=== PATIENT | female | born 1945 | race Caucasian/White ===

== ENCOUNTER 2019-05-22 11:00 | Outpatient (CLI) | payer MEDICARE, MEDICAID, SELFPAY | END 2019-05-22 11:01 | disposition home or self-care (01) | LOC: ONCMED 13:56 | PROVIDERS: Family Provider Nurse Practitioner Family; PCP Nurse Practitioner Family; Visit Provider Internal Medicine Medical Oncology | DX: Z76.89 Persons encountering health services in other specified circumstances (principal) ==

== ENCOUNTER 2019-06-12 12:05 | Outpatient (CLI) | payer MEDICARE, MEDICAID, SELFPAY ==
[2019-06-12 15:19] LABS: Basophils # 0.1 10^3/uL (0.0-0.1); Basophils % 0.5 %; Eosinophils # 0.1 10^3/uL (0.0-0.8); Eosinophils % 0.9 %; Hematocrit 40.3 % (37.0-47.0); Hemoglobin 12.8 g/dL (11.5-15.3); Mean Corpuscular HGB Conc 31.8 g/dL (30.0-36.0); Mean Corpuscular Hemoglobin 28.5 pg (28.0-34.0); Mean Corpuscular Volume 89.8 fL (81-99); Monocytes # 0.6 10^3/uL (0.2-0.9); Monocytes % 5.4 %; Neutrophils # 7.4 10^3/uL (1.8-7.7); Neutrophils % 72.9 %; Nucleated Red Blood Cells % 0 %; Platelet Count 374 10^3/cmm (130-400); Red Blood Count 4.49 10^6/uL (4.1-5.3); Red Cell Distribution Width 15.7 % (12.1-15.1); White Blood Count 10.2 10^3/uL (4.0-10.0)
[2019-06-12 17:06] LABS: Erythrocyte Sedimentation Rate 20 mm/hr (0-15)
[2019-06-12 19:53] LABS: Alanine Aminotransferase 16 U/L (0-33); Alkaline Phosphatase 90 IU/L (35-105); Anion Gap 18.3 (5-19); Aspartate Amino Transferase 16 U/L (0-32); Blood Urea Nitrogen 10 mg/dL (8-23); Calcium 10.1 mg/dL (8.5-10.5); Carbon Dioxide 24 mmol/L (22-29); Chloride 107 mmol/L (98-107); Ferritin 25 ng/mL (15-150); Globulin 3.4 g/dL (1.3-4.6); Glucose 116 mg/dL (65-115); Iron 59 ug/dL (37-145); Potassium 4.3 mmol/L (3.5-5.1); Sodium 145 mmol/L (136-145); Total Bilirubin 0.2 mg/dL (0.15-1.2); Total Iron Binding Capacity 295 mcg/dl; Total Protein 7.4 g/dL (6.6-8.7); Unsaturated Iron Binding 236 ug/dL (112-347)
== END 2019-06-12 12:06 | disposition home or self-care (01) ==
LOC: ONCMED 16:30
PROVIDERS: Visit Provider Internal Medicine Medical Oncology
DX: D64.9 Anemia, unspecified (principal)
CPT/HCPCS: 80053; 82728; 83540; 83550; 85025; 85651

== ENCOUNTER 2019-06-13 09:56 | Outpatient (CLI) | payer MEDICARE, MEDICAID, SELFPAY ==
--- NOTE | 2019-06-13 19:01 | ONC FU_ITS ---
Dr. Rubio Patient Follow-Up Note Patient: Kathrin Elliott Unit #: [id number]: 1945 Dicatated By: Avtar Rubio M.D.Date of Visit:Jun 13, 2019 Onc Med Follow-up/Prog Note Chief Complaint: Leukocytosis. History of Present Illness: This is a 73-year-old woman with a mild but persistent leukocytosis. She also had mild thrombocytosis and mild anemia. 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 At that time she underwent right frontal craniotomy with placement of an intraventricular shunt. Her postoperative course was complicated by lower extremity deep vein thrombosis, requiring placement of inferior vena cava filter. Her other medical illnesses include hypertension, hyperlipidemia, and hypothyroidism. She previously had borderline diabetes. She had been seeing Mary Moncada for primary care. I was asked to see her because of a mildly elevated white blood cell count, which had been persistent dating back to December 2014. She had also developed mild thrombocytosis and mild anemia. In addition, she had been undergoing evaluation for an elevated alkaline phosphatase level. Her CBC from 04/03/2019 showed mildly decreased hemoglobin at 11.7 g with hematocrit 36%. The red cell indices were normal. The white blood cell count was 16,200 with differential showing 62% neutrophils, 32% lymphocytes, and 3% monocytes. The platelet count also was mildly elevated at 456,000. Her comprehensive metabolic profile showed borderline renal function with BUN 11 and creatinine 1.0 mg/dL. The alkaline phosphatase was elevated at 232/105 U/L with SGPT mildly elevated at 67/33 U/L and normal SGOT and bilirubin levels. I had seen her initially on 04/16/2019. She complained that she felt very tired. She reported having episodes of getting hot and sweaty. She had been having pain in her right lower back area at least once or twice a week. She had no other joint or bone pain. Her CBC at that time showed slightly elevated white blood cell count of 12,400 with the differential showing 76% neutrophils, 25% lymphocytes, and 4% monocytes. She was mildly anemic with hemoglobin 11.7 g. The red cell indices were normal. The platelet count was mildly elevated at 538,000. Sed rate was moderately elevated at 49 mm/hour. Alkaline phosphatase was mildly elevated 130/105 IU/L. The serum iron studies showed low transferrin saturation at 11.7% with ferritin 37.0 ng/mL, consistent with iron deficiency. B12 and folate levels were normal. Her clonal studies were negative including the JAK2 [id number] mutation, the JAK2 exon 12 mutation, the CALR exon 9 mutation, the MPL exon 10 mutation, and a FISH study for BCR/abl. Her stool FIT was found to be negative. CT scans of the chest, abdomen, and pelvis on 04/23/2019 showed normal-appearing liver and spleen. There were moderate chronic emphysematous changes. There was no evidence of malignancy. She is seen for a follow-up visit. She continues to complain that she has no energy. She gets exhausted just trying to make her bed. Her ECOG score is 2. She says her appetite has improved. Her weight is stable. She has not had fever. She still has some sweating, both during the daytime and at night, but it is not as bad as it had been. She continues to have pain in the right lower back/right flank area. It tends to radiate around to the front. She has no other GI complaints. She is unable to control her bladder, but that is chronic. She recently has developed persistent headache. It tends to start in the right side of her neck and also involve the right presybeterian area. She complains that her balance is horrible. She also complains that her hands tend to go numb when she is using them, the right moreso than the left. It does not last long, though. She has no other focal neurologic symptoms. Medications: Atorvastatin Calcium 1 Tablet (of 40 mg) Oral at bedtime, buPROPion HCl 1 Tablet (of 25 mg) Oral daily, busPIRone HCl 1 Tablet (of 15 mg) Oral t.i.d. PRN, Cozaar 1 Tablet (of 100 mg) Oral daily, Ferrous Sulfate 3 Tablet (of 27 mg) Oral daily, Fish Oil 1 Capsule (of 300 mg) Oral daily, Gabapentin 1 Capsule (of 100 mg) Oral b.i.d., Levothyroxine Sodium 1 Tablet (of 25 mcg) Oral daily, Methenamine Hippurate 1 Tablet (of 1 g) Oral daily, Multivitamin Adult 1 Tablet Oral daily, Venlafaxine HCl ER 1 Tablet (of 150 mg) Tablet SR 24 HR Oral daily, Vitamin B12 1 Tablet (of 2500 mcg) Oral daily, Vitamin C 1 Capsule (of 1000 mg) Oral daily, Vitamin D3 1 Tablet Oral daily Allergies: No Known Allergies. Review of Systems: Constitutional - She does not have energy. She gets exhausted just making her bed. Her appetite has improved. Her weight is stable. She has not had fever. She has had some sweating, both during the daytime and at night, but not as much as she was having. ECOG score is 2, ENMT - No sinus congestion/drainage. No mouth sores. No sore throat or difficulty swallowing, Hematologic/Lymphatic - She bruises easily, Respiratory - No shortness of breath. She has some cough associated with phlegm in her throat. No pleuritic pain or hemoptysis, Cardiovascular - No angina pain. No palpitations, Gastrointestinal - No nausea or vomiting. No heartburn or acid reflux. No diarrhea or constipation. No blood in the stool or black stools, Genitourinary (F) - No dysuria or hematuria. No urinary frequency. She complains that she has no bladder control, Musculoskeletal - She still has pain in her lower back on the right side. It radiates around to the front, Integumentary - No skin complications, Neurologic - She recently has had persistent headache which starts on the right side of her neck and also involves the right presybeterian area. She complains that her balance is horrible. She has had vertigo. She complains that her hands go numb when she is using them, the right worse than the left. She says it does not last long, Psychiatric - No anxiety. She has depression. No insomnia. Vital Signs: Performed on Jun 13, 2019 10:07 Height - 62.00 in Weight - 164.6 lbs (HIGH) BSA - 1.76 sq.m BMI - 30.11 (HIGH) Temperature - 98.6 F Pulse - 71 /min Respiration - 24 /min BP - 151/83 mm(hg) (HIGH) O2 Sat - 97 % Pain - 5 Physical Examination: Constitutional - She appears somewhat weak generally, but not acutely ill, Eyes - Sclerae nonicteric. Conjunctivae clear, ENMT - No lesions noted in the oral cavity, Hematologic/Lymphatic - No cervical, clavicular, or axillary adenopathy, Respiratory - Lungs sound clear with dimished air movement bilaterally, Cardiovascular - Heart rhythm is regular. There is a II/ systolic murmur at the base. There is no gallop or rub noted, Abdomen - Soft. There is some tenderness in the right flank area and to a lesser extent in the right upper quadrant. Liver and spleen are not enlarged. There is no abdominal mass or ascites noted and there is no inguinal adenopathy, Extremities - No edema, Neurologic - She has severe postural instability. She appears to have some mild weakness in the left leg and to a lesser extent in the left arm. Lab/Imaging: Test performed on Jun 12, 2019 12:05 Ferritin 25 ng/mL Iron 59 ug/dL Sodium 145 mmol/L Potassium 4.3 mmol/L Chloride 107 mmol/L CO2 24 mmol/L UIBC 236 ug/dL Anion Gap 18.3 BUN 10 mg/dL Creatinine 0.9 mg/dL Cr Clearance (Est) 65.3800 mL/min Glucose 116 mg/dL Calcium 10.1 mg/dL Protein, Total 7.4 g/dL Albumin 4.0 g/dL Globulin 3.4 g/dL Bilirubin, Total 0.2 mg/dL ALT (SGPT) 16 U/L AST (SGOT) 16 U/L Alkaline Phosphatase 90 IU/L ESR (Sed Rate) 20 mm/hr WBC 10.2 10 3/uL RBC 4.49 10 6/uL HGB 12.8 g/dL HCT 40.3 % MCV 89.8 fL MCH 28.5 pg MCHC 31.8 g/dL RDW 15.7 % Platelet Count 374 10 3/cmm MPV 10.0 fL Neutrophils 7.4 10 3/uL Lymphocytes 2.0 10 3/uL Monocytes 0.6 10 3/uL Eosinophils 0.1 10 3/uL Basophils 0.1 10 3/uL Neutrophil % 72.9 % Lymphocyte % 20.0 % Monocyte % 5.4 % Eosinophil % 0.9 % Basophils % 0.5 % Test performed on Apr 23, 2019 07:00 Occult Blood -Fecal, IA IFOB RESULTS: Negative for Occult Blood Impression: 1. Patient with persistent mild leukocytosis. This appears to be most likely reactive, though with no obvious underlying cause for it. Her clonal studies were negative. 2. She had mild anemia and mild thrombocytosis. This appears to have been due to iron deficiency. Her stool FIT was negative. 3. She had a significantly elevated alkaline phosphatase level. A specific cause for that was not determined. Her other medical illnesses include: 4. Hypertension. 5. Hyperlipidemia. 6. Hypothyroidism. 7. She has a history of ruptured cerebral aneurysm requiring craniotomy and placement of intraventricular shunt. 8. She developed postoperative lower extremity deep vein thrombosis requiring placement of inferior vena cava filter. 9. She has a recent history of melanoma excision from her chin. 10. She also had treatment for a basal cell skin cancer. 11. She has a history of depression. She continues to have significant fatigue, and she also continues to have pain in the right lower back/right flank area. No specific cause has not been determined. Her alkaline phosphatase level, though, has come back down to normal and there were no abnormal findings on her CT scans which would account for it. Her white blood cell count now is just slightly elevated, and her anemia does appear to be responding to oral iron supplementation. Plan: In the absence of any evidence of underlying malignancy and with her stool FIT negative, she will continue oral iron supplementation, and she will continue her regular follow-up now with Dr. Burgess. I will see her again only as needed. Signed By: Avtar Rubio M.D. <<Signature on File>>
== END 2019-06-13 09:57 | disposition home or self-care (01) ==
LOC: ONCMED 09:56
PROVIDERS: PCP Family Medicine; Visit Provider Internal Medicine Medical Oncology
DX: D50.9 Iron deficiency anemia, unspecified (principal); I10 Essential (primary) hypertension; E78.5 Hyperlipidemia, unspecified; E03.9 Hypothyroidism, unspecified; F32.9 Major depressive disorder, single episode, unspecified; M54.5 Low back pain; Z79.899 Other long term (current) drug therapy; Z86.718 Personal history of other venous thrombosis and embolism; Z98.2 Presence of cerebrospinal fluid drainage device; Z95.828 Presence of other vascular implants and grafts; Z85.820 Personal history of malignant melanoma of skin
CPT/HCPCS: 99214

== ENCOUNTER 2019-06-21 13:28 | Outpatient (CLI) | payer MEDICARE, MEDICAID, SELFPAY ==
--- NOTE | 2019-06-21 13:37 | CT_ITS ---
WS: [id number] CT HEAD TECHNIQUE: Noncontrast and contrast-enhanced CT of the head. CLINICAL INFORMATION: HEADACHE/HX OF CEREBRAL HEMORRHAGE COMPARISON: CTA head 12 DLP: 1057.[address] scans at [facility] use at least one of these dose optimization techniques: automat ed exposure control; mA and/or kV adjustment per patient size (includes targeted exams where dose is matched to clinical indication); or iterative reconstruction. FINDINGS: Prior postoperative changes right frontal and temporal craniotomy. Right parietal shunt catheter with tip directed towards the midline. Shunt catheter with tip in the left frontal horn. Dolichoectatic b asilar artery. Intracranial vascular calcification.Stable ectasia of the left cavernous carotid arter y and left greater than right M1 segments unchanged. This extends into the bilateral MCA territories unchanged. Encephalomalacia right anterior temporal lobe. Intracranial vascular calcification. Ventricular size is unchanged from previous. No evidence of progressive hydrocephalus. Chronic lacunar infarcts in th e right greater than left thalamus. Chronic encephalomalacia in the right frontal lobe along the righ t parietal shunt tract. No abnormal intracranial enhancement. Mastoid air cells and paranasal sinuses are well aerated. CT/CT head wo/w con [id number] IMPRESSION: 1. Stable right parietal shunt catheter tip in the left frontal horn. No progr essive hydrocephalus. 2. Prior postoperative changes right frontotemporal craniotomy with encephalom alacia right anterior temporal lobe. 3. Chronic lacunar infarcts right greater than left thalamus. 4. 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 This extends into the bilateral MCA territories unc hanged. 5. Dolichoectatic basilar artery with calcification. 6. No significant interval changes.
[2019-06-21] MEDS: iohexol 300 mg/mL 100 mL Btl IV (14:04)
== END 2019-06-21 13:29 | disposition home or self-care (01) ==
LOC: CT 13:32
PROVIDERS: Family Provider Family Medicine; PCP Family Medicine; Visit Provider Internal Medicine Medical Oncology
DX: I63.9 Cerebral infarction, unspecified (principal); I67.2 Cerebral atherosclerosis; I65.23 Occlusion and stenosis of bilateral carotid arteries; G93.89 Other specified disorders of brain; R51 Headache
CPT/HCPCS: 70470

== ENCOUNTER → 2019-08-20 14:00 | Outpatient (BNVA) | payer MEDICARE, MEDICAID, SELFPAY | PROVIDERS: Family Provider Family Medicine; PCP Family Medicine; Visit Provider Family Medicine | DX: N39.0 Urinary tract infection, site not specified (principal) | CPT/HCPCS: 81000 ==

== ENCOUNTER 2019-08-26 00:22 | Observation (INO) | payer MEDICARE, MEDICAID, SELFPAY ==
[2019-08-26] VITALS (15 sets, daily range): BP systolic 125–176; BP diastolic 42–87; PULSE 66–83; RESP 14–20; TEMP 36–36.9; O2SAT 93–99; BMI 30.9
--- NOTE | 2019-08-26 00:33 | PC.NURSE ---
Patient states she fell at home 2300 and has an injury to the right wrist/forearm. Patient states that she has a history of falling down because she does not have good balance. Patient states her pain is a 5/10.
--- NOTE | 2019-08-26 00:45 | XRR_ITS ---
PROCEDURE INFORMATION: Exam: XR Right Forearm Exam date and time: 08/26/2019 12:57 AM Age: 74 years old Clinical indication: Injury or trauma; Fall; Initial encounter; Fracture, traumatic injury; Displaced; Radius; Right; Distal end TECHNIQUE: Imaging protocol: XR Right forearm. Views: 2 views. COMPARISON: No relevant prior studies available. FINDINGS: Bones/joints: Comminuted intra-articular fracture of the distal right radius. Dorsal displacement of 1 shaft with an approximately 1 cm of override of the distal fracture fragment. There is also dorsal angulation of the distal fracture fragment. Comminuted and displaced fracture of the distal metaphysis of the ulna with dorsal angulation of the distal fracture fragment. Minimally displaced fracture of the ulnar styloid. A small bone fragment is seen ventral to the distal right radius and ulna. No dislocation. Bones are mildly osteopenic. Soft tissues: There is a deformity of the distal right forearm. Moderate soft tissue swelling at the distal right forearm and wrist. No radiopaque foreign body. XR/XR forearm RT 2V [id number] IMPRESSION: 1. Comminuted and displaced intra-articular fracture of the distal right radius. 2. Comminuted and displaced fracture of the distal metaphysis of the ulna with dorsal angulation of the distal fracture fragment. 3. Minimally displaced fracture of the ulnar styloid. 4. There is a deformity of the distal right forearm. 5. A small bone fragment is seen ventral to the distal right radius and ulna. 6. Moderate soft tissue swelling at the distal right forearm and wrist. 7. Incidental/nonacute findings are listed in the report.
[2019-08-26] MEDS: HYDROmorphone 1 mg/mL INJ 1 mL IVP (00:58)
[2019-08-26] MEDS: ondansetron 2 mg/ML SDV 2 mL 4 MG IVP (02:19)
[2019-08-26] MEDS: midazolam 1 mg/mL INJ 2 mL IVP (02:20)
--- NOTE | 2019-08-26 02:33 | XRR_ITS ---
PROCEDURE INFORMATION: Exam: XR Right Wrist Exam date and time: 08/26/2019 2:41 AM Age: 74 years old Clinical indication: Pain; Wrist; Right; Additional info: Reduction TECHNIQUE: Imaging protocol: XR Right wrist. Views: 1 or 2 views. COMPARISON: No relevant prior studies available. FINDINGS: Bones/joints: There are mildly comminuted transverse fractures of the distal radial and ulnar metaphyses with slight (3 mm) persistent posterior displacement of the distal radial fracture fragment relative to the proximal fracture fragment. Alignment is improved significantly compared to the pre reduction radiograph. There is subtle lucency through the radial articular surface visible on the frontal view suggesting intra-articular extension of the fracture. There is a nondisplaced ulnar styloid process fracture. The carpus is intact. Radiocarpal alignment is satisfactory. The visible portion of the hand is intact. Soft tissues: There is marked soft tissue swelling at the dorsal aspect of the wrist. XR/XR wrist RT 2V [id number] IMPRESSION: Significantly improved alignment of distal radial and ulnar fractures post reduction.
--- NOTE | 2019-08-26 03:10 | XRR_ITS ---
PROCEDURE INFORMATION: Exam: XR Chest, 1 View Exam date and time: 08/26/2019 3:33 AM Age: 74 years old Clinical indication: Shortness of breath; Additional info: Med clearance TECHNIQUE: Imaging protocol: XR of the chest Views: 1 view. COMPARISON: CR Chest 2 views* [id number] 04/06/2015 2:38 PM FINDINGS: Craniocaudally oriented tube overlying the right hemithorax, consistent with a ventriculoperitoneal shunt. Cardiomediastinal silhouette contour is within normal limits. The right lung is clear. Minimal left basilar atelectasis. Pulmonary vasculature within normal limits. No visible pneumothorax. No definite pleural effusion. XR/XR chest 1V portable [id number] IMPRESSION: 1. No radiographic findings of acute cardiopulmonary disease.
--- NOTE | 2019-08-26 03:11 | ECG_ITS ---
Measurements Intervals Burna Rate: 71 P: 52 AL: 191 QRS: 62 QRSD: 98 T: 65 QT: 396 QTc: 433 SINUS RHYTHM POSSIBLE INFERIOR MYOCARDIAL INFARCTION , OF INDETERMINATE AGE [30 ms Q WAVE IN II II/aVF] Compared to ECG 01/12/2015 09:42:49 No significant changes Electronically Signed On 08-26-2019 20:23:04 CDT by Glendy Gallego M.D. [email or web address]
--- NOTE | 2019-08-26 03:28 | CTR_ITS ---
PROCEDURE INFORMATION: Exam: CT Right Upper Extremity Without Contrast, Wrist Exam date and time: 08/26/2019 3:37 AM Age: 74 years old Clinical indication: Injury or trauma; Fall; Initial encounter; Fracture, traumatic injury; Closed fracture; Radius and ulna; Right; Distal end; Additional info: Aleida TECHNIQUE: Imaging protocol: CT of the Right upper extremity without contrast was performed. Exam focused on the wrist. Total DLP: 188.86 mGy-cm Radiation optimization: All CT scans at this facility use at least one of these dose optimization techniques: automated exposure control; mA and/or kV adjustment per patient size (includes targeted exams where dose is matched to clinical indication); or iterative reconstruction. COMPARISON: CR XR wrist RT 2V [id number] 08/26/2019 2:16 AM FINDINGS: Bones/joints: There is a comminuted fracture of the distal radius with extension to the articular surface. The articular surface is moderately comminuted and there is up to 4 mm displacement of the articular surface centrally. There is mild impaction at the metaphyseal fracture site. There is a fragment of cortical bone displaced into the fracture site. There is minimal posterior displacement of the distal fracture fragments relative to the proximal fracture fragment (alignment is markedly improved since the pre reduction radiograph). There is a nondisplaced distal ulnar metaphyseal and styloid fracture. The visible portion of the hand is intact. Possible nondisplaced right triquetral fracture versus prominent osteophytes. Limited spatial resolution prevents definitive evaluation. Soft tissues: There is diffuse soft tissue swelling at the wrist. CT/CT wrist RT wo con* [id number] IMPRESSION: 1. Comminuted, impacted and mildly displaced intra-articular fracture of the distal radius. 2. Nondisplaced ulnar metaphyseal and styloid fractures. 3. Possible triquetrum fracture. Radiation Dose CTDIVOL = (mGy): DLP = 188.86 (mGy-cm)
--- NOTE | 2019-08-26 03:29 | PC.NURSE ---
xray in room
--- NOTE | 2019-08-26 03:41 | PC.NURSE ---
patient to CT
--- NOTE | 2019-08-26 03:55 | ED_ITS ---
HPI - Fall General: Chief Complaint: Fall Stated Complaint: FALL/ WRIST DEFORMITY Time Seen by Provider: 08/26/19 00:28 History of Present Illness: MD complaint: fall Onset (ago): minute(s) Fall from: standing Place fall occurred: home Loss of consciousness: None Prolonged down time: no Context: tripped/slipped Location of injury - extremities: Right: forearm Severity: severe Severity scale (1-10): 9 Quality: sharp Associated symptoms-after fall: Denies abdominal pain, chest pain, confusion, headache(s), hematuria, neck pain or short of breath Review of Systems Const: Denies: fever or chills Eyes: Denies: change in vision or blurry vision ENMT: Denies: painful swallowing, Change in hearing or facial/sinus pain Card: Denies: chest pain Resp: Denies: shortness of breath, productive cough, non-productive cough or wheezing GI: Denies: abdominal pain, nausea or vomiting : Denies: painful urination, urinary frequency or blood in urine Musc: Denies: neck pain, back pain, redness or joint warmth Skin/Breast: Denies: rash, itching or redness Neuro: Denies: headache or confusion Psych: Denies: anxiety PFSH ED PFSH: Social History Smoking and tobacco status: current every day smoker cigarettes Packs smoked per day: 0.5 Alcohol intake: unknown Lives independently: No (relatives) Marital status: Number of children: 1 Current occupational status: retired Current gender identity: Female Physical Exam Const: GENERAL APPEARANCE: well developed ORIENTATION/CONSCIOUSNESS: Yes o riented to person, Yes oriented to place and Yes oriented to time HENMT: COMMON NORMALS: normocephalic and external nose normal HEAD & SCALP: normocephalic; no scalp tenderness FACE & SINUS: normal facial exam NOSE: external nose normal and no nasal discharge THROAT: posterior oropharynx normal; no peritonsillar mass Eye: COMMON NORMALS: PERRL, EOMs intact bilaterally and conjunctivae normal EYELID: eyelids normal CONJUNCTIVA: Yes conjunctivae normal PUPIL: Yes PERRL Neck/C-Spine: COMMON NORMALS: full ROM GENERAL: No tracheal deviation CERVICAL SPINE: No cervical spine tenderness Chest: COMMONS NORMALS: inspection of chest normal CHEST: No tenderness Resp: COMMON NORMALS: clear to auscultation bilaterally EFFORT & INSPECTION: No tachypneic, No respiratory distress, No retractions, No uses accessory muscles and No tracheal deviation AUSCULTATION: clear to a uscultation bilaterally, no rhonchi, no wheezes and lung sounds not diminished Cardio: COMMON NORMALS: regular rate and regular rhythm RATE: regular rate RHYTHM: regular rhythm HEART SOUNDS: no murmurs PERIPHERAL PULSES: radial pulses present GI: INSPECTION: No abdominal distension AUSCULTATION: No hyperactive bowel sounds and No hypoactive bowel sounds PALPATION: No guarding and No rigid PERCUSSION: no dullness to percussion and no tympanic to percussion Extremity: RIGHT UPPER EXTREMITY: Yes wrist (Tenderness with swelling and deformity to the right wrist. Capillary refill is normal. Sensation is normal.) Neuro: SENSORIUM/ORIENTATION: Yes oriented to person, Yes oriented to place and Yes oriented to time Psych: COMMON NORMALS: mental status grossly normal Skin: COMMON NORMALS: no rashes or lesions noted GENERAL SKIN EXAM: no rash es or lesions noted Procedures Orthopedic Fracture Reduction Fracture #1: Time Out Performed: Yes Side: right Fracture Reduction Location: radius Analgesia: procedural sedation Technique: direct manipulation and traction/counter-traction Post Reduction X-rays Demonstrate: acceptable reduction Post-reduction neuro exam: intact Post-reduction vascular exam: intact Splint Applied: Yes Patient Tolerated Procedure: well and no complications Procedural Sedation Indication: fracture/dislocation reduction ASA Class: II Preparation: night monitor applied, pulse oximeter, supplemental O2 applied, suction/airway equipment at bedside and IV secured Midazolam dose (mg): 1 IV Etomidate dose (mg): 15 Patient Tolerated Procedure: well and no complications Complications: none Course Vital Signs: Vital signs: Vital Signs Temperature 97.5 F L 08/26/19 00:27 Pulse Rate 76 08/26/19 03:17 Respiratory Rate 16 08/26/19 03:17 Blood Pressure 125/79 08/26/19 03:17 Pulse Oximetry 99 08/26/19 03:17 MDM - Fall MDM Narrative: Medical decision making narrative: 74-year-old lady who fell at home injuring her right wrist. She has a deformity. She also has some bleeding to the volar wrist. X-ray reveals a comminuted likely intra-articular distal radius fracture that is displaced posteriorly at the distal segment. There is a bone fragment underneath the skin of the volar wrist in the same area as a small puncture type wound to the volar wrist. The wrist was reduced with conscious sedation and closed reduction to fairly good alignment. Spoke with orthopedics about the concern for the fragment with possible opening. Request CT to be done this morning. She will be observed, with orthopedic consultation. Hospitalist agrees to observe. She has received 2 g of Ancef here. Discharge Plan Discharge Patient Disposition: Placed in Observation Clinical Impression: Fracture of wrist Qualifiers: Encounter type: initial encounter Fracture type: open Laterality: right Qualified Code(s): S62.101B - Fracture of unspecified carpal bone, right wrist, initial encounter for open fracture Condition: Stable Referrals: Tiara Burgess MD [Primary Care Provider] - Coding Level of Care Code ED [facility] for g Fwd Exam Comprehensive
[2019-08-26 04:31] LABS: Basophils % 0.3 %; Eosinophils # 0.1 10^3/uL (0.0-0.8); Eosinophils % 0.6 %; Hematocrit 38.7 % (37.0-47.0); Hemoglobin 12.3 g/dL (11.5-15.3); Lymphocytes # 1.4 10^3/uL (0.8-4.8); Lymphocytes % 11.5 %; Mean Corpuscular HGB Conc 31.8 g/dL (30.0-36.0); Mean Corpuscular Hemoglobin 29.2 pg (28.0-34.0); Mean Corpuscular Volume 91.9 fL (81-99); Mean Platelet Volume 9.3 fL (7.4-10.4); Monocytes # 0.7 10^3/uL (0.2-0.9); Monocytes % 5.8 %; Neutrophils % 81.3 %; Nucleated Red Blood Cells % 0 %; Platelet Count 301 10^3/cmm (130-400); Red Blood Count 4.21 10^6/uL (4.1-5.3); Red Cell Distribution Width 14.6 % (12.1-15.1); White Blood Count 12.2 10^3/uL (4.0-10.0)
[2019-08-26 04:47] LABS: Alanine Aminotransferase 23 U/L (0-33); Albumin Level 4.1 g/dL (3.5-5.2); Alkaline Phosphatase 112 IU/L (35-105); Anion Gap 16.3 (5-19); Aspartate Amino Transferase 19 U/L (0-32); Blood Urea Nitrogen 14 mg/dL (8-23); Carbon Dioxide 22 mmol/L (22-29); Chloride 104 mmol/L (98-107); Globulin 2.8 g/dL (1.3-4.6); Glucose 147 mg/dL (65-115); Osmolality Calculated 285 mOsm/kg (285-295); Potassium 4.3 mmol/L (3.5-5.1); Sodium 138 mmol/L (136-145); Total Bilirubin 0.2 mg/dL (0.15-1.2); Total Protein 6.9 g/dL (6.6-8.7)
[2019-08-26 04:53] LABS: Add Urine Microscopic? NO
[2019-08-26 05:07] LABS: Bilirubin Urine Neg (NEGATIVE); Blood Urine Neg (Negative); Glucose Urine UA Norm (Normal); Ketones Urine Negative (Negative); Leukocyte Esterase Urine Negative (Negative); Nitrate Urine Negative (Negative); Protein Urine Neg (Negative); Specific Gravity, Urine 1.015 (1.005-1.030); Urine Appearance Clear (CLEAR); Urine Color Yellow (Yellow); Urobilinogen Urine Norm (Negative); pH Urine 5 (5-7)
[2019-08-26 05:08] LABS: INR 0.98 (0.8-1.2); Partial Thromboplastin Time 26.6 SECONDS (23.9-36.7)
--- NOTE | 2019-08-26 05:47 | P.HP_ITS ---
Providers/Chief Complaint Admitting Physician: Mary Lawton MD Primary Care Provider: Tiara Burgess MD Chief Complaint: FALL/ WRIST DEFORMITY History of Present Illness Kathrin Elliott is a 74 year old female who presented to the emergency room with complaint of right arm pain status post a fall. Patient has chronic gait instability and frequent falls. Today nothing was different than her intermittent falls. She did fall on her right wrist. She had a notable deformi ty. X-ray showed a comminuted distal radial fracture with displacement posteriorly. She underwent reduction in the emergency room. She had wound to the volar surface of the wrist with some active bleeding although it was small. Below this on imaging studies was a small bone fragment however, suggesting the possibility of an open fracture. Case was discussed with Dr. Hernandez who recommended admission to hospitalist service, CT of the right forearm. She will see the patient in consultation. 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) Psych: Reports: anxiety and depression Audi/Lymph: Reports: easy bruising; Denies: easy bleeding Medications/Allergies Home Medications Medication Instructions Recorded Confirmed Last Taken Type ascorbic acid (vitamin C) 1,000 mg 1 gm PO DAILY tab 04/30/19 08/26/19 08/26/19 History tablet ferrous gluconate 240 mg (27 mg 240 mg PO TID 04/30/19 08/26/19 08/26/19 History iron) tablet multivitamin 1 tab PO QAM 04/30/19 08/26/19 08/26/19 History atorvastatin 40 mg tablet 40 mg PO DAILY #90 tab 06/25/19 08/26/19 08/26/19 Rx cholecalciferol (vitamin D3) 125 5,000 unit PO DAILY cap 06/25/19 08/26/19 08/26/19 History mcg (5,000 unit) capsule cyanocobalamin (vitamin B-12) 2,500 mcg PO DAILY tab 06/25/19 08/26/19 08/26/19 History 2,500 mcg tablet gabapentin 100 mg capsule 100 mg PO BID #180 cap 06/25/19 08/26/19 08/26/19 Rx levothyroxine 25 mcg tablet 25 mcg PO DAILY #90 tab 06/25/19 08/26/19 08/26/19 Rx losartan 100 mg tablet 100 mg PO DAILY #90 tab 06/25/19 08/26/19 08/26/19 Rx methenamine hippurate 1 gram tablet 1 gm PO DAILY #90 tab 06/25/19 08/26/19 08/26/19 Rx montelukast 10 mg tablet 10 mg PO DAILY tab 06/25/19 08/26/19 08/26/19 History omega 0-qso-gky-fish oil 300 1 cap PO DAILY cap 06/25/19 08/26/19 08/26/19 History mg-1,000 mg capsule venlafaxine 150 mg 150 mg PO DAILY #90 cap 06/25/19 08/26/19 08/26/19 Rx capsule,extended release 24 hr bupropion HCl 25 mg PO DAILY 08/26/19 08/26/19 08/26/19 History buspirone 15 mg PO TID PRN 08/26/19 08/26/19 08/26/19 History fluorouracil 1 applic TOPICAL BID 08/26/19 08/26/19 08/26/19 History Allergies Allergy/AdvReac Type Severity Reaction Status Date / Time No Known Allergies Allergy Verified 06/25/19 13:07 PFSH Acute PFSH: Medical History (Updated 08/26/19 @ 06:36 by Mary Lawton MD) Acquired bilateral hammer toes Adult onset hypothyroidism Anemia, iron deficiency Anxiety with depression Basal cell carcinoma of skin of nose (~07/2017) Brain aneurysm (~1995) CVA (cerebrovascular accident due to intracerebral hemorrhage) Essential (primary) hypertension Gait instability With frequent falls at baseline Hyperlipidemia, unspecified Leukocytosis follows with Dr Rubio Lung nodule right Malignant melanoma of chin (~07/2017) Paresthesia of skin Skin cancer of nose On 5-FU cream Squamous cell carcinoma of left lower leg Urinary incontinence, urge Surgical History History of appendectomy History of brain shunt History of brain surgery (~1995) ruptured aneurysm repair with shunt implanted History of section History of hysterectomy Family History Family/Other Stroke CAD (coronary artery disease) Cancer skin Social History Smoking and tobacco status: current every day smoker cigarettes Packs smoked per day: 0.5 Alcohol intake: unknown Lives independently: No (relatives) Marital status: Number of children: 1 Current occupational status: retired Current gender identity: Female Vitals/I&O/Wt Last Vital Signs Temp 96.8 F L 08/26/19 05:39 Pulse 69 08/26/19 05:39 Resp 18 08/26/19 05:39 BP 140/76 08/26/19 05:39 Pulse Ox 97 08/26/19 05:39 08/25/19 08/25/19 08/26/19 14:59 22:59 06:59 Intake Total 50 / 50 Balance 50 / 50 Weight last 48 hrs Weight 74.389 kg Physical Exam Const: COMMON NORMALS: oriented x3 and alert HENMT: COMMON NORMALS: normocephalic and head/scalp atraumatic Eye: COMMON NORMALS: PERRL Neck/C-Spine: COMMON NORMALS: supple Resp: COMMON NORMALS: normal respiratory effort, no use of accessory muscles and clear to auscultation bilaterally Cardio: COMMON NORMALS: regular rate, regular rhythm and no murmurs GI: COMMON NORMALS: normal to inspection, nondistended, normoactive bowel sounds, soft to palpation and non-tender Extremity: COMMON NORMALS: normal capillary refill, no clubbing, cyanosis or edema and no calf tenderness NARRATIVE EXTREMITY EXAM: During my examination, patient's right upper extremity is noted to be in a sugar tong splint with Earl wrapping. Her fingers were swollen and dusky. They were cool to touch at the time of my evaluation. She had capillary refill around 3 seconds. She reported some numbness. I conferred with staff in the ED about the appearance of her fingers earlier. Upon learning that this was a change, remove the Earl wrapping and loosen the sugar tong. Patient immediately had improvement in color and warmth of her fingertips. Her numbness has now resolved. I rewrapped the Earl around the sugar tong splint making sure to keep it not as tight. Requested that arm be elevated. Neuro: COMMON NORMALS: moves all extremities (Including able to move all fingers on right hand) SPEECH: speech normal Psych: COMMON NORMALS: thought process normal and cooperative Skin: COMMON NORMALS: no rashes or lesions noted Data : 08/26/19 04:23 08/26/19 04:23 A&P Assessment and plan (1) Fall at home: Status: Acute Qualifiers: Encounter type: initial encounter Qualified Code(s): W19.XXXA - Unspec ified fall, initial encounter; Y92.009 - Unspecified place in unspecified non- institutional (private) residence as the place of occurrence of the external cause (2) Fracture of wrist: Status: Acute Qualifiers: Encounter type: initial encounter Fracture type: open Laterality: right Qualified Code(s): S62.101B - Fracture of unspecified carpal bone, right wrist, initial encounter for open fracture (3) Gait instability: Status: Chronic (4) Essential (primary) hypertension: Status: Chronic (5) Anxiety with depression: Status: Chronic (6) Nicotine dependence, cigarettes, uncomplicated: Status: Chronic Additional A&P Information Observation admission Orthopedic consultation Continue Ancef for now Pain control as needed Home medications as ordered On vitamin D, will add calcium EKG is still pending but otherwise do not anticipate any need for further preoperative evaluation or optimization at this time should she require surgical intervention Supportive care otherwise Full code I did discuss briefly with patient's daughter on the phone Anticipate discharge back home Patient was given an opportunity to ask questions which were answered Attestations Medical Necessity Statement*: Currently anticipated stay less than 2 midnights in this patient had a fall at home and has wrist fracture which may require surgical intervention Coding Level of Care Code Acute Application Internship for [facility] Fwd Diagnoses Fall at home W19.XXXA; Y92.009 Encounter type: initial encounter Fracture of wrist S62.101B Encounter type: initial encounter Fracture type: open Laterality: right Gait instability R26.81 Essential (primary) hypertension I10 Anxiety with depression F41.8 Nicotine dependence, cigarettes, uncomplicated F17.210
[2019-08-26] MEDS: acetaminophen 325 mg Tablet 650 MG PO (06:39)
[2019-08-26] MEDS: sodium chloride 0.9% 1,000 ML 100 ML IV (06:39)
[2019-08-26] MEDS: lanolin oint 7 gm 1 APPLIC TOPICAL (06:59)
[2019-08-26] MEDS: gabapentin 100 mg Capsule PO (08:15)
[2019-08-26] MEDS: levothyroxine 25 mcg Tablet PO (08:15)
[2019-08-26] MEDS: HYDROcodone-acetaminophen 5-325 mg Tablet 1 TAB PO (08:15)
[2019-08-26] MEDS: venlafaxine ER (24HR) 150 mg Capsule PO (08:15)
[2019-08-26] MEDS: cholecalciferol (vitamin D3) 1,000 unit Tablet 1000 UNIT PO (08:16)
[2019-08-26] MEDS: atorvastatin 40 mg Tablet PO (08:16)
[2019-08-26] MEDS: docusate sodium 100 mg Capsule PO (08:16)
[2019-08-26] MEDS: losartan 50 mg Tablet 100 MG PO (08:17)
[2019-08-26] MEDS: FLUOROURACIL 1 EACH TOPICAL (08:30)
--- NOTE | 2019-08-26 10:35 | P.PN_ITS ---
Subjective Subjective: Interval history: Chart reviewed including labs and imaging. R distal radius fx reduced in ED and remains splinted. VSS. Case discussed with Dr. Hernandez, will plan on outpatient surgery this week, ok for d/c home. Medications: Reviewed: Yes Medication Review Details: Active Medications Generic Name Dose Route Start Last Admin Trade Name Freq PRN Reason Stop Dose Admin Acetaminophen 650 mg 08/26/19 06:07 08/26/19 06:39 Tylenol PO 650 mg Q6H PRN Administration Mild/Mod Pain Or Temp >/= 101 Hydrocodone Bitart /Acetaminophen 1 tab 08/26/19 06:07 08/26/19 08:15 Minturn 5-325 Mg PO 1 tab Q4H PRN Administration MODERATE TO SEVER E PAIN Atorvastatin Calci um 40 mg 08/26/19 09:00 08/26/19 08:16 Lipitor PO 40 mg DAILY JAMEE Administration Bisacodyl 10 mg 08/26/19 06:07 Dulcolax PO DAILY PRN CONSTIPATION Buspirone HCl 15 mg 08/26/19 06:03 Buspar PO TID PRN anxiety Calcium Carbonate 1,000 mg 08/26/19 09:00 08/26/19 08:22 Tums PO Not Given DAILY JAMEE Docusate Sodium 100 mg 08/26/19 09:00 08/26/19 08:16 Colace PO 100 mg BID JAMEE Administration Gabapentin 100 mg 08/26/19 09:00 08/26/19 08:15 Neurontin PO 100 mg BID JAMEE Administration Sodium Chloride 1,000 mls @ 100 m ls/hr 08/26/19 05:39 08/26/19 06:39 Sodium Chloride 0.9% IV 100 mls/hr .Q10H JAMEE Administration Cefazolin Sodium 1 ,000 mg/ 50 mls @ 100 mls/ hr 08/26/19 11:00 Sodium Chloride IV Q8H JAMEE Protocol Lanolin 1 applic 08/26/19 05:59 08/26/19 06:59 Lanolin Oint TOPICAL 1 tube PRN PRN Administration DRYNESS Levothyroxine Sodi um 25 mcg 08/26/19 09:00 08/26/19 08:15 Synthroid PO 25 mcg DAILY JAMEE Administration Losartan Potassium 100 mg 08/26/19 09:00 08/26/19 08:17 Cozaar PO 100 mg DAILY JAMEE Administration Montelukast Sodium 10 mg 08/26/19 09:00 08/26/19 08:18 Singulair PO Not Given DAILY JAMEE Morphine Sulfate 4 mg 08/26/19 05:39 Morphine IVP Q4H PRN SEVERE PAIN Multivitamins Ther apeutic 1 tab 08/27/19 06:00 Multivitamin Tab PO QAM JAMEE Non-Formulary Medi cation 25 mg 08/26/19 09:00 Bupropion Hcl PO DAILY JAMEE Non-Formulary Medi cation 1 applic 08/26/19 09:00 08/26/19 08:30 Fluorouracil TOPICAL 1 applic BID JAMEE Administration Non-Formulary Medi cation 1 gm 08/26/19 09:00 Methenamine Caryl urate PO DAILY JAMEE Ondansetron HCl 4 mg 08/26/19 05:39 Zofran IVP Q6H PRN NAUSEA AND VOMITI NG Venlafaxine HCl 150 mg 08/26/19 09:00 08/26/19 08:15 Effexor Xr PO 150 mg DAILY JAMEE Administration Vitamin D 1,000 unit 08/26/19 09:00 08/26/19 08:16 Vitamin D3 PO 1,000 unit DAILY JAMEE Administration No Known Allergies Allergy (Verified 06/25/19 13:07) Vitals/I&O/Wt Last Vital Signs Temp 98.5 F 08/26/19 08:00 Pulse 69 08/26/19 08:00 Resp 16 08/26/19 08:00 BP 130/72 08/26/19 08:17 Pulse Ox 93 08/26/19 08:00 08/25/19 08/26/19 08/26/19 22:59 06:59 14:59 Intake Total 50 / 50 Balance 50 / 50 Weight last 48 hrs Weight 74.389 kg Physical Exam Const: COMMON NORMALS: no apparent distress and oriented x3 GENERAL APPEARANCE: cooperative and comfortable ORIENTATION/CONSCIOUSNESS: Yes awake HENMT: COMMON NORMALS: normocephalic, head/scalp atraumatic, hearing grossly normal bilaterally and moist oral mucous membranes HEAD & SCALP: normocephalic and atraumatic Eye: COMMON NORMALS: PERRL, EOMs intact bilaterally and conjunctivae normal CONJUNCTIVA: Yes conjunctivae normal PUPIL: Yes PERRL Neck/C-Spine: COMMON NORMALS: full ROM GENERAL: Yes normal visual inspection and Yes trachea midline Resp: COMMON NORMALS: normal respiratory effort, no retractions, no use of accessory muscles and clear to auscultation bilaterally EFFORT & INSPECTION: Yes able to speak in complete sentences, Yes symmetric chest movement and No tachypneic AUSCULTATION: clear to auscultation bilaterally Cardio: COMMON NORMALS: regular rate, regular rhythm, S1 normal heart sound, S2 normal heart sound and no murmurs RATE: regular rate RHYTHM: regular rhythm HEART SOUNDS: S1 normal and S2 normal GI: COMMON NORMALS: normal to inspection, nondistended, normoactive bowel sounds, soft to palpation and non-tender PALPATION: Yes soft Extremity: COMMON NORMALS: normal to inspection, full ROM and no clubbing, cyanosis or edema; negative for no pedal edema NARRATIVE EXTREMITY EXAM: -RUE splinted Neuro: COMMON NORMALS: oriented x3, moves all extremities, no focal motor deficits, no sensory deficits noted and gait normal Psych: COMMON NORMALS: mental status grossly normal, thought process normal, cooperative, affect normal and speech normal SPEECH: Yes normal speech THOUGHT PROCESS: normal thought process Skin: COMMON NORMALS: no rashes or lesions noted, no jaundice, no petechiae and no mottling GENERAL SKIN EXAM: no rashes or lesions noted Data : 08/26/19 04:23 08/26/19 04:23 A&P Assessment and plan (1) Fracture of wrist: -noted comminuted and displaced distal radial fracture in ED and remains splinted; per CT also has nondisplaced styloid and ulnar fracture and possible triquetrum fracture -Ortho consult by Dr. aMry jiménez; outpatient surgery -Pain control as needed, bowel regimen -Neurovascular checks -on cefazolin Status: Acute Qualifiers: Encounter type: initial encounter Fracture type: open Laterality: right Qualified Code(s): S62.101B - Fracture of unspecified carpal bone, right wrist, initial encounter for open fracture (2) Fall at home: -fall precautions Status: Acute Qualifiers: Encounter type: initial encounter Qualified Code(s): W19.XXXA - Unspecified fall, initial encounter; Y92.009 - Unspecified place in unspecified non-institutional (private) residence as the place of occurrence of the external cause (3) Gait instability: -fall precautions -PT evaluation Status: Chronic (4) Skin cancer of nose: -hx of melanoma excision from chin, treatment for basal cell carcinoma Status: Acute (5) Nicotine dependence, cigarettes, uncomplicated: -1/2 PPD Status: Chronic (6) Essential (primary) hypertension: -VSS; continue to monitor -continue oral antihypertensives Status: Chronic (7) Anemia, iron deficiency: -chronically on iron supplementation -H/H stable Status: Chronic Qualifiers: Iron deficiency anemia type: unspecified iron deficiency Qualified Code(s): D50.9 - Iron deficiency anemia, unspecified (8) Anxiety with depression: -continue buspirone, venlafaxine Status: Chronic (9) Adult onset hypothyroidism: -on levothyroxine Status: Chronic (10) Hyperlipidemia, unspecified: -on statin Status: Chronic Qualifiers: Hyperlipidemia type: unspecified Qualified Code(s): E78.5 - Hype rlipidemia, unspecified (11) Urinary incontinence, urge: -chronically wears adult diapers -on methenamine Status: Chronic Additional A&P Information -hx of cerebral hemorrhage due to ruptured aneurysm (1995) s/p R frontal craniotomy with placement of intraventricular shunt -hx of DVT s/p IVC filter; post-op complication -currently NPO -DVT ppx with SCDs for now pending decision on possible sx -Dispo: home -Code status: FULL code Attestations Medical Necessity Statement*: Discharge home today. Time Spent in Patient Care: Greater than 35 minutes (>than 50% of time spent in counselling and/or direct pt care on unit) . Coding Level of Care Code Acute Plant Maintenance Supervisor for [facility] Fwd Exam Comprehensive Diagnoses Fracture of wrist S62.101B Encounter type: initial encounter Fracture type: open Laterality: right Fall at home W19.XXXA; Y92.009 Encounter type: initial encounter Gait instability R26.81 Skin cancer of nose C44.301 Nicotine dependence, cigarettes, uncomplicated F17.210 Essential (primary) hypertension I10 Anemia, iron deficiency D50.9 Iron deficiency anemia type: unspecified iron deficiency Anxiety with depression F41.8 Adult onset hypothyroidism E03.8 Hyperlipidemia, unspecified E78.5 Hyperlipidemia type: unspecified Urinary incontinence, urge N39.41
[2019-08-26] MEDS: morphine 4 mg/mL SDV 1 mL IVP (11:04)
[2019-08-26] MEDS: ceFAZolin 1,000 MG in sodium chloride 0.9% (plus) 50 ML 100 MG IV (11:06)
--- NOTE | 2019-08-26 12:02 | PM.CONSULT ---
Providers/Reason For Consult Consulting Physican/Specialty*: Judy Hernandez/Orthopedics Reason for Consult*: Right comminuted significantly displaced distal radius fracture Requesting Physcian: Dr. Maikel Rice Attending Physician: Marely Cagle MD Primary Care Provider: Tiara Burgess MD History of Present Illness History of Present Illness Kathrin Elliott is a 74 year old female who presented to the emergency room last evening with complaints of right wrist pain. The patient notes that she has had chronic frequent falls following a aneurysm in approximately 1975 . She fell onto her right wrist while in the bathroom. She had a comminuted distal radius fracture with displacement of the distal fragment dorsally. Underwent reduction in the emergency room, and on the volar surface of her wrist, she had some bleeding and there was concern that this was an open fracture. The patient was admitted for IV antibiotics and a CT to see if there was air around the fracture site. She was admitted to the medical service as an outpatient in a bed Review of Systems Const: Denies: fever or chills Eyes: Denies: change in vision or blurry vision ENMT: Denies: throat pain, painful swallowing, change in hearing or facial/sinus pain Card: Denies: chest pain, palpitations or shortness of breath on exertion Resp: Denies: shortness of breath, productive cough, non-productive cough or wheezing GI: Denies: abdominal pain, nausea or vomiting : Denies: painful urination, urinary frequency or blood in urine Musc: Reports: extremity pain (Right arm); Denies: neck pain, back pain, redness or joint warmth Skin/Breast: Reports: other (Reports gets cellulitis easily); Denies: rash, itching or redness Neuro: Reports: 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); Denies: headache or confusion Psych: Reports: anxiety and depression Audi/Lymph: Reports: easy bruising; Denies: easy bleeding Meds/Allergies Home Medications and Allergies Home Medications Medication Instructions Recorded Confirmed Last Taken Type ascorbic acid (vitamin C) 1,000 mg 1 gm PO DAILY tab 04/30/19 08/26/19 08/26/19 History tablet ferrous gluconate 240 mg (27 mg 240 mg PO TID 04/30/19 08/26/19 08/26/19 History iron) tablet multivitamin 1 tab PO QAM 04/30/19 08/26/19 08/26/19 History atorvastatin 40 mg tablet 40 mg PO DAILY #90 tab 06/25/19 08/26/19 08/26/19 Rx cholecalciferol (vitamin D3) 125 5,000 unit PO DAILY cap 06/25/19 08/26/19 08/26/19 History mcg (5,000 unit) capsule cyanocobalamin (vitamin B-12) 2,500 mcg PO DAILY tab 06/25/19 08/26/19 08/26/19 History 2,500 mcg tablet gabapentin 100 mg capsule 100 mg PO BID #180 cap 06/25/19 08/26/19 08/26/19 Rx levothyroxine 25 mcg tablet 25 mcg PO DAILY #90 tab 06/25/19 08/26/19 08/26/19 Rx losartan 100 mg tablet 100 mg PO DAILY #90 tab 06/25/19 08/26/19 08/26/19 Rx methenamine hippurate 1 gram tablet 1 gm PO DAILY #90 tab 06/25/19 08/26/19 08/26/19 Rx montelukast 10 mg tablet 10 mg PO DAILY tab 06/25/19 08/26/19 08/26/19 History omega 1-ick-yvg-fish oil 300 1 cap PO DAILY cap 06/25/19 08/26/19 08/26/19 History mg-1,000 mg capsule venlafaxine 150 mg 150 mg PO DAILY #90 cap 06/25/19 08/26/19 08/26/19 Rx capsule,extended release 24 hr bupropion HCl 25 mg PO DAILY 08/26/19 08/26/19 08/26/19 History buspirone 15 mg PO TID PRN 08/26/19 08/26/19 08/26/19 History fluorouracil 1 applic TOPICAL BID 08/26/19 08/26/19 08/26/19 History Allergies Allergy/AdvReac Type Severity Reaction Status Date / Time No Known Allergies Allergy Verified 06/25/19 13:07 Current Medications Current Medications Generic Name Dose Route Start Last Admin Trade Name Freq PRN Reason Stop Dose Admin Acetaminophen 650 mg 08/26/19 06:07 08/26/19 06:39 Tylenol PO 650 mg Q6H PRN Administration Mild/Mod Pain Or Temp >/= 101 Hydrocodone Bitart/Acetaminophen 1 tab 08/26/19 06:07 08/26/19 08:15 [place] 5-325 Mg PO 1 tab Q4H PRN Administration MODERATE TO SEVERE PAIN Atorvastatin Calcium 40 mg 08/26/19 09:00 08/26/19 08:16 Lipitor PO 40 mg DAILY JAMEE Administration Calcium Carbonate 1,000 mg 08/26/19 09:00 08/26/19 08:22 Tums PO Not Given DAILY [facility] Docusate Sodium 100 mg 08/26/19 09:00 08/26/19 08:16 Colace PO 100 mg BID JAMEE Administration Gabapentin 100 mg 08/26/19 09:00 08/26/19 08:15 Neurontin PO 100 mg BID JAMEE Administration Sodium Chloride 1,000 mls @ 100 mls/hr 08/26/19 05:39 08/26/19 06:39 Sodium Chloride 0.9% IV 100 mls/hr .Q10H JAMEE Administration Cefazolin Sodium 1,000 mg/ 50 mls @ 100 mls/hr 08/26/19 11:00 08/26/19 11:06 Sodium Chloride IV 100 mls/hr Q8H JAMEE Administration Protocol Lanolin 1 applic 08/26/19 05:59 08/26/19 06:59 Lanolin Oint TOPICAL 1 tube PRN PRN Administration DRYNESS Levothyroxine Sodium 25 mcg 08/26/19 09:00 08/26/19 08:15 Synthroid PO 25 mcg DAILY JAMEE Administration Losartan Potassium 100 mg 08/26/19 09:00 08/26/19 08:17 Cozaar PO 100 mg DAILY JAMEE Administration Montelukast Sodium 10 mg 08/26/19 09:00 08/26/19 08:18 Singulair PO Not Given DAILY [facility] Morphine Sulfate 4 mg 08/26/19 05:39 08/26/19 11:04 Morphine IVP 4 mg Q4H PRN Administration SEVERE PAIN Non-Formulary Medication 1 applic 08/26/19 09:00 08/26/19 08:30 Fluorouracil TOPICAL 1 applic BID [facility] Administration Venlafaxine HCl 150 mg 08/26/19 09:00 08/26/19 08:15 Effexor Xr PO 150 mg DAILY JAMEE Administration Vitamin D 1,000 unit 08/26/19 09:00 08/26/19 08:16 Vitamin D3 PO 1,000 unit DAILY JAMEE Administration Additional Medication Information Active Medications Generic Name Dose Route Start Last Admin Trade Name Freq PRN Reason Stop Dose Admin Acetaminophen 650 mg 08/26/19 06:07 08/26/19 06:39 Tylenol PO 650 mg Q6H PRN Administration Mild/Mod Pain Or Temp >/= 101 Hydrocodone Bitart/Acetaminophen 1 tab 08/26/19 06:07 08/26/19 08:15 [place] 5-325 Mg PO 1 tab Q4H PRN Administration MODERATE TO SEVERE PAIN Atorvastatin Calcium 40 mg 08/26/19 09:00 08/26/19 08:16 Lipitor PO 40 mg DAILY JAMEE Administration Bisacodyl 10 mg 08/26/19 06:07 Dulcolax PO DAILY PRN CONSTIPATION Buspirone HCl 15 mg 08/26/19 06:03 Buspar PO TID PRN anxiety Calcium Carbonate 1,000 mg 08/26/19 09:00 08/26/19 08:22 Tums PO Not Given DAILY [facility] Docusate Sodium 100 mg 08/26/19 09:00 08/26/19 08:16 Colace PO 100 mg BID JAMEE Administration Gabapentin 100 mg 08/26/19 09:00 08/26/19 08:15 Neurontin PO 100 mg BID JAMEE Administration Sodium Chloride 1,000 mls @ 100 mls/hr 08/26/19 05:39 08/26/19 06:39 Sodium Chloride 0.9% IV 100 mls/hr .Q10H JAMEE Administration Cefazolin Sodium 1,000 mg/ 50 mls @ 100 mls/hr 08/26/19 11:00 Sodium Chloride IV Q8H [facility] Protocol Lanolin 1 applic 08/26/19 05:59 08/26/19 06:59 Lanolin Oint TOPICAL 1 tube PRN PRN Administration DRYNESS Levothyroxine Sodium 25 mcg 08/26/19 09:00 08/26/19 08:15 Synthroid PO 25 mcg DAILY JAMEE Administration Losartan Potassium 100 mg 08/26/19 09:00 08/26/19 08:17 Cozaar PO 100 mg DAILY JAMEE Administration Montelukast Sodium 10 mg 08/26/19 09:00 08/26/19 08:18 Singulair PO Not Given DAILY [facility] Morphine Sulfate 4 mg 08/26/19 05:39 Morphine IVP Q4H PRN SEVERE PAIN Multivitamins Therapeutic 1 tab 08/27/19 06:00 Multivitamin Tab PO QAM JAMEE Non-Formulary Medication 25 mg 08/26/19 09:00 Bupropion Hcl PO DAILY JAMEE Non-Formulary Medication 1 applic 08/26/19 09:00 08/26/19 08:30 Fluorouracil TOPICAL 1 applic BID JAMEE Administration Non-Formulary Medication 1 gm 08/26/19 09:00 Methenamine Hippurate PO DAILY JAMEE Ondansetron HCl 4 mg 08/26/19 05:39 Zofran IVP Q6H PRN NAUSEA AND VOMITING Venlafaxine HCl 150 mg 08/26/19 09:00 08/26/19 08:15 Effexor Xr PO 150 mg DAILY JAMEE Administration Vitamin D 1,000 unit 08/26/19 09:00 08/26/19 08:16 Vitamin D3 PO 1,000 unit DAILY JAMEE Administration No Known Allergies Allergy (Verified 06/25/19 13:07) PFSH Acute PFSH: Medical History Acquired bilateral hammer toes Adult onset hypothyroidism Anemia, iron deficiency Anxiety with depression Basal cell carcinoma of skin of nose (~07/2017) Brain aneurysm (~1995) CVA (cerebrovascular accident due to intracerebral hemorrhage) Essential (primary) hypertension Gait instability With frequent falls at baseline Hyperlipidemia, unspecified Leukocytosis follows with Dr Rubio Lung nodule right Malignant melanoma of chin (~07/2017) Paresthesia of skin Skin cancer of nose On 5-FU cream Squamous cell carcinoma of left lower leg Urinary incontinence, urge Surgical History History of appendectomy History of brain shunt History of brain surgery (~1995) ruptured aneurysm repair with shunt implanted History of section History of hysterectomy Family History Family/Other Stroke CAD (coronary artery disease) Cancer skin Social History Smoking and tobacco status: current every day smoker cigarettes Packs smoked per day: 0.5 Alcohol intake: unknown Lives independently: No (relatives) Marital status: Number of children: 1 Current occupational status: retired Current gender identity: Female Dietary Habits: Current diet type/program: regular Caffeine: Yes Vitals/I&O/Wt Last Vital Signs Temp 97.7 F 08/26/19 11:51 Pulse 66 08/26/19 11:51 Resp 18 08/26/19 11:51 BP 127/74 08/26/19 11:51 Pulse Ox 97 08/26/19 11:51 08/25/19 08/26/19 08/26/19 22:59 06:59 14:59 Intake Total 50 / 50 Balance 50 / 50 Weight last 48 hrs Weight 164 lb Physical Exam Const: COMMON NORMALS: no apparent distress, average body habitus, oriented x3 and alert GENERAL APPEARANCE: cooperative and comfortable ORIENTATION/CONSCIOUSNESS: Yes awake HENMT: COMMON NORMALS: normocephalic and head/scalp atraumatic HEAD & SCALP: normocephalic and atraumatic Eye: GENERAL EYE: normal appearance of both eyes Chest: COMMONS NORMALS: inspection of chest normal Resp: COMMON NORMALS: normal respiratory effort EFFORT & INSPECTION: Yes able to speak in complete sentences and Yes symmetric chest movement Extremity: RIGHT UPPER EXTREMITY: Yes wrist Right wrist: Yes inspection (The patient is currently in her post reduction splint and this is not removed.), Yes ROM (Not evaluated.) and Yes neurovascular exam (Intact to capillary refill and motor function of the fingers.) Neuro: COMMON NORMALS: oriented x3 SENSORIUM/ORIENTATION: Yes alert Psych: COMMON NORMALS: mental status grossly normal APPEARANCE: Yes grossly normal ATTITUDE: Yes calm and Yes engaged ATTENTION/CONCENTRATION: Yes attention grossly intact Skin: COMMON NORMALS: no rashes or lesions noted GENERAL SKIN EXAM: no rashes or lesions noted Data Imaging^: Xray Ortho: I personally reviewed and interpreted this imaging study as follows: My impression: Patient had a comminuted displaced intra-articular fracture of the distal radius. Prior to closed reduction in the emergency department, the patient had significant dorsal displacement of the distal fragment. There was an associated ulnar metaphyseal and styloid fracture. The fracture was reduced and splinted. A&P Assessment and plan (1) Closed fracture of distal ends of right radius and ulna: The patient was seen in the emergency department and admitted following a closed reduction. There was concern for open fracture, and the patient was admitted for IV antibiotics. There was a small wound on the volar surface of the wrist which bled after the fracture was reduced. This is concerning for an inside out type of open fracture. The patient did receive appropriate IV antibiotics. Discussion was undertaken with the patient today that I would like to see her in the office tomorrow and we will reevaluate her at that time. Plans would be for definitive treatment on Tuesday, August 27, but if necessary, we will take her to the operating room tomorrow. The injury occurred inside the patient's home as an inside-out injury. It was in the bathroom. It is not felt that we need to openly irrigate her and then follow with a second procedure for definitive treatment. Status: Acute Qualifiers: Encounter type: initial encounter Qualified Code(s): S52.501A - Unspecified fracture of the lower end of right radius, initial encounter for closed fracture; S52.601A - Unspecified fracture of lower end of right ulna, initial encounter for closed fracture Consult Attestations Medical Necessity Statement: Per medical service, the patient is admitted for IV antibiotics. Coding Level of Care Code Acute [employer] for Janell Mathew Diagnoses Closed fracture of distal ends of right radius and ulna S52.501A; S52.601A Encounter type: initial encounter
--- NOTE | 2019-08-26 18:20 | P.DS_ITS ---
Discharge Providers Date of Admission: 08/26/19 04:03 Date of Discharge: August 26, 2019 Attending Provider at Admission: Mary Lawton MD Attending Provider at Discharge: Marely Cagle MD Primary Care Provider: Tiara Burgess MD Diagnoses at Discharge Discharge Diagnosis (1) Fracture of wrist: Status: Acute Qualifiers: Encounter type: initial encounter Fracture type: open Laterality: right Qualified Code(s): S62.101B - Fracture of unspecified carpal bone, right wrist, initial encounter for open fracture (2) Fall at home: Status: Acute Qualifiers: Encounter type: initial encounter Qualified Code(s): W19.XXXA - Unspecified fall, initial encounter; Y92.009 - Unspecified place in unspecified non-institutional (private) residence as the place of occurrence of the external cause (3) Gait instability: Status: Chronic Problem details: With frequent falls at baseline (4) Skin cancer of nose: Status: Acute Problem details: On 5-FU cream (5) Nicotine dependence, cigarettes, uncomplicated: Status: Chronic (6) Essential (primary) hypertension: Status: Chronic (7) Anemia, iron deficiency: Status: Chronic Qualifiers: Iron deficiency anemia type: unspecified iron deficiency Qualified Code(s): D50.9 - Iron deficiency anemia, unspecified (8) Anxiety with depression: Status: Chronic (9) Adult onset hypothyroidism: Status: Chronic (10) Hyperlipidemia, unspecified: Status: Chronic Qualifiers: Hyperlipidemia type: unspecified Qualified Code(s): E78.5 - Hyperlipidemia, unspecified (11) Urinary incontinence, urge: Status: Chronic Reason for Visit Reason for Visit: Reason For Visit: FALL/ WRIST DEFORMITY Hospital Course Hospital Course: Patient was admitted to the medical surgical floor and continued on IV antibiotic therapy in anticipation of possible surgical intervention secondary to noted right wrist fracture. She was evaluated by Dr. Hernandez and deemed appropriate for outpatient surgery and cleared for discharge home today. She has been discharged with continued antibiotic therapy and analgesics. Discharge Summary: -Patient to follow-up with Dr. Hernandez as scheduled -Patient to follow up with primary care provider within 1 week Physical Exam Const: COMMON NORMALS: no apparent distress and oriented x3 GENERAL APPEARANCE: cooperative and comfortable ORIENTATION/CONSCIOUSNESS: Yes awake HENMT: COMMON NORMALS: normocephalic, head/scalp atraumatic, hearing grossly normal bilaterally and moist oral mucous membranes HEAD & SCALP: normocephalic and atraumatic Eye: COMMON NORMALS: PERRL, EOMs intact bilaterally and conjunctivae normal CONJUNCTIVA: Yes conjunctivae normal PUPIL: Yes PERRL Neck/C-Spine: COMMON NORMALS: full ROM GENERAL: Yes normal visual inspection and Yes trachea midline Resp: COMMON NORMALS: normal respiratory effort, no retractions, no use of accessory muscles and clear to auscultation bilaterally EFFORT & INSPECTION: Yes able to speak in complete sentences, Yes symmetric chest movement and No tachypneic AUSCULTATION: clear to auscultation bilaterally Cardio: COMMON NORMALS: regular rate, regular rhythm, S1 normal heart sound, S2 normal heart sound and no murmurs RATE: regular rate RHYTHM: regular rhythm HEART SOUNDS: S1 normal and S2 normal GI: COMMON NORMALS: normal to inspection, nondistended, normoactive bowel sounds, soft to palpation and non-tender PALPATION: Yes soft Extremity: COMMON NORMALS: normal to inspection, full ROM and no clubbing, cyanosis or edema; negative for no pedal edema NARRATIVE EXTREMITY EXAM: -RUE splinted Neuro: COMMON NORMALS: oriented x3, moves all extremities, no focal motor deficits, no sensory deficits noted and gait normal Psych: COMMON NORMALS: mental status grossly normal, thought process normal, cooperative, affect normal and speech normal SPEECH: Yes normal speech THOUGHT PROCESS: normal thought process Skin: COMMON NORMALS: no rashes or lesions noted, no jaundice, no petechiae and no mottling GENERAL SKIN EXAM: no rashes or lesions noted Discharge Data Data Completed and Pending: Completed Studies During Hospitalization Category Date Time Status CT wrist RT wo co n* [id number] Urgent Cat Scan 08/26/19 03:28 Completed XR chest 1V wagner ble [id number] Urgent Exams 08/26/19 03:10 Completed XR forearm RT 2V [id number] Stat Exams 08/26/19 00:45 Completed XR wrist RT 2V 73 100 Stat Exams 08/26/19 02:33 Completed Labs from last 24 hours 08/26/19 08/26/19 08/26/19 04:32 04:23 04:23 WBC RBC Hgb Hct MCV MCH MCHC RDW Plt Count MPV Neut % (Auto) Lymph % (Auto) [place] % (Auto) Eos % (Auto) Baso % (Auto) Neut # (Auto) Lymph # (Auto) [place] # (Auto) Eos # (Auto) Baso # (Auto) Nucleated RBC % (a uto) Nucleated RBCs # PT 13.00 INR 0.98 APTT 26.6 Sodium 138 Potassium 4.3 Chloride 104 Carbon Dioxide 22 Anion Gap 16.3 BUN 14 Creatinine 1.0 H Glucose 147 H Calculated Osmolal ity 285 Calcium 9.0 Total Bilirubin 0.2 AST 19 ALT 23 Alkaline Phosphata se 112 H Total Protein 6.9 Albumin 4.1 Globulin 2.8 Urine Color Yellow Urine Appearance Clear Urine pH 5 Ur Specific Gravit y 1.015 Urine Protein Neg Urine Glucose (UA) Norm Urine Ketones Negative Urine Blood Neg Urine Nitrate Negative Urine Bilirubin Neg Urine Urobilinogen Norm Ur Leukocyte Candice ase Negative 08/26/19 04:23 WBC 12.2 H RBC 4.21 Hgb 12.3 Hct 38.7 MCV 91.9 MCH 29.2 MCHC 31.8 RDW 14.6 Plt Count 301 MPV 9.3 Neut % (Auto) 81.3 Lymph % (Auto) 11.5 [place] % (Auto) 5.8 Eos % (Auto) 0.6 Baso % (Auto) 0.3 Neut # (Auto) 10.0 H Lymph # (Auto) 1.4 [place] # (Auto) 0.7 Eos # (Auto) 0.1 Baso # (Auto) 0.0 Nucleated RBC % (a uto) 0 Nucleated RBCs # 0.0 PT INR APTT Sodium Potassium Chloride Carbon Dioxide Anion Gap BUN Creatinine Glucose Calculated Osmolal ity Calcium Total Bilirubin AST ALT Alkaline Phosphata se Total Protein Albumin Globulin Urine Color Urine Appearance Urine pH Ur Specific Gravit y Urine Protein Urine Glucose (UA) Urine Ketones Urine Blood Urine Nitrate Urine Bilirubin Urine Urobilinogen Ur Leukocyte Candice ase Vitals: Last Vital Signs Temp 97.7 F 08/26/19 12:54 Pulse 66 08/26/19 12:54 Resp 18 08/26/19 12:54 BP 127/74 08/26/19 12:54 Pulse Ox 97 08/26/19 12:54 Discharge Plan Discharge Patient Disposition: Home, Self-Care Condition: Stable Prescriptions: New hydrocodone-acetaminophen 5-325 mg Tablet 1 tab PO Q4H PRN (Reason: Moderate To Severe Pain) 7 Days Qty: 30 RF: 0 clindamycin HCl 300 mg capsule 300 mg PO TID 7 Days Qty: 21 RF: 0 Continued ferrous gluconate [Ferate] 240 mg (27 mg iron) tablet 240 mg PO TID RF: 0 ascorbic acid (vitamin C) 1,000 mg tablet 1 gm PO DAILY RF: 0 multivitamin Tablet 1 tab PO QAM RF: 0 cholecalciferol (vitamin D3) 125 mcg (5,000 unit) capsule 5,000 unit PO DAILY RF: 0 cyanocobalamin (vitamin B-12) 2,500 mcg tablet 2,500 mcg PO DAILY RF: 0 montelukast [Singulair] 10 mg tablet 10 mg PO DAILY RF: 0 omega 6-ahs-wid-fish oil [Fish Oil] 300-1,000 mg capsule 1 cap PO DAILY RF: 0 atorvastatin [Lipitor] 40 mg tablet 40 mg PO DAILY Qty: 90 RF: 1 gabapentin 100 mg capsule 100 mg PO BID Qty: 180 RF: 1 levothyroxine 25 mcg tablet 25 mcg PO DAILY Qty: 90 RF: 1 losartan [Cozaar] 100 mg tablet 100 mg PO DAILY Qty: 90 RF: 1 venlafaxine 150 mg capsule,extended release 24hr 150 mg PO DAILY Qty: 90 RF: 1 methenamine hippurate 1 gram tablet 1 gm PO DAILY Qty: 90 RF: 1 bupropion HCl 75 mg tablet 25 mg PO DAILY RF: 0 buspirone 15 mg tablet 15 mg PO TID PRN (Reason: anxiety) RF: 0 fluorouracil 5 % Cream 1 applic TOPICAL BID RF: 0 Discharge Orders: Discharge Order (Routine); Ordered 08/26/19 Ordered By: Judy Hernandez Referrals: [facility] ([facility]) [Outside] - 1-3 days ([facility] will either see you on or . They will call ahead of time. ) Judy Hernandez MD [Physician] - 08/27/19 (Please call the office first thing Tuesday morning., N.p.o. for possible afternoon surgery. [phone]) Tiara Burgess MD [Primary Care Provider] - 4-7 days Discharge Diet: As Directed Discharge Activity: Limit activity as instructed Patient Instructions: Clindamycin (By mouth), Hydrocodone/Acetaminophen (By mouth), Wrist Fracture in Adults (GEN) Activity Restrictions/Additional Instructions: Please come to my office tomorrow with nothing to eat or drink after midnight for possible surgery that afternoon. Elevate right upper extremity. Wiggle fingers. Ice to right upper extremity as needed. Discharge Date/Time: 08/26/19 13:44 Discharge Attestations Time Spent in Discharge Care*: less than 30 min Specific Discharge Activities: Specific discharge activities: educating patient, discussing with pcp/other providers, documenting/other paperwork and evaluating patient/reviewing data Status at Discharge: Cognitive status at discharge: cognitively intact , Behavioral status at discharge: cooperative , Functional status at discharge: independent ambulation Overall status at discharge: patient is back to baseline Quality Metrics Clinical Quality Measures During this hospital stay, did patient experience: None Coding Level of Care Code Acute Abalone Sheller for Janell Mathew Diagnoses Fracture of wrist S62.101B Encounter type: initial encounter Fracture type: open Laterality: right Fall at home W19.XXXA; Y92.009 Encounter type: initial encounter Gait instability R26.81 Skin cancer of nose C44.301 Nicotine dependence, cigarettes, uncomplicated F17.210 Essential (primary) hypertension I10 Anemia, iron deficiency D50.9 Iron deficiency anemia type: unspecified iron deficiency Anxiety with depression F41.8 Adult onset hypothyroidism E03.8 Hyperlipidemia, unspecified E78.5 Hyperlipidemia type: unspecified Urinary incontinence, urge N39.41
== END 2019-08-26 13:44 | disposition home or self-care (01) ==
LOC: ER 04:03 → MEDSURG 04:30
PROVIDERS: Admitting Provider Hospitalist; Emergency Provider Emergency Medicine; Family Provider Family Medicine; PCP Family Medicine; Visit Provider Family Medicine
DX: S62.101B Fracture of unspecified carpal bone, right wrist, initial encounter for open fracture (principal); W19.XXXA Unspecified fall, initial encounter; Y92.009 Unspecified place in unspecified non-institutional (private) residence as the place of occurrence of the external cause; R26.81 Unsteadiness on feet; I10 Essential (primary) hypertension; F41.8 Other specified anxiety disorders; F17.210 Nicotine dependence, cigarettes, uncomplicated; Z86.73 Personal history of transient ischemic attack (TIA), and cerebral infarction without residual deficits; Z82.49 Family history of ischemic heart disease and other diseases of the circulatory system; C44.301 Unspecified malignant neoplasm of skin of nose; D50.9 Iron deficiency anemia, unspecified; E03.8 Other specified hypothyroidism; N39.41 Urge incontinence; E78.5 Hyperlipidemia, unspecified
CPT/HCPCS: 12345; 25605; 71045; 73090; 73100; 73200; 80053; 81003; 85025; 85610; 85730; 93005; 96365; 96375; 99283; 99285; G0378; J0690; J1170; J2250; J2270; J2405; J3490; J7030

== ENCOUNTER 2019-08-27 10:54 | Day surgery (SDC) | payer MEDICARE, MEDICAID, SELFPAY ==
[2019-08-27] VITALS (8 sets, daily range): BP systolic 116–170; BP diastolic 63–78; PULSE 73–84; RESP 13–28; TEMP 36.3–37.3; O2SAT 90–96; BMI 30.4
--- NOTE | 2019-08-27 | SCC_ITS ---
Procedure Done: Open reduction internal fixation right distal radius fracture 74.3 seconds of fluoroscopic guidance, for a cumulative dose of 1.36 mGy, was provided to Dr. Hernandez by the radiology department. C-arm images of the RIGHT wrist were saved for the patient's permanent record. [facility]
[2019-08-27] MEDS: sodium chloride 0.9% 1,000 ML 30 ML IV (12:30)
[2019-08-27] MEDS: CELEcoxib 200 mg Capsule 400 MG PO (12:35)
--- NOTE | 2019-08-27 12:50 | ANES.PREANE2 ---
Pre-Anesthetic Assessment Pre-Anesthetic Assessment: Height/Weight: Height 1.55 m Weight 73.028 kg Temp Pulse Resp BP Pulse Ox 99.2 F 75 18 137/75 94 08/27/19 11:49 08/27/19 11:49 08/27/19 11:49 08/27/19 11:49 08/27/19 11:49 Preop Diagnosis: Right open distal radius fracture Proposed Procedure: Operation Date: 08/27/19 14:20 Proposed Procedures p ORIF right distal radius and ulna with volar plate, irrigation, and debridement 34291 S52.501A S52.601A(Right) - Judy Hernandez MD Familial anesthetic complications: none Was Beta Geoffrey taken within 24 hours: N/A Last intake: Intake Last Liquid Date 08/27/19 Last Liquid Time 07:45 Last Solid Date 08/26/19 Last Solid Time 15:30 Social: Social History: Tobacco and No alcohol Packs per day: 1 ppd Exam: Pre-Anes Outpt Exam: alert, oriented x 3, clear to auscultation bilaterally and regular rate & rhythm Airway: Cervical ROM: WNL MP: 2 Dentition: Chipped Pulmonary: Pulmonary: COPD (mild emphyeema) and None reported CV/HEM: CV/HEM: DVT and HTN Comments: 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, has IVC filter Hepatic: Hepatic: None reported GI: GI: None reported Metabolic: Metabolic: Morbid obesity Musc/skel: Musc/skel: None reported Neuropsych: Comments: CVA due ruptured anuerysm in 1995still has ventricular peritoneal shunt, but its not doing anything anymore Anesthetic Plan: ASA status: 3 Anesthesia: General and Regional (specify below) Risk of > 500 ml blood loss (7ml/kg in children): No Meds/Allergies Current Medications: Current Medications Generic Name Dose Route Start Last Admin Trade Name Freq PRN Reason Stop Dose Admin Sodium Chloride 1,000 mls @ 30 ml s/hr 08/27/19 12:30 08/27/19 12:30 Sodium Chloride 0.9% IV 08/28/19 12:29 30 mls/hr .Q24H JAMEE Administration PFSH Anesthesia PFSH: Social History Smoking and tobacco status: current every day smoker cigarettes Packs smoked per day: 0.5 Alcohol intake: unknown Lives independently: No (relatives) Marital status: Number of children: 1 Current occupational status: retired Current gender identity: Female Data Anesthesia Cardiac Studies: No Data to Display
--- NOTE | 2019-08-27 13:17 | W.PM.OPSUD ---
Surgery/Procedure H&P Update DATE OF PROCEDURE: August 27, 2019 DATE H&P PERFORMED: 08/26/19 H&P UPDATE INFORMATION: I have reviewed H&P completed within last 30 days and I have examined patient prior to procedure PREOP DIAGNOSIS: Right open distal radius fracture PLANNED PROCEDURE: Operation Date: 08/27/19 14:20 Proposed Procedures p ORIF right distal radius and ulna with volar plate, irrigation, and debridement 59548 S52.501A S52.601A(Right) - Judy Hernandez MD
[2019-08-27] MEDS: vancomycin 1,000 MG in sodium chloride 0.9% 250 ML 250 MG IV (15:00)
[2019-08-27] MEDS: ceFAZolin 1,000 mg SDV 1000 MG IRRIGATION (16:14)
--- NOTE | 2019-08-27 16:57 | XR_ITS ---
WS: [id number] C-ARM RADIOGRAPHS RIGHT WRIST; 3 IMAGES HISTORY: OR PICS COMPARISON: 08/26/2019 Intraoperative imaging during plate and screw fixation distal radial fracture. Fracture in satisfacto ry position alignment. Nonfixated distal ulnar fracture. XR/XR wrist RT 2V [id number] IMPRESSION: Intraoperative plate and screw fixation distal radial fracture in good alignmen t.
--- NOTE | 2019-08-27 17:05 | SUR.PHASEI ---
1704 PATIENT TO PACU AT THIS TIME FROM OR. RR EVEN AND UNLABORED. PLACED ON SPO2 96% ON SIMPLE MASK AT 8L. DRESSING TO RIGHT WRIST, CDI WITH SLING IN PLACE. CAP REFILL INTACT. PATIENT RESPONDING TO VERBAL STIMULI.
--- NOTE | 2019-08-27 17:21 | SUR.PHASEI ---
1721 ICE PACK APPLIED TO RIGHT WRIST.
--- NOTE | 2019-08-27 17:26 | P.OP_ITS ---
Operative Report Date of procedure: August 27, 2019 Pre-op Diagnosis: Right open distal radius and ulna fractures Post-op diagnosis: same Post-op Diagnosis: Right distal radius and ulna fractures with open ulna fracture volar surface Procedure Done: Open reduction internal fixation right distal radius fracture utilizing the Justen extra short narrow volar wrist plate with cancellus void treated with Vitoss 2.5 mL. Irrigation and debridement of open fracture with revision of ulnar punctate wound. Repair large skin tear dorsal surface of wrist. Pathology: none sent Surgeon: Judy Hernandez Assembler Type Bar And Segment: [facility] OR technicians Anesthesia: General (Intubated) Estimated blood loss (mL): 5 Tourniquet time (min): 67 IV fluids (mL): 600 Urine output (mL): 0 Complications: None Findings: Comminuted intra-articular distal right radius fracture with significant cancellus compression and large void Condition: stable Disposition: PACU (Then discharged to home) Brief History: This 74-year-old woman presented with an open fracture to the emergency department. The fracture was reduced in the emergency department. There was a small abrasion through the skin over the ulnar aspect of the wrist. This was bleeding. There was no air visualized on CT scan and there was question as to whether or not this was truly an open fracture. Therefore, the patient was brought in under observation and given IV antibiotics. She was scheduled within 48 hours for open reduction internal fixation with irrigation and debridement. Risks and complications were discussed with her. Procedure: Patient was brought to the operating theater, and adequate general anesthesia per endotracheal tube was administered. The patient's right upper extremity was prepped and draped in usual fashion utilizing DuraPrep. The patient had a tourniquet placed high on the arm prior to prepping and draping. Following prepping and draping, the arm was exsanguinated and the tourniquet was elevated. Total tourniquet time was 67 minutes at 250 mmHg. Prior to commencement of the surgical procedure, a surgical pause was performed. At the time of the surgical pause, we confirmed the site and side of surgery as well as the patient's identity and preoperative surgical markings. We also confirmed availability of equipment and appropriate preoperative IV antibiotics which was vancomycin 1 g. Fluoroscopy was also brought into position so that we could visualize the fracture and hardware throughout the surgical procedure. The fracture was evaluated prior to tourniquet placement. Following elevation of the tourniquet as well as the surgical pause, an incision was made along the palmaris longus and continued down onto the volar surface of the radius. There was noted to be the ulnar punctate wound. From this, we were able to remove a small bone fragment indicating that indeed this was open. It likely was open to the ulnar area. Dorsally, there was also a large skin tear. Following prepping and draping and prior to beginning the volar surgical procedure, the skin tear was addressed by slight debridement placing it back into position Steri-Strips and Tegaderm. We then began the volar aspect by making the incision along the palmaris longus as described above. Care was taken to avoid injury throughout the surgical procedure to the median nerve as well as to the radial artery. The flexor carpi radialis was retracted medially. We were able to essentially elevate the sheath of the flexor carpi radialis and then I was able to place my finger directly onto the distal radius. For the most part, the patient did her own dissection at the time of his injury. Finger traps were utilized. The fracture was reduced. We visualized the fracture in AP and lateral planes. With reduction of the fracture, there was noted to be a very large void which was visible on x-ray. Soft tissues were elevated off the distal radius to allow access to the fracture and also to the volar aspect of the distal radial shaft. Fluoroscopy was used to determine whether or not the reduction was appropriate. We were able to reduce the fracture with some difficulty due to the significant comminution and osteopenia. We had evaluated the plate size prior to the surgical procedure and incision. The plate chosen was a extra short narrow. This gave us excellent distal fit and 3 screws proximal to the fracture. Once the fracture was reduced anatomically, we did use 2.5 cc of Vitoss as there was quite a large void. The plate was then placed in appropriate position and was attached proximally and distally utilizing a combination of locking and one nonlocking screw. We had excellent fixation and reduction of the fracture due to the distal locking screws. The patient was noted to be very osteopenic. Fluoroscopy was utilized during the procedure. Once the plate was fully attached, we had a near anatomic position to the distal radius and the distal radius was out to length. Being satisfied with position, the area was copiously irrigated. There were no fascial tissues to close, and therefore we closed the subcutaneous tissues with 2-0 interrupted Monocryl. We then placed skin derick. Prior to closure, and prior to grafting, the wound had been copiously irrigated with a liter of fluid. The ulnar punctate wound was debrided and closed with 2-0 Monocryl interrupted after irrigation as well. Skin derick was placed in this for definitive closure of the skin. Xeroform gauze was utilized followed by a Telfa, 4 x 4's, and sterile soft roll. A volar splint was wrapped into position over the soft roll, and this was wrapped in place with an Earl wrap. The tourniquet was released after 67 minutes. There were no complicati ons. There were no specimens. Patient was returned to recovery room in a satisfactory condition. He was subsequently discharged home with family. She will follow-up with me as scheduled in her discharge instructions.
--- NOTE | 2019-08-27 17:33 | SUR.PHASEI ---
6465 PATIENT TO OPS AT THIS TIME. NO DISTRESS. RR EVEN AND UNLABORED. PATIENT DENIES PAIN. DRESSING INTACT TO RIGHT WRIST. PATIENT ASSISTED UP TO BSC IN OPS.
--- NOTE | 2019-08-28 05:52 | ANES.PROC ---
Anesthesia Procedures Procedure/Date: 08/27/19 Nerve Block ^: Nerve Block 1: Main Anesthesia: general anesthesia Time Out Performed: Yes Consent: requested by attending/covering physician, from patient and patient agrees to proceed Nerve block location: axillary (R) Anesthesia monitors applied: pulse oximetry, BP cuff and oxygen Nerve block position: supine Anesthetic Used: ropivicaine 0.5% (30 ml) and with decadron (4 mg) Amount of anesthesia used (mL): 30 Ultrasound used to: recognize landmarks Nerve Stimulator Used?: No Interscalene/Femoral BLK: 2 stimuplex 22 g needle used for position and inplane approach Injection: neg aspiration of heme and paresthesia +/- Patient Tolerated Procedure: well and no complications Complications: none
== END 2019-08-27 18:35 | disposition home or self-care (01) ==
PROVIDERS: Family Provider Family Medicine; PCP Family Medicine; Visit Provider Specialist
PROC: (CPT 11010; principal; 2019-08-27 14:00)
DX: S52.501A Unspecified fracture of the lower end of right radius, initial encounter for closed fracture (principal); S52.601A Unspecified fracture of lower end of right ulna, initial encounter for closed fracture; W19.XXXA Unspecified fall, initial encounter; I10 Essential (primary) hypertension; Z86.718 Personal history of other venous thrombosis and embolism; J43.9 Emphysema, unspecified; Z86.73 Personal history of transient ischemic attack (TIA), and cerebral infarction without residual deficits; F17.210 Nicotine dependence, cigarettes, uncomplicated
CPT/HCPCS: 11010; 12001; 25609; 12345; 73100; 76000; 96365; C1713; J0131; J0330; J0690; J1100; J2001; J2405; J2704; J2795; J3010; J3370; J3490; J7030; J7050

== ENCOUNTER → 2019-09-03 10:38 | Outpatient (BNVA) | payer MEDICARE, MEDICAID, SELFPAY | PROVIDERS: Family Provider Family Medicine; PCP Family Medicine; Visit Provider Specialist | DX: S52.501B Unspecified fracture of the lower end of right radius, initial encounter for open fracture type I or II (principal); S52.601B Unspecified fracture of lower end of right ulna, initial encounter for open fracture type I or II; X58.XXXA Exposure to other specified factors, initial encounter | CPT/HCPCS: 73110 ==

== ENCOUNTER 2019-09-03 15:29 | Outpatient (CLI) | payer MEDICARE, MEDICAID, SELFPAY | END 2019-09-03 15:30 | disposition home or self-care (01) | LOC: SPT 15:30 | PROVIDERS: Family Provider Family Medicine; PCP Family Medicine; Visit Provider Specialist | DX: Z46.89 Encounter for fitting and adjustment of other specified devices (principal); Z98.890 Other specified postprocedural states; S52.501B Unspecified fracture of the lower end of right radius, initial encounter for open fracture type I or II; S52.601B Unspecified fracture of lower end of right ulna, initial encounter for open fracture type I or II; X58.XXXA Exposure to other specified factors, initial encounter | CPT/HCPCS: 73110; L3908 ==

== ENCOUNTER → 2019-09-19 11:22 | Outpatient (BNVA) | payer MEDICARE, MEDICAID, SELFPAY | PROVIDERS: Family Provider Family Medicine; PCP Family Medicine; Visit Provider Specialist | DX: S52.501B Unspecified fracture of the lower end of right radius, initial encounter for open fracture type I or II (principal); S52.601B Unspecified fracture of lower end of right ulna, initial encounter for open fracture type I or II; X58.XXXA Exposure to other specified factors, initial encounter | CPT/HCPCS: 73110 ==

== ENCOUNTER → 2019-10-17 09:04 | Outpatient (BNVA) | payer MEDICARE, MEDICAID, SELFPAY | PROVIDERS: Family Provider Family Medicine; PCP Family Medicine; Visit Provider Specialist | DX: S52.501D Unspecified fracture of the lower end of right radius, subsequent encounter for closed fracture with routine healing (principal); S52.601D Unspecified fracture of lower end of right ulna, subsequent encounter for closed fracture with routine healing; Z98.890 Other specified postprocedural states; W19.XXXD Unspecified fall, subsequent encounter | CPT/HCPCS: 73110 ==

== ENCOUNTER → 2019-11-28 16:47 | Outpatient (BNVA) | payer MEDICARE, MEDICAID, SELFPAY | PROVIDERS: Family Provider Family Medicine; PCP Family Medicine; Visit Provider Family Medicine | DX: R30.0 Dysuria (principal) | CPT/HCPCS: 80053; 81000; 81003; 87086 ==

== ENCOUNTER 2020-01-17 09:43 | Emergency (ER) | payer MEDICARE, MEDICAID, SELFPAY ==
[2020-01-17 09:49] VITALS: BP 148/81; PULSE 74; RESP 18; TEMP 37.1; O2SAT 98; BMI 29.8
--- NOTE | 2020-01-17 09:59 | XR_ITS ---
WS: [id number] LEFT RIBS, MULTIPLE VIEWS WITH PA CHEST HISTORY: rib pain/injury COMPARISON: 08/26/2019 Lungs and mediastinum: No pneumothorax. Subsegmental atelectasis at the LEFT lung base and a small am ount of fluid. Ribs: Acute nondisplaced rib fractures are noted anteriorly involving the seventh and eighth ribs. Po ssibly the sixth rib is also fractured. 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 IVC filter. XR/XR ribs LT mn 3V w CXR1V [id number] IMPRESSION: 1. Nondisplaced seventh and eighth LEFT anterior rib fractures. Possibly the s ixth rib is also fractured. 2. No pneumothorax. 3. Very small amount of LEFT pleural fluid and LEFT basilar atelectasis.
--- NOTE | 2020-01-17 10:00 | ED_ITS ---
HPI - Chest Pain General: Chief Complaint: Back Pain/Injury Stated Complaint: LEFT RIB PAIN Time Seen by Provider: 01/17/20 09:46 Source: patient Mode of arrival: ambulatory Limitations: no limitations History of Present Illness: HPI narrative: Patient is a very nice 74-year-old female who presents to ED today with a complaint of left rib pain. Patient tells me approximately 3 days ago she was bent over a washing tub with pressure on her left ribs and immediately felt something pop or move . She states she immediately began experiencing discomfort to her left anterior ribs. She states over the past 3 days pain has failed to improve. She states pain is worse with deep inhalation, coughing, and movement. She denies pain in her chest. She does not feel short of breath. She has not been running fevers. Denies lightheadedness/dizziness. She has no other complaints at this time. MD complaint: chest pain (L rib pain) Onset (ago): day(s) Timing of current episode: constant Prior episodes: No Pain location: left chest Pain radiation: none Relieving factors: nothing Exacerbating factors: other (cough, movement, deep inhalation) Associated symptoms: Reports no associated symptoms; Deny abdominal pain, dyspnea, fever(s), nausea, palpitations, syncope or vomiti ng Review of Systems Const: Denies: fever(s), chills, body aches, fatigue or malaise Eyes: Denies: change in vision or blurry vision ENMT: Denies: odynophagia Card: Reports: chest pain (L anterior chest wall pain); Denies: palpitations, irregular heart rhythm, edema, swelling of feet/ankles, lightheadedness, syncope, pre-syncope, dyspnea on exertion, orthopnea or leg pain with exertion Resp: Reports: pain on inspiration; Denies: dyspnea, productive cough, non-productive cough, wheezing, stridor, change in phlegm color, hemoptysis or chest congestion GI: Denies: abdominal pain, nausea, vomiting or change in bowel habits : Denies: flank pain, difficulty voiding, dysuria, urinary frequency, urinary urgency or urinary hesitancy Musc: Denies: neck pain, back pain, extremity pain, extremity swelling, joint pain or joint swelling Neuro: Denies: headache(s), numbness in extremities, weakness in extremities or sensory changes PFSH ED PFSH: Medical History (Updated 01/17/20 @ 10:46 by SHAN High) Acquired bilateral hammer toes Adult onset hypothyroidism Anemia, iron deficiency Anxiety with depression Basal cell carcinoma of skin of nose (~07/2017) Brain aneurysm (~1995) CVA (cerebrovascular accident due to intracerebral hemorrhage) Essential (primary) hypertension Gait instability With frequent falls at baseline Hyperlipidemia, unspecified Leukocytosis follows with Dr Rubio Lung nodule right Malignant melanoma of chin (~07/2017) Paresthesia of skin Skin cancer of nose On 5-FU cream Squamous cell carcinoma of left lower leg Urinary incontinence, urge Surgical History History of appendectomy History of brain shunt History of brain surgery (~1995) ruptured aneurysm repair with shunt implanted History of section History of hysterectomy Family History Family/Other Stroke CAD (coronary artery disease) Cancer skin Social History Smoking and tobacco status: current every day smoker cigarettes Packs smoked p er day: 0.5 Alcohol intake: unknown Lives independently: No (relatives) Marital status: Number of children: 1 Current occupational status: retired Current gender identity: Female Physical Exam Const: COMMON NORMALS: no acute distress, patient oriented x3, no limitations and alert GENERAL APPEARANCE: cooperative ORIENTATION/CONSCIOUSNESS: Yes oriented to person, Yes oriented to place and Yes oriented to time HENMT: COMMON NORMALS: normocephalic and atraumatic HEAD & SCALP: normocephalic and atraumatic Chest: COMMONS NORMALS: normal inspection of the chest OTHER: TTP L anterior ribs-just under L breast; palpation directly reproduces pts pain; no crepitus noted Chest images (female): 1. TTP Resp: COMMON NORMALS: normal respiratory effort and clear to auscultation bilaterally AUSCULTATION: clear to auscultation bilaterally Cardio: COMMON NORMALS: regular rate and regular rhythm RATE: regular rate RHYTHM: regular rhythm GI: COMMON NORMALS: Normal to inspection, nondistended, normoactive bowel sounds present, Soft to palpation, non-tender, No hepatosplenomegaly present and no masses PALPATION: Yes Soft to palpation and Yes No hepatosplenomegaly present Extremity: GENERAL: Yes normal exam except as noted Neuro: COMMON NORMALS: patient oriented x3 SENSORIUM/ORIENTATION: Yes alert, Yes oriented to person, Yes oriented to place and Yes oriented to time Skin: COMMON NORMALS: no rashes or lesions noted GENERAL SKIN EXAM: no rashes or lesions noted Course Vital Signs: Vital signs: Vital Signs Temperature 98.7 F 01/17/20 09:49 Pulse Rate 74 01/17/20 09:49 Respiratory Rate 18 01/17/20 09:49 Blood Pressure 148/81 01/17/20 09:49 Pulse Oximetry 98 01/17/20 09:49 MDM - Chest Pain MDM Narrative: Medical decision making narrative: Patient here with 2 left (possibly 3) rib fractures. She clinically is in no acute distress. Vital signs are stable. Patient will be given an incentive spirometer to use. She tells me she uses medical marijuana for pain and thus does not want to/need any oral pain medications. Imaging Data^: CXR: Radiologist's impression: [place] [address] XRay Report Signed Patient: Kathrin Elliott Unit #: [id number] : 1945 Age/Sex: 74 / F ADM Date: 01/17/20 Loc: ER Room/Bed: Attending Dr: Ordering Provider/Ordering MD: Mei Martinez Date of Service: 01/17/20 Procedure(s): XR ribs LT mn 3V w CXR1V 08106 Accession Number(s): [id number] Report Number: [id number] WS: [id number] LEFT RIBS, MULTIPLE VIEWS WITH PA CHEST HISTORY: rib pain/injury COMPARISON: 08/26/2019 Lungs and mediastinum: No pneumothorax. Subsegmental atelectasis at the LEFT lung base and a small amount of fluid. Ribs: Acute nondisplaced rib fractures are noted anteriorly involving the seventh and eighth ribs. Possibly the sixth rib is also fractured. 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 IVC filter. XR/XR ribs LT mn 3V w CXR1V [id number] IMPRESSION: 1. Nondisplaced seventh and eighth LEFT anterior rib fractures. Possibly the sixth rib is also fractured. 2. No pneumothorax. 3. Very small amount of LEFT pleural fluid and LEFT basilar atelectasis. Dictated By: Ruth Aiken DO Signed By: Ruth Aiken DO Signed Date/Time: 01/17/20 1026 DD/ 1023 Discharge Plan Discharge Patient Disposition: Home Clinical Impression: Left rib fracture Qualifiers: Encounter type: initial encounter Rib fracture type: multiple ribs Fracture type: closed Qualified Code(s): S22.42XA - Multiple fractures of ribs, left side, initial encounter for closed fracture Condition: Stable Prescriptions: No Action tramadol 50 mg tablet 50 mg PO Q6H PRN (Reason: pain) Qty: 30 RF: 0 (DME) COCK UP SPLINT Qty: 1 RF: 0 (DME) lift chair See Rx Instructions .Route .MEDSUPPLY Qty: 1 RF: 0 atorvastatin [Lipitor] 40 mg tablet 40 mg PO DAILY Qty: 90 RF: 1 bupropion HCl 75 mg tablet 75 mg PO DAILY Qty: 90 RF: 1 buspirone 15 mg tablet 15 mg PO TID PRN (Reason: anxiety) Qty: 90 RF: 2 cholecalciferol (vitamin D3) 125 mcg (5,000 unit) capsule 5,000 unit PO DAILY Qty: 90 RF: 1 gabapentin 100 mg capsule 100 mg PO BID Qty: 180 RF: 1 levothyroxine 25 mcg tablet 25 mcg PO DAILY Qty: 90 RF: 1 losartan [Cozaar] 100 mg tablet 100 mg PO DAILY Qty: 90 RF: 1 venlafaxine 150 mg capsule,extended release 24hr 150 mg PO DAILY Qty: 90 RF: 1 ferrous gluconate [Ferate] 240 mg (27 mg iron) tablet 240 mg PO TID RF: 0 ascorbic acid (vitamin C) 1,000 mg tablet 1 gm PO DAILY RF: 0 multivitamin Tablet 1 tab PO QAM RF: 0 cyanocobalamin (vitamin B-12) 2,500 mcg tablet 2,500 mcg PO DAILY RF: 0 omega 5-dtg-ktj-fish oil [Fish Oil] 300-1,000 mg capsule 1 cap PO DAILY RF: 0 (DME) Rollater walker See Rx Instructions .Route .MEDSUPPLY Qty: 1 RF: 0 methenamine hippurate 1 gram tablet 1 gm PO DAILY Qty: 90 RF: 1 fluorouracil 5 % Cream 1 applic TOPICAL BID RF: 0 Discharge Orders: Discharge Order (Routine); Ordered 01/17/20 Ordered By: Mei Martinez Referrals: Tiara Burgess MD [Primary Care Provider] - Patient Instructions: How to Use an Incentive Spirometer (ED), Rib Fracture (ED), Fractures - Rib Activity Restrictions/Additional Instructions: As discussed you need to be doing the incentive spirometer at least 10 times daily. Return to the emergency department for worsening pain, shortness of breath, cough, difficulty breathing, or fevers. Hope you begin to feel better soon. Coding Level of Care Code ED Promotions Executive Producer for [employer] Fwd Exam Comprehensive
[2020-01-17 11:33] VITALS: PULSE 72; RESP 18; O2SAT 92
[2020-01-17 11:34] VITALS: PULSE 74
== END 2020-01-17 12:03 | disposition home or self-care (01) ==
PROVIDERS: Emergency Provider Physician Assistant; PCP Family Medicine
DX: S22.42XA Multiple fractures of ribs, left side, initial encounter for closed fracture (principal); F17.210 Nicotine dependence, cigarettes, uncomplicated; Z86.73 Personal history of transient ischemic attack (TIA), and cerebral infarction without residual deficits; I10 Essential (primary) hypertension; E78.5 Hyperlipidemia, unspecified; X50.9XXA Other and unspecified overexertion or strenuous movements or postures, initial encounter
CPT/HCPCS: 12345; 71101; 99281; 99283

== ENCOUNTER 2020-01-24 14:22 | Outpatient (CLI) | payer MEDICARE, MEDICAID, SELFPAY ==
--- NOTE | 2020-01-24 15:45 | XR_ITS ---
WS: [id number] DEXA (DUAL ENERGY X-RAY ABSORPTIOMETRY) Bone mineral density was performed using a Doutíssima machine. HISTORY: bone pain COMPARISON: None available. Lumbar spine BMD (L1-L4): 1.038 g/cm2 T score: -1.2 Z score: 0.4 Total hip BMD: Left: 0.764 g/cm2. T score: -1.9 Z score: -0.4 Right: 0.761 g/cm2. T score: -2.0 Z score: -0.4 10 year probability of a major osteoporotic fracture is 26%. XR/XR DEXA axial skeleton* 45767 IMPRESSION: OSTEOPENIA based upon the WHO classification for females.
== END 2020-01-24 14:23 | disposition home or self-care (01) ==
LOC: RADWPI 14:27
PROVIDERS: PCP Family Medicine; Visit Provider Family Medicine
DX: M89.8X9 Other specified disorders of bone, unspecified site (principal); E03.9 Hypothyroidism, unspecified; E78.5 Hyperlipidemia, unspecified; I10 Essential (primary) hypertension
CPT/HCPCS: 77080; 80053; 80061; 84443

== ENCOUNTER → 2020-04-09 15:43 | Outpatient (BNVA) | payer MEDICARE, MEDICAID, SELFPAY | PROVIDERS: PCP Family Medicine; Visit Provider Family Medicine | DX: N30.01 Acute cystitis with hematuria (principal) | CPT/HCPCS: 81003; 87086 ==

== ENCOUNTER 2020-04-11 09:11 | Outpatient (CLI) | payer MEDICARE, MEDICAID, SELFPAY ==
--- NOTE | 2020-04-11 09:00 | MM_ITS ---
WS: [id number] BILATERAL DIGITAL SCREENING MAMMOGRAPHY WITH CAD CLINICAL INFORMATION: Z12.31 - Encounter for screening mammogram for malignant neoplasm of breast HISTORY: Screening mammogram. No current complaints. COMPARISON: TECHNIQUE: Bilateral CC and MLO views. FINDINGS: Scattered fibroglandular densities bilaterally. No suspicious focal mass, asymmetry, calcifications, or architectural distortion. No evidence of malignancy. Stable nodular breast tissue both subareolar regions left greater than right. MM/[place] [id number] IMPRESSION: BI-RADS: 2-Benign FOLLOW UP: 1 Year Follow-up Recommend return to annual screening mammography.
== END 2020-04-11 09:12 | disposition home or self-care (01) ==
LOC: RADSHAW 09:14
PROVIDERS: PCP Family Medicine; Visit Provider Family Medicine
DX: Z12.31 Encounter for screening mammogram for malignant neoplasm of breast (principal)
CPT/HCPCS: 77067

== ENCOUNTER 2020-09-18 19:21 | Emergency (ER) | payer MEDICARE, MEDICAID, SELFPAY ==
[2020-09-18 19:31] VITALS: BP 153/79; PULSE 76; RESP 18; TEMP 37.2; O2SAT 96; BMI 30.9
[2020-09-18 19:42] VITALS: BP 147/75; PULSE 72; RESP 18; TEMP 37.2; O2SAT 96
[2020-09-18 20:25] VITALS: PULSE 75
--- NOTE | 2020-09-18 20:30 | ED_ITS ---
HPI - Extremity Problem General: Chief complaint: Extremity Problem,Nontraumatic Stated complaint: LEFT LEG SWELLING Time Seen by Provider: 09/18/20 20:18 History of Present Illness: HPI Narrative: Patient is a 75-year-old female who comes to the ED with left leg swelling and redness. Patient says symptoms started on Tuesday. She states that couple days ago she noticed she had a sore on the back of her left thigh and she is unsure how she got it. Today she has a red rash on her thighs that is warm to the touch. She states that when she has had this kind of rash before she had cellulitis. Denies any chest pain, shortness of breath or hemoptysis. Patient says she has some swelling on left ankle but denies any injury or trauma to cause swelling. Denies left ankle pain. Associated symptoms: Deny chest pain, fever(s) or rash Review of Systems Const: Denies: fever(s), chills or fatigue Eyes: Denies: change in vision or eye discomfort ENMT: Denies: throat pain, odynophagia, nasal discharge or nasal congestion Card: Denies: chest pain, palpitations, edema, swelling of feet/ankles, dyspnea on exertion or orthopnea Resp: Denies: dyspnea, productive cough or non-productive cough GI: Denies: abdominal pain, nausea, vomiting, diarrhea, constipation or hematochezia : Denies: flank pain, dysuria or hematuria Musc: Reports: extremity swelling (left leg); Denies: neck pain or back pain Skin/Breast: Reports: new lesions (Warm erythemic rash on left thigh and open sore on back of left thigh); Denies: rash Neuro: Denies: headache(s), numbness in extremities or weakness in extremities [facility] ED PFSH: Medical History Acquired bilateral hammer toes Adult onset hypothyroidism Anemia, iron deficiency Anxiety with depression Basal cell carcinoma of skin of nose (~07/2017) Brain aneurysm (~1995) CVA (cerebrovascular accident due to intracerebral hemorrhage) Essential (primary) hypertension Gait instability With frequent falls at baseline History of malignant melanoma History of nonmelanoma skin cancer Hyperlipidemia, unspecified Leukocytosis follows with Dr Rubio Lung nodule right Malignant melanoma of chin (~07/2017) Paresthesia of skin Skin cancer of nose On 5-FU cream Squamous cell carcinoma of left lower leg Urinary incontinence, urge Surgical History History of appendectomy History of brain shunt History of brain surgery (~1995) ruptured aneurysm repair with shunt implanted History of section History of hysterectomy Family History Family/Other Stroke CAD (coronary artery disease) Cancer skin Social History Smoking and tobacco status: current every day smoker cigarettes Packs smoked per day: 0.5 Alcohol intake: unknown Lives independently: No (relatives) Marital status: Number of children: 1 Current occupational status: retired Current gender identity: Female Physical Exam Const: COMMON NORMALS: no acute distress, patient oriented x3 and alert GENERAL APPEARANCE: cooperative and comfortable HENMT: COMMON NORMALS: normocephalic HEAD & SCALP: normocephalic MOUTH: Normal oral and palatal mucosa present THROAT: posterior oropharynx normal and uvula midline Neck/C-Spine: COMMON NORMALS: supple GENERAL: Yes normal visual inspection Resp: COMMON NORMALS: normal respiratory effort, No retractions, No use of accessory muscles and clear to auscultation bilaterally AUSCULTATION: clear to auscultation bilaterally Cardio: COMMON NORMALS: regular rate, regular rhythm, S1 normal heart sound present, S2 normal heart sound present, No gallops present (Cardio), No clicks present (Cardio), No murmurs present (Cardio) and Peripheral pulses 2+ throughout RATE: regular rate RHYTHM: regular rhythm HEART SOUNDS: S1 normal heart sound present and S2 normal heart sound present PERIPHERAL PULSES: Peripheral pulses 2+ throughout GI: COMMON NORMALS: Normal to inspection, nondistended, normoactive bowel sounds present, Soft to palpation, non-tender and no masses PALPATION: Yes Soft to palpation : COMMON NORMALS: Yes no CVA tenderness BLADDER/KIDNEY EXAM: Yes no CVA tenderness Back/Pelvis: COMMON NORMALS: no CVA tenderness Extremity: NARRATIVE EXTREMITY EXAM: Patient has a open sore on posterior aspect of left thigh with some surrounding erythema and warmth. She also has an erythemic rash on both posterior and anterior aspect of left thigh as well. Visible swelling and edema and left ankle region. GENERAL: Yes edema (Trace pitting edema around left ankle.) Neuro: COMMON NORMALS: patient oriented x3 and moves all extremities SENSORIUM/ORIENTATION: Yes alert Skin: NARRATIVE SKIN EXAM: Patient has a open sore on posterior aspect of left thigh with some surrounding erythema and warmth. She also has an erythemic rash on both posterior and anterior aspect of left thigh as well. Findings suggestive of cellulitis. GENERAL SKIN EXAM: dry skin Course Vital Signs: Vital signs: Vital Signs Temperature 98.9 F 09/18/20 22:59 Pulse Rate 72 09/18/20 22:59 Respiratory Rate 18 09/18/20 22:59 Blood Pressure 147/75 09/18/20 22:59 Pulse Oximetry 96 09/18/20 22:59 MDM - Extremity (Nontraumatic) MDM Narrative: Medical decision making narrative: Patient is a 75-year-old female comes to the ED with left leg swelling and rash on left leg. Denies any fever, chills, shortness of breath, chest pain or hemoptysis. Patient appears nontoxic and is in no acute distress or pain. Upon exam patient had some edema around her ankle. She also had a small sore on the posterior aspect of her left thigh with some surrounding erythema and warmth. There is also an erythemic rash on patient's left thigh. Skin findings were suggestive of some developing cellulitis. Ultrasound venous duplex of left lower extremity showed nonocclusive DVT in the popliteal vein. Patient was diagnosed with DVT and cellulitis. Patient was given a dose of apixaban and cephalexin while here in the ED and discharged home with a prescription for apixaban and cephalexin. Patient was told to follow-up with her PCP in 7 to 10 days for reevaluation and for further blood thinner medication management. Return to ED precautions given. Patient understood and agree with plan. Imaging Data^: US Vascular: Attestation: I personally reviewed and interpreted this imaging study as follows: Radiologist's impression: Ultrasound venous duplex of left lower extremity?prelim report-nonocclusive DVT seen on popliteal vein. Discharge Plan Discharge Patient Disposition: Home Clinical Impression: DVT (deep venous thrombosis) Qualifiers: DVT location: lower extremity Affected thrombotic vein of extremity: popliteal Chronicity: acute Laterality: left Qualified Code(s): I82.432 - Acute embolism and thrombosis of left popliteal vein Cellulitis Qualifiers: Site of cellulitis: extremity Site of cellulitis of extremity: lower extremity Laterality: left Qualified Code(s): L03.116 - Cellulitis of left lower limb Condition: Stable Prescriptions: New cephalexin 500 mg capsule 500 mg PO Q6H 7 Days Qty: 28 RF: 0 apixaban 5 mg tablet 5 mg PO BID Qty: 60 RF: 0 No Action (DME) lift chair See Rx Instructions .Route .MEDSUPPLY Qty: 1 RF: 0 atorvastatin [Lipitor] 40 mg tablet 40 mg PO DAILY Qty: 90 RF: 1 bupropion HCl 75 mg tablet 75 mg PO DAILY Qty: 90 RF: 1 buspirone 15 mg tablet 15 mg PO TID PRN (Reason: anxiety) Qty: 90 RF: 2 cholecalciferol (vitamin D3) 125 mcg (5,000 unit) capsule 5,000 unit PO DAILY Qty: 90 RF: 1 gabapentin 100 mg capsule 100 mg PO BID Qty: 180 RF: 1 levothyroxine 25 mcg tablet 25 mcg PO DAILY Qty: 90 RF: 1 losartan [Cozaar] 100 mg tablet 100 mg PO DAILY Qty: 90 RF: 1 venlafaxine 150 mg capsule,extended release 24hr 150 mg PO DAILY Qty: 90 RF: 1 ferrous gluconate [Ferate] 240 mg (27 mg iron) tablet 240 mg PO TID RF: 0 ascorbic acid (vitamin C) 1,000 mg tablet 1 gm PO DAILY RF: 0 multivitamin Tablet 1 tab PO QAM RF: 0 cyanocobalamin (vitamin B-12) 2,500 mcg tablet 2,500 mcg PO DAILY RF: 0 omega 0-nto-gvc-fish oil [Fish Oil] 300-1,000 mg capsule 1 cap PO DAILY RF: 0 (DME) Rolljennifer walker See Rx Instructions .Route .MEDSUPPLY Qty: 1 RF: 0 fluorouracil 5 % cream 1 applic topical BID RF: 0 medical marijuana inhalation RF: 0 methenamine hippurate 1 gram tablet 1 g PO ONCE 90 Days Qty: 90 RF: 1 fluorouracil 5 % Cream 1 applic TOPICAL BID RF: 0 Discharge Orders: Discharge ED (Routine); Ordered 09/18/20 Ordered By: Robbie Mcgrath Referrals: Tiara Burgess MD [Primary Care Provider] - Discharge Diet: Regular Discharge Activity: Increase activity as tolerated Patient Instructions: Cellulitis (ED) Activity Restrictions/Additional Instructions: Follow-up with medical provider as directed in 7 to 10 days for reevaluation. Take medications as prescribed. For the Jm you will take 2 tablets twice a day for the first 7 days. After 7 days he will take 1 tablet twice a day. You can elevate your left foot, ice and wear compression stockings to help with swelling. Return to the ER or your medical provider if condition worsens. Please read and understand discharge instructions. Thank you for choosing [facility] [place] for your healthcare needs today. Ghassan caballero realize this is an emergency room and that we are providing you with a medical screening exam and this may not be complete and all inclusive of all the testing and or work up that you may need to determine your ailment or severity of your illness. It is very important that you follow up as instructed or that you return to the Emergency Department should you have concerns or if your condition changes or worsens in any way. Coding Level of Care Code ED Literacy Tutor for Janell Mathew Exam Comprehensive
--- NOTE | 2020-09-18 20:30 | USR_ITS ---
PROCEDURE INFORMATION: Exam: US Duplex Left Lower Extremity Veins, Limited Exam date and time: 09/18/2020 8:31 PM Age: 75 years old Clinical indication: Pain; Leg, lower; Left; Additional info: Left leg swelling and redness TECHNIQUE: Imaging protocol: Real-time Duplex ultrasound of the Left Lower Extremity with 2-D godinez scale, color Doppler flow and spectral waveform analysis with image documentation. Limited exam focused on the left lower extremity veins. COMPARISON: No relevant prior studies available. FINDINGS: Left deep veins: Nonocclusive common noncompressible thrombus present in the left popliteal vein and proximal tibial veins. Left superficial veins: Unremarkable. Saphenofemoral junction is patent without thrombus. Soft tissues: Unremarkable. US/[id number] IMPRESSION: Acute nonocclusive DVT in the left popliteal and proximal tibial veins.
[2020-09-18 21:42] VITALS: BP 147/75; PULSE 72; RESP 18; TEMP 37.2; O2SAT 96
[2020-09-18] MEDS: apixaban 5 mg Tablet 10 MG PO (22:08)
[2020-09-18] MEDS: cephALEXin 500 mg Capsule PO (22:09)
[2020-09-18 22:59] VITALS: BP 147/75; PULSE 72; RESP 18; TEMP 37.2; O2SAT 96
== END 2020-09-18 23:00 | disposition home or self-care (01) ==
PROVIDERS: Emergency Provider Physician Assistant; PCP Family Medicine
DX: I82.432 Acute embolism and thrombosis of left popliteal vein (principal); L03.116 Cellulitis of left lower limb; Z86.73 Personal history of transient ischemic attack (TIA), and cerebral infarction without residual deficits; I10 Essential (primary) hypertension; E78.5 Hyperlipidemia, unspecified; F17.210 Nicotine dependence, cigarettes, uncomplicated
CPT/HCPCS: 93971; 99283

== ENCOUNTER 2020-09-21 12:19 | Emergency (ER) | payer MEDICARE, MEDICAID, SELFPAY ==
[2020-09-21 12:23] VITALS: BP 130/81; PULSE 84; RESP 18; TEMP 36.7; O2SAT 96; BMI 31.1
[2020-09-21 12:35] VITALS: BP 130/80; PULSE 81; RESP 16; O2SAT 96
--- NOTE | 2020-09-21 13:47 | ED_ITS ---
HPI - Skin/Abscess/Foreign Bdy General: Chief complaint: Skin/Abscess/Foreign Body Stated complaint: open wound left leg/seen Time Seen by Provider: 09/21/20 12:31 History of Present Illness: HPI narrative: The patient is a 75-year-old female recently diagnosed with left lower extremity DVT and cellulitis near the same area. She was started on Keflex and Eliquis 2 days ago. Seen by her primary care physician yesterday who made no changes. She comes today complaining of a rash on her body. Likely from the Keflex. I discussed with her there is a small chance but real possibility it could also be from the Eliquis but at this point we will change her antibiotic and continue her on the Eliquis. She also notes that she has a lesion on her scalp that is 1 inch in diameter and irregular. She has a appointment with dermatology in October but I told her that is not soon enough and she needs to be seen and have that biopsied. She also has an appointment with her primary care doctor again tomorrow which is an appropriate follow-up for her. complaint: rash Location: generalized Severity: mild Quality: pruritic Relieving factors: none Context: new medication Associated symptoms: Reports no associated symptoms; Deny short of breath Review of Systems General: Reports: 10 or more systems reviewed and unremarkable except in HPI and below Const: Denies: fatigue Eyes: Denies: change in vision, blurry vision or eye redness ENMT: Denies: throat pain, swelling of lips/tongue, ear or mastoid pain or nasal congestion Card: Denies: chest pain, palpitations, irregular heart rhythm, edema, dyspnea on exertion or orthopnea Resp: Denies: dyspnea, productive cough or non-productive cough GI: Denies: abdominal pain, diarrhea or GI cramping : Denies: flank pain, difficulty voiding, urinary frequency or urinary urgency Musc: Denies: neck pain, back pain, extremity pain, joint pain, joint redness, limited range of motion or muscle weakness Skin/Breast: Reports: rash; Denies: pruritus, erythema, skin pain or skin tenderness Neuro: Denies: headache(s), numbness in extremities, weakness in extremities, sensory changes, difficulty walking, dizziness, confusion or Slurred speech present Psych: Denies: anxiety or depression Endo: Denies: polyuria All/Imm: Denies: urticaria, throat swelling or tongue swelling PFSH ED PFSH: Medical History Acquired bilateral hammer toes Adult onset hypothyroidism Anemia, iron deficiency Anxiety with depression Basal cell carcinoma of skin of nose (~07/2017) Brain aneurysm (~1995) CVA (cerebrovascular accident due to intracerebral hemorrhage) Essential (primary) hypertension Gait instability With frequent falls at baseline History of malignant melanoma History of nonmelanoma skin cancer Hyperlipidemia, unspecified Leukocytosis follows with Dr Rubio Lung nodule right Malignant melanoma of chin (~07/2017) Paresthesia of skin Skin cancer of nose On 5-FU cream Squamous cell carcinoma of left lower leg Urinary incontinence, urge Surgical History History of appendectomy History of brain shunt History of brain surgery (~1995) ruptured aneurysm repair with shunt implanted History of section History of hysterectomy Family History Family/Other Stroke CAD (coronary artery disease) Cancer skin Social History Smoking and tobacco status: current every day smoker cigarettes Packs smoked per day: 0.5 Alcohol intake: unknown Lives independently: No (relatives) Marital status: Number of children: 1 Current occupational status: retired Current gender identity: Female Physical Exam Const: COMMON NORMALS: no acute distress, average body habitus, patient oriented x3, no limitations, healthy appearing, alert and well nourished GENERAL APPEARANCE: cooperative, comfortable, well kempt and well developed ORIENTATION/CONSCIOUSNESS: Yes awake, Yes oriented to person, Yes oriented to place and Yes oriented to time HENMT: COMMON NORMALS: normocephalic, external ears normal and Normal external nose present HEAD & SCALP: normal to inspection and normocephalic NOSE: Normal external nose present EXTERNAL EAR: Yes external ears normal MOUTH: Normal oral and palatal mucosa present THROAT: posterior oropharynx normal Eye: COMMON NORMALS: Equal, round and reactive pupils present and EOMs intact bilaterally GENERAL EYE: appearance normal, both eyes and all related structures PUPIL: Yes Equal, round and reactive pupils present Neck/C-Spine: COMMON NORMALS: full ROM, no lymphadenopathy, no meningeal signs and no JVD GENERAL: Yes normal visual inspection Lymph: LYMPHATIC: no lymphadenopathy noted Chest: COMMONS NORMALS: normal inspection of the chest and normal palpation of entire chest wall Resp: COMMON NORMALS: normal respiratory effort, No retractions, No use of accessory muscles, clear to auscultation bilaterally and percussion normal EFFORT & INSPECTION: Yes able to speak in complete sentences AUSCULTATION: clear to auscultation bilaterally PERCUSSION: percussion normal Cardio: COMMON NORMALS: no JVD, regular rate, regular rhythm, S1 normal heart sound present, S2 normal heart sound present and Peripheral pulses 2+ throughout RATE: regular rate RHYTHM: regular rhythm HEART SOUNDS: S1 normal heart sound present and S2 normal heart sound present PERIPHERAL PULSES: Peripheral pulses 2+ throughout GI: COMMON NORMALS: Normal to inspection, nondistended, normoactive bowel sounds present, Soft to palpation, non-tender and no masses INSPECTION: Yes normal to inspection PALPATION: Yes Soft to palpation : COMMON NORMALS: Yes no CVA tenderness BLADDER/KIDNEY EXAM: Yes no CVA tenderness Back/Pelvis: COMMON NORMALS: no CVA tenderness, thoracic and lumbar spine normal to inspection, no thoracic nor lumbar tenderness and thoraco-lumbar ROM normal Extremity: COMMON NORMALS: normal to inspection, full ROM, capillary refill normal, no joint enlargement and no pedal edema GENERAL: Yes normal exam except as noted Neuro: COMMON NORMALS: patient oriented x3, CN's II-XII intact bilaterally, moves all extremities, no focal motor deficits, no sensory deficits noted and gait normal SENSORIUM/ORIENTATION: Yes alert, Yes oriented to person, Yes oriented to place and Yes oriented to time MENINGEAL SIGNS: Yes no meningeal signs Psych: COMMON NORMALS: mental status grossly normal, Normal thought process present, cooperative, normal affect and speech normal APPEARANCE: Yes well kempt ATTITUDE: Yes calm SPEECH: Yes normal speech THOUGHT PROCESS: Normal thought process present Skin: COMMON NORMALS: no rashes or lesions noted NARRATIVE SKIN EXAM: The patient has a mild rash on her extremities and scattered other places. It appears to be a drug rash likely from her Keflex that she recently started. She will discontinue this medication and start doxycycline. On her scalp there is a 2.5 cm diameter lesion which she has known for some time and says it is getting larger. It is irregular and possibly a skin cancer. I notified her of this. She has a dermatology appointment in October which I asked her to move up. GENERAL SKIN EXAM: no rashes or lesions noted Course Vital Signs: Vital signs: Vital Signs Temperature 98.0 F 09/21/20 12:23 Pulse Rate 81 09/21/20 12:35 Respiratory Rate 16 09/21/20 12:35 Blood Pressure 130/80 09/21/20 12:35 Pulse Oximetry 96 09/21/20 12:35 MDM - Skin/Abscess/Foreign Bdy MDM Narrative: Medical decision making narrative: The patient complains of a rash 2 days after starting Keflex for cellulitis and Eliquis for DVT. It is likely the Keflex and we will stop that and start doxycycline and a prescription. I also notified her there is a small chance it could be the Eliquis causing her rash. She understands and has an appointment with primary care doctor tomorrow for a follow-up. Also notified her that the scalp lesion is possibly cancerous and recommended she move up her dermatology appointment and get a biopsy of it. She understands and will do so. She has primary care appointment tomorrow which is convenient. Discharge Plan Discharge Patient Disposition: Home Clinical Impression: Allergic reaction, Cellulitis, Scalp lesion Condition: Stable Prescriptions: New doxycycline hyclate 100 mg capsule 100 mg PO BID 10 Days Qty: 20 RF: 0 Discontinued cephalexin 500 mg capsule 500 mg PO Q6H 7 Days Qty: 28 RF: 0 No Action (DME) lift chair See Rx Instructions .Route .MEDSUPPLY Qty: 1 RF: 0 atorvastatin [Lipitor] 40 mg tablet 40 mg PO DAILY Qty: 90 RF: 1 bupropion HCl 75 mg tablet 75 mg PO DAILY Qty: 90 RF: 1 buspirone 15 mg tablet 15 mg PO TID PRN (Reason: anxiety) Qty: 90 RF: 2 cholecalciferol (vitamin D3) 125 mcg (5,000 unit) capsule 5,000 unit PO DAILY Qty: 90 RF: 1 gabapentin 100 mg capsule 100 mg PO BID Qty: 180 RF: 1 levothyroxine 25 mcg tablet 25 mcg PO DAILY Qty: 90 RF: 1 losartan [Cozaar] 100 mg tablet 100 mg PO DAILY Qty: 90 RF: 1 venlafaxine 150 mg capsule,extended release 24hr 150 mg PO DAILY Qty: 90 RF: 1 ferrous gluconate [Ferate] 240 mg (27 mg iron) tablet 240 mg PO TID RF: 0 ascorbic acid (vitamin C) 1,000 mg tablet 1 gm PO DAILY RF: 0 multivitamin Tablet 1 tab PO QAM RF: 0 cyanocobalamin (vitamin B-12) 2,500 mcg tablet 2,500 mcg PO DAILY RF: 0 omega 3-vhi-nnx-fish oil [Fish Oil] 300-1,000 mg capsule 1 cap PO DAILY RF: 0 (DME) Tera knight See Rx Instructions .Route .MEDSUPPLY Qty: 1 RF: 0 fluorouracil 5 % cream 1 applic topical BID RF: 0 medical marijuana inhalation RF: 0 methenamine hippurate 1 gram tablet 1 g PO ONCE 90 Days Qty: 90 RF: 1 fluorouracil 5 % Cream 1 applic TOPICAL BID RF: 0 apixaban 5 mg tablet 5 mg PO BID Qty: 60 RF: 0 Discharge Orders: Discharge ED (Routine); Ordered 09/21/20 Ordered By: Nick Thorne Referrals: Tiara Burgess MD [Primary Care Provider] - Discharge Diet: Advance as tolerated Discharge Activity: Resume usual activity Patient Instructions: Opioid Safety Activity Restrictions/Additional Instructions: 1. You have a known infection to your left thigh and a blood clot there as well. Please continue to take the Eliquis and stop taking the Keflex as you have developed a rash that is likely from the antibiotic. I will be prescribing you doxycycline which is another antibiotic to treat your skin infection. There is a small chance that the Eliquis is causing your allergic reaction as well so please follow-up with your doctor as you already have planned tomorrow for a checkup and to discuss it further. Return to the ER at anytime with worsening symptoms, rash worsening, swelling of the lips, tongue, or shortness of breath. 2. You also have a lesion on your scalp approximately 1 inch in diameter which does not look good. You have an appointment with a wood milling machine operator in October but that is not soon enough. Please discuss with your primary care doctor tomorrow and I have also placed a case management consult to help you get an appointment. They should be calling you tomorrow to help you get an earlier appointment. Also call the wood milling machine operator and try to get an earlier appointment yourself as this lesion may need to be biopsied as it could be cancerous. Early diagnosis and treatment if it is a cancer leads to a much better prognosis. Coding Level of Care Code ED Life Claims Examiner for Janell Mathew
[2020-09-21 14:20] VITALS: PULSE 73; RESP 16; O2SAT 95
--- NOTE | 2020-09-22 09:30 | DCPLANNER ---
social work case manager had message to schedule a follow up appointment for patient with dermatology. social work case manager called the office of Dr. Shankar, gave clinic patients information. A follow up appointment was scheduled, when manager rn case called patient with appointment information, patient stated that she already sees Dr. Boland, in [facility]. Patient stated that she has an appointment scheduled with him. social work case manager called the office of Dr. Shankar, spoke with Rafia, and cancelled the appointment.
== END 2020-09-21 14:21 | disposition home or self-care (01) ==
PROVIDERS: Emergency Provider Family Medicine; PCP Family Medicine
DX: T78.40XA Allergy, unspecified, initial encounter (principal); L03.90 Cellulitis, unspecified; L98.9 Disorder of the skin and subcutaneous tissue, unspecified; Z86.73 Personal history of transient ischemic attack (TIA), and cerebral infarction without residual deficits; I10 Essential (primary) hypertension; E78.5 Hyperlipidemia, unspecified; Z85.118 Personal history of other malignant neoplasm of bronchus and lung; F17.210 Nicotine dependence, cigarettes, uncomplicated
CPT/HCPCS: 99282

== ENCOUNTER 2020-09-23 06:00 | Outpatient (RCR) | payer MEDICARE, MEDICAID, SELFPAY | END 2020-09-29 23:59 | disposition home or self-care (01) | LOC: TPT 06:00 | PROVIDERS: PCP Family Medicine; Referring Provider Family Medicine; Visit Provider Family Medicine | DX: R42 Dizziness and giddiness (principal) | CPT/HCPCS: 97110; 97112; 97162 ==

== ENCOUNTER 2020-09-30 06:00 | Outpatient (RCR) | payer MEDICARE, MEDICAID, SELFPAY | END 2020-10-29 23:59 | disposition home or self-care (01) | LOC: TPT 06:00 | PROVIDERS: PCP Family Medicine; Referring Provider Family Medicine; Visit Provider Family Medicine | DX: R42 Dizziness and giddiness (principal) | CPT/HCPCS: 97110; 97112; 97164 ==

== ENCOUNTER → 2020-10-23 10:47 | Outpatient (BNVA) | payer MEDICARE, MEDICAID, SELFPAY | PROVIDERS: PCP Family Medicine; Visit Provider Nurse Practitioner Family | DX: E78.5 Hyperlipidemia, unspecified (principal); R73.9 Hyperglycemia, unspecified; E03.9 Hypothyroidism, unspecified; I10 Essential (primary) hypertension; F32.9 Major depressive disorder, single episode, unspecified; F41.8 Other specified anxiety disorders; G62.9 Polyneuropathy, unspecified; I82.402 Acute embolism and thrombosis of unspecified deep veins of left lower extremity | CPT/HCPCS: 80053; 80061; 83036; 84443; 85025 ==

== ENCOUNTER → 2020-12-11 11:42 | Outpatient (BNVA) | payer MEDICARE, MEDICAID, SELFPAY | PROVIDERS: PCP Family Medicine; Visit Provider Nurse Practitioner Family | DX: J06.9 Acute upper respiratory infection, unspecified (principal); Z20.822 Contact with and (suspected) exposure to COVID-19 | CPT/HCPCS: 87635 ==

== ENCOUNTER 2021-03-08 12:32 | Emergency (ER) | payer MEDICARE, MEDICAID, SELFPAY ==
[2021-03-08 12:36] VITALS: BP 158/72; PULSE 71; RESP 15; TEMP 36.7; O2SAT 98
--- NOTE | 2021-03-08 13:32 | CTR_ITS ---
PROCEDURE INFORMATION: Exam: CT Head Without Contrast Exam date and time: 03/08/2021 1:32 PM Age: 75 years old Clinical indication: Pain; Headache not specified; Prior surgery; Surgery date: 6+ months; Surgery type: Craniotomy, shunt; Patient HX: C/O CHRISTIANSEN, n/v w HX of aneurysm; Additional info: Headache with h/o aneurism TECHNIQUE: Imaging protocol: Computed tomography of the head without contrast. Radiation optimization: All CT scans at this facility use at least one of these dose optimization techniques: automated exposure control; mA and/or kV adjustment per patient size (includes targeted exams where dose is matched to clinical indication); or iterative reconstruction. COMPARISON: CT head wo/w con [id number] 06/21/2019 2:18 PM RADIATION DOSE METRICS: Total DLP (mGy-cm): 812.78 FINDINGS: Tubes, catheters and devices: There is a right parietal ventriculostomy catheter present with the tip in the left frontal horn. Brain: No acute appearing brain parenchymal abnormality. Encephalomalacia in the anterior right temporal lobe, right frontal lobe and the right parietal lobe is redemonstrated. Chronic bilateral thalamic lacunar infarcts. No intracranial hemorrhage. No extraaxial fluid collections. Cerebral ventricles: No hydrocephalus. Paranasal sinuses: Minimal mucoperiosteal thickening. Mastoid air cells: The mastoid air cells are aerated. Bones/joints: Prior right frontotemporal craniotomy. No calvarial fracture. Soft tissues: No acute soft tissue abnormality. CT/CT head wo con* [id number] IMPRESSION: No acute intracranial abnormality. Radiation Dose CTDIVOL = (mGy): DLP = 812.78 (mGy-cm)
[2021-03-08 13:40] LABS: Basophils # 0.1 10^3/uL (0.0-0.1); Basophils % 0.5 %; Eosinophils # 0.2 10^3/uL (0.0-0.8); Eosinophils % 2.2 %; Hematocrit 36.5 % (37.0-47.0); Hemoglobin 11.5 g/dL (11.5-15.3); Lymphocytes # 2.4 10^3/uL (0.8-4.8); Lymphocytes % 22.1 %; Mean Corpuscular HGB Conc 31.5 g/dL (30.0-36.0); Mean Corpuscular Hemoglobin 29.2 pg (28.0-34.0); Mean Corpuscular Volume 92.6 fl (81-99); Mean Platelet Volume 9.7 fL (7.4-10.4); Monocytes # 0.7 10^3/uL (0.2-0.9); Monocytes % 6.4 %; Neutrophils # 7.56 10^3/uL (1.8-7.7); Neutrophils % 68.5 %; Nucleated Red Blood Cells % 0 %; Platelet Count 332 10^3/cmm (130-400); Red Blood Count 3.94 10^6/uL (4.1-5.3); Red Cell Distribution Width 14.9 % (12.1-15.1)
[2021-03-08] MEDS: sodium chloride 0.9% 500 ML IV (14:04)
[2021-03-08 14:09] LABS: Alanine Aminotransferase 16 U/L (0-33); Albumin Level 3.9 g/dL (3.5-5.2); Alkaline Phosphatase 92 IU/L (35-105); Aspartate Amino Transferase 10 U/L (0-32); Blood Urea Nitrogen 10 mg/dL (8-23); C Reactive Protein 5.7 mg/L (0.0-4.9); Calcium 8.9 mg/dL (8.5-10.5); Carbon Dioxide 23 mmol/L (22-29); Chloride 106 mmol/L (98-107); Globulin 2.7 g/dL (1.3-4.6); Glucose 88 mg/dL (65-115); Osmolality Calculated 286 mOsm/kg (285-295); Sodium 139 mmol/L (136-145); Total Bilirubin 0.3 mg/dL (0.15-1.2); Total Protein 6.6 g/dL (6.6-8.7)
--- NOTE | 2021-03-08 14:09 | W.ED.HA ---
HPI - Headache General: Chief Complaint: Headache Stated Complaint: HEADACHE Time Seen by Provider: 03/08/21 12:36 Source: patient History of Present Illness: HPI Narrative: 75-year-old female presents emergency department chief complaint of having a headache and a burning sensation noted to her face after eating some caramel corn as well as a lot of sweets. Patient reports that she does have a history of a brain aneurysm requiring surgical management last couple of years. Patient reports that she is a prediabetic currently on Metformin which was recently taken off the [employer] blood sugars patient is concerned that her associated symptoms are related to her blood sugar issue. She reports that she has no current headache reports no current dizziness. Patient reports no other associated symptoms. MD elicited complaint: headache Onset (ago): day(s) (1) Onset description: gradually Location: generalized Associated symptoms: Deny chest pain, fever(s), malaise, nausea, rash or vomiting Review of Systems General: Reports: 10 or more systems reviewed and unremarkable except in HPI and below Const: Denies: fever(s), chills, fatigue or malaise Eyes: Denies: change in vision or blurry vision Card: Denies: chest pain or palpitations Resp: Denies: dyspnea or productive cough GI: Denies: abdominal pain, nausea or vomiting : Denies: flank pain Musc: Denies: extremity pain or extremity swelling Skin/Breast: Denies: rash or pruritus Neuro: Reports: headache(s), sensory changes and dizziness Psych: Denies: anxiety or depression Audi/Lymph: Denies: easy bleeding All/Imm: Denies: urticaria, throat swelling or facial swelling PFS ED PFSH: Medical History Acquired bilateral hammer toes Adult onset hypothyroidism Anemia, iron deficiency Anxiety with depression Basal cell carcinoma of skin of nose (~07/2017) Brain aneurysm (~1995) CVA (cerebrovascular accident due to intracerebral hemorrhage) Essential (primary) hypertension Gait instability With frequent falls at baseline History of malignant melanoma History of nonmelanoma skin cancer Hyperlipidemia, unspecified Leukocytosis follows with Dr Rubio Lung nodule right Malignant melanoma of chin (~07/2017) Paresthesia of skin Skin cancer of nose On 5-FU cream Squamous cell carcinoma of left lower leg Urinary incontinence, urge Surgical History History of appendectomy History of brain shunt History of brain surgery (~1995) ruptured aneurysm repair with shunt implanted History of section History of hysterectomy Family History Family/Other Stroke CAD (coronary artery disease) Cancer skin Social History Smoking and tobacco status: current every day smoker (.75 pack) cigarettes Packs smoked per day: 0.5 Alcohol intake: unknown Lives independently: No (relatives) Marital status: Number of children: 1 Current occupational status: retired Current gender identity: Female Physical Exam Narrative: EXAM NARRATIVE: Patient currently appears to be in no obvious acute distress acting appropriate on exam with no focal neuro deficits noted Const: COMMON NORMALS: no acute distress, patient oriented x3 and healthy appearing GENERAL APPEARANCE: cooperative ORIENTATION/CONSCIOUSNESS: Yes awake, Yes oriented to person, Yes oriented to place and Yes oriented to time; not confused HENMT: COMMON NORMALS: normocephalic and atraumatic HEAD & SCALP: normocephalic and atraumatic Eye: COMMON NORMALS: Equal, round and reactive pupils present and EOMs intact bilaterally PUPIL: Yes Equal, round and reactive pupils present Neck/C-Spine: COMMON NORMALS: full ROM, supple and no JVD Lymph: LYMPHATIC: no lymphadenopathy noted Chest: COMMONS NORMALS: normal inspection of the chest and normal palpation of entire chest wall Resp: COMMON NORMALS: normal respiratory effort, No retractions and clear to auscultation bilaterally EFFORT & INSPECTION: Yes able to speak in complete sentences and Yes symmetric chest movement AUSCULTATION: clear to auscultation bilaterally Cardio: COMMON NORMALS: no JVD, regular rate and regular rhythm RATE: regular rate RHYTHM: regular rhythm GI: COMMON NORMALS: Normal to inspection, nondistended, normoactive bowel sounds present, Soft to palpation and non-tender INSPECTION: Yes normal to inspection PALPATION: Yes Soft to palpation : COMMON NORMALS: Yes no CVA tenderness BLADDER/KIDNEY EXAM: Yes no CVA tenderness Back/Pelvis: COMMON NORMALS: no CVA tenderness Extremity: COMMON NORMALS: normal to inspection and full ROM Neuro: COMMON NORMALS: patient oriented x3, CN's II-XII intact bilaterally, moves all extremities and no focal motor deficits SENSORIUM/ORIENTATION: Yes oriented to person, Yes oriented to place and Yes oriented to time Psych: COMMON NORMALS: mental status grossly normal, Normal thought process present, cooperative and normal affect THOUGHT PROCESS: Normal thought process present Skin: COMMON NORMALS: no rashes or lesions noted GENERAL SKIN EXAM: no rashes or lesions noted Course ED course: Due to the patient's significant issue lab work and imaging will be obtained we will continue to follow. Vital Signs: Vital signs: Vital Signs Temperature 98.1 F 03/08/21 12:36 Pulse Rate 71 03/08/21 12:36 Respiratory Rate 15 03/08/21 12:36 Blood Pressure 158/72 03/08/21 12:36 Pulse Oximetry 98 03/08/21 12:36 MDM - Headache Lab Data: Labs: Lab Results 03/08/21 03/08/21 03/08/21 13:10 13:10 13:53 WBC 11.0 10^3/uL H 10 ^3/uL (4.0-10.0) RBC 3.94 10^6/uL L 10 ^6/uL (4.1-5.3) Hgb 11.5 g/dL g/dL (11.5-15.3) Hct 36.5 % L % (37.0-47.0) MCV 92.6 fl fl (81-99) MCH 29.2 pg pg (28.0-34.0) MCHC 31.5 g/dL g/dL (30.0-36.0) RDW 14.9 % % (12.1-15.1) Plt Count 332 10^3/cmm 10^3 /cmm (130-400) MPV 9.7 fL fL (7.4-10.4) Neut % (Auto) 68.5 % % Lymph % (Auto) 22.1 % % [place] % (Auto) 6.4 % % Eos % (Auto) 2.2 % % Baso % (Auto) 0.5 % % Neut # (Auto) 7.56 10^3/uL 10^3 /uL (1.8-7.7) Lymph # (Auto) 2.4 10^3/uL 10^3/ uL (0.8-4.8) [place] # (Auto) 0.7 10^3/uL 10^3/ uL (0.2-0.9) Eos # (Auto) 0.2 10^3/uL 10^3/ uL (0.0-0.8) Baso # (Auto) 0.1 10^3/uL 10^3/ uL (0.0-0.1) Nucleated RBC % (a uto) 0 % % Nucleated RBCs # 0.0 /100WBC /100W BC Sodium 139 mmol/L mmol/L (136-145) Potassium 4.0 mmol/L mmol/L (3.5-5.1) Chloride 106 mmol/L mmol/L (98-107) Carbon Dioxide 23 mmol/L mmol/L (22-29) Anion Gap 14.0 (5-19) BUN 10 mg/dL mg/dL (8-23) Creatinine 0.7 mg/dL mg/dL (0.5-0.9) GFR Calculation Not Reportable Glucose 88 mg/dL mg/dL (65-115) POC Glucose 84 mg/dL mg/dL (70-110) Calculated Osmolal ity 286 mOsm/kg mOsm/ kg (285-295) Calcium 8.9 mg/dL mg/dL (8.5-10.5) Total Bilirubin 0.3 mg/dL mg/dL (0.15-1.2) AST 10 U/L U/L (0-32) ALT 16 U/L U/L (0-33) Alkaline Phosphata se 92 IU/L IU/L (35-105) C-Reactive Protein 5.7 mg/L H mg/L (0.0-4.9) Total Protein 6.6 g/dL g/dL (6.6-8.7) Albumin 3.9 g/dL g/dL (3.5-5.2) Globulin 2.7 g/dL g/dL (1.3-4.6) Discharge Plan Discharge Patient Disposition: Home Clinical Impression: Headache, Atypical facial pain Condition: Stable Prescriptions: New prednisone 20 mg tablet 20 mg PO BID 7 Days Qty: 14 RF: 0 No Action (DME) lift chair See Rx Instructions .Route .MEDSUPPLY Qty: 1 RF: 0 cholecalciferol (vitamin D3) 125 mcg (5,000 unit) capsule 5,000 unit PO DAILY Qty: 90 RF: 1 atorvastatin 40 mg tablet See Rx Instructions .ROUTE .COMPLEX Qty: 90 RF: 1 bupropion HCl 75 mg tablet See Rx Instructions .ROUTE .COMPLEX Qty: 90 RF: 1 levothyroxine 25 mcg tablet See Rx Instructions .ROUTE .COMPLEX Qty: 90 RF: 1 losartan 100 mg tablet See Rx Instructions .ROUTE .COMPLEX Qty: 90 RF: 1 venlafaxine 150 mg capsule,extended release 24hr See Rx Instructions .ROUTE .COMPLEX Qty: 90 RF: 1 ferrous gluconate [Ferate] 240 mg (27 mg iron) tablet 240 mg PO TID RF: 0 ascorbic acid (vitamin C) 1,000 mg tablet 1 gm PO DAILY RF: 0 multivitamin Tablet 1 tab PO QAM RF: 0 cyanocobalamin (vitamin B-12) 2,500 mcg tablet 2,500 mcg PO DAILY RF: 0 (DME) Rollater walker See Rx Instructions .Route .MEDSUPPLY Qty: 1 RF: 0 fluorouracil 5 % cream 1 applic topical BID RF: 0 medical marijuana inhalation RF: 0 venlafaxine 75 mg capsule,extended release 24hr 75 mg PO QAM Qty: 90 RF: 1 gabapentin 100 mg capsule See Rx Instructions .ROUTE .COMPLEX Qty: 180 RF: 1 methenamine hippurate 1 gram tablet See Rx Instructions .ROUTE .COMPLEX Qty: 90 RF: 0 Eliquis 5 mg tablet See Rx Instructions .ROUTE .COMPLEX Qty: 60 RF: 2 Discharge Orders: Discharge ED (Routine); Ordered 03/08/21 Ordered By: Azeem Weinstein Referrals: Tiara Burgess MD [Primary Care Provider] - 4-7 days Discharge Diet: Advance as tolerated Discharge Activity: Resume usual activity Patient Instructions: Allergic Reaction, Trigeminal Neuralgia (ED), Acute Headache (ED), Opioid Safety Activity Restrictions/Additional Instructions: Please take medications as prescribed, follow-up with your primary care doctor in 3 to 5 days and return in the interim if any of her symptoms persist or worsen. Coding Level of Care Code ED Fur Blowing Machine Operator for Janell Mathew Exam Comprehensive
[2021-03-08 14:10] LABS: Glucose Point of Care 84 mg/dL (70-110)
[2021-03-08 16:25] VITALS: BP 142/60; PULSE 78; RESP 16; O2SAT 98
== END 2021-03-08 16:26 | disposition home or self-care (01) ==
PROVIDERS: Emergency Provider Emergency Medicine; PCP Family Medicine
DX: R51.9 Headache, unspecified (principal); G50.1 Atypical facial pain; Z79.01 Long term (current) use of anticoagulants; Z86.73 Personal history of transient ischemic attack (TIA), and cerebral infarction without residual deficits; I10 Essential (primary) hypertension; E78.5 Hyperlipidemia, unspecified; F17.210 Nicotine dependence, cigarettes, uncomplicated
CPT/HCPCS: 36416; 70450; 80053; 82962; 85025; 86140; 96360; 99283; J7040

== ENCOUNTER → 2021-04-15 11:14 | Outpatient (BNVA) | payer MEDICARE, MEDICAID, SELFPAY | PROVIDERS: PCP Family Medicine; Visit Provider Internal Medicine | DX: Z01.812 Encounter for preprocedural laboratory examination (principal); Z12.11 Encounter for screening for malignant neoplasm of colon | CPT/HCPCS: 87635 ==

== ENCOUNTER 2021-04-20 07:46 | Day surgery (SDC) | payer MEDICARE, MEDICAID, SELFPAY ==
[2021-04-17 09:15] VITALS: BMI 31.5
--- NOTE | 2021-04-20 07:56 | ANES.PREANE2 ---
Pre-Anesthetic Assessment Pre-Anesthetic Assessment: Height/Weight: Height 1.55 m Weight 75.75 kg Preop Diagnosis: FH Proposed Procedure: Operation Date: 04/20/21 09:30 Proposed Procedures p Colonoscopy T3918 [id number] Z12.11(Not Applicable) - Erickson Obregno MD Familial anesthetic complications: None Was Beta Geoffrey taken within 24 hours: N/A Was Clonidine taken within 24 hours: N/A Last intake: > 8 hrs Social: Social History: Tobacco and No alcohol Exam: Pre-Anes Outpt Exam: alert, oriented x 3, clear to auscultation bilaterally and regular rate & rhythm Airway: MP: 2 Dentition: False CV/HEM: CV/HEM: DVT (eliquis) and HTN Metabolic: Metabolic: Hyperlipidemia and Thyroid Neuropsych: Neuropsych: CVA (1995 burst aneurysm (left with gait instability)) Anesthetic Plan: ASA status: 3 Anesthesia: MAC Risk of > 500 ml blood loss (7ml/kg in children): No PFSH Anesthesia PFSH: Medical History Acquired bilateral hammer toes Adult onset hypothyroidism Anemia, iron deficiency Anxiety with depression Basal cell carcinoma of skin of nose (~07/2017) Brain aneurysm (~1995) CVA (cerebrovascular accident due to intracerebral hemorrhage) Essential (primary) hypertension Gait instability With frequent falls at baseline History of malignant melanoma History of nonmelanoma skin cancer Hyperlipidemia, unspecified Leukocytosis follows with Dr Rubio Lung nodule right Malignant melanoma of chin (~07/2017) Paresthesia of skin Skin cancer of nose On 5-FU cream Squamous cell carcinoma of left lower leg Urinary incontinence, urge Surgical History History of appendectomy History of brain shunt History of brain surgery (~1995) ruptured aneurysm repair with shunt implanted History of section History of hysterectomy Family History Family/Other Stroke CAD (coronary artery disease) Cancer skin Social History Smoking and tobacco status: current every day smoker cigarettes Packs smoked per day: 0.5 Second hand smoke exposure: No Alcohol intake: unknown Caregiver/support person: Yes (daughter) Lives independently: No (relatives) Household members: none Marital status: Number of children: 1 service: No Current occupational status: retired History of recent travel: No Current gender identity: Female Special colt needs: No Data Anesthesia Cardiac Studies: No Data to Display
--- NOTE | 2021-04-20 08:35 | P.HP_ITS ---
Same Day Surgery H&P Indication for Procedure/HPI DATE OF PROCEDURE: April 20, 2021 CHIEF COMPLAINT/INDICATIONFOR SURGICAL PROCEDURE: Family history of colon cancer family history of colorectal cancer PREOP DIAGNOSIS: FH PLANNED PROCEDRUE: Operation Date: 04/20/21 09:30 Proposed Procedures p Colonoscopy [id number] Z12.11(Not Applicable) - Erickson Obregon MD Medications/Allergies* Home Medications Medication Instructions Recorded Confirmed Type ascorbic acid (vitamin C) 1,000 mg 1 gm PO DAILY tab 04/30/19 04/17/21 History tablet ferrous gluconate 240 mg (27 mg 240 mg PO TID 04/30/19 04/17/21 History iron) tablet multivitamin 1 tab PO QAM 04/30/19 04/17/21 History cyanocobalamin (vitamin B-12) 2,500 mcg PO DAILY tab 06/25/19 04/17/21 History 2,500 mcg tablet medical marijuana 1 dose INHALATION DAILY 04/09/20 04/17/21 History fluorouracil 5 % topical cream 1 applic TOPICAL BID PRN 04/28/20 04/17/21 History apixaban [Eliquis] 5 mg PO BID 04/17/21 04/17/21 History atorvastatin 40 mg PO DAILY 04/17/21 04/17/21 History bupropion HCl 75 mg PO DAILY 04/17/21 04/17/21 History gabapentin 100 mg PO BID 04/17/21 04/17/21 History levothyroxine 25 mcg PO DAILY 04/17/21 04/17/21 History losartan 100 mg PO DAILY 04/17/21 04/17/21 History methenamine hippurate 1 g PO DAILY 04/17/21 04/17/21 History venlafaxine 75 mg PO BEDTIME 04/17/21 04/17/21 History venlafaxine 150 mg PO DAILY 04/17/21 04/17/21 History Allergies/Adverse Reactions Allergy/AdvReac Type Severity Reaction Status Date / Time cephalexin Allergy rash Verified 04/15/21 09:54 clindamycin Allergy rash Verified 04/15/21 09:54 Pertinent History/Comorbid Conditions* Medical History (Updated 04/15/21 @ 10:44 by Erickson Obregon MD) Acquired bilateral hammer toes Adult onset hypothyroidism Anemia, iron deficiency Anxiety with depression Basal cell carcinoma of skin of nose (~07/2017) Brain aneurysm (~1995) CVA (cerebrovascular accident due to intracerebral hemorrhage) Essential (primary) hypertension Gait instability With frequent falls at baseline History of malignant melanoma History of nonmelanoma skin cancer Hyperlipidemia, unspecified Leukocytosis follows with Dr Rubio Lung nodule right Malignant melanoma of chin (~07/2017) Paresthesia of skin Skin cancer of nose On 5-FU cream Squamous cell carcinoma of left lower leg Urinary incontinence, urge Surgical History (Updated 06/25/19 @ 13:26 by Tiara Burgess MD) History of appendectomy History of brain shunt History of brain surgery (~1995) ruptured aneurysm repair with shunt implanted History of section History of hysterectomy Family History (Updated 04/30/19 @ 16:27 by Sharron Ferreira LPN, RT) CAD (coronary artery disease) Family/Other Cancer Family/Other skin Stroke Family/Other Social History Smoking and tobacco status: current every day smoker cigarettes Packs smoked per day: 0.5 Second hand smoke exposure: No Alcohol intake: unknown Caregiver/support person: Yes (daughter) Lives independently: No (relatives) Household members: none Marital status: Number of children: 1 service: No Current occupational status: retired History of recent travel: No Current gender identity: Female Special colt needs: No Pertinent Exam Findings alert, oriented x 3, clear to auscultation bilaterally, regular rate & rhythm, operative site marked and procedure specific exam findings Recommendations Surgery/Procedure today Coding Level of Care Code Acute Parks Recreation Director for Janell Mathew
[2021-04-20 08:36] VITALS: BP 166/86; PULSE 84; RESP 18; TEMP 36.3; O2SAT 97
[2021-04-20] MEDS: sodium chloride 0.9% 1,000 ML 30 ML IV (08:57)
[2021-04-20 10:06] VITALS: BP 113/58; PULSE 81; RESP 18; TEMP 36.4; O2SAT 98
[2021-04-20 10:20] VITALS: BP 132/74; PULSE 74; RESP 18; O2SAT 97
== END 2021-04-20 10:51 | disposition home or self-care (01) ==
PROVIDERS: PCP Nurse Practitioner Family; Visit Provider Internal Medicine
PROC: 0DJD8ZZ Inspection of Lower Intestinal Tract, Via Natural or Artificial Opening Endoscopic (ICD-10-PCS; CPT 45378; principal; 2021-04-20 09:30)
DX: Z12.11 Encounter for screening for malignant neoplasm of colon (principal); Z80.0 Family history of malignant neoplasm of digestive organs; D12.2 Benign neoplasm of ascending colon; E03.9 Hypothyroidism, unspecified; Z86.73 Personal history of transient ischemic attack (TIA), and cerebral infarction without residual deficits; I10 Essential (primary) hypertension; E78.5 Hyperlipidemia, unspecified; F17.210 Nicotine dependence, cigarettes, uncomplicated
CPT/HCPCS: 45385; 88305; 96360; J2704; J7030

== ENCOUNTER 2021-06-11 10:04 | Outpatient (CLI) | payer MEDICARE, MEDICAID, SELFPAY ==
--- NOTE | 2021-06-11 09:30 | MM_ITS ---
WS: [id number] BILATERAL SCREENING DIGITAL MAMMOGRAM WITH CAD HISTORY: Screening mammogram. COMPARISON: 04/11/2020, 08/24/2018, 08/08/2018 and 03/09/2017 Bilateral CC and MLO views submitted. Computer aided detection analyzed. Breast composition: There are scattered areas of fibroglandular density. No suspicious masses, microc alcifications or architectural distortion. Asymmetries in the anterior LEFT breast are stable. There is a large nodular normal in the anterior LEFT breast. MM/[place] [id number] IMPRESSION: BI-RADS: 2-Benign FOLLOW UP: 1 Year Follow-up
== END 2021-06-11 10:05 | disposition home or self-care (01) ==
PROVIDERS: PCP Nurse Practitioner Family; Visit Provider Nurse Practitioner Family
DX: Z12.31 Encounter for screening mammogram for malignant neoplasm of breast (principal)
CPT/HCPCS: 77067

== ENCOUNTER → 2021-06-12 13:26 | Outpatient (BNVA) | payer MEDICARE, MEDICAID, SELFPAY | PROVIDERS: PCP Nurse Practitioner Family; Visit Provider Psychiatry & Neurology Psychiatry | DX: F31.81 Bipolar II disorder (principal); F12.10 Cannabis abuse, uncomplicated | CPT/HCPCS: 99204 ==

== ENCOUNTER 2021-06-16 08:06 | Outpatient (CLI) | payer MEDICARE, MEDICAID, SELFPAY ==
--- NOTE | 2021-06-16 08:30 | CT_ITS ---
WS: [id number] CT CHEST WITHOUT INTRAVENOUS CONTRAST HISTORY: R91.8 - Other nonspecific abnormal finding of lung field TECHNIQUE: Contiguous 5 mm axial imaging performed on the thorax. Coronal and sagittal reformats are submitted. All CT scans at [facility] use at least one of these dose optimization techniques: automated exposure control; mA and/or kV adjustment per patient size (includes targeted exams where dose is matched to clinical indication); or iterative reconstruction. CONTRAST: None DLP: 677.89 mGy.cm COMPARISON: Chest CT 04/23/2019 and 05/30/2014 Lungs and central airway: Mildly hyperexpanded lungs. Subcentimeter nodules in the RIGHT middle lobe is stable since at least 2014. Largest nodules measure around 5 mm. No new pulmonary nodule. Subsegme ntal areas of atelectasis at the lung bases but greatest in the LEFT lower lobe. There is also pleura l thickening along the inferior major fissure and at the LEFT lung base. Pleura: No pleural effusion. Heart and pericardium: Normal size heart with no pericardial effusion. Mediastinum and beth: Small mediastinal and hilar lymph nodes. No enlarging or new lymph nodes. Vessels: Mild atherosclerosis of aorta. Normal size pulmonary artery. Very mild calcification in the cachil dehe coronary arteries. Chest wall and lower neck: Tubing over the RIGHT thorax from a MAJOR GIFTS DIRECTOR shunt catheter. Catheter enters the peritoneal cavity along the inferior RIGHT lobe of the liver. Upper abdomen: Moderate-sized hiatal hernia. Noncontrast imaging of the liver is normal. Visualized g allbladder is negative. No adrenal mass. Mild atherosclerosis aorta. There is an IVC filter present Osseous structures: No destructive process. CT/CT chest wo con [id number] IMPRESSION: 1. Long-term stability of subcentimeter nodules in the RIGHT middle lobe. 2. Mild increase in amount pleural thickening and subsegmental areas of linear atelectasis at the LEFT lung base. 3. No increase in mediastinal or hilar adenopathy. 4. IVC filter noted. 5. MAJOR GIFTS DIRECTOR shunt tubing noted over the RIGHT thorax.
== END 2021-06-16 08:07 | disposition home or self-care (01) ==
LOC: RAD 08:08
PROVIDERS: PCP Nurse Practitioner Family; Visit Provider Nurse Practitioner Family
DX: R91.8 Other nonspecific abnormal finding of lung field (principal); Z98.2 Presence of cerebrospinal fluid drainage device
CPT/HCPCS: 71250

== ENCOUNTER → 2021-06-18 10:15 | Outpatient (BNVA) | payer MEDICARE, MEDICAID, SELFPAY | PROVIDERS: PCP Nurse Practitioner Family; Referring Provider Nurse Practitioner Family; Visit Provider Specialist | DX: R26.89 Other abnormalities of gait and mobility (principal); G24.8 Other dystonia; F17.210 Nicotine dependence, cigarettes, uncomplicated | CPT/HCPCS: 99203; 99204 ==

== ENCOUNTER → 2021-07-06 15:26 | Outpatient (BNVA) | payer MEDICARE, MEDICAID, SELFPAY | PROVIDERS: PCP Nurse Practitioner Family; Visit Provider Psychiatry & Neurology Psychiatry | DX: F31.81 Bipolar II disorder (principal); F12.10 Cannabis abuse, uncomplicated | CPT/HCPCS: 99214 ==

== ENCOUNTER 2021-07-15 11:56 | Outpatient (CLI) | payer MEDICARE, MEDICAID, SELFPAY ==
--- NOTE | 2021-07-15 12:09 | XRR_ITS ---
PROCEDURE INFORMATION: Exam: XR Right Ribs Exam date and time: 07/15/2021 12:09 PM Age: 75 years old Clinical indication: Pain and injury or trauma; Fall; Rib area; Blunt trauma (contusions or hematomas); Chest wall pain; Right; Injury date: Last week; Additional info: Rib pain right side TECHNIQUE: Imaging protocol: XR Right ribs. Views: 2 views. COMPARISON: CT chest con [id number] 06/16/2021 8:42 AM FINDINGS: Tubes, catheters and devices: There is an intact LEAD PROGRAMMER shunt on the right side. Bones/joints: Negative for acute bone abnormality. Soft tissues: Normal. XR/XR ribs RT 2V* [id number] IMPRESSION: 1. No acute findings. 2. Intact LEAD PROGRAMMER shunt right side
--- NOTE | 2021-07-15 12:09 | XRR_ITS ---
PROCEDURE INFORMATION: Exam: XR Thoracic Spine Exam date and time: 07/15/2021 12:09 PM Age: 75 years old Clinical indication: Pain and injury or trauma; Fall; Blunt trauma (contusions or hematomas); Pain in thoracic spine; Injury date: Last week TECHNIQUE: Imaging protocol: XR of the thoracic spine. Views: 3 views. COMPARISON: CT chest wo con [id number] 06/16/2021 8:42 AM FINDINGS: Tubes, catheters and devices: A COUNSELING CENTER DIRECTOR shunt is seen on the right side appearing intact. Bones/joints: there is severe osteopenia No acute fracture. Normal alignment. Soft tissues: A vena cava filter is in place in good position. XR/XR thoracic spine 2V [id number] IMPRESSION: 1. No acute findings. 2. Severe osteopenia 3. Vena cava filter is in good position. 4. Intact COUNSELING CENTER DIRECTOR shunt right side
== END 2021-07-15 11:57 | disposition home or self-care (01) ==
PROVIDERS: PCP Nurse Practitioner Family; Visit Provider Nurse Practitioner Family
DX: M54.6 Pain in thoracic spine (principal); R07.81 Pleurodynia; M85.88 Other specified disorders of bone density and structure, other site
CPT/HCPCS: 71100; 72070

== ENCOUNTER → 2021-08-31 15:47 | Outpatient (BNVA) | payer MEDICARE, MEDICAID, SELFPAY | PROVIDERS: PCP Nurse Practitioner Family; Visit Provider Psychiatry & Neurology Psychiatry | DX: F31.81 Bipolar II disorder (principal); F12.10 Cannabis abuse, uncomplicated | CPT/HCPCS: 99214 ==

== ENCOUNTER 2021-10-01 17:43 | Emergency (ER) | payer MEDICARE, MEDICAID, SELFPAY ==
[2021-10-01] VITALS (7 sets, daily range): BP systolic 114–139; BP diastolic 65–80; PULSE 70–76; RESP 16–18; TEMP 37.1; O2SAT 94–97; BMI 31.4
--- NOTE | 2021-10-01 17:59 | ED_ITS ---
HPI - Chest Pain General: Chief Complaint: Chest Pain Stated Complaint: fall, chest pain Time Seen by Provider: 10/01/21 17:59 History of Present Illness: Ms. Elliott is a 76-year-old lady with complex past medical history including anticoagulation use who presents to the emergency department due to chest pain. She reports onset of symptoms 3 days ago after a fall. She has a history of frequent falls and reports this was similar to prior, she landed forward on the handle of a gardening tool. Denies head strike or loss of consciousness. Initially pain was moderate to severe and knocked the wind out of her however it improved and is now worsening again over the past few days. Symptoms are worse with movement and inspiration. There is some radiation to left chest. Density is once again moderate to severe. No other specific changes in health, exacerbating, or alleviating factors identified. Onset (ago): day(s) Timing of current episode: increasing Onset: other Pain location: substernal and left chest Severity: moderate Exacerbating factors: exertion, inspiration and other Review of Systems General: Reports: 10 or more systems reviewed and unremarkable except in HPI and below PFSH ED PFSH: Medical History Acquired bilateral hammer toes Adult onset hypothyroidism Anemia, iron deficiency Anxiety with depression Basal cell carcinoma of skin of nose (~07/2017) Brain aneurysm (~1995) CVA (cerebrovascular accident due to intracerebral hemorrhage) Essential (primary) hypertension Gait instability With frequent falls at baseline History of malignant melanoma History of nonmelanoma skin cancer Hyperlipidemia, unspecified Leukocytosis follows with Dr Rubio Lung nodule right Malignant melanoma of chin (~07/2017) Paresthesia of skin Psychiatric care Skin cancer of nose On 5-FU cream Squamous cell carcinoma of left lower leg Urinary incontinence, urge Surgical History History of appendectomy History of brain shunt History of brain surgery (~1995) ruptured aneurysm repair with shunt implanted History of section History of hysterectomy Family History Family/Other Stroke CAD (coronary artery disease) Cancer skin Social History Smoking and tobacco status: current every day smoker cigarettes Packs smoked per day: 0.5 Years cigarettes smoked: 59 Quit status (tobacco): has tried quititng Number of times tried to quit tobacco: 30 Second hand smoke exposure: No Alcohol intake: unknown Caregiver/support person: Yes (daughter) Lives independently: No (relatives) Household members: none Marital status: Number of children: 1 service: No Current occupational status: retired History of recent travel: No Current gender identity: Female Special colt needs: No Physical Exam Const: COMMON NORMALS: alert GENERAL APPEARANCE: cooperative and well developed HENMT: COMMON NORMALS: normocephalic and atraumatic HEAD & SCALP: normocephalic and atraumatic Eye: COMMON NORMALS: conjunctivae normal CONJUNCTIVA: Yes conjunctivae normal SCLERA: sclerae normal Neck/C-Spine: COMMON NORMALS: supple GENERAL: Yes trachea midline Chest: COMMONS NORMALS: normal inspection of the chest Resp: COMMON NORMALS: normal respiratory effort and clear to auscultation bilaterally EFFORT & INSPECTION: Yes able to speak in complete sentences AUSCULTATION: clear to auscultation bilaterally Cardio: COMMON NORMALS: regular rate and regular rhythm RATE: regular rate RHYTHM: regular rhythm GI: COMMON NORMALS: Soft to palpation PALPATION: Yes Soft to palpation and No Tenderness to palpation present (GI) PERCUSSION: normal to percussion Extremity: GENERAL: Yes normal exam except as noted and No edema Neuro: COMMON NORMALS: moves all extremities SENSORIUM/ORIENTATION: Yes alert and No Orientation impaired Psych: COMMON NORMALS: mental status grossly normal and Normal thought process present THOUGHT PROCESS: Normal thought process present Course ED course: - Patient was seen and evaluated by me at bedside - Patient placed on cardiac monitors, IV access obtained - Initial evaluation notable for exam as above - Labs personally interpreted by me. EKG shows sinus rhythm with nonspecific ST segment normalities, no STEMI. -Analgesia given - Labs notable for no leukocytosis, normocytic anemia. Metabolic panel without acute derangement requiring intervention. Troponin negative with greater than 6 hours of symptoms. - Imaging notable for sternal fracture - Upon serial reexamination after treatment the patient was improved. Discussed with Dr. Ley of the cardiothoracic surgery service, patient can have follow-up with him in the outpatient setting. - Based on patient history, evaluation, and testing as interpreted the most likely cause of the patient's condition is fall with sternal fracture - The results of ED evaluation were discussed with the patient including prescriptions and/or symptomatic cares (if applicable) including appropriate and responsible use, incentive. spirometer, followup plan, and return precautions. The patient verbalized understanding and felt safe for discharge. - Patient discharged in satisfactory condition. Note: Click bubbles or prepopulated [place] in note writing are used for assistance with data collection and billing and are inherently more limited than narrative and other text portions of this note. Please use narrative for additional clinical history and defer to narrative/free test for any case of contradictory information. If information appears in only free text or click bubble it should be considered present or absent as reported. Please contact note magnetic tape typewriter operator for clarifications of clinical information or contradictory information. MDM is a brief summary, contradictory or erroneous seeming information should be clarified and full note should be reviewed. Vital Signs: Vital signs: Vital Signs Temperature 98.8 F 10/01/21 17:49 Pulse Rate 70 10/01/21 20:53 Respiratory Rate 16 10/01/21 19:00 Blood Pressure 126/66 10/01/21 20:53 Pulse Oximetry 95 10/01/21 20:53 MDM - Chest Pain Medical Decision Making 76-year-old lady presenting with chest pain after a fall 3 days ago. Patient found to have sternal fracture. Symptoms improved with treatment. Satisfactory for outpatient management with strict return precautions. Medical Records I reviewed the patient's medical records. Lab Data I reviewed the patient's lab results. : 10/01/21 18:25 10/01/21 18:[address] 10/01/21 18:07 IMPRESSION: 1. Stable 3 mm nodule or scar in the right middle lobe, axial series 2, image 32, sagittal series 601, image 61. Stable since 2019. No followup needed. 2. Acute depressed fracture through the superior body of the sternum, sagittal series 601, images 40 4-45. Laboratory Results WBC 9.8 10^3/uL (4.0-10.0) 10/01/21 18:25 RBC 3.90 10^6/uL (4.1-5.3) L 10/01/21 18:25 Hgb 10.9 g/dL (11.5-15.3) L 10/01/21 18:25 Hct 33.5 % (37.0-47.0) L 10/01/21 18:25 MCV 85.9 fl (81-99) 10/01/21 18: MCH 27.9 pg (28.0-34.0) L 10/01/21 18: MCHC 32.5 g/dL (30.0-36.0) 10/01/21 18: RDW 16.9 % (12.1-15.1) H 10/01/21 18: Plt Count 376 10^3/cmm (130-400) 10/01/21 18:25 MPV 9.0 fL (7.4-10.4) 10/01/21 18:25 Neut % (Auto) 68.0 % 10/01/21 18: Lymph % (Auto) 21.6 % 10/01/21 18:25 [place] % (Auto) 7.6 % 10/01/21 18:25 Eos % (Auto) 1.9 % 10/01/21 18: Baso % (Auto) 0.6 % 10/01/21 18:25 Neut # (Auto) 6.68 10^3/uL (1.8-7.7) 10/01/21 18: Lymph # (Auto) 2.1 10^3/uL (0.8-4.8) 10/01/21 18:25 [place] # (Auto) 0.8 10^3/uL (0.2-0.9) 10/01/21 18:25 Eos # (Auto) 0.2 10^3/uL (0.0-0.8) 10/01/21:25 Baso # (Auto) 0.1 10^3/uL (0.0-0.1) 10/01/21 18:25 Nucleated RBC % (auto) 0 % 10/01/21: Nucleated RBCs # 0.0 /100WBC 10/01/21 18:25 Sodium 138 mmol/L (136-145) 10/01/21 18:25 Potassium 4.4 mmol/L (3.5-5.1) 10/01/21 18:25 Chloride 103 mmol/L (98-107) 10/01/21 18:25 Carbon Dioxide 21 mmol/L (22-29) L 10/01/21 18:25 Anion Gap 18.4 (5-19) 10/01/21 18:25 BUN 13 mg/dL (8-23) 10/01/21 18:25 Creatinine 0.9 mg/dL (0.5-0.9) 10/01/21 18:25 GFR Calculation Not Reportable 10/01/21 18:25 Glucose 93 mg/dL (65-115) 10/01/21 18:25 Calculated Osmolality 286 mOsm/kg (285-295) 10/01/21 18:25 Calcium 9.4 mg/dL (8.5-10.5) 10/01/21 18:25 Total Bilirubin 0.2 mg/dL (0.15-1.2) 10/01/21 18:25 AST 16 U/L (0-32) 10/01/21 18:25 ALT 19 U/L (0-33) 10/01/21 18:25 Alkaline Phosphatase 100 IU/L (35-105) 10/01/21 18:25 Troponin T Baseline 10 ng/L (0-10) 10/01/21 19:31 Total Protein 6.3 g/dL (6.6-8.7) L 10/01/21 18:25 Albumin 4.2 g/dL (3.5-5.2) 10/01/21 18:25 Globulin 2.1 g/dL (1.3-4.6) 10/01/21 18:25 Lipase 37 U/L (13-60) 10/01/21 18:25 Discharge Plan Discharge Patient Disposition: Home Clinical Impression: Sternal fracture Condition: Stable Prescriptions: New oxycodone 5 mg tablet 5 mg PO Q4H PRN (Reason: pain) Qty: 30 0RF No Action (DME) lift chair See Rx Instructions .Route .MEDSUPPLY Qty: 1 0RF Rx Instructions: As directed cholecalciferol (vitamin D3) 125 mcg (5,000 unit) capsule 5,000 unit PO DAILY Qty: 90 1RF ferrous gluconate [Ferate] 240 mg (27 mg iron) tablet 240 mg PO TID 0RF ascorbic acid (vitamin C) 1,000 mg tablet 1 gm PO DAILY 0RF multivitamin Tablet 1 tab PO QAM 0RF cyanocobalamin (vitamin B-12) 2,500 mcg tablet 2,500 mcg PO DAILY 0RF (DME) Rollater walker See Rx Instructions .Route .MEDSUPPLY Qty: 1 0RF Rx Instructions: As directed medical marijuana 1 dose inhalation DAILY 0RF aripiprazole [Abilify] 5 mg tablet 5 mg PO DAILY Qty: 30 2RF venlafaxine [Effexor XR] 75 mg capsule,extended release 24hr 75 mg PO DAILY Qty: 30 2RF Rx Instructions: Take with 150 mg for total of 225 mg daily venlafaxine [Effexor XR] 150 mg capsule,extended release 24hr 150 mg PO DAILY Qty: 30 2RF bupropion HCl [Wellbutrin XL] 150 mg tablet extended release 24 hr 150 mg PO QAM Qty: 30 2RF losartan 100 mg tablet See Rx Instructions .ROUTE .COMPLEX Qty: 90 0RF Dose Instruction: TAKE ONE TABLET BY MOUTH DAILY Rx Instructions: TAKE ONE TABLET BY MOUTH DAILY methenamine hippurate 1 gram tablet See Rx Instructions .ROUTE .COMPLEX Qty: 90 0RF Dose Instruction: TAKE ONE TABLET BY MOUTH ONCE DAILY Rx Instructions: TAKE ONE TABLET BY MOUTH ONCE DAILY Eliquis 5 mg tablet 5 mg PO BID 0RF Rx Instructions: TAKE ONE TABLET BY MOUTH TWICE DAILY atorvastatin 40 mg tablet 40 mg PO DAILY 0RF levothyroxine 25 mcg tablet 25 mcg PO DAILY 0RF gabapentin 100 mg capsule 100 mg PO BID 0RF mirtazapine 7.5 mg tablet 7.5 mg PO BEDTIME 0RF Discharge Orders: Discharge ED (Routine); Ordered 10/01/21 Ordered By: Ross Barber Referrals: Mary Moncada APN [Primary Care Provider] - Discharge Diet: Usual diet Discharge Activity: Increase activity as tolerated Patient Instructions: Opioid Safety Activity Restrictions/Additional Instructions: Thank you for visiting the emergency department. You were seen and evaluated for fall with chest pain. You are found to have a displaced fracture of the superior body of the sternum. Treatment is generally supportive with routine healing however as discussed I will have you follow-up with Dr. Ley in approximately 4 weeks. I will prescribe oxycodone which is an opioid for pain control. Opioids can cause sedation as well as lack of coordination, please be cautious of falls. Do not combine them with other sedating medication or substances. Do not operate cars or other machinery while under the influence of this medication. Common side effects of opioids include constipation, you should take an nnsa-jcf-vppwwww stool softener. You may use Tylenol as well, if using ibupro fen please also take a proton pump inhibitor or H2 everton which are available vzvs-zng-matraie such as omeprazole or other similar medications. Please follow-up with your primary care provider. Please use incentive spirometer. Please return to the emergency department for cough, infectious symptoms, uncontrolled pain, or anything else that you are concerned about a feel needs emergency department evaluation. Coding Level of Care Code ED Flame Hardener for Janell Fwd Exam Comprehensive
--- NOTE | 2021-10-01 18:07 | CTR_ITS ---
PROCEDURE INFORMATION: Exam: CT Chest Without Contrast; Diagnostic Exam date and time: 10/01/2021 6:55 PM Age: 76 years old Clinical indication: Injury or trauma; Fall; Blunt trauma (contusions or hematomas); Prior surgery; Surgery date: 6+ months; Surgery type: Svc filter; Additional info: Fall, midsternal pain radiating to L chest. Fell onto garden spade-- hit central sternum TECHNIQUE: Imaging protocol: Diagnostic computed tomography of the chest without contrast. Radiation optimization: All CT scans at this facility use at least one of these dose optimization techniques: automated exposure control; mA and/or kV adjustment per patient size (includes targeted exams where dose is matched to clinical indication); or iterative reconstruction. COMPARISON: CT chest wo con [id number] 06/16/2021 8:42 AM, CT chest dated 04/23/2019. RADIATION DOSE METRICS: Total DLP (mGy-cm): 551 FINDINGS: Lungs: Stable 3 mm nodule or scar in the right middle lobe, axial series 2, image 32, sagittal series 601, image 61. Stable since 2018. No followup needed. Stable scarring and/or atelectasis in the medial segment of the right middle lobe. Pleural spaces: Unremarkable. No pneumothorax. No pleural effusion. Heart: Moderate calcified coronary artery disease. Lymph nodes: Unremarkable. No enlarged lymph nodes. Vasculature: Calcification of the thoracic aorta and/or great vessels consistent with atherosclerotic vessel disease. Calcification of the thoracic aorta and/or great vessels consistent with atherosclerotic vessel disease. Calcification of the abdominal aorta and/or iliac arteries consistent with atherosclerotic vessel disease. Bones/joints: Acute depressed fracture through the superior body of the sternum, sagittal series 601, images 40 4-45. Soft tissues: Unremarkable. CT/CT chest wo con [id number] IMPRESSION: 1. Stable 3 mm nodule or scar in the right middle lobe, axial series 2, image 32, sagittal series 601, image 61. Stable since 2018. No followup needed. 2. Acute depressed fracture through the superior body of the sternum, sagittal series 601, images 40 4-45.
--- NOTE | 2021-10-01 18:08 | ECG_ITS ---
[facility] Test Date: 2021-10-01 Pat Name: Kathrin Elliott Department: Room: Gender: Female Research Biostatistician: : 1945 Requested By: Ross Barber Order Number: [id number] Juanis MD: Jese Angulo M.D. Measurements Intervals [place] Rate: 74 P: 52 SC: 179 QRS: 83 QRSD: 98 T: 67 QT: 389 QTc: 433 Interpretive Statements SINUS RHYTHM Compared to ECG 08/26/2019 03:30:14 Myocardial infarct finding no longer present Electronically Signed On 10-02-2021 22:36:30 CDT by Jese Angulo M.D. [id number]
[2021-10-01 18:35] LABS: Basophils # 0.1 10^3/uL (0.0-0.1); Basophils % 0.6 %; Eosinophils # 0.2 10^3/uL (0.0-0.8); Eosinophils % 1.9 %; Hematocrit 33.5 % (37.0-47.0); Hemoglobin 10.9 g/dL (11.5-15.3); Lymphocytes # 2.1 10^3/uL (0.8-4.8); Lymphocytes % 21.6 %; Mean Corpuscular HGB Conc 32.5 g/dL (30.0-36.0); Mean Corpuscular Hemoglobin 27.9 pg (28.0-34.0); Mean Corpuscular Volume 85.9 fl (81-99); Monocytes # 0.8 10^3/uL (0.2-0.9); Monocytes % 7.6 %; Neutrophils # 6.68 10^3/uL (1.8-7.7); Nucleated Red Blood Cells % 0 %; Platelet Count 376 10^3/cmm (130-400); Red Cell Distribution Width 16.9 % (12.1-15.1); White Blood Count 9.8 10^3/uL (4.0-10.0)
[2021-10-01] MEDS: morphine 4 mg/mL SDV 1 mL IVP (18:38)
[2021-10-01 19:17] LABS: Alanine Aminotransferase 19 U/L (0-33); Albumin Level 4.2 g/dL (3.5-5.2); Alkaline Phosphatase 100 IU/L (35-105); Blood Urea Nitrogen 13 mg/dL (8-23); Calcium 9.4 mg/dL (8.5-10.5); Carbon Dioxide 21 mmol/L (22-29); Chloride 103 mmol/L (98-107); Globulin 2.1 g/dL (1.3-4.6); Glucose 93 mg/dL (65-115); Lipase 37 U/L (13-60); Osmolality Calculated 286 mOsm/kg (285-295); Sodium 138 mmol/L (136-145); Total Bilirubin 0.2 mg/dL (0.15-1.2); Total Protein 6.3 g/dL (6.6-8.7)
[2021-10-01 19:21] LABS: Anion Gap 18.4 (5-19); Potassium 4.4 mmol/L (3.5-5.1)
[2021-10-01 19:22] LABS: Aspartate Amino Transferase 16 U/L (0-32)
[2021-10-01 20:14] LABS: Troponin(5th) Baseline 10 ng/L (0-10)
--- NOTE | 2021-10-02 07:21 | DCPLANNER ---
Addendum entered by Sasha Avendaño 12/23/21 12:37: patient had a follow up appointment with heart care - patient did attend appointment Addendum entered by Sasha Avendaño 10/09/21 07:08: Patient has a follow up appointment scheduled for October at 11:[address] Ley at [facility]. Clinic will call patient with appointment information. Original Note: executive account manager had message to schedule a follow up appointment for patient with cardiology, Dr. Ley. executive account manager sent patients information to the front office staff at [facility]. Patients information will be printed and reviewed. Clinic will call patient with appointment information.
== END 2021-10-01 20:50 | disposition home or self-care (01) ==
PROVIDERS: Emergency Provider Emergency Medicine; PCP Nurse Practitioner Family
DX: S22.20XA Unspecified fracture of sternum, initial encounter for closed fracture (principal); W01.198A Fall on same level from slipping, tripping and stumbling with subsequent striking against other object, initial encounter; Z91.81 History of falling
CPT/HCPCS: 36415; 71250; 80053; 83690; 84484; 85025; 93005; 96374; 99284; J2270

== ENCOUNTER 2021-10-08 12:44 | Observation (INO) | payer MEDICARE, MEDICAID, SELFPAY ==
[2021-10-08] VITALS (15 sets, daily range): BP systolic 103–147; BP diastolic 41–77; PULSE 68–84; RESP 18–23; TEMP 36.6; O2SAT 96; BMI 33.0; BMI 29.8
--- NOTE | 2021-10-08 12:44 | CTR_ITS ---
PROCEDURE INFORMATION: Exam: CT Head Without Contrast Exam date and time: 10/08/2021 1:19 PM Age: 76 years old Clinical indication: Altered mental status/memory loss; Prior surgery; Surgery type: Shunt, aneurysm; Additional info: AMS TECHNIQUE: Imaging protocol: Computed tomography of the head without contrast. Radiation optimization: All CT scans at this facility use at least one of these dose optimization techniques: automated exposure control; mA and/or kV adjustment per patient size (includes targeted exams where dose is matched to clinical indication); or iterative reconstruction. COMPARISON: CT head wo con* [id number] 03/08/2021 2:16 PM RADIATION DOSE METRICS: Total DLP (mGy-cm): 792.27 FINDINGS: Tubes, catheters and devices: A ventriculoperitoneal shunt enters from the right parietal region and the tip is in the left frontal horn. Brain: No intracranial hemorrhage, edema or other acute abnormalities are seen in the brain. There is generalized chronic atrophy with prominence of the ventricles and sulci. There are focal areas of encephalomalacia in the right frontal lobe, right temporal lobe and right parietal lobe which are unchanged. There is a small lacunar infarct in the right thalamus. There is no mass effect or midline shift. Cerebral ventricles: See Brain finding. Paranasal sinuses: Visualized sinuses are unremarkable. No fluid levels. Mastoid air cells: Visualized mastoid air cells are well aerated. Bones/joints: Old right frontotemporal craniotomy.. No acute fracture. Soft tissues: Unremarkable. CT/CT head wo con* [id number] IMPRESSION: 1. No acute intracranial abnormality. 2. Stable position of the DE ALCOHOLIZER shunt with the tip in the left frontal horn.
--- NOTE | 2021-10-08 12:44 | XRR_ITS ---
PROCEDURE INFORMATION: Exam: XR Chest Exam date and time: 10/08/2021 12:48 PM Age: 76 years old Clinical indication: Other: AMS TECHNIQUE: Imaging protocol: XR of the chest. Views: 1 view. COMPARISON: CT chest con [id number] 10/01/2021 6:55 PM FINDINGS: Tubes, catheters and devices: A ventriculoperitoneal shunt catheter courses down the right side of the chest. Lungs: Unremarkable. No consolidation. Pleural spaces: Unremarkable. No pleural effusion. No pneumothorax. Heart/Mediastinum: Unremarkable. No cardiomegaly. Bones/joints: Unremarkable. XR/XR chest 1V portable [id number] IMPRESSION: No acute cardiopulmonary abnormality.
--- NOTE | 2021-10-08 12:45 | ECG_ITS ---
[facility] Test Date: 2021-10-08 Pat Name: Kathrin Elliott Department: Room: 258 Gender: Female Goat Driver: : 1945 Requested By: Niecy Valera Order Number: [id number] Juanis MD: Jese Angulo M.D. Measurements Intervals [place] Rate: 75 P: 28 NH: 187 QRS: 31 QRSD: 90 T: 47 QT: 382 QTc: 428 Interpretive Statements SINUS RHYTHM POSSIBLE ANTERIOR MYOCARDIAL INFARCTION , OF INDETERMINATE AGE [30 ms Q WAVE IN V3/V4, OR R < 0.2 mV IN V4] POSSIBLE INFERIOR MYOCARDIAL INFARCTION , OF INDETERMINATE AGE [30 ms Q WAVE IN II/aVF] Compared to ECG 10/01/2021 18:38:05 Myocardial infarct finding now present Electronically Signed On 10-09-2021 17:02:08 CDT by Jese Angulo M.D. [id number]
--- NOTE | 2021-10-08 13:01 | ED_ITS ---
HPI - General Adult General: Chief complaint: Altered Mental Status Stated complaint: ams Time Seen by Provider: 10/08/21 12:45 History of Present Illness: Patient is a 76-year-old female with history of anemia, hypothyroidism, prior CVA with left-sided residual weakness who presents the emergency room for evaluation of 2 days of worsening left sided weakness. Patient tells me that when she woke up 2 days ago, she had worsening left leg and left arm weakness. Patient says that the symptom has persisted and has not improved. Patient also reports new left-sided facial droop that started 2 days ago. Patient denies any associated chest pain, shortness with palpitation or lightheadedness. Patient also denies any abdominal complaints, complaints, decreased p.o. intake, nausea/vomiting, or melena/hematochezia. Onset: 2 days ago Duration:2 days Location:home Severity:moderate Associated symptoms: Deny chest pain, dyspnea, nausea, rash, palpitations or vomiting Review of Systems Const: Denies: fever(s) or chills Eyes: Denies: change in vision ENMT: Denies: mouth pain Card: Denies: chest pain or palpitations Resp: Denies: dyspnea or non-productive cough GI: Denies: abdominal pain, nausea, vomiting or diarrhea : Denies: dysuria Musc: Reports: other (+2 days of left sided weakness); Denies: extremity pain Skin/Breast: Denies: rash or new lesions Neuro: Denies: weakness in extremities Psych: Reports: other (Normal mood) Audi/Lymph: Denies: easy bruising PFS ED PFSH: Medical History Acquired bilateral hammer toes Adult onset hypothyroidism Anemia, iron deficiency Anxiety with depression Basal cell carcinoma of skin of nose (~07/2017) Brain aneurysm (~1995) CVA (cerebrovascular accident due to intracerebral hemorrhage) Essential (primary) hypertension Gait instability With frequent falls at baseline History of malignant melanoma History of nonmelanoma skin cancer Hyperlipidemia, unspecified Leukocytosis follows with Dr Rubio Lung nodule right Malignant melanoma of chin (~07/2017) Paresthesia of skin Psychiatric care Skin cancer of nose On 5-FU cream Squamous cell carcinoma of left lower leg Urinary incontinence, urge Surgical History History of appendectomy History of brain shunt History of brain surgery (~1995) ruptured aneurysm repair with shunt implanted History of section History of hysterectomy Family History Family/Other Stroke CAD (coronary artery disease) Cancer skin Social History Smoking and tobacco status: current every day smoker cigarettes Packs smoked per day: 0.5 Years cigarettes smoked: 59 Quit status (tobacco): has tried quititng Number of times tried to quit tobacco: 30 Second hand smoke exposure: No Alcohol intake: unknown Caregiver/support person: Yes (daughter) Lives independently: No (relatives) Household members: none Marital status: Number of children: 1 service: No Current occupational status: retired History of recent travel: No Current gender identity: Female Special colt needs: No Physical Exam Const: COMMON NORMALS: alert HENMT: COMMON NORMALS: atraumatic HEAD & SCALP: atraumatic MOUTH: moist mucous membranes not abnormal Eye: COMMON NORMALS: EOMs intact bilaterally and conjunctivae normal CONJUNCTIVA: Yes conjunctivae normal Neck/C-Spine: COMMON NORMALS: full ROM and supple Resp: COMMON NORMALS: normal respiratory effort and clear to auscultation bilaterally AUSCULTATION: clear to auscultation bilaterally Cardio: COMMON NORMALS: regular rate RATE: regular rate GI: COMMON NORMALS: Soft to palpation and non-tender PALPATION: Yes Soft to palpation Extremity: COMMON NORMALS: full ROM Neuro: SENSORIUM/ORIENTATION: Yes alert MOTOR EXAM: Other motor observations present (no focal motor deficits) OTHER: 2/5 strength in the left lower extremity, 4-5 strength in the left upper extremity, left-sided facial droop, 5 out of 5 strength in the RUE and RLE. NEURO: NIHSS: 6 1. Level of Consciousness A) LOC Responsiveness 0 B) LOC Questions 0 C) LOC Commands 0 2. Horizontal Eye Movement 0 3. Visual field test 0 4. Facial Palsy 3 5. Motor Arm 1 6. Motor Leg 3 7. Limb Ataxia 0 8. Sensation 0 9. Language 0 10. Speech 0 11. Extinction and Inattention 0 PSYCH: Normal mood and affect. Psych: COMMON NORMALS: speech normal SPEECH: Yes normal speech MOOD & AFFECT: Yes euthymic mood Course Vital Signs: Vital signs: Vital Signs Pulse Rate 74 10/08/21 14:09 Respiratory Rate 19 H 10/08/21 14:09 Blood Pressure 129/41 10/08/21 14:09 MDM - General Adult Medical Decision Making 76-year-old female with history of CVA with residual left-sided weakness, anemia, adult-onset hypothyroidism presenting to the emergency room with concerns for worsening left-sided weakness since 2 days ago. Initial stroke scale of 6. Patient is currently outside of the tPA window. CT head negative for any acute findings. Lab work-up largely within normal limit. Given new onset of left-sided weakness including left leg, patient will be admitted to the hospital for further evaluation of the stroke vs prior CVA with reactivation syndrome. Disposition: admission Lab Data : 10/08/21 13:50 10/08/21 13:50 Radiology Impressions Chest X-Ray 10/08/21 12:44 IMPRESSION: No acute cardiopulmonary abnormality. Head CT 10/08/21 12:44 IMPRESSION: 1. No acute intracranial abnormality. 2. Stable position of the FIELD TECHNICAL SPECIALIST shunt with the tip in the left frontal horn. Laboratory Results WBC 8.7 10^3/uL (4.0-10.0) 10/08/21 13:50 RBC 3.84 10^6/uL (4.1-5.3) L 10/08/21 13:50 Hgb 10.6 g/dL (11.5-15.3) L 10/08/21 13:50 Hct 33.4 % (37.0-47.0) L 10/08/21 13:50 MCV 87.0 fl (81-99) 10/08/21 13:50 MCH 27.6 pg (28.0-34.0) L 10/08/21 13:50 MCHC 31.7 g/dL (30.0-36.0) 10/08/21 13:50 RDW 16.6 % (12.1-15.1) H 10/08/21 13:50 Plt Count 413 10^3/cmm (130-400) H 10/08/21 13:50 MPV 8.6 fL (7.4-10.4) 10/08/21 13:50 Neut % (Auto) 68.4 % 10/08/21 13:50 Lymph % (Auto) 21.9 % 10/08/21 13:50 [place] % (Auto) 6.8 % 10/08/21 13:50 Eos % (Auto) 2.1 % 10/08/21 13:50 Baso % (Auto) 0.6 % 10/08/21 13:50 Neut # (Auto) 5.98 10^3/uL (1.8-7.7) 10/08/21 13:50 Lymph # (Auto) 1.9 10^3/uL (0.8-4.8) 10/08/21 13:50 [place] # (Auto) 0.6 10^3/uL (0.2-0.9) 10/08/21 13:50 Eos # (Auto) 0.2 10^3/uL (0.0-0.8) 10/08/21 13:50 Baso # (Auto) 0.1 10^3/uL (0.0-0.1) 10/08/21 13:50 Nucleated RBC % (auto) 0 % 10/08/21 13:50 Nucleated RBCs # 0.0 /100WBC 10/08/21 13:50 Ammonia 12 umol/L (11-51) 10/08/21 13:50 Troponin T Baseline 7 ng/L (0-10) 10/08/21 13:50 Imaging Data Other Imaging: Radiologist's impression: Launch?[place] [address] CT Scan Report Signed Patient: Kathrin Elliott Unit #: [id number] : 1945 Age/Sex: 76 / F ADM Date: 10/08/21 Loc: ER Room/Bed: Attending Dr: Ordering Provider/Ordering MD: Niecy Valera MD Date of Service: 10/08/21 Procedure(s): CT head wo con* [id number] Accession Number(s): [id number] Report Number: [id number] PROCEDURE INFORMATION: Exam: CT Head Without Contrast Exam date and time: 10/08/2021 1:19 PM Age: 76 years old Clinical indication: Altered mental status/memory loss; Prior surgery; Surgery type: Shunt, aneurysm; Additional info: AMS TECHNIQUE: Imaging protocol: Computed tomography of the head without contrast. Radiation optimization: All CT scans at this facility use at least one of these dose optimization techniques: automated exposure control; mA and/or kV adjustment per patient size (includes targeted exams where dose is matched to clinical indication); or iterative reconstruction. COMPARISON: CT head wo con* [id number] 03/08/2021 2:16 PM RADIATION DOSE METRICS: Total DLP (mGy-cm): 792.27 FINDINGS: Tubes, catheters and devices: A ventriculoperitoneal shunt enters from the right parietal region and the tip is in the left frontal horn. Brain: No intracranial hemorrhage, edema or other acute abnormalities are seen in the brain. There is generalized chronic atrophy with prominence of the ventricles and sulci. There are focal areas of encephalomalacia in the right frontal lobe, right temporal lobe and right parietal lobe which are unchanged. There is a small lacunar infarct in the right thalamus. There is no mass effect or midline shift. Cerebral ventricles: See Brain finding. Paranasal sinuses: Visualized sinuses are unremarkable. No fluid levels. Mastoid air cells: Visualized mastoid air cells are well aerated. Bones/joints:? Old right frontotemporal craniotomy.. No acute fracture. Soft tissues: Unremarkable. CT/CT head wo con* [id number] IMPRESSION: 1. No acute intracranial abnormality. 2. Stable position of the FIELD TECHNICAL SPECIALIST shunt with the tip in the left frontal horn. ? Dictated By: Azeem Burnette Signed By: Azeem Burnette Signed Date/Time: 10/08/21 1331 DD/ [address] [address] XRay Report Signed Patient: Kathrin Elliott Unit #: [id number] : 1945 Age/Sex: 76 / F ADM Date: 10/08/21 Loc: ER Room/Bed: Attending Dr: Ordering Provider/Ordering MD: Niecy Valera MD Date of Service: 10/08/21 Procedure(s): XR chest 1V portable [id number] Accession Number(s): [id number] Report Number: [id number] PROCEDURE INFORMATION: Exam: XR Chest Exam date and time: 10/08/2021 12:48 PM Age: 76 years old Clinical indication: Other: AMS TECHNIQUE: Imaging protocol: XR of the chest. Views: 1 view. COMPARISON: CT chest con [id number] 10/01/2021 6:55 PM FINDINGS: Tubes, catheters and devices: A ventriculoperitoneal shunt catheter courses down the right side of the chest. Lungs: Unremarkable. No consolidation. Pleural spaces: Unremarkable. No pleural effusion. No pneumothorax. Heart/Mediastinum: Unremarkable. No cardiomegaly. Bones/joints: Unremarkable. XR/XR chest 1V portable [id number] IMPRESSION: No acute cardiopulmonary abnormality. ? Dictated By: Azeem Burnette Signed By: Azeem Burnette Signed Date/Time: 10/08/21 1326 DD/ 1248 Discharge Plan Discharge Patient Disposition: Admitted As Inpatient Clinical Impression: Left-sided weakness Condition: Stable Coding Level of Care Code ED Technical Sales Advisor for Chg Fwd Exam Comprehensive
[2021-10-08 14:01] LABS: Basophils # 0.1 10^3/uL (0.0-0.1); Basophils % 0.6 %; Eosinophils # 0.2 10^3/uL (0.0-0.8); Eosinophils % 2.1 %; Hematocrit 33.4 % (37.0-47.0); Hemoglobin 10.6 g/dL (11.5-15.3); Lymphocytes # 1.9 10^3/uL (0.8-4.8); Lymphocytes % 21.9 %; Mean Corpuscular HGB Conc 31.7 g/dL (30.0-36.0); Mean Corpuscular Hemoglobin 27.6 pg (28.0-34.0); Mean Platelet Volume 8.6 fL (7.4-10.4); Monocytes # 0.6 10^3/uL (0.2-0.9); Monocytes % 6.8 %; Neutrophils # 5.98 10^3/uL (1.8-7.7); Neutrophils % 68.4 %; Nucleated Red Blood Cells % 0 %; Platelet Count 413 10^3/cmm (130-400); Red Blood Count 3.84 10^6/uL (4.1-5.3); Red Cell Distribution Width 16.6 % (12.1-15.1); White Blood Count 8.7 10^3/uL (4.0-10.0)
[2021-10-08 14:31] LABS: Ammonia 12 umol/L (11-51)
[2021-10-08 14:34] LABS: Troponin(5th) Baseline 7 ng/L (0-10)
--- NOTE | 2021-10-08 14:39 | P.HP_ITS ---
Providers/Chief Complaint Primary Care Provider: Mary Moncada APN Chief Complaint: ams History of Present Illness Kathrin Elliott is a 76 year old female presents today with left leg weakness. Patient is stating that she has residual left-sided weakness from her stroke 26 years ago. For last 8 weeks she is doing PT at home, has home health aide as well. Today with her home health aide she wanted to go to eat pizza, when she was try to get out of the car she noticed weakness of her left leg and she was not able to move at all which was a new change for her. However this episode was transient and she felt improvement in her strength as soon as she got back in her car. Because previous time she was diagnosed with hemorrhagic shock rupture of aneurysm she decided to come to the hospital to get checked out. As per ER physician NIH is 7, CT head is unremarkable Hemodynamically stable At the time of my evaluation I would give her NIH of 3 for limb ataxia and effort against gravity to some extent, he is awake and alert with normal hemodynamics She is scared of having another stroke and would like to finish work-up I did discuss outpatient MRI versus inpatient, she does not want to wait too long. Review of Systems Const: Denies: fever(s) Eyes: Denies: change in vision ENMT: Denies: throat pain Card: Denies: chest pain Resp: Denies: dyspnea GI: Denies: abdominal pain : Denies: flank pain Musc: Denies: neck pain Skin/Breast: Denies: rash Neuro: Reports: weakness in extremities Psych: Denies: anxiety Endo: Denies: polyuria Audi/Lymph: Denies: easy bruising All/Imm: Denies: urticaria Medications/Allergies Home Medications Medication Instructions Recorded Confirmed Last Taken Type ascorbic acid (vitamin C) 1,000 mg 1 gm PO DAILY tab 04/30/19 10/08/21 10/07/21 History tablet ferrous gluconate 240 mg (27 mg 240 mg PO TID 04/30/19 10/08/21 10/08/21 History iron) tablet (Ferate) multivitamin 1 tab PO QAM 04/30/19 10/08/21 10/08/21 History cyanocobalamin (vitamin B-12) 2,500 mcg PO DAILY tab 06/25/19 10/08/21 10/07/21 History 2,500 mcg tablet Rollater walker #1 ea 09/17/19 10/08/21 Unknown Rx cholecalciferol (vitamin D3) 125 5,000 unit PO DAILY #90 cap 01/08/20 10/08/21 10/07/21 Rx mcg (5,000 unit) capsule lift chair #1 ea 01/08/20 10/08/21 Unknown Rx medical marijuana 1 dose INHALATION DAILY 04/09/20 10/08/21 04/19/21 History apixaban 5 mg tablet (Eliquis) 5 mg PO BID 04/17/21 10/08/21 10/08/21 History losartan 100 mg tablet See Rx Instructions .ROUTE 08/05/21 10/08/21 10/08/21 Rx .COMPLEX #90 tab aripiprazole 5 mg tablet (Abilify) 5 mg PO DAILY #30 tab 08/31/21 10/08/21 10/08/21 Rx bupropion HCl 150 mg 24 hr tablet, 150 mg PO QAM #30 tab 08/31/21 10/08/21 10/08/21 Rx extended release (Wellbutrin XL) venlafaxine 150 mg 150 mg PO DAILY #30 cap 08/31/21 10/08/21 10/08/21 Rx capsule,extended release 24 hr (Effexor XR) venlafaxine 75 mg capsule,extended 75 mg PO DAILY #30 cap 08/31/21 10/08/21 10/08/21 Rx release 24 hr (Effexor XR) oxycodone 5 mg tablet 5 mg PO Q4H PRN #30 tab 10/01/21 10/08/21 Unknown Rx methenamine hippurate 1 gram tablet See Rx Instructions .ROUTE 10/07/21 10/08/21 10/08/21 Rx .COMPLEX #90 tablet atorvastatin 40 mg tablet 40 mg PO DAILY 10/08/21 10/08/21 10/07/21 History gabapentin 100 mg capsule 100 mg PO BID 10/08/21 10/08/21 10/08/21 History levothyroxine 25 mcg tablet 25 mcg PO DAILY 10/08/21 10/08/21 10/08/21 History mirtazapine 7.5 mg tablet 7.5 mg PO BEDTIME 10/08/21 10/08/21 10/07/21 History Allergies Allergy/AdvReac Type Severity Reaction Status Date / Time cephalexin Allergy rash Verified 08/31/21 15:57 clindamycin Allergy rash Verified 08/31/21 15:57 PFSH Acute PFSH: Medical History Acquired bilateral hammer toes Adult onset hypothyroidism Anemia, iron deficiency Anxiety with depression Basal cell carcinoma of skin of nose (~07/2017) Brain aneurysm (~1995) CVA (cerebrovascular accident due to intracerebral hemorrhage) Essential (primary) hypertension Gait instability With frequent falls at baseline History of malignant melanoma History of nonmelanoma skin cancer Hyperlipidemia, unspecified Leukocytosis follows with Dr Rubio Lung nodule right Malignant melanoma of chin (~07/2017) Paresthesia of skin Psychiatric care Skin cancer of nose On 5-FU cream Squamous cell carcinoma of left lower leg Urinary incontinence, urge Surgical History History of appendectomy History of brain shunt History of brain surgery (~1995) ruptured aneurysm repair with shunt implanted History of section History of hysterectomy Family History Family/Other Stroke CAD (coronary artery disease) Cancer skin Social History Smoking and tobacco status: current every day smoker cigarettes Packs smoked per day: 0.5 Years cigarettes smoked: 59 Quit status (tobacco): has tried quititng Number of times tried to quit tobacco: 30 Second hand smoke exposure: No Alcohol intake: unknown Caregiver/support person: Yes (daughter) Lives independently: No (relatives) Household members: none Marital status: Number of children: 1 service: No Current occupational status: retired History of recent travel: No Current gender identity: Female Special colt needs: No Vitals/I&O/Wt Last Vital Signs Pulse 74 10/08/21 14:09 Resp 19 H 10/08/21 14:09 BP 129/41 10/08/21 14:09 Weight last 48 hrs Weight 79.379 kg Physical Exam Narrative: Very pleasant cooperative female NIH of 3 Patient is stating she is back to baseline with ability to raise her left leg against gravity to some extent, wiggle her toes No other deficit noted No slurring of speech She is awake and alert EOMI, PERRLA Saturating well on room air S1, S2 Abdomen soft No signs of cellulitis No signs of edema Daughter at the bedside Data : 10/08/21 13:50 10/08/21 13:50 A&P Assessment and plan (1) Left-sided weakness: Status: Acute Plan Left leg weakness I highly doubt patient suffered from an acute CVA event She is anxious and would like to complete her work-up Patient is stating that she was diagnosed with DVT of left leg, I would like to rule out intracardiac shunt with echo bubble study and do MRI in the morning Continue Eliquis for DVT Continue statins She is hemodynamically stable She is back to her baseline She does have home PT and home health aide Will do PT evaluation tomorrow before discharge Goals of care discussed with the patient in case of an emergency she does not want to be resuscitated, I will change her CODE STATUS to DNR/DNI, daughter at the bedside Attestations 2 Medical Necessity Statement*: Discharge tomorrow after MRI, anticipating discharge within next 24 hours Time Spent in Patient Care: 35mins Coding Level of Care Code Acute Chef'S Assistant for Janell Mathew Diagnoses Left-sided weakness R53.1
[2021-10-08 14:42] LABS: Alanine Aminotransferase 12 U/L (0-33); Albumin Level 3.7 g/dL (3.5-5.2); Alkaline Phosphatase 96 IU/L (35-105); Aspartate Amino Transferase 9 U/L (0-32); Blood Urea Nitrogen 13 mg/dL (8-23); Calcium 8.9 mg/dL (8.5-10.5); Carbon Dioxide 22 mmol/L (22-29); Chloride 105 mmol/L (98-107); Free T4 Free Thyroxine 1.36 ng/dL (0.82-1.77); Globulin 2.9 g/dL (1.3-4.6); Glucose 77 mg/dL (65-115); Lipase 25 U/L (13-60); NT Pro B Type Natriuretic Pept 169 pg/mL (0-450); Osmolality Calculated 287 mOsm/kg (285-295); Sodium 139 mmol/L (136-145); Thyroid Stimulating Hormone 0.82 uIU/mL (0.27-4.20); Total Bilirubin 0.2 mg/dL (0.15-1.2); Total Protein 6.6 g/dL (6.6-8.7)
--- NOTE | 2021-10-08 14:45 | ECG_ITS ---
[facility] Test Date: 2021-10-08 Pat Name: Kathrin Elliott Department: Room: Gender: Female Director Of Residence Life: : 1945 Requested By: Niecy Valera Order Number: [id number] Reading MD: Gera Feldman M.D. Measurements Intervals [place] Rate: 71 P: 52 SC: 194 QRS: 56 QRSD: 106 T: 51 QT: 406 QTc: 442 Interpretive Statements SINUS RHYTHM Compared to ECG 10/01/2021 18:38:05 No significant changes Electronically Signed On 10-08-2021 15:25:50 CDT by Gera Feldman M.D. [id number]
--- NOTE | 2021-10-08 15:09 | PC.NURSE ---
EKG done at 1505 and shown to the ER doctor
[2021-10-08 16:04] LABS: Troponin 5 2HR 7.46 ng/L (0-10)
[2021-10-08 16:08] LABS: Troponin 5 2HR Delta 0.46 ABS# (0-10)
--- NOTE | 2021-10-08 16:52 | PC.NURSE ---
Attempted to give report, receiving RN with another patient at this time.
--- NOTE | 2021-10-08 18:22 | USCV_ITS ---
Kathrin Elliott Age: 76 Gender: F : 1945 Exam Date: 10/08/2021 22:50 Ordering Phys: Velia Patiño MD Technologist: CKSheyla [place] [facility] [place]: CVA BP: / HR: 66 Rhythm: Sinus Technical Quality: Adequate MEASUREMENTS (Male / Female) Normal Values 2D ECHO LV Diastolic Diameter PLAX 5.1 cm 4.2 - 5.9 / 3.9 - 5.3 cm LV Systolic Diameter PLAX 2.3 cm IVS Diastolic Thickness 0.8 cm 0.6 - 1.0 / 0.6 - 0.9 cm IVS Systolic Thickness 1.3 cm LVPW Diastolic Thickness 1.0 cm 0.6 - 1.0 / 0.6 - 0.9 cm LVPW Systolic Thickness 1.1 cm LVOT Diameter 1.7 cm LV Ejection Fraction 2D Teich 84.7 % LV Ejection Fraction MOD 2C 65.7 % LV Ejection Fraction 2C AL 65.3 % LA Diameter 4.1 cm LA Width 2.7 cm LA Height 6.4 cm RA Width 3.3 cm RA Height 4.8 cm Aorta at Sinotubular Diameter 1.8 cm IVC Diameter 1.7 cm M-MODE Aortic Annulus Diameter 3.0 cm LA Ao Ratio MM 1.7 MV E Point Septal Separation 0.1 cm FINDINGS Left Ventricle Normal left ventricular size. LV systolic function is normal with EF of 55-60%. No regional wall motion abnormalities. Right Ventricle The right ventricle is normal in size and function. Right Atrium The right atrium is normal in size. No evidence of right to left shunting seen Left Atrium The left atrium is normal in size. Mitral Valve Grossly normal Aortic Valve Grossly normal Tricuspid Valve Grossly normal Pulmonic Valve Not visualized Pericardium Normal pericardium without effusion. Aorta Normal ascending aorta dimension. IVC CONCLUSIONS LV systolic function is normal with EF of 55-60% No evidence of right to left shunting seen on bubble study Visualized valves are grossly normal No comparison studies are available Jese Angulo MD (Electronically Signed) Final Date: 09 October 2021 15:05 S
--- NOTE | 2021-10-08 19:05 | PC.NURSE ---
Dr. Patiño notified of patient asking for her Effexor.
[2021-10-08] MEDS: gabapentin 100 mg Capsule PO (20:38)
[2021-10-08] MEDS: venlafaxine ER (24HR) 75 mg Capsule PO (20:38)
[2021-10-08] MEDS: ARIPiprazole 10 mg Tablet 5 MG PO (20:38)
[2021-10-08] MEDS: apixaban 5 mg Tablet PO (20:38)
[2021-10-08 20:58] LABS: Bilirubin Urine Neg (Negative); Blood Urine Neg (Negative); Glucose Urine UA Norm (Normal); Ketones Urine Negative (Negative); Nitrate Urine Positive (Negative); Protein Urine Neg (Negative); Specific Gravity, Urine 1.015 (1.005-1.030); Sulfosalicylic Acid Urine Negative (Negative); Urine Appearance Hazy (CLEAR); Urine Color Yellow (Yellow); Urobilinogen Urine Norm (Negative); pH Urine 9 (5-7)
[2021-10-08 20:59] LABS: Add Urine Culture? Yes; Add Urine Microscopic? YES; Bacteria Urine 4+ /hpf; Leukocyte Esterase Urine 2+ (Negative); RBC Urine 0-4 /hpf (0-2); Squamous Epithelial Cell Urine 0-4 /hpf (0-5); WBC Urine TOO NUMEROUS TO CNT /hpf (0-5)
[2021-10-09] VITALS: BP 118/68; PULSE 69; RESP 18; TEMP 36.4; O2SAT 96
--- NOTE | 2021-10-09 01:15 | USCV_ITS ---
Kathrin Elliott Age: 76 Gender: F : 1945 Exam Date: 10/09/2021 01:20 Ordering Phys: Velia Patiño MD Technologist: CKSheyla Exam Location: [facility] [place]ication: CVA Risk Factors: Previous Vascular Surgery: Right Brachial BP: / Left Brachial BP: / Right Left Velocity (cm/s) Spectral Plaque Velocity (cm/s) Spectral Plaque Syst/Diast Broadening Syst/Diast Broadening 91.50/ 14.30 Prox CCA 102.50/ 7.70 70.60/ 14.30 Mid CCA 98.10 / 13.20 66.20/ 14.30 Distal CCA 83.80 / 16.50 46.80/ 10.30 Prox ICA 87.10 / 17.60 51.90/ 12.00 Mid ICA 81.60 / 22.10 46.20/ 8.60 Distal ICA 140.70/ 38.10 70.80 ECA 129.00 0.57 ICA/CCA 1.37 Antegrade Vertebral Antegrade 23.00/ 4.80 cm/s 61.40/ 9.30 cm/s Tri Subclavian Tri 93.70 189.5 0 FINDINGS Mild to moderate dense plaques of the bifurcations and proximal internal carotid arteries bilaterally Antegrade flow in the vertebral arteries bilaterally Normal Doppler velocities in the external carotid and vertebral arteries bilaterally. Elevated velocities in the distally internal carotid artery on the left side Elevated velocity in the left subclavian artery with a normal Doppler waveform CONCLUSIONS #1. Mild to moderate diffuse plaques at the bifurcations and proximal internal carotid arteries bilaterally, suggesting less than 50% stenosis. #2. Elevated velocity in the distal internal carotid artery on the left side, may suggest hemodynamically significant stenosis #3. Elevated velocity in the left subclavian artery possibly related to tortuosity Consider CTA to better evaluate the aortic arch vessels and distal ICA on the left side No similar previous studies are available for comparison Dr Glendy Gallego MD [facility] (Electronically Signed) Final Date: 09 October 2021 18:43 S
[2021-10-09 03:36] VITALS: PULSE 70
[2021-10-09 04:00] VITALS: BP 103/68; PULSE 69; RESP 18; TEMP 36.5; O2SAT 94
[2021-10-09] MEDS: buPROPion XL (24 HR) 150 mg Tablet PO (05:03)
[2021-10-09 06:31] LABS: Magnesium 2.4 mg/dL (1.7-2.3)
[2021-10-09 07:35] VITALS: BP 137/81; PULSE 60; RESP 16; TEMP 37.2; O2SAT 91
[2021-10-09] MEDS: levothyroxine 25 mcg Tablet PO (08:49)
[2021-10-09] MEDS: atorvastatin 40 mg Tablet PO (08:49)
[2021-10-09] MEDS: apixaban 5 mg Tablet PO (08:49)
[2021-10-09] MEDS: losartan 50 mg Tablet 25 MG PO (08:49)
[2021-10-09] MEDS: gabapentin 100 mg Capsule PO (08:49)
[2021-10-09 10:29] VITALS: PULSE 71; RESP 17; O2SAT 96
--- NOTE | 2021-10-09 10:42 | P.DS_ITS ---
Discharge Providers Date of Admission: 10/08/21 14:39 Date of Discharge: October 09, 2021 Attending Provider at Admission: Velia Patiño MD Attending Provider at Discharge: Velia Patiño MD Primary Care Provider: Mary Moncdaa APN Diagnoses at Discharge Discharge Diagnosis (1) Left-sided weakness: Status: Acute Reason for Visit Reason for Visit: ams Hospital Course Hospital Course Ms. Elliott was admitted for possibility of acute CVA however at the time of admission I did convey my objective findings with Ms. Elliott that her left leg weakness worsening was transient and could be related to old CVA instead of a new 1 she was afraid to go home because of her previous history of hemorrhagic stroke and wanted to complete her MRI of the brain. She will be discharged today after her MRI. Overnight she remained hemodynamically stable. She does have home PT, home health aide and Dr. Damico's follow-up appointment. I will follow-up with report of carotid Doppler and echo she has been diagnosed with left leg DVT, she has been consistent with her medications including Eliquis. I have requested echo with bubble study to rule out intracardiac shunt. Physical Exam Narrative: Hemodynamically stable NIH 2 old CVA related left-sided residual weakness of leg S1, S2 Abdomen soft Awake and alert Cooperative Saturating well on room air Discharge Data Studies Completed and Pending Completed Studies During Hospitalization Category Date Time Status CT head wo con* [id number] Urgent Cat Scan 10/08/21 12:44 Completed XR chest 1V portable [id number] Stat Exams 10/08/21 12:44 Completed Pending at discharge Category Date Time Status Urine Culture Stat Lab 10/08/21 17:07 Received CV carotid duplex BI* [id number] Routine Ultrasound 10/09/21 01:15 Taken CV. echo lmt wo/w bubble [id number] Routine Ultrasound 10/08/21 18:22 Taken Radiology Impressions Chest X-Ray 10/08/21 12:44 IMPRESSION: No acute cardiopulmonary abnormality. Head CT 10/08/21 12:44 IMPRESSION: 1. No acute intracranial abnormality. 2. Stable position of the MOBILE PET GROOMER shunt with the tip in the left frontal horn. Laboratory Results WBC 8.7 10^3/uL (4.0-10.0) 10/08/21 13:50 RBC 3.84 10^6/uL (4.1-5.3) L 10/08/21 13:50 Hgb 10.6 g/dL (11.5-15.3) L 10/08/21 13:50 Hct 33.4 % (37.0-47.0) L 10/08/21 13:50 MCV 87.0 fl (81-99) 10/08/21 13:50 MCH 27.6 pg (28.0-34.0) L 10/08/21 13:50 MCHC 31.7 g/dL (30.0-36.0) 10/08/21 13:50 RDW 16.6 % (12.1-15.1) H 10/08/21 13:50 Plt Count 413 10^3/cmm (130-400) H 10/08/21 13:50 MPV 8.6 fL (7.4-10.4) 10/08/21 13:50 Neut % (Auto) 68.4 % 10/08/21 13:50 Lymph % (Auto) 21.9 % 10/08/21 13:50 [place] % (Auto) 6.8 % 10/08/21 13:50 Eos % (Auto) 2.1 % 10/08/21 13:50 Baso % (Auto) 0.6 % 10/08/21 13:50 Neut # (Auto) 5.98 10^3/uL (1.8-7.7) 10/08/21 13:50 Lymph # (Auto) 1.9 10^3/uL (0.8-4.8) 10/08/21 13:50 [place] # (Auto) 0.6 10^3/uL (0.2-0.9) 10/08/21 13:50 Eos # (Auto) 0.2 10^3/uL (0.0-0.8) 10/08/21 13:50 Baso # (Auto) 0.1 10^3/uL (0.0-0.1) 10/08/21 13:50 Nucleated RBC % (auto) 0 % 10/08/21 13:50 Nucleated RBCs # 0.0 /100WBC 10/08/21 13:50 Sodium 139 mmol/L (136-145) 10/08/21 13:50 Potassium 4.0 mmol/L (3.5-5.1) 10/08/21 13:50 Chloride 105 mmol/L (98-107) 10/08/21 13:50 Carbon Dioxide 22 mmol/L (22-29) 10/08/21 13:50 Anion Gap 16.0 (5-19) 10/08/21 13:50 BUN 13 mg/dL (8-23) 10/08/21 13:50 Creatinine 0.8 mg/dL (0.5-0.9) 10/08/21 13:50 GFR Calculation Not Reportable 10/08/21 13:50 Glucose 77 mg/dL (65-115) 10/08/21 13:50 Calculated Osmolality 287 mOsm/kg (285-295) 10/08/21 13:50 Calcium 8.9 mg/dL (8.5-10.5) 10/08/21 13:50 Magnesium 2.4 mg/dL (1.7-2.3) H 10/09/21 05:19 Total Bilirubin 0.2 mg/dL (0.15-1.2) 10/08/21 13:50 AST 9 U/L (0-32) 10/08/21 13:50 ALT 12 U/L (0-33) 10/08/21 13:50 Alkaline Phosphatase 96 IU/L (35-105) 10/08/21 13:50 Ammonia 12 umol/L (11-51) 10/08/21 13:50 Troponin T Baseline 7 ng/L (0-10) 10/08/21 13:50 Troponin T 120 Minute 7.46 ng/L (0-10) 10/08/21 15:30 Delta Troponin T 0.46 ABS# (0-10) 10/08/21 15:30 NT-Pro-B Natriuret Pep 169 pg/mL (0-450) 10/08/21 13:50 Total Protein 6.6 g/dL (6.6-8.7) 10/08/21 13:50 Albumin 3.7 g/dL (3.5-5.2) 10/08/21 13:50 Globulin 2.9 g/dL (1.3-4.6) 10/08/21 13:50 Lipase 25 U/L (13-60) 10/08/21 13:50 TSH 0.82 uIU/mL (0.27-4.20) 10/08/21 13:50 Free T4 1.36 ng/dL (0.82-1.77) 10/08/21 13:50 Urine Color Yellow (Yellow) 10/08/21 17:07 Urine Appearance Hazy (CLEAR) A 10/08/21 17:07 Urine pH 9 (5-7) H 10/08/21 17:07 Ur Specific Marshall 1.015 (1.005-1.030) 10/08/21 17:07 Urine Protein Neg (Negative) 10/08/21 17:07 Urine Glucose (UA) Norm (Normal) 10/08/21 17:07 Urine Ketones Negative (Negative) 10/08/21 17:07 Urine Blood Neg (Negative) 10/08/21 17:07 Urine Nitrate Positive (Negative) H 10/08/21 17:07 Urine Bilirubin Neg (Negative) 10/08/21 17:07 Prot Sulfosalicylic Acd Negative (Negative) 10/08/21 17:07 Urine Urobilinogen Norm mg/dL (Negative) 10/08/21 17:07 Ur Leukocyte Esterase 2+ (Negative) H 10/08/21 17:07 Urine RBC 0-4 /hpf (0-2) H 10/08/21 17:07 Urine WBC Too numerous to cnt /hpf (0-5) H 10/08/21 17:07 Ur Squamous Epith Cells 0-4 /hpf (0-5) H 10/08/21 17:07 Amorphous Sediment Not Reportable 10/08/21 17:07 Urine Bacteria 4+ /hpf (NONE) H 10/08/21 17:07 Vitals Last Vital Signs Temp 98.9 F 10/09/21 07:35 Pulse 71 10/09/21 10:29 Resp 17 10/09/21 10:29 BP 137/81 10/09/21 07:35 Pulse Ox 96 10/09/21 10:29 Discharge Plan Discharge Patient Disposition: Home Health Service Condition: Stable Prescriptions: Continued (DME) lift chair See Rx Instructions .Route .MEDSUPPLY Qty: 1 0RF Rx Instructions: As directed cholecalciferol (vitamin D3) 125 mcg (5,000 unit) capsule 5,000 unit PO DAILY Qty: 90 1RF ferrous gluconate [Ferate] 240 mg (27 mg iron) tablet 240 mg PO TID 0RF ascorbic acid (vitamin C) 1,000 mg tablet 1 gm PO DAILY 0RF multivitamin Tablet 1 tab PO QAM 0RF cyanocobalamin (vitamin B-12) 2,500 mcg tablet 2,500 mcg PO DAILY 0RF (DME) Rolljennifer walker See Rx Instructions .Route .MEDSUPPLY Qty: 1 0RF Rx Instructions: As directed medical marijuana 1 dose inhalation DAILY 0RF aripiprazole [Abilify] 5 mg tablet 5 mg PO DAILY Qty: 30 2RF venlafaxine [Effexor XR] 75 mg capsule,extended release 24hr 75 mg PO DAILY Qty: 30 2RF Rx Instructions: Take with 150 mg for total of 225 mg daily venlafaxine [Effexor XR] 150 mg capsule,extended release 24hr 150 mg PO DAILY Qty: 30 2RF bupropion HCl [Wellbutrin XL] 150 mg tablet extended release 24 hr 150 mg PO QAM Qty: 30 2RF losartan 100 mg tablet See Rx Instructions .ROUTE .COMPLEX Qty: 90 0RF Dose Instruction: TAKE ONE TABLET BY MOUTH DAILY Rx Instructions: TAKE ONE TABLET BY MOUTH DAILY methenamine hippurate 1 gram tablet See Rx Instructions .ROUTE .COMPLEX Qty: 90 0RF Dose Instruction: TAKE ONE TABLET BY MOUTH ONCE DAILY Rx Instructions: TAKE ONE TABLET BY MOUTH ONCE DAILY Eliquis 5 mg tablet 5 mg PO BID 0RF Rx Instructions: TAKE ONE TABLET BY MOUTH TWICE DAILY oxycodone 5 mg tablet 5 mg PO Q4H PRN (Reason: pain) Qty: 30 0RF atorvastatin 40 mg tablet 40 mg PO DAILY 0RF levothyroxine 25 mcg tablet 25 mcg PO DAILY 0RF gabapentin 100 mg capsule 100 mg PO BID 0RF mirtazapine 7.5 mg tablet 7.5 mg PO BEDTIME 0RF Discharge Orders: Discharge Order (Routine); Ordered 10/09/21 Ordered By: Velia Patiño Referrals: [facility] ([facility]) [Outside] Mary Moncada APN [Primary Care Provider] - Discharge Diet: Low Salt Discharge Activity: Increase activity as tolerated Patient Instructions: Opioid Safety Discharge Attestations 2 Time Spent in Discharge Care*: less than 30 min Status at Discharge: Cognitive status at discharge: cognitively intact , Behavioral status at discharge: cooperative , Quality Metrics Clinical Quality Measures [ No reported AMI, CVA or VTE this stay] Coding Level of Care Code Acute Chg FW DC note Diagnoses Left-sided weakness R53.1
[2021-10-09 11:15] VITALS: BP 129/76; PULSE 76; RESP 16; TEMP 36.8; O2SAT 93
--- NOTE | 2021-10-09 11:53 | PC.CHAP ---
Pastoral Care Encounter/Spiritual Assessment Type of Contact [] Declined asp net c developer visit [] Patient/Family/Request visit [] Outpatient visit [] Follow-up visit [] Physician referral [] Code/Alert [x] Routine visit [] Staff referral [] Actively dying [] Patient sleeping [] Family support [] [] Out of room [] Palliative care [] [] Receiving care in room [] Pre-surgical visit [] Trauma [] Long length of stay [] ICU visit [] Other: Relational/Emotional Strength [x] Patient feels connected with others/family/visitors/staff [] Distress [] Loneliness/isolation [] Abandonment Spirituality of Patient [x] Person of Lydia [] Attends Islam of their Lydia [x] Believes in Prayer [] Reads Bible or Sikh materials [] There are Spiritual issues to be addressed High School Guidance Counselor Interventions [x] Prayer [x] Active listening [x] Non-anxious presence [x] Spiritual/emotional support [] Crisis/trauma care [] Spiritual counseling [] Bereavement support [] Provided bereavement packet [] Provided Bible/devotional materials [] Provided toy/stuffed animal, coloring book to patient or family member [] Provided Communion [] Anointing/Reasnor [] Salvation [x] Completed spiritual assessment [] Other: Impact on Illness or Injury [] Angry [] Fearful [] Anxious [] Often cries [] Exhaustion [] Unable to work [] Unable to attend roman catholic [] Unable to walk/stand [] Unable to read [] Unable to drive [] Unable to eat/drink [] Unable to sleep [] Unable to be with family [] Patient intubated [] Other: Summary Time spent with patient 10 min
--- NOTE | 2021-10-09 13:16 | XR_ITS ---
WS: [id number] Exam: XR ankle LT 2V [id number] Date/Time of Exam: 10/09/2021 1:16 PM Reason For Exam: ankle pain Comparison 06/14/2013. No fracture or dislocation. Mild degenerative change of the ankle mortise. Normal soft tissues. XR/XR ankle LT 2V [id number] IMPRESSION: 1. Mild DJD. No fracture noted.
== END 2021-10-09 13:45 | disposition home health service (06) ==
LOC: ER 13:24 → MEDSURG 16:25
PROVIDERS: Admitting Provider Internal Medicine; Emergency Provider Emergency Medicine; PCP Nurse Practitioner Family; Visit Provider Internal Medicine
DX: R53.1 Weakness (principal); Z86.73 Personal history of transient ischemic attack (TIA), and cerebral infarction without residual deficits; M25.572 Pain in left ankle and joints of left foot; I10 Essential (primary) hypertension; E78.5 Hyperlipidemia, unspecified; F17.210 Nicotine dependence, cigarettes, uncomplicated; E03.9 Hypothyroidism, unspecified
CPT/HCPCS: 36415; 70450; 71045; 73600; 73620; 80053; 81001; 82140; 83690; 83735; 83880; 84439; 84443; 84484; 85025; 87077; 87086; 87186; 93005; 93880; 97161; 97530; 99285; C8924; G0378

== ENCOUNTER → 2021-10-12 15:15 | Outpatient (BNVA) | payer MEDICARE, MEDICAID, SELFPAY | PROVIDERS: PCP Nurse Practitioner Family; Visit Provider Psychiatry & Neurology Psychiatry | DX: F31.81 Bipolar II disorder (principal); F12.10 Cannabis abuse, uncomplicated | CPT/HCPCS: 99213 ==

== ENCOUNTER 2021-10-14 09:15 | Outpatient (CLI) | payer MEDICARE, MEDICAID, SELFPAY ==
--- NOTE | 2021-10-14 09:27 | MR_ITS ---
WS: [id number] MRI HEAD WITHOUT CONTRAST TECHNIQUE: Sagittal T1, T2 axial, T2 axial FLAIR, axial and coronal T1 images, axial susceptibility w eighted imaging, axial diffusion weighted images, and coronal T2 images were obtained. CLINICAL INFORMATION: Let leg weakness COMPARISON: CT 10/08/21 FINDINGS: No evidence restricted diffusion to suggest acute ischemia. Ventricular system and basal cisterns are patent. Moderate small vessel changes. Moderate parenchymal volume loss. Small vessel changes in the marbella. RIGHT parietal shunt catheter tip in the LEFT frontal horn is stable. RIGHT frontotemporal craniotomy with encephalomalacia and gliosis in the underlying RIGHT anterior temporal lobe is unchanged. Tiny chronic lacunar infarct LEFT cerebellum. Mild mucosal thickening ethmoid air cells. Paranasal sinuses are well aerated. Mild mucosal thickening in the RIGHT greater than LEFT mastoid air cells. Tortuous basilar artery. Normal vascular flow voids at the skull base. Chronic lacunar infarct RIGHT thalamus. Chronic infarct or prior shunt tract in the RIGHT frontal lob e. Moderate small vessel changes with moderate parenchymal volume loss. No hemosiderin on susceptibly weighted images. Normal optic chiasm and pituitary infundibulum. Normal cavernous sinuses and Meckel's cave. MR/MR head wo con* [id number] IMPRESSION: 1. No evidence of restricted diffusion to suggest acute ischemia. 2. RIGHT parietal shunt catheter with tip in the LEFT frontal horn. Ventricula r size is unchanged from previous. 3. Moderate small vessel changes with moderate parenchymal volume loss. 4. Prior postoperative changes RIGHT frontotemporal craniotomy with encephalom alacia and gliosis in the anterior temporal lobe. 5. Chronic lacunar infarcts in the thalamus and LEFT superior cerebellum. 6. No hemosiderin on susceptibly weighted images. 7. No other significant findings.
== END 2021-10-14 09:16 | disposition home or self-care (01) ==
LOC: RAD 09:20
PROVIDERS: PCP Nurse Practitioner Family; Visit Provider Internal Medicine
DX: R53.1 Weakness (principal)
CPT/HCPCS: 70551

== ENCOUNTER → 2021-11-05 10:38 | Outpatient (BNVA) | payer MEDICARE, MEDICAID, SELFPAY | PROVIDERS: PCP Nurse Practitioner Family; Visit Provider Thoracic Surgery (Cardiothoracic Vascular Surgery) | DX: S22.23XD Sternal manubrial dissociation, subsequent encounter for fracture with routine healing (principal); F17.210 Nicotine dependence, cigarettes, uncomplicated | CPT/HCPCS: 99203 ==

== ENCOUNTER → 2022-03-24 13:20 | Outpatient (BNVA) | payer MEDICARE, MEDICAID, SELFPAY | PROVIDERS: PCP Nurse Practitioner Family; Visit Provider Nurse Practitioner Family | DX: R50.9 Fever, unspecified (principal); U07.1 COVID-19 | CPT/HCPCS: 87426 ==

== ENCOUNTER 2022-03-27 09:40 | Emergency (ER) | payer MEDICARE, MEDICAID, SELFPAY ==
[2022-03-27 09:46] VITALS: BP 128/60; PULSE 66; RESP 18; TEMP 36.9; O2SAT 96; BMI 40.4
--- NOTE | 2022-03-27 09:48 | CTR_ITS ---
PROCEDURE INFORMATION: Exam: CT Head Without Contrast Exam date and time: 03/27/2022 10:02 AM Age: 76 years old Clinical indication: Injury or trauma; Fall; Blunt trauma (contusions or hematomas); Prior surgery TECHNIQUE: Imaging protocol: Computed tomography of the head without contrast. Radiation optimization: All CT scans at this facility use at least one of these dose optimization techniques: automated exposure control; mA and/or kV adjustment per patient size (includes targeted exams where dose is matched to clinical indication); or iterative reconstruction. COMPARISON: MR head wo con* [id number] 10/14/2021 9:55 AM RADIATION DOSE METRICS: Total DLP (mGy-cm): 1033.48 FINDINGS: Brain: Prominent cortical sulci consistent with mild volume loss less than expected for age. No hemorrhage. Unremarkable white matter. No mass effect. Cerebral ventricles: No ventriculomegaly. A right posterior parietal TRANSCRIPTION TYPIST shunt is in place extending through the posterior aspect of the right lateral ventricle into the frontal horn of the left lateral ventricle. Paranasal sinuses: Visualized sinuses are unremarkable. No fluid levels. Mastoid air cells: Visualized mastoid air cells are well aerated. Bones/joints: There is a craniotomy defect in the right parietal region. No acute fracture. Soft tissues: Unremarkable. CT/CT head wo con* [id number] IMPRESSION: 1. No acute intracranial abnormality. 2. Right parietal craniotomy. 3. TRANSCRIPTION TYPIST shunt extends from the right posterior parietal region to ventricles .
--- NOTE | 2022-03-27 09:48 | XRR_ITS ---
PROCEDURE INFORMATION: Exam: XR Cervical Spine Exam date and time: 03/27/2022 11:07 AM Age: 76 years old Clinical indication: Injury or trauma; Fall; Blunt trauma TECHNIQUE: Imaging protocol: Radiologic exam of the cervical spine. Views: 2 or 3 views. COMPARISON: CT head wo con* [id number] 03/27/2022 10:02 AM FINDINGS: Tubes, catheters and devices: There is a intact HELICOPTER CREW CHIEF shunt on the right side Bones/joints: Normal. No acute fracture. Normal alignment. Soft tissues: Metallic densities seen in the soft tissues adjacent to the mandible. XR/XR cervical spine 3V* [id number] IMPRESSION: 1. No acute findings. 2. Intact right side HELICOPTER CREW CHIEF shunt 3. Metallic soft tissue densities near the right and left mandible
--- NOTE | 2022-03-27 13:02 | ED_ITS ---
HPI - Fall General: Chief Complaint: Fall Stated Complaint: HEAD AND NECK PAIN S/P FALL Time Seen by Provider: 03/27/22 09:48 Source: patient Mode of arrival: EMS History of Present Illness: 76-year-old female presents to the emergency room. Patient states she is working outside in her garden was bending over and standing up got lightheaded dizzy and stumbled and fell. She did hit her head when she fell she complaining some neck pain as well she is on anticoagulants. There is no loss conscious no vomiting no other injuries. MD complaint: fall Onset (ago): minute(s) Fall from: standing Fall witnessed: no Place fall occurred: home Loss of consciousness: None Symptoms prior to fall: lightheadedness and dizziness Location of injury: head and neck Associated symptoms-after fall: Reports neck pain; Denies abdominal pain, chest pain, confusion, difficulty walking, headache(s), hematuria, lightheadedness, numbness, short of breath, vertigo or weakness Review of Systems Const: Denies: fever(s), chills, body aches, change in appetite, fatigue or malaise ENMT: Denies: throat pain, ear or mastoid pain, nasal discharge or nasal congestion Card: Denies: chest pain or lightheadedness Resp: Denies: dyspnea, productive cough or non-productive cough GI: Denies: abdominal pain : Denies: difficulty voiding, dysuria, urinary frequency, urinary urgency or hematuria Musc: Reports: neck pain Skin/Breast: Denies: rash or pruritus Neuro: Denies: headache(s), difficulty walking, vertigo or confusion PFSH ED PFSH: Medical History Acquired bilateral hammer toes Adult onset hypothyroidism Anemia, iron deficiency Anxiety with depression Basal cell carcinoma of skin of nose (~07/2017) Brain aneurysm (~1995) CVA (cerebrovascular accident due to intracerebral hemorrhage) Essential (primary) hypertension Gait instability With frequent falls at baseline History of malignant melanoma History of nonmelanoma skin cancer Hyperlipidemia, unspecified Left-sided weakness Leukocytosis follows with Dr Rubio Lung nodule right Malignant melanoma of chin (~07/2017) Paresthesia of skin Psychiatric care Skin cancer of nose On 5-FU cream Squamous cell carcinoma of left lower leg Urinary incontinence, urge Surgical History History of appendectomy History of brain shunt History of brain surgery (~1995) ruptured aneurysm repair with shunt implanted History of section History of hysterectomy Family History Family/Other Stroke CAD (coronary artery disease) Cancer skin Social History Smoking and tobacco status: current every day smoker cigarettes Packs smoked per day: 0.5 Years cigarettes smoked: 59 Quit status (tobacco): has tried quititng Number of times tried to quit tobacco: 30 Second hand smoke exposure: Yes Smoking risk assessment/counseling performed?: No Alcohol intake: former Desire information about alcohol rehabilitation?: No Counseling given: No Desire information about substance/drug rehabilitation?: No Counseling given: No Caregiver/support person: Yes (daughter) Lives independently: No (relatives) Household members: none Marital status: Number of children: 1 service: No Current occupational status: retired History of recent travel: No Current gender identity: Female Special colt needs: No Physical Exam Const: COMMON NORMALS: no acute distress GENERAL APPEARANCE: cooperative and comfortable ORIENTATION/CONSCIOUSNESS: Yes awake, Yes oriented to person, Yes oriented to place and Yes oriented to time HENMT: COMMON NORMALS: normocephalic, atraumatic, hearing grossly normal bilaterally, external ears normal, EAC's normal, TM's normal bilaterally, Normal nasal mucous membranes and turbinates present, moist oral mucous membranes and oropharynx normal HEAD & SCALP: normocephalic and atraumatic NOSE: Normal nasal mucous membranes and turbinates present EXTERNAL EAR: Yes external ears normal EXTERNAL AUDITORY CANAL: EAC's normal TYMPANIC MEMBRANE: TM's normal bilaterally Eye: COMMON NORMALS: Equal, round and reactive pupils present, EOMs intact bilaterally, conjunctivae normal and no scleral icterus CONJUNCTIVA: Yes co njunctivae normal PUPIL: Yes Equal, round and reactive pupils present Neck/C-Spine: COMMON NORMALS: full ROM, no lymphadenopathy, supple and no JVD Resp: COMMON NORMALS: normal respiratory effort, No retractions, No use of accessory muscles and clear to auscultation bilaterally AUSCULTATION: clear to auscultation bilaterally Cardio: COMMON NORMALS: no JVD, regular rate, regular rhythm and No murmurs present (Cardio) RATE: regular rate RHYTHM: regular rhythm GI: COMMON NORMALS: Soft to palpation and No hepatosplenomegaly present AUSCULTATION: Yes normoactive bowel sounds PALPATION: Yes Soft to palpation, No Tenderness to palpation present (GI), No Guarding due to palpation present (GI) and Yes No hepatosplenomegaly present Extremity: COMMON NORMALS: normal to inspection, capillary refill normal, no clubbing, cyanosis or edema, no calf tenderness and no pedal edema Neuro: SENSORIUM/ORIENTATION: Yes oriented to person, Yes oriented to place and Yes oriented to time Skin: COMMON NORMALS: no rashes or lesions noted GENERAL SKIN EXAM: no rashes or lesions noted Course Vital Signs: Vital signs: Vital Signs Temperature 98.5 F 03/27/22 09:46 Pulse Rate 66 03/27/22 09:46 Respiratory Rate 18 03/27/22 09:46 Blood Pressure 128/60 03/27/22 09:46 Pulse Oximetry 96 03/27/22 09:46 Oxygen Delivery Me thod 03/27/22 09:46 MDM - Fall Medical Decision Making Labs imaging and EKG reviewed no significant findings made we will discharge patient home follow-up with primary care return if is further problems. Medical Records I reviewed the patient's medical records. Lab Data I reviewed the patient's lab results. Radiology Impressions Cervical Spine X-Ray 03/27/22 09:48 IMPRESSION: 1. No acute findings. 2. Intact right side GOLD LEAF LABORER shunt 3. Metallic soft tissue densities near the right and left mandible Head CT 03/27/22 09:48 IMPRESSION: 1. No acute intracranial abnormality. 2. Right parietal craniotomy. 3. GOLD LEAF LABORER shunt extends from the right posterior parietal region to ventricles . Discharge Plan Discharge Patient Disposition: Home Clinical Impression: Fall, COVID-19, Left leg DVT Condition: Stable Prescriptions: No Action (DME) lift chair See Rx Instructions .Route .MEDSUPPLY Qty: 1 0RF Rx Instructions: As directed cholecalciferol (vitamin D3) 125 mcg (5,000 unit) capsule 5,000 unit PO DAILY Qty: 90 1RF ferrous gluconate [Ferate] 240 mg (27 mg iron) tablet 240 mg PO TID ascorbic acid (vitamin C) 1,000 mg tablet 1 gm PO DAILY multivitamin Tablet 1 tab PO QAM cyanocobalamin (vitamin B-12) 2,500 mcg tablet 2,500 mcg PO DAILY (DME) Rollater walker See Rx Instructions .Route .MEDSUPPLY Qty: 1 0RF Rx Instructions: As directed medical marijuana 1 dose inhalation DAILY azithromycin 250 mg tablet See Rx Instructions PO .COMPLEX Qty: 6 0RF Rx Instructions: For 250 mg dose pack: take 500 mg today (day 1), then 250 mg for 4 days (days 2-5) PO methylprednisolone [Medrol (Jeet)] 4 mg tablets,dose pack See Rx Instructions PO PER PKG DIR Qty: 21 0RF Rx Instructions: PO PER PKG DIR aripiprazole [Abilify] 5 mg tablet 5 mg PO DAILY Qty: 30 2RF bupropion HCl [Wellbutrin XL] 150 mg tablet extended release 24 hr 150 mg PO QAM Qty: 30 2RF venlafaxine [Effexor XR] 75 mg capsule,extended release 24hr 75 mg PO DAILY Qty: 30 2RF Rx Instructions: Take with 150 mg for total of 225 mg daily venlafaxine [Effexor XR] 150 mg capsule,extended release 24hr 150 mg PO DAILY Qty: 30 2RF mirtazapine 7.5 mg tablet 7.5 mg PO BEDTIME Qty: 30 2RF losartan 100 mg tablet See Rx Instructions .ROUTE .COMPLEX Qty: 90 0RF Dose Instruction: TAKE ONE TABLET BY MOUTH DAILY Rx Instructions: TAKE ONE TABLET BY MOUTH DAILY gabapentin 100 mg capsule See Rx Instructions .ROUTE .COMPLEX Qty: 30 0RF Dose Instruction: TAKE ONE CAPSULE BY MOUTH TWICE DAILY Rx Instructions: TAKE ONE CAPSULE BY MOUTH TWICE DAILY (DME) Wheelchair See Rx Instructions .Route .MEDSUPPLY Qty: 1 0RF Rx Instructions: As directed methenamine hippurate 1 gram tablet See Rx Instructions .ROUTE .COMPLEX Qty: 30 2RF Dose Instruction: TAKE ONE TABLET BY MOUTH ONCE DAILY Rx Instructions: TAKE ONE TABLET BY MOUTH ONCE DAILY Eliquis 5 mg tablet See Rx Instructions .ROUTE .COMPLEX Qty: 180 2RF Dose Instruction: TAKE ONE TABLET BY MOUTH TWICE DAILY Rx Instructions: TAKE ONE TABLET BY MOUTH TWICE DAILY oxycodone 5 mg tablet 5 mg PO Q4H PRN (Reason: pain) Qty: 30 0RF atorvastatin 40 mg tablet 40 mg PO DAILY levothyroxine 25 mcg tablet 25 mcg PO DAILY Discharge Orders: Discharge ED (Routine); Ordered 03/27/22 Ordered By: Hay Perkins Referrals: Mary Moncada APN [Primary Care Provider] - Discharge Diet: Usual diet Discharge Activity: Increase activity as tolerated Patient Instructions: Opioid Safety, Pain Management Activity Restrictions/Additional Instructions: You were seen today for a fall your x-rays of your neck and your head were unremarkable. Continue all of your previous medications follow-up with your primary care doctor as needed. Coding Level of Care Code ED Modeling And Simulation Analyst for Janell Mathew
== END 2022-03-27 10:50 | disposition home or self-care (01) ==
PROVIDERS: Emergency Provider Family Medicine; PCP Nurse Practitioner Family
DX: U07.1 COVID-19 (principal); I82.402 Acute embolism and thrombosis of unspecified deep veins of left lower extremity; Z79.01 Long term (current) use of anticoagulants; F17.210 Nicotine dependence, cigarettes, uncomplicated; Z86.73 Personal history of transient ischemic attack (TIA), and cerebral infarction without residual deficits; I10 Essential (primary) hypertension; E78.5 Hyperlipidemia, unspecified
CPT/HCPCS: 70450; 72040; 99284

== ENCOUNTER → 2022-07-21 07:59 | Outpatient (BNVA) | payer MEDICARE, MEDICAID, SELFPAY | PROVIDERS: PCP Nurse Practitioner Family; Visit Provider Podiatrist Foot & Ankle Surgery | DX: M21.6X2 Other acquired deformities of left foot (principal); R26.9 Unspecified abnormalities of gait and mobility; I61.9 Nontraumatic intracerebral hemorrhage, unspecified; M21.372 Foot drop, left foot; M24.572 Contracture, left ankle | CPT/HCPCS: 73610; 99204 ==

== ENCOUNTER 2022-09-27 09:43 | Emergency (ER) | payer MEDICARE, MEDICAID, SELFPAY ==
[2022-09-27 09:44] VITALS: BP 124/88; PULSE 74; RESP 18; TEMP 36.7; O2SAT 98; BMI 27.2
--- NOTE | 2022-09-27 09:50 | CTR_ITS ---
PROCEDURE INFORMATION: Exam: CT Head Without Contrast Exam date and time: 09/27/2022 10:02 AM Age: 77 years old Clinical indication: Injury or trauma; Fall; Blunt trauma (contusions or hematomas); Without loss of consciousness; Prior surgery; Surgery date: 6+ months; Surgery type: Shunt; Additional info: Fell head trauma on eliquis TECHNIQUE: Imaging protocol: Computed tomography of the head without contrast. Radiation optimization: All CT scans at this facility use at least one of these dose optimization techniques: automated exposure control; mA and/or kV adjustment per patient size (includes targeted exams where dose is matched to clinical indication); or iterative reconstruction. REPORTING DATA: Count of CT and Cardiac NM exams in prior 12 months: This patient has received 3 known CTs and 0 known cardiac nuclear medicine studies in the 12 months prior to the current study. COMPARISON: CT head wo con* [id number] 03/27/2022 10:02 AM RADIATION DOSE METRICS: Total DLP (mGy-cm): 1400.82 FINDINGS: Brain: There is no evidence of intracranial hemorrhage. No areas of mass effect, edema or midline shift. Stable air encephalomalacia right temporal lobe adjacent to craniotomy defect secondary to old insult. Second smaller area of encephalomalacia along the tract of the right ventriculostomy catheter also unchanged. Catheter tip projects within the frontal horn left lateral ventricle. Vague areas of decreased attenuation periventricular white matter unchanged attributed to chronic white matter microvascular changes. Small old lacunar infarcts both basal ganglia. Cerebral ventricles: Not significantly dilated. Small left posterior fossa arachnoid cyst, unchanged likely developmental in nature. Paranasal sinuses: Visualized sinuses are unremarkable. No fluid levels. Mastoid air cells: Visualized mastoid air cells are well aerated. Bones/joints: Right craniotomy defect unchanged. No acute bony abnormalities. Soft tissues: There is a ventriculostomy port within the right posterior scalp. CT/CT head wo con* [id number] IMPRESSION: 1. No acute intracranial abnormalities. 2. Chronic changes as above.
--- NOTE | 2022-09-27 09:50 | W.ED.FALL ---
HPI - Fall General: Chief Complaint: Fall Stated Complaint: FALL Time Seen by Provider: 09/27/22 09:46 History of Present Illness: Patient presents to the ER by EMS with complaints of fall and left knee and left hip pain, patient also struck her head on the corner of the fireplace and is on Eliquis. There was no loss of consciousness. MD complaint: fall Onset (ago): hour(s) (Earlier today) Fall from: standing Place fall occurred: home Loss of consciousness: None Context: tripped/slipped Location of injury: head Severity: mild Quality: aching Associated symptoms-after fall: Reports no associated symptoms Review of Systems General: Reports: 10 or more systems reviewed and unremarkable except in HPI and below PFSH ED PFSH: Medical History (Updated 09/27/22 @ 10:46 by Ermias Kate DO) Acquired bilateral hammer toes Adult onset hypothyroidism Anemia, iron deficiency Anxiety with depression Basal cell carcinoma of skin of nose (~07/2017) Brain aneurysm (~1995) CVA (cerebrovascular accident due to intracerebral hemorrhage) Essential (primary) hypertension Gait instability With frequent falls at baseline History of malignant melanoma History of nonmelanoma skin cancer Hyperlipidemia, unspecified Left-sided weakness Leukocytosis follows with Dr Rubio Lung nodule right Malignant melanoma of chin (~07/2017) Paresthesia of skin Psychiatric care Skin cancer of nose On 5-FU cream Squamous cell carcinoma of left lower leg Urinary incontinence, urge Surgical History History of appendectomy History of brain shunt History of brain surgery (~1995) ruptured aneurysm repair with shunt implanted History of section History of hysterectomy Family History Family/Other Stroke CAD (coronary artery disease) Cancer skin Social History Smoking and tobacco status: current every day smoker cigarettes Packs smoked per day: 0.5 Years cigarettes smoked: 59 Quit status (tobacco): has tried quititng Number of times tried to quit tobacco: 30 Second hand smoke exposure: Yes Smoking risk assessment/counseling performed?: No Alcohol intake: former Desire information about alcohol rehabilitation?: No Counseling given: No Substance/Drug Use: never Desire information about substance/drug rehabilitation?: No Counseling given: No Caregiver/support person: Yes (daughter) Lives independently: No (relatives) Household members: none Marital status: Number of children: 1 service: No Current occupational status: retired Current gender identity: Female Special colt needs: No Physical Exam Const: COMMON NORMALS: no acute distress, average body habitus, patient oriented x3, no limitations, healthy appearing, alert and well nourished HENMT: COMMON NORMALS: hearing grossly normal bilaterally, external ears normal, Normal external nose present and moist oral mucous membranes HEAD & SCALP: contusion (Right scalp no crepitus no fluctuance no bleeding) NOSE: Normal external nose present EXTERNAL EAR: Yes external ears normal Eye: COMMON NORMALS: Equal, round and reactive pupils present, EOMs intact bilaterally, conjunctivae normal and no scleral icterus CONJUNCTIVA: Yes conjunctivae normal PUPIL: Yes Equal, round and reactive pupils present Neck/C-Spine: COMMON NORMALS: full ROM, no lymphadenopathy, supple, no meningeal signs, no JVD and Thyroid normal THYROID: Thyroid normal Lymph: LYMPHATIC: no lymphadenopathy noted Chest: COMMONS NORMALS: normal inspection of the chest and normal palpation of entire chest wall Resp: COMMON NORMALS: normal respiratory effort, No retractions, No use of accessory muscles and clear to auscultation bilaterally AUSCULTATION: clear to auscultation bilaterally Cardio: COMMON NORMALS: no JVD, regular rate, regular rhythm, S1 normal heart sound present, S2 normal heart sound present, No gallops present (Cardio), No clicks present (Cardio), No murmurs present (Cardio) and No rub (Cardio) RATE: regular rate RHYTHM: regular rhythm HEART SOUNDS: S1 normal heart sound present and S2 normal heart sound present GI: COMMON NORMALS: Normal to inspection, nondistended, normoactive bowel sounds present, Soft to palpation, non-tender, No hepatosplenomegaly present and no masses PALPATION: Yes Soft to palpation and Yes No hepatosplenomegaly present : COMMON NORMALS: Yes no CVA tenderness BLADDER/KIDNEY EXAM: Yes no CVA tenderness Back/Pelvis: COMMON NORMALS: no CVA tenderness Extremity: COMMON NORMALS: normal to inspection and full ROM Neuro: COMMON NORMALS: patient oriented x3 SENSORIUM/ORIENTATION: Yes alert MENINGEAL SIGNS: Yes no meningeal signs Course Vital Signs: Vital signs: Vital Signs Temperature 98.1 F 05/29/23 09:44 Pulse Rate 74 09/27/22 10:18 Respiratory Rate 18 09/27/22 09:44 Blood Pressure 124/88 09/27/22 10:18 Pulse Oximetry 97 09/27/22 10:18 Oxygen Delivery Me thod Room Air 09/27/22 09:44 MDM - Fall Medical Decision Making Patient is brought to the ER for evaluation for fall, patient hit her head on the fireplace and is on Eliquis. Physical exam was performed and a head CT was obtained which was negative for acute changes. Patient will be discharged home with diagnosis of fall and contusion and will be instructed to follow-up with PCP in 1 week or sooner if needed. Differential Diagnosis Likely concussion without loss of consciousness; Unlikely syncope, dislocation of shoulder region, fracture of wrist, compression fracture or concussion with loss of consciousness Medical Records I reviewed the patient's medical records. Lab Data I reviewed the patient's lab results. Radiology Impressions Head CT 09/27/22 09:50 IMPRESSION: 1. No acute intracranial abnormalities. 2. Chronic changes as above. Discharge Plan Discharge Patient Disposition: Home Clinical Impression: Contusion of head Qualifiers: Encounter type: initial encounter Contusion of head detail: scalp Qualified Code(s): S00.03XA - Contusion of scalp, initial encounter Condition: Stable Prescriptions: No Action (DME) lift chair See Rx Instructions .Route .MEDSUPPLY Qty: 1 0RF Rx Instructions: As directed cholecalciferol (vitamin D3) 125 mcg (5,000 unit) capsule 5,000 unit PO DAILY Qty: 90 1RF ferrous gluconate [Ferate] 240 mg (27 mg iron) tablet 240 mg PO TID ascorbic acid (vitamin C) 1,000 mg tablet 1 gm PO DAILY multivitamin Tablet 1 tab PO QAM cyanocobalamin (vitamin B-12) 2,500 mcg tablet 2,500 mcg PO DAILY (DME) Rollater walker See Rx Instructions .Route .MEDSUPPLY Qty: 1 0RF Rx Instructions: As directed medical marijuana 1 dose inhalation DAILY venlafaxine [Effexor XR] 150 mg capsule,extended release 24hr 150 mg PO DAILY Qty: 30 2RF Rx Instructions: TAKE WITH 75 MG TO EQUAL 225 MG ONCE DAILY venlafaxine [Effexor XR] 75 mg capsule,extended release 24hr 75 mg PO DAILY Qty: 30 2RF Rx Instructions: Take with 150 mg for total of 225 mg daily mirtazapine 7.5 mg tablet 7.5 mg PO BEDTIME Qty: 30 2RF bupropion HCl [Wellbutrin XL] 150 mg tablet extended release 24 hr 150 mg PO QAM Qty: 30 2RF (DME) non articulating custom AFO to left See Rx Instructions .Route .MEDSUPPLY Qty: 1 0RF Rx Instructions: As directed by [employer] (DME) Wheelchair See Rx Instructions .Route .MEDSUPPLY Qty: 1 0RF Rx Instructions: As directed methenamine hippurate 1 gram tablet See Rx Instructions .ROUTE .COMPLEX Qty: 30 0RF Dose Instruction: TAKE ONE TABLET BY MOUTH ONCE DAILY Rx Instructions: TAKE ONE TABLET BY MOUTH ONCE DAILY aripiprazole [Abilify] 5 mg tablet 5 mg PO DAILY Qty: 30 2RF losartan 100 mg tablet 100 mg PO DAILY Eliquis 5 mg tablet 5 mg PO BID atorvastatin 40 mg tablet 40 mg PO DAILY levothyroxine 25 mcg tablet 25 mcg PO DAILY Discharge Orders: Discharge ED (Routine); Ordered 09/27/22 Ordered By: Ermias Kate Referrals: Mary Moncada APN [Primary Care Provider] - 1 week Patient Instructions: Contusion, Fall Prevention (ED) Coding Level of Care Code ED Photograph Inspector for Janell Mathew
[2022-09-27 10:18] VITALS: BP 120/75; PULSE 74; O2SAT 97
[2022-09-27 10:47] VITALS: BP 130/77; PULSE 80; O2SAT 96
[2022-09-27 10:58] VITALS: BP 130/77; PULSE 79; O2SAT 95
== END 2022-09-27 10:59 | disposition home or self-care (01) ==
PROVIDERS: Emergency Provider Emergency Medicine; PCP Nurse Practitioner Family
DX: S00.03XA Contusion of scalp, initial encounter (principal); Z79.01 Long term (current) use of anticoagulants; F17.210 Nicotine dependence, cigarettes, uncomplicated; Z86.73 Personal history of transient ischemic attack (TIA), and cerebral infarction without residual deficits; I10 Essential (primary) hypertension; E78.5 Hyperlipidemia, unspecified; Z85.828 Personal history of other malignant neoplasm of skin; W18.39XA Other fall on same level, initial encounter
CPT/HCPCS: 70450; 99284

== ENCOUNTER 2022-09-28 14:54 | Emergency (ER) | payer MEDICARE, MEDICAID, SELFPAY ==
[2022-09-28 15:18] VITALS: BP 106/58; PULSE 81; RESP 20; TEMP 36.8; O2SAT 96
[2022-09-28 15:49] VITALS: BP 107/48; PULSE 81; O2SAT 100
--- NOTE | 2022-09-28 15:51 | CTR_ITS ---
PROCEDURE INFORMATION: Exam: CT Head Without Contrast Exam date and time: 09/28/2022 4:00 PM Age: 77 years old Clinical indication: Injury or trauma; Blunt trauma (contusions or hematomas); Injury details: Fall x today hitting posterior head on concrete. Prior surgery; Surgery date: 6+ months; Surgery type: Shunt; Additional info: Fall (again) on eliquist TECHNIQUE: Imaging protocol: Computed tomography of the head without contrast. Radiation optimization: All CT scans at this facility use at least one of these dose optimization techniques: automated exposure control; mA and/or kV adjustment per patient size (includes targeted exams where dose is matched to clinical indication); or iterative reconstruction. REPORTING DATA: Count of CT and Cardiac NM exams in prior 12 months: This patient has received 4 known CTs and 0 known cardiac nuclear medicine studies in the 12 months prior to the current study. COMPARISON: CT head wo con* [id number] 09/27/2022 10:02 AM RADIATION DOSE METRICS: Total DLP (mGy-cm): 1043.8 FINDINGS: Tubes, catheters and devices: Right parietal approach ventriculostomy catheter with its tip in the left lateral ventricle. Right temporal prior craniotomy. Brain: There are mild periventricular and subcortical lucencies consistent with chronic microvascular ischemic changes.The godinez-white differentiation is maintained. No hemorrhage. No edema.Encephalomalacia in the right temporal lobe. Encephalomalacia in the right frontal lobe Cerebral ventricles: No ventriculomegaly. Paranasal sinuses: Visualized sinuses are unremarkable. No fluid levels. Mastoid air cells: Visualized mastoid air cells are well aerated. Orbital cavities: Bilateral cataract surgery. Bones/joints: See Tubes, catheters and devices finding. Soft tissues: Unremarkable. Vasculature: Vascular calcifications. Other findings: Right CT/CT head wo con* [id number] IMPRESSION: No acute intracranial abnormality. Chronic microvascular ischemic changes.
--- NOTE | 2022-09-28 15:51 | XRR_ITS ---
PROCEDURE INFORMATION: Exam: XR Left Hip Exam date and time: 09/28/2022 2:56 PM Age: 77 years old Clinical indication: Pain and injury or trauma; Fall; Blunt trauma (contusions or hematomas); Hip pain; Left hip; Injury date: 09/28/22 TECHNIQUE: Imaging protocol: Radiologic exam of the left hip. Views: 2 or 3 views hip with pelvis when performed. COMPARISON: CT chest abdpel w/*[id number] 04/23/2019 11:35 AM FINDINGS: Bones/joints: Severe degenerative changes of the hip joint. No acute fracture. No dislocation. Soft tissues: Unremarkable. XR/XR hip LT 2-3V wo/w pel* [id number] IMPRESSION: No acute abnormality.
--- NOTE | 2022-09-28 15:52 | W.ED.FALL ---
HPI - Fall General: Chief Complaint: Fall Stated Complaint: FALL/HIP PAIN Time Seen by Provider: 09/28/22 15:22 Source: patient Mode of arrival: ambulatory Limitations: no limitations History of Present Illness: This patient with a known history of gait instability and left leg weakness after suffering a aneurysmal stroke back in the 90s presents to the emergency department after sustaining a fall at again today. She states she was pushing her wheelchair and lost balance and fell striking her head. She also complains of pain in her left hip. She has chronic low lower extremity weakness on the left. She also is on Eliquis because of a prior history of DVT. It sounds like she had 2 episodes of DVT 1 during her hospitalization after her stroke and then 1 approximately 2 years ago the former being provoked obviously but this the latter allegedly unprovoked. She denies shortness of breath palpitations, syncope etc. She is taking her Eliquis today. She denies any new focal weakness etc. Place fall occurred: home Context: tripped/slipped and history of frequent falls Associated symptoms-after fall: Denies abdominal pain, chest pain, headache(s) or neck pain Review of Systems Const: Denies: fever(s) or chills Eyes: Denies: change in vision ENMT: Denies: throat pain, odynophagia or nasal congestion Card: Denies: chest pain, palpitations, syncope or pre-syncope Resp: Denies: dyspnea, productive cough or non-productive cough GI: Denies: abdominal pain, nausea or vomiting Musc: Reports: extremity pain; Denies: neck pain or back pain Neuro: Reports: weakness in extremities (Chronic left lower extremity weakness), frequent falls and dizziness; Denies: headache(s) or numbness in extremities Audi/Lymph: Reports: easy bruising [facility] ED PFSH: Medical History Acquired bilateral hammer toes Adult onset hypothyroidism Anemia, iron deficiency Anxiety with depression Basal cell carcinoma of skin of nose (~07/2017) Brain aneurysm (~1995) CVA (cerebrovascular accident due to intracerebral hemorrhage) Essential (primary) hypertension Gait instability With frequent falls at baseline History of malignant melanoma History of nonmelanoma skin cancer Hyperlipidemia, unspecified Left-sided weakness Leukocytosis follows with Dr Rubio Lung nodule right Malignant melanoma of chin (~07/2017) Paresthesia of skin Psychiatric care Skin cancer of nose On 5-FU cream Squamous cell carcinoma of left lower leg Urinary incontinence, urge Surgical History History of appendectomy History of brain shunt History of brain surgery (~1995) ruptured aneurysm repair with shunt implanted History of section History of hysterectomy Family History Family/Other Stroke CAD (coronary artery disease) Cancer skin Social History Smoking and tobacco status: current every day smoker cigarettes Packs smoked per day: 0.5 Years cigarettes smoked: 59 Quit status (tobacco): has tried quititng Number of times tried to quit tobacco: 30 Second hand smoke exposure: Yes Smoking risk assessment/counseling performed?: No Alcohol intake: former Desire information about alcohol rehabilitation?: No Counseling given: No Substance/Drug Use: never Desire information about substance/drug rehabilitation?: No Counseling given: No Caregiver/support person: Yes (daughter) Lives independently: No (relatives) Household members: none Marital status: Number of children: 1 service: No Current occupational status: retired Current gender identity: Female Special colt needs: No Physical Exam Narrative: EXAM NARRATIVE: The patient is alert she is in no acute distress. She makes good eye contact appears to be comfortable answers questions in a goal-directed fashion. Const: COMMON NORMALS: no acute distress, average body habitus and patient oriented x3 GENERAL APPEARANCE: cooperative and comfortable HENMT: COMMON NORMALS: normocephalic, Normal nasal mucous membranes and turbinates present, moist oral mucous membranes and oropharynx normal HEAD & SCALP: normocephalic FACE & SINUS: normal facial exam NOSE: Normal nasal mucous membranes and turbinates present OTHER: Palpation of the head and scalp reveal evidence of shunt in the right occipital parietal region. There is no step-offs, lacerations noted. Eye: COMMON NORMALS: Equal, round and reactive pupils present, EOMs intact bilaterally and conjunctivae normal CONJUNCTIVA: Yes conjunctivae normal PUPIL: Yes Equal, round and reactive pupils present OTHER: No nystagmus noted Neck/C-Spine: COMMON NORMALS: full ROM and no lymphadenopathy CERVICAL SPINE: Yes cervical ROM normal, No Cervical spine tenderness, No step off deformity, No Paracervical muscle tenderness, No Paracervical spasm and No Trapezius muscle tenderness Chest: COMMONS NORMALS: normal inspection of the chest Resp: COMMON NORMALS: normal respiratory effort, No use of accessory muscles and clear to auscultation bilaterally EFFORT & INSPECTION: Yes able to speak in complete sentences AUSCULTATION: clear to auscultation bilaterally Cardio: COMMON NORMALS: regular rate, regular rhythm, No murmurs present (Cardio) and Peripheral pulses 2+ throughout RATE: regular rate RHYTHM: regular rhythm PERIPHERAL PULSES: Peripheral pulses 2+ throughout GI: COMMON NORMALS: Soft to palpation and non-tender PALPATION: Yes Soft to palpation : COMMON NORMALS: Yes no CVA tenderness BLADDER/KIDNEY EXAM: Yes no CVA tenderness Back/Pelvis: COMMON NORMALS: no CVA tenderness, thoracic and lumbar spine normal to inspection, no thoracic nor lumbar tenderness and thoraco-lumbar ROM normal Extremity: NARRATIVE EXTREMITY EXAM: She has an abrasion to her left elbow but is able to move it her normal range of motion to include flexion, extension, pronation, supination. No deformity. Neurovascular intact. She has tenderness over the left greater trochanter which is exacerbated by passive movement of the left hip. No other extremity injuries noted. Neuro: COMMON NORMALS: patient oriented x3, moves all extremities and no sensory deficits noted CRANIAL NERVES: Yes CN normal except as noted MOTOR EXAM: Abnormal motor strength present (Weakness against gravity left lower extremity) Psych: COMMON NORMALS: mental status grossly normal Course Reevaluation(s): Reevaluation #1: Remains stable and alert. No new or focal findings on repeat evaluation. Shared findings with both she and her daughter who is now present. Discussed expected course. Also discussed and recommended that they discuss whether long-term Eliquis treatment is appropriate given her fall risk. Time: 16:48 Vital Signs: Vital signs: Vital Signs Temperature 98.2 F 09/28/22 15:18 Pulse Rate 82 09/28/22 16:30 Respiratory Rate 20 H 09/28/22 15:18 Blood Pressure 130/74 09/28/22 16:30 Pulse Oximetry 98 09/28/22 16:30 Oxygen Delivery Me thod Room Air 09/28/22 15:18 MDM - Fall Medical Decision Making This patient with a longstanding history of gait instability presented to our emergency department with a fall again today. She apparently had a fall yesterday and was seen in this emergency department. Again she has a longstanding history of gait instability status post a hemorrhagic aneurysmal bleed in the s. She subsequently was left with left lower leg weak weakness as well as gait instability is noted. She uses a wheelchair per her primarily for mobility but also has a wheeled walker. She suffered a ground-level fall today when she stumbled pushing her wheelchair. No associated loss of consciousness. Clinical examination revealed her to be alert. There is no evidence of obvious head injury by clinical exam. She has a small abrasion to her left elbow but had no evidence of bony tenderness deformity or limitation in range of motion. Did have some tenderness on clinical exam of her left greater trochanter. There is no deformity. Imaging was obtained of the head to ensure no intracranial hemorrhage. It was reassuring. Imaging of the hip and pelvis were obtained which revealed no evidence of fracture, dislocation, etc. Currently clinically stable to be discharged with her daughter. We did reviewed current findings and the need for close follow-up for increasing or worsening symptoms. Also advised discussion with her primary care doctor regarding her long-term Eliquis use. Lab Data I reviewed the patient's lab results. Radiology Impressions Head CT 09/28/22 15:51 IMPRESSION: No acute intracranial abnormality. Chronic microvascular ischemic changes. Hip/Pelvis X-Ray 09/28/22 15:51 IMPRESSION: No acute abnormality. Discharge Plan Discharge Patient Disposition: Home Clinical Impression: Fall from ground level, Gait instability, Contusion of hip region, Abrasion of elbow, left Condition: Stable Prescriptions: No Action (DME) lift chair See Rx Instructions .Route .MEDSUPPLY Qty: 1 0RF Rx Instructions: As directed cholecalciferol (vitamin D3) 125 mcg (5,000 unit) capsule 5,000 unit PO DAILY Qty: 90 1RF ferrous gluconate [Ferate] 240 mg (27 mg iron) tablet 240 mg PO TID ascorbic acid (vitamin C) 1,000 mg tablet 1 gm PO DAILY multivitamin Tablet 1 tab PO QAM cyanocobalamin (vitamin B-12) 2,500 mcg tablet 2,500 mcg PO DAILY (DME) Rollater walker See Rx Instructions .Route .MEDSUPPLY Qty: 1 0RF Rx Instructions: As directed medical marijuana 1 dose inhalation DAILY venlafaxine [Effexor XR] 150 mg capsule,extended release 24hr 150 mg PO DAILY Qty: 30 2RF Rx Instructions: TAKE WITH 75 MG TO EQUAL 225 MG ONCE DAILY venlafaxine [Effexor XR] 75 mg capsule,extended release 24hr 75 mg PO DAILY Qty: 30 2RF Rx Instructions: Take with 150 mg for total of 225 mg daily mirtazapine 7.5 mg tablet 7.5 mg PO BEDTIME Qty: 30 2RF bupropion HCl [Wellbutrin XL] 150 mg tablet extended release 24 hr 150 mg PO QAM Qty: 30 2RF (DME) non articulating custom AFO to left See Rx Instructions .Route .MEDSUPPLY Qty: 1 0RF Rx Instructions: As directed by [employer] (DME) Wheelchair See Rx Instructions .Route .MEDSUPPLY Qty: 1 0RF Rx Instructions: As directed methenamine hippurate 1 gram tablet See Rx Instructions .ROUTE .COMPLEX Qty: 30 0RF Dose Instruction: TAKE ONE TABLET BY MOUTH ONCE DAILY Rx Instructions: TAKE ONE TABLET BY MOUTH ONCE DAILY aripiprazole [Abilify] 5 mg tablet 5 mg PO DAILY Qty: 30 2RF losartan 100 mg tablet 100 mg PO DAILY Eliquis 5 mg tablet 5 mg PO BID atorvastatin 40 mg tablet 40 mg PO DAILY levothyroxine 25 mcg tablet 25 mcg PO DAILY Discharge Orders: Discharge ED (Routine); Ordered 09/28/22 Ordered By: Antoine Griffiths Referrals: Mary Moncada APN [Primary Care Provider] - Discharge Diet: Usual diet Discharge Activity: Wheelchair as instructed Patient Instructions: Opioid Safety, Pain Management Activity Restrictions/Additional Instructions: Do not take your Eliquis tonight or in the morning and then you may resume your usual dosing. Continue all your other usual medications. Make sure that she use her wheelchair as instructed. Discuss your long-term use of Eliquis with your doctor in the next week to 10 days. Return to this or the nearest emergency department for any new or worsening symptoms or concerns. Coding Level of Care Code ED Steamfitter Apprentice for Janell Mathew
[2022-09-28 16:30] VITALS: BP 130/74; PULSE 82; O2SAT 98
[2022-09-28 17:09] VITALS: BP 110/64; PULSE 76; O2SAT 92
== END 2022-09-28 17:10 | disposition home or self-care (01) ==
PROVIDERS: Emergency Provider Emergency Medicine; PCP Nurse Practitioner Family
DX: S70.02XA Contusion of left hip, initial encounter (principal); S50.312A Abrasion of left elbow, initial encounter; R26.89 Other abnormalities of gait and mobility; Z79.01 Long term (current) use of anticoagulants; F17.210 Nicotine dependence, cigarettes, uncomplicated; Z86.73 Personal history of transient ischemic attack (TIA), and cerebral infarction without residual deficits; I10 Essential (primary) hypertension; E78.5 Hyperlipidemia, unspecified; W19.XXXA Unspecified fall, initial encounter
CPT/HCPCS: 70450; 73502; 99284

== ENCOUNTER 2022-10-06 09:23 | Emergency (ER) | payer MEDICARE, MEDICAID, SELFPAY ==
[2022-10-06 09:23] VITALS: BP 168/84; PULSE 75; RESP 20; TEMP 36.7; O2SAT 95; BMI 26.6
--- NOTE | 2022-10-06 09:45 | CT_ITS ---
WS: [id number] CT CERVICAL TRAUMA TECHNIQUE: Noncontrast CT of the cervical spine with coronal and sagittal reformatted images. CLINICAL INFORMATION: trauma COMPARISON: None. DLP: 1222.[address] scans at [facility] use at least one of these dose optimization techniques: automated e xposure control; mA and/or kV adjustment per patient size (includes targeted exams where dose is matc hed to clinical indication); or iterative reconstruction. FINDINGS: Straightening of the normal cervical lordosis. Small central disc osteophyte protrusions at C5-C6 and C6-C7 Normal craniocervical junction. Normal C1-C2 articulation. Dens is normal in appearance. Ольга l occipital condyles. No high-grade spinal canal narrowing. Normal C1 ring. No evidence of acute frac ture or dislocation. Normal prevertebral soft tissues. Normal posterior nasopharynx. Normal parapharyngeal fat. Slightly n odular LEFT thyroid. Mastoids air cells are well aerated. CT/CT cervical spin wo con* [id number] IMPRESSION: No evidence of acute fracture or dislocation.
--- NOTE | 2022-10-06 09:46 | CT_ITS ---
WS: [id number] CT HEAD TECHNIQUE: Noncontrast CT of the head obtained from the skullbase to the vertex. CLINICAL INFORMATION: trauma COMPARISON: None. DLP: 1222.[address] scans at [facility] use at least one of these dose optimization techniques: automated e xposure control; mA and/or kV adjustment per patient size (includes targeted exams where dose is matc hed to clinical indication); or iterative reconstruction. FINDINGS: No evidence of intracranial hemorrhage or mass effect. Ventricular system and basal cisterns are maldonado nt. Moderate small vessel changes with moderate parenchymal volume loss. Intracranial vascular calcif ication. 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 No evidence of mass or mass effect. Chronic encephalomalacia RIGHT parasagittal frontal lobe. Chronic encephalomalacia RIGHT anterior temporal lobe with prior craniotomy. RIGHT parietal shunt catheter w ith tip in the LEFT frontal horn. Paranasal sinuses and mastoid air cells are well aerated. CT/CT head wo con* [id number] IMPRESSION: 1. No evidence of intracranial hemorrhage or mass effect. 2. RIGHT parietal shunt catheter with tip in the LEFT frontal horn. 3. Prior RIGHT pterional craniotomy with encephalomalacia in the anterior RIGH T temporal lobe 4. Intracranial vascular calcification. 5. No acute intracranial findings.
[2022-10-06 10:35] VITALS: BP 128/100; PULSE 80; RESP 15; O2SAT 95
--- NOTE | 2022-10-06 11:19 | ED_ITS ---
HPI - Fall General: Chief Complaint: Fall Stated Complaint: neck pain post fall Time Seen by Provider: 10/06/22 09:30 Source: patient Mode of arrival: EMS History of Present Illness: 77-year-old female presents emergency room she fell backwards while in a wheelchair she was trying to navigate a ramp tipped backwards hit her head she complaining some neck and head discomfort there is no loss of consciousness she arrives in a c-collar. She denies any vomiting. She is on Eliquis. complaint: fall Onset (ago): hour(s) Fall from: wheelchair Place fall occurred: home Loss of consciousness: Unsure Prolonged down time: no Symptoms prior to fall: none Context: tripped/slipped Location of injury: head Associated symptoms-after fall: Denies abdominal pain, chest pain, confusion, difficulty walking, headache(s), hematuria, lightheadedness, neck pain, numbness, short of breath, vertigo or weakness Review of Systems Const: Denies: fever(s), chills, body aches, change in appetite, fatigue or malaise ENMT: Denies: throat pain, ear or mastoid pain, nasal discharge or nasal congestion Card: Denies: chest pain or lightheadedness Resp: Denies: dyspnea, productive cough or non-productive cough GI: Denies: abdominal pain, nausea or vomiting : Denies: dysuria, urinary frequency, urinary urgency or hematuria Musc: Denies: neck pain or back pain Skin/Breast: Denies: rash or pruritus Neuro: Denies: headache(s), difficulty walking, vertigo or confusion PFSH ED PFSH: Medical History Acquired bilateral hammer toes Adult onset hypothyroidism Anemia, iron deficiency Anxiety with depression Basal cell carcinoma of skin of nose (~07/2017) Brain aneurysm (~1995) CVA (cerebrovascular accident due to intracerebral hemorrhage) Essential (primary) hypertension Gait instability With frequent falls at baseline History of malignant melanoma History of nonmelanoma skin cancer Hyperlipidemia, unspecified Left-sided weakness Leukocytosis follows with Dr Rubio Lung nodule right Malignant melanoma of chin (~07/2017) Paresthesia of skin Psychiatric care Skin cancer of nose On 5-FU cream Squamous cell carcinoma of left lower leg Urinary incontinence, urge Surgical History History of appendectomy History of brain shunt History of brain surgery (~1995) ruptured aneurysm repair with shunt implanted History of section History of hysterectomy Family History Family/Other Stroke CAD (coronary artery disease) Cancer skin Social History Smoking and tobacco status: current every day smoker cigarettes Packs smoked per day: 0.5 Years cigarettes smoked: 59 Quit status (tobacco): has tried quititng Number of times tried to quit tobacco: 30 Second hand smoke exposure: Yes Smoking risk assessment/counseling performed?: No Alcohol intake: former Desire information about alcohol rehabilitation?: No Counseling given: No Substance/Drug Use: never Desire information about substance/drug rehabilitation?: No Counseling given: No Caregiver/support person: Yes (daughter) Lives independently: No (relatives) Household members: none Marital status: Number of children: 1 service: No Current occupational status: retired Current gender identity: Female Special colt needs: No Physical Exam Const: GENERAL APPEARANCE: cooperative and comfortable ORIENTATION/CONSCIOUSNESS: Yes awake, Yes oriented to person, Yes oriented to place and Yes oriented to time HENMT: COMMON NORMALS: normocephalic, atraumatic and hearing grossly normal bilaterally HEAD & SCALP: normocephalic and atraumatic Resp: COMMON NORMALS: normal respiratory effort, No retractions, No use of accessory muscles and clear to auscultation bilaterally AUSCULTATION: clear to auscultation bilaterally Cardio: COMMON NORMALS: regular rate, regular rhythm and No murmurs present (Cardio) RATE: regular rate RHYTHM: regular rhythm GI: COMMON NORMALS: Soft to palpation and No hepatosplenomegaly present AUSCULTATION: Yes normoactive bowel sounds PALPATION: Yes Soft to palpation, No Tenderness to palpation present (GI), No Guarding due to palpation present (GI) and Yes No hepatosplenomegaly present Extremity: COMMON NORMALS: normal to inspection, capillary refill normal, no clubbing, cyanosis or edema, no calf tenderness and no pedal edema Neuro: SENSORIUM/ORIENTATION: Yes oriented to person, Yes oriented to place and Yes oriented to time Skin: COMMON NORMALS: no rashes or lesions noted GENERAL SKIN EXAM: no rashes or lesions noted Course Vital Signs: Vital signs: Vital Signs Temperature 98.1 F 10/06/22 09:23 Pulse Rate 80 10/06/22 11:58 Respiratory Rate 15 10/06/22 11:58 Blood Pressure 128/100 10/06/22 10:35 Pulse Oximetry 97 10/06/22 11:58 Oxygen Delivery Me thod Room Air 10/06/22 10:35 MDM - Fall Medical Decision Making CT head and C-spine are unremarkable. Neurologic exam patient is completely intact no focal logic deficit noted we will discharge patient home Tylenol or Profen as needed for pain follow-up with primary care her primary care doctor as needed. Lab Data Radiology Impressions Cervical Spine CT 10/06/22 09:45 IMPRESSION: No evidence of acute fracture or dislocation. Head CT 10/06/22 09:46 IMPRESSION: 1. No evidence of intracranial hemorrhage or mass effect. 2. RIGHT parietal shunt catheter with tip in the LEFT frontal horn. 3. Prior RIGHT pterional craniotomy with encephalomalacia in the anterior RIGHT temporal lobe 4. Intracranial vascular calcification. 5. No acute intracranial findings. Discharge Plan Discharge Patient Disposition: Home Clinical Impression: Closed head injury, Cervicalgia Condition: Stable Prescriptions: No Action (DME) lift chair See Rx Instructions .Route .MEDSUPPLY Qty: 1 0RF Rx Instructions: As directed cholecalciferol (vitamin D3) 125 mcg (5,000 unit) capsule 5,000 unit PO DAILY Qty: 90 1RF ferrous gluconate [Ferate] 240 mg (27 mg iron) tablet 240 mg PO .3XWEEKLY ascorbic acid (vitamin C) 1,000 mg tablet 1 gm PO DAILY multivitamin Tablet 1 tab PO QAM cyanocobalamin (vitamin B-12) 2,500 mcg tablet 2,500 mcg PO DAILY (DME) Rollater walker See Rx Instructions .Route .MEDSUPPLY Qty: 1 0RF Rx Instructions: As directed medical marijuana 1 dose inhalation DAILY venlafaxine [Effexor XR] 150 mg capsule,extended release 24hr 150 mg PO DAILY Qty: 30 2RF Rx Instructions: TAKE WITH 75 MG TO EQUAL 225 MG ONCE DAILY venlafaxine [Effexor XR] 75 mg capsule,extended release 24hr 75 mg PO DAILY Qty: 30 2RF Rx Instructions: Take with 150 mg for total of 225 mg daily mirtazapine 7.5 mg tablet 7.5 mg PO BEDTIME Qty: 30 2RF bupropion HCl [Wellbutrin XL] 150 mg tablet extended release 24 hr 150 mg PO QAM Qty: 30 2RF (DME) non articulating custom AFO to left See Rx Instructions .Route .MEDSUPPLY Qty: 1 0RF Rx Instructions: As directed by [employer] (DME) Wheelchair See Rx Instructions .Route .MEDSUPPLY Qty: 1 0RF Rx Instructions: As directed aripiprazole [Abilify] 5 mg tablet 5 mg PO DAILY Qty: 30 2RF methenamine hippurate 1 gram tablet See Rx Instructions .ROUTE .COMPLEX Qty: 15 0RF Dose Instruction: TAKE ONE TABLET BY MOUTH ONCE DAILY Rx Instructions: TAKE ONE TABLET BY MOUTH ONCE DAILY losartan 100 mg tablet 100 mg PO DAILY Eliquis 5 mg tablet 5 mg PO BID atorvastatin 40 mg tablet 40 mg PO DAILY levothyroxine 25 mcg tablet 25 mcg PO DAILY oxybutynin chloride 10 mg Tablet Extended Release 24hr 10 mg PO DAILY Discharge Orders: Discharge ED (Routine); Ordered 10/06/22 Ordered By: Hay Perkins Referrals: Mary Moncada APN [Primary Care Provider] - Patient Instructions: Opioid Safety, Pain Management Activity Restrictions/Additional Instructions: You were seen today after a fall. There is no evidence of acute fracture or bleed on the CT of your head or neck. Continue previously prescribed medications. You may likely have some continued head and neck pain from this injury for the next several days. Coding Level of Care Code ED Consulting Sales Manager for Janell Mathew
[2022-10-06 11:58] VITALS: PULSE 80; RESP 15; O2SAT 97
== END 2022-10-06 11:59 | disposition home or self-care (01) ==
PROVIDERS: Emergency Provider Family Medicine; PCP Nurse Practitioner Family
DX: S09.8XXA Other specified injuries of head, initial encounter (principal); M54.2 Cervicalgia; Z79.01 Long term (current) use of anticoagulants; F17.210 Nicotine dependence, cigarettes, uncomplicated; Z86.73 Personal history of transient ischemic attack (TIA), and cerebral infarction without residual deficits; I10 Essential (primary) hypertension; E78.5 Hyperlipidemia, unspecified; W05.0XXA Fall from non-moving wheelchair, initial encounter
CPT/HCPCS: 70450; 72125; 99284

== ENCOUNTER → 2022-10-20 15:35 | Outpatient (BNVA) | payer MEDICARE, MEDICAID, SELFPAY | PROVIDERS: PCP Nurse Practitioner Family; Visit Provider Dermatology | DX: L57.0 Actinic keratosis (principal); L81.4 Other melanin hyperpigmentation; L72.0 Epidermal cyst; Z85.828 Personal history of other malignant neoplasm of skin; Z72.0 Tobacco use | CPT/HCPCS: 17000; 17003; 99213 ==

== ENCOUNTER → 2023-01-12 13:34 | Outpatient (BNVA) | payer MEDICARE, MEDICAID, SELFPAY | PROVIDERS: PCP Nurse Practitioner Family; Visit Provider Podiatrist Foot & Ankle Surgery | DX: M21.6X2 Other acquired deformities of left foot; R26.9 Unspecified abnormalities of gait and mobility; I61.9 Nontraumatic intracerebral hemorrhage, unspecified; M21.372 Foot drop, left foot; M24.572 Contracture, left ankle | CPT/HCPCS: 99213 ==

== ENCOUNTER 2023-01-17 11:11 | Outpatient (CLI) | payer MEDICARE, MEDICAID, SELFPAY ==
--- NOTE | 2023-01-17 11:20 | XR_ITS ---
WS: [id number] XR chest 2V* [id number] REASON FOR EXAM: BRONCHITIS FINDINGS: Chest is unchanged compared to 10/08/2021. Ventriculoperitoneal shunt tubing overlies the right chest. There is moderate tortuosity and ectasia of the thoracic aorta with calcification. No aneurysmal dila tation. No significant cardiac enlargement. No mediastinal or hilar mass. Calcified granulomatous disease in both hemithoraces. No acute lung opacities. No acute pleural abnormality. The lungs are moderately hyperexpanded. Mild degenerative spondylosis in the mid and lower thoracic spine moderate osteoarthropathy in the sh oulder joints. IMPRESSION: Stable abnormal chest with no acute abnormality.
== END 2023-01-17 11:12 | disposition home or self-care (01) ==
PROVIDERS: PCP Nurse Practitioner Family; Visit Provider Nurse Practitioner Family
DX: J40 Bronchitis, not specified as acute or chronic (principal)
CPT/HCPCS: 71046

== ENCOUNTER 2023-01-22 21:32 | Emergency (ER) | payer MEDICARE, MEDICAID, SELFPAY ==
[2023-01-22 21:34] VITALS: BP 124/68; PULSE 81; RESP 18; TEMP 36.8; O2SAT 100; BMI 27.2
--- NOTE | 2023-01-22 21:46 | XRR_ITS ---
PROCEDURE INFORMATION: Exam: XR Right Hip Exam date and time: 01/22/2023 9:53 PM Age: 77 years old Clinical indication: Injury or trauma; Blunt trauma (contusions or hematomas); Right; Patient HX: Fall at home landing onto RT side. C/O RT hip pain. ; Additional info: Hip pain post fall TECHNIQUE: Imaging protocol: Radiologic exam of the right hip. Views: 1 view hip with pelvis when performed. COMPARISON: CT chest abdpel w/*[id number] 04/23/2019 11:35 AM FINDINGS: Bones/joints: There is moderate joint space narrowing in the right hip with marginal osteophytosis. No acute fracture or dislocation is seen. Soft tissues: Unremarkable. XR/XR hip RT 2-3V wo/w pel* [id number] IMPRESSION: No acute findings.
--- NOTE | 2023-01-22 21:46 | CTR_ITS ---
PROCEDURE INFORMATION: Exam: CT Head Without Contrast Exam date and time: 01/22/2023 10:02 PM Age: 77 years old Clinical indication: Injury or trauma; Blunt trauma (contusions or hematomas); Prior surgery; Surgery date: 6+ months; Surgery type: Polisher Implant shunt; Patient HX: Fall at home landing on floor striking RT side of head. Anticoagulated. ; Additional info: Fall head pain anticoagulated TECHNIQUE: Imaging protocol: Computed tomography of the head without contrast. Radiation optimization: All CT scans at this facility use at least one of these dose optimization techniques: automated exposure control; mA and/or kV adjustment per patient size (includes targeted exams where dose is matched to clinical indication); or iterative reconstruction. REPORTING DATA: Count of CT and Cardiac NM exams in prior 12 months: This patient has received 5 known CTs and 0 known cardiac nuclear medicine studies in the 12 months prior to the current study. COMPARISON: CT head wo con* [id number] 10/06/2022 9:53 AM RADIATION DOSE METRICS: Total DLP (mGy-cm): 1041.88 FINDINGS: Tubes, catheters and devices: There is a right parietal approach ventriculostomy shunt catheter present with its tip in the frontal horn of the left lateral ventricle which is unchanged. There is slight interval decrease in size of the ventricles with stable shunt catheter position. Brain: Gliosis in the right frontal/parietal region along the tract of the shunt catheter is unchanged. Chronic encephalomalacia in the right frontal lobe is also unchanged. No acute infarct. No acute hemorrhage. 2 mm of rightward midline shift. Near the vertex there is a new hypodense extra-axial left cerebral convexity subdural collection which measures 7 mm maximum size. This has minimal local mass effect. Cerebral ventricles: The ventricular size is slightly decreased since the previous study. The bifrontal horn diameter is 3.4 cm in comparison with 4 cm on the previous study. Paranasal sinuses: No significant inflammation. No fluid levels. Mastoid air cells: Visualized mastoid air cells are well aerated. Bones/joints: There is an old right-sided pterional region craniotomy again present. Encephalomalacia in the right inferolateral temporal lobe deep to the craniotomy is unchanged. Soft tissues: Unremarkable. CT/CT head wo con* [id number] IMPRESSION: There is a new hypodense extra-axial left cerebral convexity subdural collection near the vertex measuring 7 mm maximum size. This has minimal local mass effect with 2 mm of rightward midline shift. Differential diagnosis is a subdural hygroma versus chronic subdural hematoma.
--- NOTE | 2023-01-22 22:01 | ED_ITS ---
HPI - Fall General: Chief Complaint: Fall Stated Complaint: FALL Time Seen by Provider: 01/22/23 21:33 History of Present Illness: 77-year-old female who is anticoagulated. She fell at home. She notes that she barely ambulates, and spends most of her time in the wheelchair. While bearing weight at home, she felt that her left ankle was turning out, and had a mechanical fall. She did hit her head, striking her head behind the right ear. She has pain there. She fell on her right hip as well, and has some mild pain there although she was able to bear some weight on the hip. She states I do not feel anything is broken . Associated symptoms-after fall: Reports vertigo (chronic); Denies abdominal pain, chest pain or headache(s) Review of Systems Const: Denies: fever(s) ENMT: Denies: throat pain Card: Denies: chest pain Resp: Denies: dyspnea GI: Denies: abdominal pain : Denies: flank pain Neuro: Reports: weakness in extremities and vertigo (chronic); Denies: headache(s) or numbness in extremities PFSH ED PFSH: Medical History Acquired bilateral hammer toes Adult onset hypothyroidism Anemia, iron deficiency Anxiety with depression Basal cell carcinoma of skin of nose (~07/2017) Brain aneurysm (~1995) CVA (cerebrovascular accident due to intracerebral hemorrhage) Essential (primary) hypertension Gait instability With frequent falls at baseline History of malignant melanoma History of nonmelanoma skin cancer Hyperlipidemia, unspecified Left-sided weakness Leukocytosis follows with Dr Rubio Lung nodule right Malignant melanoma of chin (~07/2017) Paresthesia of skin Psychiatric care Skin cancer of nose On 5-FU cream Squamous cell carcinoma of left lower leg Urinary incontinence, urge Surgical History History of appendectomy History of brain shunt History of brain surgery (~1995) ruptured aneurysm repair with shunt implanted History of section History of hysterectomy Family History Family/Other Stroke CAD (coronary artery disease) Cancer skin Social History Smoking and tobacco status: current every day smoker cigarettes Packs smoked per day: 0.5 Years cigarettes smoked: 59 Quit status (tobacco): has tried quititng Number of times tried to quit tobacco: 30 Second hand smoke exposure: Yes Smoking risk assessment/counseling performed?: No Alcohol intake: former Desire information about alcohol rehabilitation?: No Counseling given: No Substance/Drug Use: never Desire information about substance/drug rehabilitation?: No Counseling given: No Caregiver/support person: Yes (daughter) Lives independently: No (relatives) Household members: none Marital status: Number of children: 1 service: No Current occupational status: retired Current gender identity: Female Special colt needs: No Physical Exam Const: COMMON NORMALS: no acute distress GENERAL APPEARANCE: cooperative and frail appearing; not ill appearing HENMT: COMMON NORMALS: normocephalic and Normal external nose present HEAD & SCALP: normocephalic and contusion (r periauricular) FACE & SINUS: normal facial exam and face symmetric NOSE: Normal external nose present Eye: COMMON NORMALS: Equal, round and reactive pupils present and EOMs intact bilaterally PUPIL: Yes Equal, round and reactive pupils present Neck/C-Spine: GENERAL: Yes trachea midline Chest: CHEST: Yes Symmetrical chest wall rise Resp: COMMON NORMALS: normal respiratory effort, No retractions, No use of accessory muscles and clear to auscultation bilaterally AUSCULTATION: clear to auscultation bilaterally Cardio: COMMON NORMALS: regular rate and regular rhythm RATE: regular rate RHYTHM: regular rhythm GI: COMMON NORMALS: Normal to inspection, nondistended, normoactive bowel sounds present Extremity: COMMON NORMALS: no pedal edema Neuro: BETO COMA SCALE: document GCS findings [place] coma scale eye opening: Spontaneous [place] coma scale verbal response: Orientated Beto coma scale motor response: Obey commands Beto coma scale total score: 15 SENSORY EXAM: Yes extremities (intact) Psych: COMMON NORMALS: speech normal SPEECH: Yes normal speech Skin: COMMON NORMALS: no rashes or lesions noted GENERAL SKIN EXAM: no rashes or lesions noted Course Vital Signs: Vital signs: Vital Signs Temperature 98.2 F 01/22/23 21:34 Pulse Rate 81 01/22/23 23:50 Respiratory Rate 16 01/22/23 23:50 Blood Pressure 116/65 01/22/23 23:50 Pulse Oximetry 100 01/22/23 23:50 MDM - Fall Medical Decision Making Patient is in no distress here. She is quite frail. CT shows no acute hemorrhage. There is a hypodense left cerebral convexity subdural collection measuring 7 mm maximum. There is a minimal 2 mm rightward midline shift. This is not acute according to radiology, and may be a chronic subdural bleed. There was a CT in September, where this was not present. The patient notes she had a fall in between her head CT in September and this fall this evening. She fell on her right side this evening, and there is no evidence of acute bleeding anywhere in the brain on CT. She will follow-up regarding this. Hip x-ray is negative. She will be allowed home. Lab Data Radiology Impressions Head CT 01/22/23 21:46 IMPRESSION: There is a new hypodense extra-axial left cerebral convexity subdural collection near the vertex measuring 7 mm maximum size. This has minimal local mass effect with 2 mm of rightward midline shift. Differential diagnosis is a subdural hygroma versus chronic subdural hematoma. ADDENDUM: 01/22/23 2250 Addendum: As stated in the body of the initial report the ventricles are slightly smaller. Correlate for possible over shunting clinically. THIS REPORT CONTAINS FINDINGS THAT MAY BE CRITICAL TO PATIENT CARE. The findings were verbally communicated via telephone conference with MAIKEL Hilario at 10:47 PM CDT on 01/22/2023. The findings were acknowledged and understood. Hip/Pelvis X-Ray 01/22/23 21:46 IMPRESSION: No acute findings. All radiology interpretation(s) finalized by discharge Discharge Plan Discharge Patient Disposition: Home Clinical Impression: Concussion without loss of consciousness, Contusion of hip, right Condition: Stable Prescriptions: No Action (DME) lift chair See Rx Instructions .Route .MEDSUPPLY Qty: 1 0RF Rx Instructions: As directed cholecalciferol (vitamin D3) 125 mcg (5,000 unit) capsule 5,000 unit PO DAILY Qty: 90 1RF ferrous gluconate [Ferate] 240 mg (27 mg iron) tablet 240 mg PO .3XWEEKLY ascorbic acid (vitamin C) 1,000 mg tablet 1 gm PO DAILY multivitamin Tablet 1 tab PO QAM cyanocobalamin (vitamin B-12) 2,500 mcg tablet 2,500 mcg PO DAILY (DME) Rollater walker See Rx Instructions .Route .MEDSUPPLY Qty: 1 0RF Rx Instructions: As directed medical marijuana 1 dose inhalation DAILY (DME) non articulating custom AFO to left See Rx Instructions .Route .MEDSUPPLY Qty: 1 0RF Rx Instructions: As directed by [facility] aripiprazole [Abilify] 5 mg tablet 5 mg PO DAILY Qty: 30 2RF bupropion HCl [Wellbutrin XL] 150 mg tablet extended release 24 hr 150 mg PO QAM Qty: 30 2RF mirtazapine 7.5 mg tablet 7.5 mg PO BEDTIME Qty: 30 2RF venlafaxine [Effexor XR] 75 mg capsule,extended release 24hr 75 mg PO DAILY Qty: 30 2RF Rx Instructions: Take with 150 mg for total of 225 mg daily venlafaxine [Effexor XR] 150 mg capsule,extended release 24hr 150 mg PO DAILY Qty: 30 2RF Rx Instructions: TAKE WITH 75 MG TO EQUAL 225 MG ONCE DAILY (DME) Wheelchair See Rx Instructions .Route .MEDSUPPLY Qty: 1 0RF Rx Instructions: As directed methenamine hippurate 1 gram tablet See Rx Instructions .ROUTE .COMPLEX Qty: 15 0RF Dose Instruction: TAKE ONE TABLET BY MOUTH ONCE DAILY Rx Instructions: TAKE ONE TABLET BY MOUTH ONCE DAILY losartan 100 mg tablet 100 mg PO DAILY Eliquis 5 mg tablet 5 mg PO BID atorvastatin 40 mg tablet 40 mg PO DAILY levothyroxine 25 mcg tablet 25 mcg PO DAILY oxybutynin chloride 10 mg Tablet Extended Release 24hr 10 mg PO DAILY Discharge Orders: Discharge ED (Routine); Ordered 01/22/23 Ordered By: Maikel Rice Referrals: Mary Moncada APN [Primary Care Provider] - 1-3 days Patient Instructions: Concussion (ED), Hip Contusion (ED) Activity Restrictions/Additional Instructions: Return for worsening falls, altered mental status, worsening weakness, other concerning symptoms. See your doctor next week. Coding Level of Care Code ED Electric Meter Installer Helper for Janell Mathew
[2023-01-22 23:50] VITALS: BP 116/65; PULSE 81; RESP 16; O2SAT 100
== END 2023-01-22 23:46 | disposition home or self-care (01) ==
PROVIDERS: Emergency Provider Emergency Medicine; PCP Nurse Practitioner Family
DX: S06.0X0A Concussion without loss of consciousness, initial encounter (principal); S70.01XA Contusion of right hip, initial encounter; Z86.73 Personal history of transient ischemic attack (TIA), and cerebral infarction without residual deficits; I10 Essential (primary) hypertension; E78.5 Hyperlipidemia, unspecified; F17.210 Nicotine dependence, cigarettes, uncomplicated; Z79.01 Long term (current) use of anticoagulants; W19.XXXA Unspecified fall, initial encounter
CPT/HCPCS: 70450; 73502; 99284

== ENCOUNTER 2023-02-02 08:05 | Emergency (ER) | payer MEDICARE, MEDICAID, SELFPAY ==
[2023-02-02 08:07] VITALS: BMI 25.3
--- NOTE | 2023-02-02 08:10 | XR_ITS ---
WS: [id number] EXAMINATION: XR hip RT 2-3V wo/w pel* [id number] REASON FOR EXAM: fall pain COMPARISON: 01/22/2023 ORDER DATE: 02/02/2023 8:14 AM TECHNIQUE: Frontal internal/external rotation views of the right hip were obtained. X-RAY FINDINGS: There are no fractures or dislocations. Normal motion with internal/external rotation is present. Minor hip joint degenerative changes and joint narrowing. IMPRESSION: 1. No fractures or dislocations of the right hip. 2. Normal motion with internal/external rotation.
--- NOTE | 2023-02-02 08:11 | W.ED.FALL ---
HPI - Fall General: Chief Complaint: Fall Stated Complaint: Fall/ R hip pain Time Seen by Provider: 02/02/23 08:10 History of Present Illness: Patient presents to the ER with complaints of fall sometime throughout the night and right hip pain. Patient was down in the floor throughout the night until ambulance arrived there to pick her up. Patient is on Eliquis. Patient denies any head pain, syncope, loss of consciousness, etc. Patient had a fall approximately a week ago where she did hit her head and was brought in here diagnosed with concussion and right hip pain. Right hip pain from that has never really improved but patient is having more hip pain since this new recent fall. Review of Systems General: Reports: 10 or more systems reviewed and unremarkable except in HPI and below PFSH ED PFSH: Medical History Acquired bilateral hammer toes Adult onset hypothyroidism Anemia, iron deficiency Anxiety with depression Basal cell carcinoma of skin of nose (~07/2017) Brain aneurysm (~1995) CVA (cerebrovascular accident due to intracerebral hemorrhage) Essential (primary) hypertension Gait instability With frequent falls at baseline History of malignant melanoma History of nonmelanoma skin cancer Hyperlipidemia, unspecified Left-sided weakness Leukocytosis follows with Dr Rubio Lung nodule right Malignant melanoma of chin (~07/2017) Paresthesia of skin Psychiatric care Skin cancer of nose On 5-FU cream Squamous cell carcinoma of left lower leg Urinary incontinence, urge Surgical History History of appendectomy History of brain shunt History of brain surgery (~1995) ruptured aneurysm repair with shunt implanted History of section History of hysterectomy Family History Family/Other Stroke CAD (coronary artery disease) Cancer skin Social History Smoking and tobacco status: current every day smoker cigarettes Packs smoked per day: 0.5 Years cigarettes smoked: 59 Quit status (tobacco): has tried quititng Number of times tried to quit tobacco: 30 Second hand smoke exposure: Yes Smoking risk assessment/counseling performed?: No Alcohol intake: former Desire information about alcohol rehabilitation?: No Counseling given: No Substance/Drug Use: never Desire information about substance/drug rehabilitation?: No Counseling given: No Caregiver/support person: Yes (daughter) Lives independently: No (relatives) Household members: none Marital status: Number of children: 1 service: No Current occupational status: retired Current gender identity: Female Special colt needs: No Physical Exam Const: COMMON NORMALS: no acute distress, average body habitus, patient oriented x3, no limitations, healthy appearing, alert and well nourished HENMT: COMMON NORMALS: normocephalic, atraumatic, hearing grossly normal bilaterally, external ears normal, Normal external nose present and moist oral mucous membranes HEAD & SCALP: normocephalic and atraumatic NOSE: Normal external nose present EXTERNAL EAR: Yes external ears normal Eye: COMMON NORMALS: Equal, round and reactive pupils present, EOMs intact bilaterally, conjunctivae normal and no scleral icterus CONJUNCTIVA: Yes conjunctivae normal PUPIL: Yes Equal, round and reactive pupils present Neck/C-Spine: COMMON NORMALS: full ROM, no lymphadenopathy, supple, no meningeal signs, no JVD and Thyroid normal THYROID: Thyroid normal Chest: COMMONS NORMALS: normal inspection of the chest and normal palpation of entire chest wall Resp: COMMON NORMALS: normal respiratory effort, No retractions, No use of accessory muscles and clear to auscultation bilaterally AUSCULTATION: clear to auscultation bilaterally Cardio: COMMON NORMALS: no JVD, regular rate, regular rhythm, S1 normal heart sound present, S2 normal heart sound present, No gallops present (Cardio), No clicks present (Cardio), No murmurs present (Cardio) and No rub (Cardio) RATE: regular rate RHYTHM: regular rhythm HEART SOUNDS: S1 normal heart sound present and S2 normal heart sound present GI: COMMON NORMALS: Normal to inspection, nondistended, normoactive bowel sounds present, Soft to palpation, non-tender, No hepatosplenomegaly present and no masses PALPATION: Yes Soft to palpation and Yes No hepatosplenomegaly present : COMMON NORMALS: Yes no CVA tenderness BLADDER/KIDNEY EXAM: Yes no CVA tenderness Back/Pelvis: COMMON NORMALS: no CVA tenderness Extremity: NARRATIVE EXTREMITY EXAM: Tender to palpate over right hip and pelvis region. Neuro: COMMON NORMALS: patient oriented x3 SENSORIUM/ORIENTATION: Yes alert MENINGEAL SIGNS: Yes no meningeal signs Course Vital Signs: Vital signs: Vital Signs Pulse Rate 76 02/02/23 08:16 Respiratory Rate 18 02/02/23 08:16 Blood Pressure 143/81 02/02/23 08:16 Pulse Oximetry 98 02/02/23 08:16 Oxygen Delivery Me thod Room Air 02/02/23 08:16 MDM - Fall Medical Decision Making Patient presents to the ER with complaints of fall and right hip pain. Patient had a recent fall with right hip pain also. Patient was checked out here for that as well. Hip x-ray was negative today as well as blood work that included a CPK this patient was down in the floor for an unknown amount of time. These results was discussed with the patient and patient will be discharged back home. Medical Records I reviewed the patient's medical records. Lab Data I reviewed the patient's lab results. 02/02/23 08:17 02/02/23 08:17 Laboratory Results WBC 13.22 10^3/uL (3.29-11.43) H 02/02/23 08:17 RBC 3.53 10^6/uL (3.85-5.65) L 02/02/23 08:17 Hgb 10.40 g/dL (11.27-16.99) L 02/02/23 08:17 Hct 31.8 % (36-47) L 02/02/23 08:17 MCV 90.1 fl (85-98) 02/02/23 08:17 MCH 29.5 pg (27-33) 02/02/23 08:17 MCHC 32.7 g/dL (30-55) 02/02/23 08:17 RDW 16.1 % (12.1-15.1) H 02/02/23 08:17 Plt Count 399 10^3/cmm (157-399) 02/02/23 08:17 MPV 8.5 fL (7.4-10.4) 02/02/23 08:17 Neut % (Auto) 90.4 % 02/02/23 08:17 Lymph % (Auto) 6.1 % 02/02/23 08:17 [place] % (Auto) 2.7 % 02/02/23 08:17 Eos % (Auto) 0.2 % 02/02/23 08:17 Baso % (Auto) 0.2 % 02/02/23 08:17 Neut # (Auto) 11.94 10^3/uL (1.8-7.7) H 02/02/23 08:17 Lymph # (Auto) 0.8 10^3/uL (0.8-4.8) 02/02/23 08:17 [place] # (Auto) 0.4 10^3/uL (0.2-0.9) 02/02/23 08:17 Eos # (Auto) 0.0 10^3/uL (0.0-0.8) 02/02/23 08:17 Baso # (Auto) 0.0 10^3/uL (0.0-0.1) 02/02/23 08:17 Nucleated RBC % (auto) 0 % 02/02/23 08:17 Nucleated RBCs # 0.0 /100WBC 02/02/23 08:17 Sodium 141 mmol/L (136-145) 02/02/23 08:17 Potassium 4.4 mmol/L (3.5-5.1) 02/02/23 08:17 Anion Gap 17.4 (5-19) 02/02/23 08:17 BUN 15 mg/dL (8-23) 02/02/23 08:17 Creatinine 0.8 mg/dL (0.5-0.9) 02/02/23 08:17 GFR Calculation Not Reportable 02/02/23 08:17 Calculated Osmolality 294 mOsm/kg (285-295) 02/02/23 08:17 Calcium 9.2 mg/dL (8.5-10.5) 02/02/23 08:17 Total Bilirubin 0.3 mg/dL (0.15-1.2) 02/02/23 08:17 AST 13 U/L (0-32) 02/02/23 08:17 ALT 19 U/L (0-33) 02/02/23 08:17 Alkaline Phosphatase 67 U/L (35-105) 02/02/23 08:17 Creatine Kinase 26 U/L (26-192) 02/02/23 08:17 Albumin 3.8 g/dL (3.5-5.2) 02/02/23 08:17 Globulin 2.6 g/dL (1.3-4.6) 02/02/23 08:17 All radiology interpretation(s) finalized by discharge Discharge Plan Discharge Patient Disposition: Home Clinical Impression: Acute pain of right hip Fall Qualifiers: Encounter type: initial encounter Qualified Code(s): W19.XXXA - Unspecified fall, initial encounter Condition: Stable Prescriptions: New hydrocodone-acetaminophen 2.5-325 mg tablet 1 tab PO Q8H PRN (Reason: pain) Qty: 10 0RF No Action (DME) lift chair See Rx Instructions .Route .MEDSUPPLY Qty: 1 0RF Rx Instructions: As directed cholecalciferol (vitamin D3) 125 mcg (5,000 unit) capsule 5,000 unit PO DAILY Qty: 90 1RF ferrous gluconate [Ferate] 240 mg (27 mg iron) tablet 240 mg PO .3XWEEKLY ascorbic acid (vitamin C) 1,000 mg tablet 1 gm PO DAILY multivitamin Tablet 1 tab PO QAM cyanocobalamin (vitamin B-12) 2,500 mcg tablet 2,500 mcg PO DAILY (DME) Rollater walker See Rx Instructions .Route .MEDSUPPLY Qty: 1 0RF Rx Instructions: As directed medical marijuana 1 dose inhalation DAILY (DME) non articulating custom AFO to left See Rx Instructions .Route .MEDSUPPLY Qty: 1 0RF Rx Instructions: As directed by [facility] aripiprazole [Abilify] 5 mg tablet 5 mg PO DAILY Qty: 30 2RF bupropion HCl [Wellbutrin XL] 150 mg tablet extended release 24 hr 150 mg PO QAM Qty: 30 2RF mirtazapine 7.5 mg tablet 7.5 mg PO BEDTIME Qty: 30 2RF venlafaxine [Effexor XR] 75 mg capsule,extended release 24hr 75 mg PO DAILY Qty: 30 2RF Rx Instructions: Take with 150 mg for total of 225 mg daily venlafaxine [Effexor XR] 150 mg capsule,extended release 24hr 150 mg PO DAILY Qty: 30 2RF Rx Instructions: TAKE WITH 75 MG TO EQUAL 225 MG ONCE DAILY (DME) Wheelchair See Rx Instructions .Route .MEDSUPPLY Qty: 1 0RF Rx Instructions: As directed methenamine hippurate 1 gram tablet See Rx Instructions .ROUTE .COMPLEX Qty: 15 0RF Dose Instruction: TAKE ONE TABLET BY MOUTH ONCE DAILY Rx Instructions: TAKE ONE TABLET BY MOUTH ONCE DAILY losartan 100 mg tablet 100 mg PO DAILY Eliquis 5 mg tablet 5 mg PO BID atorvastatin 40 mg tablet 40 mg PO DAILY levothyroxine 25 mcg tablet 25 mcg PO DAILY oxybutynin chloride 10 mg Tablet Extended Release 24hr 10 mg PO DAILY Discharge Orders: Discharge ED (Routine); Ordered 02/02/23 Ordered By: Ermias Kate Referrals: Mary Moncada APN [Primary Care Provider] - 7-10 days Patient Instructions: Hip Pain (ED), Opioid Safety, Pain Management Activity Restrictions/Additional Instructions: Please all prescriptions as prescribed.. Please follow-up with your family practice physician within the next 7 to 10 days for further evaluation and treatment as needed. Coding Level of Care Code ED Plastic Surgeon for Janell Mathew
[2023-02-02 08:16] VITALS: BP 143/81; PULSE 76; RESP 18; O2SAT 98
[2023-02-02 08:22] LABS: Basophils % 0.2 %; Eosinophils % 0.2 %; Hematocrit 31.8 % (36-47); Lymphocytes # 0.8 10^3/uL (0.8-4.8); Lymphocytes % 6.1 %; Mean Corpuscular HGB Conc 32.7 g/dL (30-55); Mean Corpuscular Hemoglobin 29.5 pg (27-33); Mean Corpuscular Volume 90.1 fl (85-98); Mean Platelet Volume 8.5 fL (7.4-10.4); Monocytes # 0.4 10^3/uL (0.2-0.9); Monocytes % 2.7 %; Neutrophils # 11.94 10^3/uL (1.8-7.7); Neutrophils % 90.4 %; Nucleated Red Blood Cells % 0 %; Platelet Count 399 10^3/cmm (157-399); Red Blood Count 3.53 10^6/uL (3.85-5.65); Red Cell Distribution Width 16.1 % (12.1-15.1); White Blood Count 13.22 10^3/uL (3.29-11.43)
[2023-02-02 08:39] LABS: Alanine Aminotransferase 19 U/L (0-33); Albumin Level 3.8 g/dL (3.5-5.2); Alkaline Phosphatase 67 U/L (35-105); Anion Gap 17.4 (5-19); Aspartate Amino Transferase 13 U/L (0-32); Blood Urea Nitrogen 15 mg/dL (8-23); Calcium 9.2 mg/dL (8.5-10.5); Carbon Dioxide 19 mmol/L (22-29); Chloride 109 mmol/L (98-107); Creatine Phosphokinase 26 U/L (26-192); Globulin 2.6 g/dL (1.3-4.6); Glucose 116 mg/dL (65-115); Osmolality Calculated 294 mOsm/kg (285-295); Potassium 4.4 mmol/L (3.5-5.1); Sodium 141 mmol/L (136-145); Total Bilirubin 0.3 mg/dL (0.15-1.2); Total Protein 6.4 g/dL (6.6-8.7)
== END 2023-02-02 09:20 | disposition home or self-care (01) ==
PROVIDERS: Emergency Provider Emergency Medicine; PCP Nurse Practitioner Family
DX: M25.551 Pain in right hip (principal); Z79.01 Long term (current) use of anticoagulants; W19.XXXA Unspecified fall, initial encounter; Z86.73 Personal history of transient ischemic attack (TIA), and cerebral infarction without residual deficits; I10 Essential (primary) hypertension; E78.5 Hyperlipidemia, unspecified; F17.210 Nicotine dependence, cigarettes, uncomplicated
CPT/HCPCS: 73502; 80053; 82550; 85025; 99284

== ENCOUNTER → 2023-06-09 16:18 | Outpatient (BNVA) | payer MEDICARE, MEDICAID, SELFPAY | PROVIDERS: PCP Nurse Practitioner Family; Visit Provider Psychiatry & Neurology Psychiatry | DX: R73.9 Hyperglycemia, unspecified (principal); F31.81 Bipolar II disorder; Z79.899 Other long term (current) drug therapy; I10 Essential (primary) hypertension | CPT/HCPCS: 80053; 80061; 83036; 84443; 85025 ==

== ENCOUNTER 2023-07-24 07:07 | Emergency (ER) | payer MEDICARE, MEDICAID, SELFPAY ==
[2023-07-24 07:10] VITALS: BP 105/80; PULSE 78; TEMP 36.7; O2SAT 100; BMI 24.0
--- NOTE | 2023-07-24 07:12 | CTR_ITS ---
PROCEDURE INFORMATION: Exam: CT Head Without Contrast Exam date and time: 07/24/2023 7:28 AM Age: 78 years old Clinical indication: Injury or trauma; Fall; Blunt trauma (contusions or hematomas); Prior surgery; Surgery date: 6+ months; Surgery type: Shunt; Additional info: Fall--hit head, has shunt and on eliquis TECHNIQUE: Imaging protocol: Computed tomography of the head without contrast. Radiation optimization: All CT scans at this facility use at least one of these dose optimization techniques: automated exposure control; mA and/or kV adjustment per patient size (includes targeted exams where dose is matched to clinical indication); or iterative reconstruction. COMPARISON: CT head wo con* [id number] 01/22/2023 10:02 PM RADIATION DOSE METRICS: Total DLP (mGy-cm): 1006.68 FINDINGS: Tubes, catheters and devices: Stable right parietal approach shunt catheter tubing with unchanged positioning vicinity of frontal horn of the left lateral ventricle. Similar mild gliosis about the course of the tubing. Brain: Fatty falx redemonstrated. Redemonstrated known right thalamic old lacunar infarct. Known old left thalamic lacunar infarct is not well seen on today's exam. Unchanged small area of right frontal encephalomalacia related to old infarct. Unchanged right temporal lobe encephalomalacia deep to the right temporal craniectomy site.Townsend-white differentiation is maintained. Similar mild degree periventricular and deep subcortical white matter spotty hypodensities, most likely representing age-appropriate chronic small vessel white matter ischemic changes. Similar 1-2 mm rightward midline shift. No findings of recent infarct, hemorrhage, mass, mass effect or extra-axial fluid collection. Prior left convexity subdural hygroma has resolved in the interval. Cerebral ventricles: Similar mild global cortical atrophy with associated ventricular prominence. Paranasal sinuses: Mild ethmoid air cell mucosal thickening. Mastoid air cells: Small left mastoid effusion. Bones/joints: Redemonstrated right temporal region craniectomy changes. Re-identified diffuse thickening of the calvarium with expanded marrow space containing unchanged sclerotic densities for example as seen on series 5, image 28 and image 27. Consider marrow infiltrative/replacement disorders. Soft tissues: Unremarkable. CT/CT head wo con* [id number] IMPRESSION: 1. No acute intracranial process 2. Grossly unchanged appearance of shunt tubing and ventricles. 3. Stable areas of encephalomalacia and old lacunar infarcts. Other chronic findings as above.
[2023-07-24 07:15] VITALS: BP 108/80; PULSE 78; O2SAT 100
--- NOTE | 2023-07-24 07:42 | PC.PHAR ---
PT STATES SHE HAS A NURSE NAMED SYED FROM [facility] THAT SETS UP HER MEDS [facility] NOT OPEN ON WEEKENDS-PT WAS ABLE TO VERIFY SOME OF HER MEDICATIONS AND OTC MEDS-PT STATES SHE TAKES HER METHENAMINE HIPPURATE 1G DAILY EXT SHOWS LAST FILLED 07/11/23 1G BID PT STATES WAS TAKING BID BUT WAS CHANGED TO ONE TAB ONCE A DAY-MEDICATIONS ENTERED ARE WHAT THE PT KNOWS SHE TAKES AND WHAT EXT MED HISTORY SHOWS HAS BEEN FILLED RECENTLY
--- NOTE | 2023-07-24 07:44 | W.ED.FALL ---
HPI - Fall General: Chief Complaint: Fall Stated Complaint: HEAD AND KNEE PAIN S/P FALL Time Seen by Provider: 07/24/23 07:09 History of Present Illness: This is a very pleasant 78-year-old female who presents to the emergency department by EMS after sustaining an accidental fall at home. Patient explains that she was going to the bathroom and as she was exiting she tripped over her quad cane that was resting behind her. She did not think she had any major injuries and was not having any pain. However she did bump the right side of her head. She has a shunt in this area. She had a ruptured aneurysm several decades ago and the shunt was placed for that reason. She is also on Eliquis. Patient reports no headache she has some minor soreness to the right side of her head. She reports no other injuries. She reports that her knees were originally somewhat sore from crawling away from where she fell but they have since stopped bothering her. Review of Systems General: Reports: 10 or more systems reviewed and unremarkable except in HPI and below PFSH ED PFSH: Medical History Acquired bilateral hammer toes Adult onset hypothyroidism Anemia, iron deficiency Anxiety with depression Basal cell carcinoma of skin of nose (~07/2017) Brain aneurysm (~1995) CVA (cerebrovascular accident due to intracerebral hemorrhage) Essential (primary) hypertension Gait instability With frequent falls at baseline History of malignant melanoma History of nonmelanoma skin cancer Hyperlipidemia, unspecified Left-sided weakness Leukocytosis follows with Dr Rubio Lung nodule right Malignant melanoma of chin (~07/2017) Paresthesia of skin Psychiatric care Skin cancer of nose On 5-FU cream Squamous cell carcinoma of left lower leg Urinary incontinence, urge Surgical History History of appendectomy History of brain shunt History of brain surgery (~1995) ruptured aneurysm repair with shunt implanted History of section History of hysterectomy Family History Family/Other Stroke CAD (coronary artery disease) Cancer skin Social History Smoking and tobacco/nicotine status: current every day tobacco/nicotine user cigarettes Packs smoked per day: 0.5 Years cigarettes smoked: 59 Quit status (tobacco/nicotine): has tried quititng Number of times tried to quit tobacco: 30 Second hand smoke exposure: Yes Alcohol intake: former Substance/Drug Use: never Caregiver/support person: Yes (daughter) Lives independently: No (relatives) Household members: none Marital status: Number of children: 1 service: No Current occupational status: retired Current gender identity: Female Special colt needs: No Physical Exam Const: COMMON NORMALS: no limitations, alert and well nourished EXAM LIMITATIONS: no altered mental status HENMT: COMMON NORMALS: normocephalic, atraumatic (No objective signs of any trauma.) and external ears normal HEAD & SCALP: normocephalic, atraumatic (No objective signs of any trauma.), scalp tenderness (Mild, right) and other (Palpable PAINT MIXER HAND shunt behind right ear); no abrasion, no Wilkins's sign, no contusion, no hematoma, no laceration and no raccoon eyes EXTERNAL EAR: Yes external ears normal MOUTH: no muffled voice Eye: COMMON NORMALS: EOMs intact bilaterally, conjunctivae normal and no scleral icterus CONJUNCTIVA: Yes conjunctivae normal Neck/C-Spine: GENERAL: Yes normal visual inspection and Yes trachea midline Resp: COMMON NORMALS: normal respiratory effort, No use of accessory muscles and clear to auscultation bilaterally AUSCULTATION: clear to auscultation bilaterally Cardio: COMMON NORMALS: regular rate and regular rhythm RATE: regular rate RHYTHM: regular rhythm GI: COMMON NORMALS: Soft to palpation and non-tender PALPATION: Yes Soft to palpation and No Guarding due to palpation present (GI) Back/Pelvis: OTHER: CT and L-spine's were palpated and are nontender. Range of motion is normal and painless. Extremity: OTHER: Active and passive range of motion of the shoulders, elbows, wrists, hands, hips, knees was all unremarkable and painless. Patient does have chronic issues with her left ankle and has a brace on it so we did not perform range of motion in the left ankle. She denies any pain. Neuro: COMMON NORMALS: moves all extremities, no focal motor deficits and no sensory deficits noted SENSORIUM/ORIENTATION: Yes alert SPEECH: speech normal Psych: COMMON NORMALS: mental status grossly normal, Normal thought process present, cooperative, normal affect and speech normal SPEECH: Yes normal speech THOUGHT PROCESS: Normal thought process present Skin: COMMON NORMALS: turgor normal and no jaundice GENERAL SKIN EXAM: turgor normal and other (Patient has senile purpura, there is a small contusion across her left thig) Course Vital Signs: Vital signs: Vital Signs Temperature 98.0 F 07/24/23 07:10 Pulse Rate 78 07/24/23 07:15 Blood Pressure 108/80 07/24/23 07:15 Pulse Oximetry 100 07/24/23 07:15 Oxygen Delivery Me thod Room Air 07/24/23 07:10 MDM - Fall Medical Decision Making 78-year-old female who is alert and oriented with a normal mental status who presents emergency department after a minor head injury without loss of consciousness. She does have a shunt and is on Eliquis so were going to do a CT scan of her head. Her C-spine was cleared by Nexus criteria. The remainder of her trauma exam was unremarkable. She reports mild soreness to the right side of her head and otherwise has no complaints. Differential Diagnosis Unlikely syncope, dislocation of shoulder region, fracture of wrist, compression fracture, concussion with loss of consciousness or concussion without loss of consciousness Lab Data Radiology Impressions Head CT 07/24/23 07:12 IMPRESSION: 1. No acute intracranial process 2. Grossly unchanged appearance of shunt tubing and ventricles. 3. Stable areas of encephalomalacia and old lacunar infarcts. Other chronic findings as above. All radiology interpretation(s) finalized by discharge ED provider radiology interpretation(s): CT head w/o NAD per radiology. Discharge Plan Discharge Patient Disposition: Home Clinical Impression: Minor closed head injury Condition: Stable Prescriptions: No Action (DME) lift chair See Rx Instructions .Route .MEDSUPPLY Qty: 1 0RF Rx Instructions: As directed cholecalciferol (vitamin D3) 125 mcg (5,000 unit) capsule 5,000 unit PO DAILY Qty: 90 1RF ascorbic acid (vitamin C) 1,000 mg tablet 1 gm PO DAILY multivitamin Tablet 1 tab PO QAM cyanocobalamin (vitamin B-12) 2,500 mcg tablet 2,500 mcg PO DAILY (DME) Rollater walker See Rx Instructions .Route .MEDSUPPLY Qty: 1 0RF Rx Instructions: As directed medical marijuana See Rx Instructions .ROUTE .COMPLEX Rx Instructions: DIRECTED NEEDED (DME) non articulating custom AFO to left See Rx Instructions .Route .MEDSUPPLY Qty: 1 0RF Rx Instructions: As directed by [facility] venlafaxine [Effexor XR] 150 mg capsule,extended release 24hr 150 mg PO DAILY Qty: 30 2RF Rx Instructions: TAKE WITH 75 MG TO EQUAL 225 MG ONCE DAILY venlafaxine [Effexor XR] 75 mg capsule,extended release 24hr 75 mg PO DAILY Qty: 30 2RF Rx Instructions: Take with 150 mg for total of 225 mg daily mirtazapine 7.5 mg tablet 7.5 mg PO BEDTIME Qty: 30 2RF aripiprazole [Abilify] 5 mg tablet 5 mg PO DAILY Qty: 30 2RF bupropion HCl [Wellbutrin XL] 300 mg tablet extended release 24 hr 300 mg PO QAM Qty: 30 2RF (DME) Wheelchair See Rx Instructions .Route .MEDSUPPLY Qty: 1 0RF Rx Instructions: As directed losartan 100 mg tablet 100 mg PO DAILY Eliquis 5 mg tablet 5 mg PO BID albuterol sulfate 90 mcg/actuation HFA aerosol inhaler 2 puff INHALATION Q6H PRN (Reason: Shortness Of Breath Or Wheezing) methenamine hippurate 1 gram tablet 1 g PO DAILY Stool Softener 100 mg Capsule 100 mg PO DAILY Krill Oil Gummy 2 tab PO BID atorvastatin 40 mg tablet 40 mg PO DAILY levothyroxine 25 mcg tablet 25 mcg PO DAILY oxybutynin chloride 10 mg Tablet Extended Release 24hr 10 mg PO DAILY Discharge Orders: Discharge ED (Routine); Ordered 07/24/23 Ordered By: Toro Kim Referrals: Mary Moncada APN [Primary Care Provider] - Discharge Diet: Usual diet Discharge Activity: Increase activity as tolerated Patient Instructions: Fall Prevention for Older Adults (ED), Head Injury (ED) Activity Restrictions/Additional Instructions: Please read all discharge instructions and abide by recommendations and return precautions. Make an appointment to follow-up with your primary care doctor as directed for follow-up. Return to ER if getting worse or other emergent symptoms. Coding Level of Care Code ED Sales Inspector for Janell Mathew
[2023-07-24 09:14] VITALS: BP 108/80; PULSE 78; O2SAT 100
== END 2023-07-24 09:04 | disposition home or self-care (01) ==
PROVIDERS: Emergency Provider Emergency Medicine; PCP Nurse Practitioner Family
DX: S09.8XXA Other specified injuries of head, initial encounter (principal); Z79.01 Long term (current) use of anticoagulants; Z96.89 Presence of other specified functional implants; F17.210 Nicotine dependence, cigarettes, uncomplicated; Z86.73 Personal history of transient ischemic attack (TIA), and cerebral infarction without residual deficits; I10 Essential (primary) hypertension; E78.5 Hyperlipidemia, unspecified; W18.09XA Striking against other object with subsequent fall, initial encounter; Y92.002 Bathroom of unspecified non-institutional (private) residence as the place of occurrence of the external cause
CPT/HCPCS: 70450; 99284

== ENCOUNTER 2023-07-27 19:57 | Emergency (ER) | payer MEDICARE, MEDICAID, SELFPAY ==
[2023-07-27 20:00] VITALS: BP 110/47; PULSE 85; RESP 16; TEMP 36.3; O2SAT 100; BMI 23.8
--- NOTE | 2023-07-27 20:04 | XRR_ITS ---
PROCEDURE INFORMATION: Exam: XR Right Ribs with PA Chest Exam date and time: 07/27/2023 8:15 PM Age: 78 years old Clinical indication: Injury or trauma; Fall; Rib area; Swelling (edema); Injury details: Unknown of patient injury sustained TECHNIQUE: Imaging protocol: Radiologic exam of the right ribs with PA chest. Views: 3 views COMPARISON: CR XR chest 2V* [id number] 01/17/2023 11:27 AM FINDINGS: Lungs: Emphysematous changes. Pleural spaces: Unremarkable. No pleural effusion. No pneumothorax. Heart/Mediastinum: Right ventricular peritoneal shunt. Mild cardiomegaly. Bones/joints: Unremarkable. XR/XR ribs RT mn 3V w [id number] IMPRESSION: 1. Negative for fracture or dislocation. 2. Right ventricular peritoneal shunt. 3. Mild cardiomegaly. 4. Emphysematous changes.
--- NOTE | 2023-07-27 20:04 | CTR_ITS ---
PROCEDURE INFORMATION: Exam: CT Head Without Contrast Exam date and time: 07/27/2023 8:58 PM Age: 78 years old Clinical indication: Injury or trauma; Other: Fall hit head; Prior surgery; Surgery date: 6+ months; Surgery type: Shunt TECHNIQUE: Imaging protocol: Computed tomography of the head without contrast. Radiation optimization: All CT scans at this facility use at least one of these dose optimization techniques: automated exposure control; mA and/or kV adjustment per patient size (includes targeted exams where dose is matched to clinical indication); or iterative reconstruction. COMPARISON: CT head wo con* [id number] 07/24/2023 7:28 AM RADIATION DOSE METRICS: Total DLP (mGy-cm): 917.3 FINDINGS: Brain: Right temporal chronic encephalomalacia. Moderate diffuse white matter disease likely reflecting chronic microvascular ischemic changes. Cerebral ventricles: See Bones/joints finding. Paranasal sinuses: Visualized sinuses are unremarkable. No fluid levels. Mastoid air cells: Visualized mastoid air cells are well aerated. Bones/joints: Right-sided ventricular peritoneal shunt seen coursing through the parietal bone, parietal lobe, right lateral ventricle septum pellucidum with tip in the left lateral ventricle frontal horn, similar to prior exam. Right frontal craniotomy changes. Left frontal sclerotic bony lesion, similar to prior exam may reflect a benign bone island, whole body nuclear medicine bone scan could further characterize this. Soft tissues: Unremarkable. CT/CT head wo con* [id number] IMPRESSION: 1. Negative for intracranial hemorrhage or mass effect. 2. Right-sided ventricular peritoneal shunt seen coursing through the parietal bone, parietal lobe, right lateral ventricle septum pellucidum with tip in the left lateral ventricle frontal horn, similar to prior exam. 3. Right frontal craniotomy changes. 4. Left frontal sclerotic bony lesion, similar to prior exam may reflect a benign bone island, whole body nuclear medicine bone scan could further characterize this. 5. Right temporal chronic encephalomalacia. 6. Moderate diffuse white matter disease likely reflecting chronic microvascular ischemic changes.
--- NOTE | 2023-07-27 20:04 | XRR_ITS ---
PROCEDURE INFORMATION: Exam: XR Right Ankle Exam date and time: 07/27/2023 8:15 PM Age: 78 years old Clinical indication: Pain; Ankle; Right; Additional info: Fall TECHNIQUE: Imaging protocol: Radiologic exam of the right ankle. Views: 3 or more views. COMPARISON: No relevant prior studies available. FINDINGS: Bones/joints: Calcified heel spur. Soft tissues: Normal. XR/XR ankle RT min 3V* [id number] IMPRESSION: 1. Negative for fracture or dislocation, if concern for fracture remains clinically consider 5-7 day follow-up exam and/or further evaluation with a CT scan. 2. Calcified heel spur.
--- NOTE | 2023-07-27 20:04 | XRR_ITS ---
PROCEDURE INFORMATION: Exam: XR Right Hip Exam date and time: 07/27/2023 8:15 PM Age: 78 years old Clinical indication: Injury or trauma; Fall; Other: Unknown TECHNIQUE: Imaging protocol: Radiologic exam of the right hip. Views: 1 view hip with pelvis when performed. COMPARISON: CR XR hip RT 2-3V wo/w pel* [id number] 02/02/2023 8:16 AM FINDINGS: Bones/joints: Moderate osteoarthritis of the right hip. Soft tissues: Unremarkable. XR/XR hip RT 2-3V wo/w pel* [id number] IMPRESSION: 1. Negative for fracture or dislocation, if concern for fracture remains clinically consider further evaluation with a CT scan given decreased bone mineral density somewhat limiting evaluation. 2. Moderate osteoarthritis of the right hip.
--- NOTE | 2023-07-27 20:04 | CTR_ITS ---
PROCEDURE INFORMATION: Exam: CT Cervical Spine Without Contrast Exam date and time: 07/27/2023 8:58 PM Age: 78 years old Clinical indication: Injury or trauma; Work related; Other: Fall, hit head; Prior surgery; Surgery date: 6+ months; Surgery type: Shunt TECHNIQUE: Imaging protocol: Computed tomography of the cervical spine without contrast. Radiation optimization: All CT scans at this facility use at least one of these dose optimization techniques: automated exposure control; mA and/or kV adjustment per patient size (includes targeted exams where dose is matched to clinical indication); or iterative reconstruction. COMPARISON: CT cervical spin wo con* [id number] 10/06/2022 9:53 AM RADIATION DOSE METRICS: Total DLP (mGy-cm): 345.9 FINDINGS: Bones/joints: No acute fracture. Normal alignment. C2-C3: No significant disc bulge or herniation. No severe spinal canal stenosis. No significant neural foraminal narrowing. C3-C4: No significant disc bulge or herniation. No severe spinal canal stenosis. No significant neural foraminal narrowing. C4-C5: No significant disc bulge or herniation. No severe spinal canal stenosis. No significant neural foraminal narrowing. C5-C6: C5-C6 broad-based disc bulge with degenerative calcification resulting in mild spinal canal narrowing. C6-C7: No significant disc bulge or herniation. No severe spinal canal stenosis. No significant neural foraminal narrowing. C7-T1: No significant disc bulge or herniation. No severe spinal canal stenosis. No significant neural foraminal narrowing. Lungs: Lung apices are normal. Soft tissues: Unremarkable. CT/CT cervical spin wo con* [id number] IMPRESSION: 1. Negative for fracture or dislocation. 2. C5-C6 broad-based disc bulge with degenerative calcification resulting in mild spinal canal narrowing.
--- NOTE | 2023-07-27 20:06 | ED_ITS ---
HPI - Fall General: Chief Complaint: Fall Stated Complaint: fall Time Seen by Provider: 07/27/23 20:02 Source: patient and EMS Mode of arrival: EMS Limitations: no limitations History of Present Illness: 78-year-old female states that she is wa lking with her walker and got tangled up and fell. States when she fell she hurt her right ankle she has some slight right hip pain states she did she hit her head on the back of the carpet has had neck pain and some right rib pain she rates her pain currently 5 out of 10 she had no loss of consciousness. Associated symptoms-after fall: Reports headache(s); Denies abdominal pain, chest pain or neck pain Review of Systems Const: Denies: fever(s), chills, body aches or change in appetite ENMT: Denies: throat pain or dental pain Card: Denies: chest pain Resp: Denies: dyspnea GI: Denies: abdominal pain, nausea, vomiting or diarrhea Musc: Reports: extremity pain; Denies: neck pain or back pain Skin/Breast: Denies: rash Neuro: Reports: headache(s) PFSH ED PFSH: Medical History Left-sided weakness Psychiatric care History of malignant melanoma History of nonmelanoma skin cancer Skin cancer of nose On 5-FU cream Basal cell carcinoma of skin of nose (~07/2017) Paresthesia of skin Malignant melanoma of chin (~07/2017) Anxiety with depression Squamous cell carcinoma of left lower leg Lung nodule right Leukocytosis follows with Dr Rubio Anemia, iron deficiency Adult onset hypothyroidism Hyperlipidemia, unspecified Essential (primary) hypertension Gait instability With frequent falls at baseline Urinary incontinence, urge Brain aneurysm (~1995) Acquired bilateral hammer toes CVA (cerebrovascular accident due to intracerebral hemorrhage) Surgical History History of brain shunt History of hysterectomy History of appendectomy History of brain surgery (~1995) ruptured aneurysm repair with shunt implanted History of section Family History Family/Other Stroke CAD (coronary artery disease) Cancer skin Social History Smoking and tobacco/nicotine status: current every day tobacco/nicotine user cigarettes Packs smoked per day: 0.5 Years cigarettes smoked: 59 Quit status (tobacco/nicotine): has tried quititng Number of times tried to quit tobacco: 30 Second hand smoke exposure: Yes Alcohol intake: former Substance/Drug Use: never Caregiver/support person: Yes (daughter) Lives independently: No (relatives) Household members: none Marital status: Number of children: 1 service: No Current occupational status: retired Current gender identity: Female Special colt needs: No Physical Exam Const: COMMON NORMALS: no acute distress, patient oriented x3 and healthy appearing HENMT: COMMON NORMALS: normocephalic HEAD & SCALP: normocephalic Neck/C-Spine: COMMON NORMALS: full ROM and supple Chest: COMMONS NORMALS: normal inspection of the chest OTHER: tenderness over right ribs Resp: COMMON NORMALS: normal respiratory effort, No retractions, No use of accessory muscles and clear to auscultation bilaterally AUSCULTATION: clear to auscultation bilaterally Cardio: COMMON NORMALS: regular rate, regular rhythm and No murmurs present (Cardio) RATE: regular rate RHYTHM: regular rhythm GI: COMMON NORMALS: Normal to inspection, nondistended, normoactive bowel sounds present, Soft to palpation, non-tender and no masses PALPATION: Yes Soft to palpation Extremity: COMMON NORMALS: normal to inspection and full ROM NARRATIVE EXTREMITY EXAM: Tenderness to right hip and ankle no obvious deformities Neuro: COMMON NORMALS: patient oriented x3, moves all extremities and no focal motor deficits Psych: COMMON NORMALS: mental status grossly normal, Normal thought process present and cooperative THOUGHT PROCESS: Normal thought process present Skin: COMMON NORMALS: no rashes or lesions noted and no wounds GENERAL SKIN EXAM: no rashes or lesions noted Course Vital Signs: Vital signs: Vital Signs Temperature 97.3 F L 07/27/23 20:00 Pulse Rate 84 07/27/23 21:47 Respiratory Rate 18 07/27/23 21:47 Blood Pressure 106/71 07/27/23 21:47 Pulse Oximetry 99 07/27/23 21:26 Oxygen Delivery Me thod Room Air 07/27/23 20:00 MDM - Fall Medical Decision Making Patient presents here with contusions and closed head injury from a fall imaging here is all negative she is stable for discharge she is able to ambulate here follow-up with her PCP return if worsening. Medical Records I reviewed the patient's medical records. Lab Data Radiology Impressions Ankle X-Ray 07/27/23 20:04 IMPRESSION: 1. Negative for fracture or dislocation, if concern for fracture remains clinically consider 5-7 day follow-up exam and/or further evaluation with a CT scan. 2. Calcified heel spur. Cervical Spine CT 07/27/23 20:04 IMPRESSION: 1. Negative for fracture or dislocation. 2. C5-C6 broad-based disc bulge with degenerative calcification resulting in mild spinal canal narrowing. Head CT 07/27/23 20:04 IMPRESSION: 1. Negative for intracranial hemorrhage or mass effect. 2. Right-sided ventricular peritoneal shunt seen coursing through the parietal bone, parietal lobe, right lateral ventricle septum pellucidum with tip in the left lateral ventricle frontal horn, similar to prior exam. 3. Right frontal craniotomy changes. 4. Left frontal sclerotic bony lesion, similar to prior exam may reflect a benign bone island, whole body nuclear medicine bone scan could further characterize this. 5. Right temporal chronic encephalomalacia. 6. Moderate diffuse white matter disease likely reflecting chronic microvascular ischemic changes. Hip/Pelvis X-Ray 07/27/23 20:04 IMPRESSION: 1. Negative for fracture or dislocation, if concern for fracture remains clinically consider further evaluation with a CT scan given decreased bone mineral density somewhat limiting evaluation. 2. Moderate osteoarthritis of the right hip. Ribs X-Ray 07/27/23 20:04 IMPRESSION: 1. Negative for fracture or dislocation. 2. Right ventricular peritoneal shunt. 3. Mild cardiomegaly. 4. Emphysematous changes. All radiology interpretation(s) finalized by discharge Discharge Plan Discharge Patient Disposition: Home Clinical Impression: Fall, Closed head injury Condition: Stable Prescriptions: No Action (DME) lift chair See Rx Instructions .Route .MEDSUPPLY Qty: 1 0RF Rx Instructions: As directed cholecalciferol (vitamin D3) 125 mcg (5,000 unit) capsule 5,000 unit PO DAILY Qty: 90 1RF ascorbic acid (vitamin C) 1,000 mg tablet 1 gm PO DAILY multivitamin Tablet 1 tab PO QAM cyanocobalamin (vitamin B-12) 2,500 mcg tablet 2,500 mcg PO DAILY (DME) Rollater walker See Rx Instructions .Route .MEDSUPPLY Qty: 1 0RF Rx Instructions: As directed medical marijuana See Rx Instructions .ROUTE .COMPLEX Rx Instructions: DIRECTED NEEDED (DME) non articulating custom AFO to left See Rx Instructions .Route .MEDSUPPLY Qty: 1 0RF Rx Instructions: As directed by [facility] venlafaxine [Effexor XR] 150 mg capsule,extended release 24hr 150 mg PO DAILY Qty: 30 2RF Rx Instructions: TAKE WITH 75 MG TO EQUAL 225 MG ONCE DAILY venlafaxine [Effexor XR] 75 mg capsule,extended release 24hr 75 mg PO DAILY Qty: 30 2RF Rx Instructions: Take with 150 mg for total of 225 mg daily mirtazapine 7.5 mg tablet 7.5 mg PO BEDTIME Qty: 30 2RF aripiprazole [Abilify] 5 mg tablet 5 mg PO DAILY Qty: 30 2RF bupropion HCl [Wellbutrin XL] 300 mg tablet extended release 24 hr 300 mg PO QAM Qty: 30 2RF (DME) Wheelchair See Rx Instructions .Route .MEDSUPPLY Qty: 1 0RF Rx Instructions: As directed losartan 100 mg tablet 100 mg PO DAILY Eliquis 5 mg tablet 5 mg PO BID albuterol sulfate 90 mcg/actuation HFA aerosol inhaler 2 puff INHALATION Q6H PRN (Reason: Shortness Of Breath Or Wheezing) methenamine hippurate 1 gram tablet 1 g PO DAILY Stool Softener 100 mg Capsule 100 mg PO DAILY Krill Oil Gummy 2 tab PO BID atorvastatin 40 mg tablet 40 mg PO DAILY levothyroxine 25 mcg tablet 25 mcg PO DAILY oxybutynin chloride 10 mg Tablet Extended Release 24hr 10 mg PO DAILY Discharge Orders: Discharge ED (Routine); Ordered 07/27/23 Ordered By: Juan Miguel Roberts Referrals: Mary Moncada APN [Primary Care Provider] - 4-7 days Discharge Diet: Advance as tolerated Discharge Activity: Resume usual activity Patient Instructions: Head Injury (ED), Fall Prevention (ED) Coding Level of Care Code ED Academic Success Coordinator for Janell Mathew
[2023-07-27] MEDS: HYDROcodone-acetaminophen 5-325 mg Tablet 1 TAB PO (20:31)
[2023-07-27 21:26] VITALS: BP 104/53; PULSE 87; RESP 16; O2SAT 99
[2023-07-27 21:47] VITALS: BP 106/71; PULSE 84; RESP 18
== END 2023-07-27 21:58 | disposition home or self-care (01) ==
PROVIDERS: Emergency Provider Emergency Medicine; PCP Nurse Practitioner Family
DX: S09.8XXA Other specified injuries of head, initial encounter (principal); Z79.01 Long term (current) use of anticoagulants; F17.210 Nicotine dependence, cigarettes, uncomplicated; E78.5 Hyperlipidemia, unspecified; I10 Essential (primary) hypertension; Z86.73 Personal history of transient ischemic attack (TIA), and cerebral infarction without residual deficits; W01.0XXA Fall on same level from slipping, tripping and stumbling without subsequent striking against object, initial encounter
CPT/HCPCS: 70450; 71101; 72125; 73502; 73610; 99284

== ENCOUNTER 2023-07-28 12:38 | Emergency (ER) | payer MEDICARE, MEDICAID, SELFPAY ==
[2023-07-28 12:44] VITALS: BP 117/57; PULSE 77; RESP 16; TEMP 36.8; O2SAT 98; BMI 21.5
--- NOTE | 2023-07-28 12:57 | CT_ITS ---
WS: [id number] CT HEAD TECHNIQUE: Noncontrast CT of the head obtained from the skullbase to the vertex. CLINICAL INFORMATION: fall, head injury COMPARISON: CT 07/27/2023 DLP: 1343.[address] scans at [facility] use at least one of these dose optimization techniques: automated e xposure control; mA and/or kV adjustment per patient size (includes targeted exams where dose is matc hed to clinical indication); or iterative reconstruction. FINDINGS: No evidence of intracranial hemorrhage or mass effect. Ventricular system and basal cisterns are maldonado nt. Moderate small vessel changes with moderate parenchymal volume loss. Chronic lacunar infarct RIGH T thalamus. Intracranial vascular calcification. 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 Do lichoectatic LEFT cavernous carotid artery and basilar artery. Chronic encephalomalacia RIGHT parasag ittal frontal lobe. Chronic encephalomalacia RIGHT anterior temporal lobe with prior craniotomy. RIGH T parietal shunt catheter with tip in the LEFT frontal horn. No progressive hydrocephalus. Ventricula r size is unchanged. Mild mucosal thickening in the paranasal sinuses. Mastoid air cells are well aerated. Normal posterio r nasopharynx. IMPRESSION: 1. No evidence of intracranial hemorrhage or mass effect. 2. No change since 07/27/2023 3. Stable RIGHT parietal shunt catheter with tip in the LEFT frontal horn. No new or progressed hydr ocephalus.
--- NOTE | 2023-07-28 12:58 | XR_ITS ---
WS: [id number] Exam: XR shoulder LT min 2V* [id number] Date/Time of Exam: 07/28/2023 12:58 PM Reason For Exam: fall, shoulder pain No fracture or dislocation. Degenerative change and spurring at the AC joint. Normal soft tissues. Os teopenia. IMPRESSION: 1. AC joint DJD and osteopenia. 2. No fracture.
--- NOTE | 2023-07-28 13:39 | W.ED.FALL ---
HPI - Fall General: Chief Complaint: Fall Stated Complaint: FALL Time Seen by Provider: 07/28/23 13:37 History of Present Illness: 78-year-old female comes in today for complaints of fall this morning. Patient reports she was in the yard looking at her matthew and when she went to back up with her walker she lost her footing and fell backwards. Patient reports landing on her left shoulder and striking the right parietal scalp. Patient reports some pain in the shoulder and some increased pain with deep inspiration. Patient is alert and oriented. Patient does also use Eliquis and has a history of a shunt. Review of Systems General: Reports: 10 or more systems reviewed and unremarkable except in HPI and below PFSH ED PFSH: Medical History Left-sided weakness Psychiatric care History of malignant melanoma History of nonmelanoma skin cancer Skin cancer of nose On 5-FU cream Basal cell carcinoma of skin of nose (~07/2017) Paresthesia of skin Malignant melanoma of chin (~07/2017) Anxiety with depression Squamous cell carcinoma of left lower leg Lung nodule right Leukocytosis follows with Dr Rubio Anemia, iron deficiency Adult onset hypothyroidism Hyperlipidemia, unspecified Essential (primary) hypertension Gait instability With frequent falls at baseline Urinary incontinence, urge Brain aneurysm (~1995) Acquired bilateral hammer toes CVA (cerebrovascular accident due to intracerebral hemorrhage) Surgical History History of brain shunt History of hysterectomy History of appendectomy History of brain surgery (~1995) ruptured aneurysm repair with shunt implanted History of section Family History Family/Other Stroke CAD (coronary artery disease) Cancer skin Social History Smoking and tobacco/nicotine status: current every day tobacco/nicotine user cigarettes Packs smoked per day: 0.5 Years cigarettes smoked: 59 Quit status (tobacco/nicotine): has tried quititng Number of times tried to quit tobacco: 30 Second hand smoke exposure: Yes Alcohol intake: former Substance/Drug Use: never Caregiver/support person: Yes (daughter) Lives independently: No (relatives) Household members: none Marital status: Number of children: 1 service: No Current occupational status: retired Current gender identity: Female Special colt needs: No Physical Exam Const: COMMON NORMALS: alert HENMT: COMMON NORMALS: normocephalic HEAD & SCALP: normocephalic Neck/C-Spine: COMMON NORMALS: full ROM Resp: COMMON NORMALS: normal respiratory effort and clear to auscultation bilaterally AUSCULTATION: clear to auscultation bilaterally Cardio: COMMON NORMALS: regular rate RATE: regular rate GI: COMMON NORMALS: non-tender Back/Pelvis: COMMON NORMALS: thoracic and lumbar spine normal to inspection Extremity: COMMON NORMALS: full ROM LEFT UPPER EXTREMITY: Yes shoulder joint (Anterior tenderness) Neuro: SENSORIUM/ORIENTATION: Yes alert Skin: NARRATIVE SKIN EXAM: Decreased skin turgor, generalized senile purpura to the forearms. Course Vital Signs: Vital signs: Vital Signs Temperature 98.3 F 07/28/23 12:44 Pulse Rate 77 07/28/23 12:44 Respiratory Rate 16 07/28/23 12:44 Blood Pressure 117/57 07/28/23 12:44 Pulse Oximetry 98 07/28/23 12:44 MDM - Fall Medical Decision Making 78-year-old female comes in today with a fall this morning when she was backing up with her wheelchair. Patient appears nontoxic. Patient moves all extremities well. Patient is able to sit up in bed without difficulty. No palpable point tenderness spine is noted. No crepitus or subcu emphysema is noted in the chest wall. Lungs are clear to auscultation. Skin is warm and dry. Differential diagnosis includes but not limited to fracture, intracranial bleeding, contusion. CT of the head noted no acute abnormalities. Chest x-ray and x-ray of the shoulder showed no acute abnormality. Reviewed exam with patient with recommendation for treatment and follow-up. Patient reported understanding agreed to plan. All radiology interpretation(s) finalized by discharge Discharge Plan Discharge Patient Disposition: Home Clinical Impression: Gait instability, Acute pain of left shoulder due to trauma Fall from slip, trip, or stumble Qualifiers: Encounter type: initial encounter Qualified Code(s): W01.0XXA - Fall on same level from slipping, tripping and stumbling without subsequent striking against object, initial encounter Condition: Stable Prescriptions: No Action (DME) lift chair See Rx Instructions .Route .MEDSUPPLY Qty: 1 0RF Rx Instructions: As directed cholecalciferol (vitamin D3) 125 mcg (5,000 unit) capsule 5,000 unit PO DAILY Qty: 90 1RF ascorbic acid (vitamin C) 1,000 mg tablet 1 gm PO DAILY multivitamin Tablet 1 tab PO QAM cyanocobalamin (vitamin B-12) 2,500 mcg tablet 2,500 mcg PO DAILY (DME) Rollater walker See Rx Instructions .Route .MEDSUPPLY Qty: 1 0RF Rx Instructions: As directed medical marijuana See Rx Instructions .ROUTE .COMPLEX Rx Instructions: DIRECTED NEEDED (DME) non articulating custom AFO to left See Rx Instructions .Route .MEDSUPPLY Qty: 1 0RF Rx Instructions: As directed by [facility] venlafaxine [Effexor XR] 150 mg capsule,extended release 24hr 150 mg PO DAILY Qty: 30 2RF Rx Instructions: TAKE WITH 75 MG TO EQUAL 225 MG ONCE DAILY venlafaxine [Effexor XR] 75 mg capsule,extended release 24hr 75 mg PO DAILY Qty: 30 2RF Rx Instructions: Take with 150 mg for total of 225 mg daily mirtazapine 7.5 mg tablet 7.5 mg PO BEDTIME Qty: 30 2RF aripiprazole [Abilify] 5 mg tablet 5 mg PO DAILY Qty: 30 2RF bupropion HCl [Wellbutrin XL] 300 mg tablet extended release 24 hr 300 mg PO QAM Qty: 30 2RF (DME) Wheelchair See Rx Instructions .Route .MEDSUPPLY Qty: 1 0RF Rx Instructions: As directed losartan 100 mg tablet 100 mg PO DAILY Eliquis 5 mg tablet 5 mg PO BID albuterol sulfate 90 mcg/actuation HFA aerosol inhaler 2 puff INHALATION Q6H PRN (Reason: Shortness Of Breath Or Wheezing) methenamine hippurate 1 gram tablet 1 g PO DAILY Stool Softener 100 mg Capsule 100 mg PO DAILY Krill Oil Gummy 2 tab PO BID atorvastatin 40 mg tablet 40 mg PO DAILY levothyroxine 25 mcg tablet 25 mcg PO DAILY oxybutynin chloride 10 mg Tablet Extended Release 24hr 10 mg PO DAILY Discharge Orders: Discharge ED (Routine); Ordered 07/28/23 Ordered By: Sarthak Bridges Referrals: Mary Moncada APN [Primary Care Provider] - Discharge Diet: Usual diet Discharge Activity: Increase activity as tolerated Patient Instructions: Musculoskeletal Pain (ED) Activity Restrictions/Additional Instructions: Your x-rays and CT scan showed no acute abnormalities. Return to activity as tolerated. Use ice or heat to help with pain. Use Tylenol for further pain relief. Follow-up with primary care. Return to ED for new concerns. Coding Level of Care Code ED Shut Off Worker for Janell Mathew
--- NOTE | 2023-07-28 13:43 | XR_ITS ---
WS: [id number] Exam: XR chest 1V portable [id number] Date/Time of Exam: 07/28/2023 1:43 PM Reason For Exam: fall Comparison 07/27/2023. The lungs are clear and hyperinflated. Normal cardiomediastinal silhouette. No pleural effusions. Chr onic blunting of the LEFT costophrenic angle. Right-sided LIBRARY ATTENDANT shunt catheter noted. IVC filter partial ly visualized in the upper RIGHT abdomen. IMPRESSION: 1. Pulmonary hyperinflation. No acute process.
--- NOTE | 2023-07-28 13:56 | PC.PHAR ---
waiting on med list from [facility] to complete med rec- spoke to Monika at 2:00 pm
[2023-07-28 14:44] VITALS: BP 120/59; PULSE 75; O2SAT 96
[2023-07-28 14:52] VITALS: PULSE 71; O2SAT 98
== END 2023-07-28 14:53 | disposition home or self-care (01) ==
PROVIDERS: Emergency Provider Nurse Practitioner Family; PCP Nurse Practitioner Family
DX: G89.11 Acute pain due to trauma (principal); M25.512 Pain in left shoulder; R26.89 Other abnormalities of gait and mobility; Z79.01 Long term (current) use of anticoagulants; W01.0XXA Fall on same level from slipping, tripping and stumbling without subsequent striking against object, initial encounter; Y92.007 Garden or yard of unspecified non-institutional (private) residence as the place of occurrence of the external cause
CPT/HCPCS: 70450; 71045; 73030; 99284

== ENCOUNTER 2023-07-30 00:21 | Emergency (ER) | payer MEDICARE, MEDICAID, SELFPAY ==
[2023-07-30 00:22] VITALS: BP 127/49; PULSE 83; RESP 16; TEMP 37.1; O2SAT 97
--- NOTE | 2023-07-30 00:36 | CTR_ITS ---
PROCEDURE INFORMATION: Exam: CT Cervical Spine Without Contrast Exam date and time: 07/30/2023 1:01 AM Age: 78 years old Clinical indication: Injury or trauma; Blunt trauma; Patient HX: EMS arrival for fall at home. No loc. Anticoagulated. ; Additional info: Trauma/fall TECHNIQUE: Imaging protocol: Computed tomography of the cervical spine without contrast. Radiation optimization: All CT scans at this facility use at least one of these dose optimization techniques: automated exposure control; mA and/or kV adjustment per patient size (includes targeted exams where dose is matched to clinical indication); or iterative reconstruction. COMPARISON: CT cervical spin wo con* [id number] 07/27/2023 8:58 PM RADIATION DOSE METRICS: Total DLP (mGy-cm): 123.27 FINDINGS: Bones/joints: No acute fracture. Normal alignment. No significant disc bulge or herniation. No severe spinal canal stenosis. No significant neural foraminal narrowing. Lungs: Lung apices are normal. Soft tissues: Unremarkable. CT/CT cervical spin wo con* [id number] IMPRESSION: No acute cervical spine fracture or listhesis.
--- NOTE | 2023-07-30 00:36 | XRR_ITS ---
PROCEDURE INFORMATION: Exam: XR Right Knee Exam date and time: 07/30/2023 12:47 AM Age: 78 years old Clinical indication: Injury or trauma; Blunt trauma; Right; Patient HX: EMS arrival for fall at home. C/O diffuse knee and ankle pain. ; Additional info: Traum/fall TECHNIQUE: Imaging protocol: Radiologic exam of the right knee. Views: 3 views. COMPARISON: CR (LOW EXM, ) 07/30/2023 12:44 AM FINDINGS: Bones/joints: Normal. Soft tissues: Normal. XR/XR knee RT 3V* [id number] IMPRESSION: No acute findings.
--- NOTE | 2023-07-30 00:36 | XRR_ITS ---
PROCEDURE INFORMATION: Exam: XR Right Ankle Exam date and time: 07/30/2023 12:44 AM Age: 78 years old Clinical indication: Injury or trauma; Blunt trauma; Right; Patient HX: EMS arrival for fall at home. C/O diffuse knee and ankle pain. ; Additional info: Trauma/fall TECHNIQUE: Imaging protocol: Radiologic exam of the right ankle. Views: 1 or 2 views. COMPARISON: CR (LOW EXM, ) 07/27/2023 8:15 PM FINDINGS: Bones/joints: The bones are diffusely osteopenic. No acute fracture. Soft tissues: Normal. XR/XR ankle RT 2V [id number] IMPRESSION: No acute fracture.
--- NOTE | 2023-07-30 00:36 | CTR_ITS ---
PROCEDURE INFORMATION: Exam: CT Head Without Contrast Exam date and time: 07/30/2023 12:58 AM Age: 78 years old Clinical indication: Injury or trauma; Blunt trauma (contusions or hematomas); Prior surgery; Surgery date: 6+ months; Surgery type: Craniotomy. Gear Machine Operator shunt; Patient HX: EMS arrival for fall at home. No loc. Anticoagulated. ; Additional info: Trauma/fall TECHNIQUE: Imaging protocol: Computed tomography of the head without contrast. Radiation optimization: All CT scans at this facility use at least one of these dose optimization techniques: automated exposure control; mA and/or kV adjustment per patient size (includes targeted exams where dose is matched to clinical indication); or iterative reconstruction. COMPARISON: CT head wo con* [id number] 07/28/2023 1:06 PM RADIATION DOSE METRICS: Total DLP (mGy-cm): 1433.35 FINDINGS: Tubes, catheters and devices: Right posterior approach NUT SHELLER MACHINE OPERATOR shunt catheter positioned with its tip in the anterior horn of the left lateral ventricle. Brain: Small-vessel ischemic disease. Encephalomalacia in the right frontal lobe anteriorly.No acute intracranial abnormality. Cerebral ventricles: No ventriculomegaly. Paranasal sinuses: Visualized sinuses are unremarkable. No fluid levels. Mastoid air cells: Visualized mastoid air cells are well aerated. Bones/joints: Right temporal craniotomy with encephalomalacia in the left temporal lobe. Soft tissues: Unremarkable. Other findings: . CT/CT head wo con* [id number] IMPRESSION: 1. No acute intracranial abnormality. 2. Encephalomalacia in the right frontal lobe anteriorly. 3. Right posterior approach NUT SHELLER MACHINE OPERATOR shunt catheter positioned with its tip in the anterior horn of the left lateral ventricle. Subcortical and periventricular white matter changes consistent with small-vessel ischemic disease in the appropriate clinical setting. 4. Small-vessel ischemic disease. 5. Right temporal craniotomy with encephalomalacia in the left temporal lobe.
--- NOTE | 2023-07-30 00:46 | W.ED.FALL ---
Documented by User: SHAN Bradley 07/30/23 00:51 HPI - Fall General: Chief Complaint: Fall Stated Complaint: FALL Time Seen by Provider: 07/30/23 00:30 Source: patient Mode of arrival: EMS Limitations: no limitations History of Present Illness: Patient is a 78-year-old female presents to the emergency department via EMS due to fall onset today. Patient notes she was walking when her right knee suddenly hyperextended and gave out on her, causing her to fall directly onto the right knee. She is currently reporting pain to the right knee and right ankle. She is currently on Eliquis due to a DVT, however denies hitting her head or losing consciousness. She also notes she was able to get up under her own power afterwards and ambulate for a little bit until calling EMS due to increased pain while walking upstairs. She denies any prior injuries or surgeries to the knee or ankle. She states most of the pain is on the lateral aspect, however she is having diffuse pain. She has not taken anything for pain prior to arrival in the ED. The fall was reportedly not witnessed, unknown how long it took patient to get up. Patient denies any other symptoms at this time. MD complaint: fall Fall from: standing Fall witnessed: no Place fall occurred: home Loss of consciousness: None Prolonged down time: unclear Symptoms prior to fall: none Context: tripped/slipped Associated symptoms-after fall: Denies abdominal pain, chest pain, headache(s), lightheadedness or neck pain Review of Systems General: Reports: 10 or more systems reviewed and unremarkable except in HPI and below Const: Reports: other (fall); Denies: fever(s), chills or fatigue Eyes: Denies: change in vision ENMT: Denies: throat pain, ear or mastoid pain or nasal discharge Card: Denies: chest pain, palpitations, swelling of feet/ankles or lightheadedness Resp: Denies: dyspnea, productive cough or wheezing GI: Denies: abdominal pain, nausea, vomiting, diarrhea or constipation : Denies: flank pain, difficulty voiding, dysuria or urinary frequency Musc: Reports: joint pain (Right knee and ankle); Denies: neck pain or back pain Skin/Breast: Denies: rash Neuro: Denies: headache(s), numbness in extremities or weakness in extremities PFSH ED PFSH: Medical History Left-sided weakness Psychiatric care History of malignant melanoma History of nonmelanoma skin cancer Skin cancer of nose On 5-FU cream Basal cell carcinoma of skin of nose (~07/2017) Paresthesia of skin Malignant melanoma of chin (~07/2017) Anxiety with depression Squamous cell carcinoma of left lower leg Lung nodule right Leukocytosis follows with Dr Rubio Anemia, iron deficiency Adult onset hypothyroidism Hyperlipidemia, unspecified Essential (primary) hypertension Gait instability With frequent falls at baseline Urinary incontinence, urge Brain aneurysm (~1995) Acquired bilateral hammer toes CVA (cerebrovascular accident due to intracerebral hemorrhage) Surgical History History of brain shunt History of hysterectomy History of appendectomy History of brain surgery (~1995) ruptured aneurysm repair with shunt implanted History of section Family History Family/Other Stroke CAD (coronary artery disease) Cancer skin Social History Smoking and tobacco/nicotine status: current every day tobacco/nicotine user cigarettes Packs smoked per day: 0.5 Years cigarettes smoked: 59 Quit status (tobacco/nicotine): has tried quititng Number of times tried to quit tobacco: 30 Second hand smoke exposure: Yes Alcohol intake: former Substance/Drug Use: never Caregiver/support person: Yes (daughter) Lives independently: No (relatives) Household members: none Marital status: Number of children: 1 service: No Current occupational status: retired Current gender identity: Female Special colt needs: No Physical Exam Const: COMMON NORMALS: no acute distress, patient oriented x3 and no limitations GENERAL APPEARANCE: cooperative, comfortable and well developed ORIENTATION/CONSCIOUSNESS: Yes awake, Yes oriented to person, Yes oriented to place and Yes oriented to time HENMT: COMMON NORMALS: normocephalic, atraumatic, hearing grossly normal bilaterally, external ears normal and Normal external nose present HEAD & SCALP: normal to inspection, normocephalic and atraumatic; no Wilkins's sign, no raccoon eyes and no scalp tenderness FACE & SINUS: normal facial exam NOSE: Normal external nose present EXTERNAL EAR: Yes external ears normal Eye: COMMON NORMALS: Equal, round and reactive pupils present, EOMs intact bilaterally and conjunctivae normal CONJUNCTIVA: Yes conjunctivae normal PUPIL: Yes Equal, round and reactive pupils present Neck/C-Spine: COMMON NORMALS: full ROM, supple and no JVD Chest: COMMONS NORMALS: normal inspection of the chest and normal palpation of entire chest wall Resp: COMMON NORMALS: normal respiratory effort, No retractions, No use of accessory muscles and clear to auscultation bilaterally AUSCULTATION: clear to auscultation bilaterally Cardio: COMMON NORMALS: no JVD, regular rate, regular rhythm, No clicks present (Cardio), No murmurs present (Cardio) and No rub (Cardio) RATE: regular rate RHYTHM: regular rhythm GI: COMMON NORMALS: Normal to inspection, nondistended, normoactive bowel sounds present, Soft to palpation and non-tender AUSCULTATION: Yes normoactive bowel sounds PALPATION: Yes Soft to palpation RECTAL EXAM: deferred Extremity: COMMON NORMALS: normal to inspection, full ROM and capillary refill normal NARRATIVE EXTREMITY EXAM: Mild reproducible tenderness to palpation diffusely of the right knee. No bruising or deformities noted. No edema. No appreciable joint effusion. Right ankle minimally tender to palpation about the lateral aspect. Also no edema, bruising, or deformities noted. No hip tenderness. Full active range of motion, mild pain noted. Neuro: COMMON NORMALS: patient oriented x3, CN's II-XII intact bilaterally, moves all extremities, no focal motor deficits and no sensory deficits noted SENSORIUM/ORIENTATION: Yes oriented to person, Yes oriented to place and Yes oriented to time Psych: COMMON NORMALS: mental status grossly normal and Normal thought process present THOUGHT PROCESS: Normal thought process present Skin: COMMON NORMALS: no rashes or lesions noted GENERAL SKIN EXAM: no rashes or lesions noted Course Vital Signs: Vital signs: Vital Signs Temperature 98.7 F 07/30/23 00:22 Pulse Rate 81 07/30/23 02:26 Respiratory Rate 16 07/30/23 00:22 Blood Pressure 108/57 07/30/23 02:26 Pulse Oximetry 96 07/30/23 02:26 Oxygen Delivery Me thod Room Air 07/30/23 00:22 MDM - Fall Lab Data Radiology Impressions Ankle X-Ray 07/30/23 00:36 IMPRESSION: No acute fracture. Cervical Spine CT 07/30/23 00:36 IMPRESSION: No acute cervical spine fracture or listhesis. Head CT 07/30/23 00:36 IMPRESSION: 1. No acute intracranial abnormality. 2. Encephalomalacia in the right frontal lobe anteriorly. 3. Right posterior approach EXAMINATION SCORER shunt catheter positioned with its tip in the anterior horn of the left lateral ventricle. Subcortical and periventricular white matter changes consistent with small-vessel ischemic disease in the appropriate clinical setting. 4. Small-vessel ischemic disease. 5. Right temporal craniotomy with encephalomalacia in the left temporal lobe. Knee X-Ray 07/30/23 00:36 IMPRESSION: No acute findings. Discharge Plan Discharge Patient Disposition: Home Clinical Impression: Accidental fall, Ankle pain, right, Acute pain of right knee Condition: Stable Prescriptions: No Action (DME) lift chair See Rx Instructions .Route .MEDSUPPLY Qty: 1 0RF Rx Instructions: As directed cholecalciferol (vitamin D3) 125 mcg (5,000 unit) capsule 5,000 unit PO DAILY Qty: 90 1RF ascorbic acid (vitamin C) 1,000 mg tablet 1 gm PO DAILY multivitamin Tablet 1 tab PO QAM cyanocobalamin (vitamin B-12) 2,500 mcg tablet 2,500 mcg PO DAILY (DME) Rollater walker See Rx Instructions .Route .MEDSUPPLY Qty: 1 0RF Rx Instructions: As directed medical marijuana See Rx Instructions .ROUTE .COMPLEX Rx Instructions: DIRECTED NEEDED (DME) non articulating custom AFO to left See Rx Instructions .Route .MEDSUPPLY Qty: 1 0RF Rx Instructions: As directed by [facility] venlafaxine [Effexor XR] 150 mg capsule,extended release 24hr 150 mg PO DAILY Qty: 30 2RF Rx Instructions: TAKE WITH 75 MG TO EQUAL 225 MG ONCE DAILY venlafaxine [Effexor XR] 75 mg capsule,extended release 24hr 75 mg PO DAILY Qty: 30 2RF Rx Instructions: Take with 150 mg for total of 225 mg daily mirtazapine 7.5 mg tablet 7.5 mg PO BEDTIME Qty: 30 2RF bupropion HCl [Wellbutrin XL] 300 mg tablet extended release 24 hr 300 mg PO QAM Qty: 30 2RF (DME) Wheelchair See Rx Instructions .Route .MEDSUPPLY Qty: 1 0RF Rx Instructions: As directed losartan 100 mg tablet 100 mg PO DAILY Eliquis 5 mg tablet 5 mg PO BID albuterol sulfate 90 mcg/actuation HFA aerosol inhaler 2 puff INHALATION Q6H PRN (Reason: Shortness Of Breath Or Wheezing) methenamine hippurate 1 gram tablet 1 g PO DAILY docusate sodium [Stool Softener] 100 mg Capsule 100 mg PO DAILY Krill Oil Gummy 2 tab PO BID atorvastatin 40 mg tablet 40 mg PO DAILY levothyroxine 25 mcg tablet 25 mcg PO QAM oxybutynin chloride 10 mg Tablet Extended Release 24hr 10 mg PO DAILY Abilify 5 mg tablet 5 mg PO QAM Discharge Orders: Discharge ED (Routine); Ordered 07/30/23 Ordered By: Pb Laurent Referrals: Mary Moncada APN [Primary Care Provider] - Discharge Diet: Usual diet Discharge Activity: Resume usual activity Patient Instructions: Opioid Safety, Pain Management Activity Restrictions/Additional Instructions: Activity Restrictions/Additional Instructions: Thank you for choosing [facility] for your healthcare needs today. Please realize that you were seen in the Emergency Department and that we are providing you with an emergency medical screening exam and this may not be a complete and all inclusive of all the testing and or medical work-up that you may need to determine your ailment or severity of your illness. It is very important that you follow-up as instructed with your Primary care provider or Specialist for additional evaluation and to discuss your medical treatment plan. You may return to the Emergency Department should you have concerns or if your condition changes or worsens in any way. Coding Level of Care Code ED Social Sciences Lecturer for Chg Fwd Documented by User: Pb Laurent MD 08/15/23 18:31 HPI - Fall General: Chief Complaint: Fall Stated Complaint: FALL Time Seen by Provider: 07/30/23 00:30 [facility] ED PFSH: Medical History Left-sided weakness Psychiatric care History of malignant melanoma History of nonmelanoma skin cancer Skin cancer of nose On 5-FU cream Basal cell carcinoma of skin of nose (~07/2017) Paresthesia of skin Malignant melanoma of chin (~07/2017) Anxiety with depression Squamous cell carcinoma of left lower leg Lung nodule right Leukocytosis follows with Dr Rubio Anemia, iron deficiency Adult onset hypothyroidism Hyperlipidemia, unspecified Essential (primary) hypertension Gait instability With frequent falls at baseline Urinary incontinence, urge Brain aneurysm (~1995) Acquired bilateral hammer toes CVA (cerebrovascular accident due to intracerebral hemorrhage) Surgical History History of brain shunt History of hysterectomy History of appendectomy History of brain surgery (~1995) ruptured aneurysm repair with shunt implanted History of section Family History Family/Other Stroke CAD (coronary artery disease) Cancer skin Social History Smoking and tobacco/nicotine status: current every day tobacco/nicotine user cigarettes Packs smoked per day: 0.5 Years cigarettes smoked: 59 Quit status (tobacco/nicotine): has tried quititng Number of times tried to quit tobacco: 30 Second hand smoke exposure: Yes Alcohol intake: former Substance/Drug Use: never Caregiver/support person: Yes (daughter) Lives independently: No (relatives) Household members: none Marital status: Number of children: 1 service: No Current occupational status: retired Current gender identity: Female Special colt needs: No Course Vital Signs: Vital signs: Vital Signs Temperature 98.7 F 07/30/23 00:22 Pulse Rate 81 07/30/23 02:26 Respiratory Rate 16 07/30/23 00:22 Blood Pressure 108/57 07/30/23 02:26 Pulse Oximetry 96 07/30/23 02:26 Oxygen Delivery Me thod Room Air 07/30/23 00:22 MDM - Fall Medical Decision Making I discussed the patient's history of present illness, physical exam findings, pertinent labs, pertinent radiographic exams and plan of care with the midlevel provider. I did personally have a [id number] evaluation and discussion with the patient regarding the plan of care and the need for follow-up. Medical Records I reviewed the patient's medical records. Lab Data Radiology Impressions Ankle X-Ray 07/30/23 00:36 IMPRESSION: No acute fracture. Cervical Spine CT 07/30/23 00:36 IMPRESSION: No acute cervical spine fracture or listhesis. Head CT 07/30/23 00:36 IMPRESSION: 1. No acute intracranial abnormality. 2. Encephalomalacia in the right frontal lobe anteriorly. 3. Right posterior approach EXAMINATION SCORER shunt catheter positioned with its tip in the anterior horn of the left lateral ventricle. Subcortical and periventricular white matter changes consistent with small-vessel ischemic disease in the appropriate clinical setting. 4. Small-vessel ischemic disease. 5. Right temporal craniotomy with encephalomalacia in the left temporal lobe. Knee X-Ray 07/30/23 00:36 IMPRESSION: No acute findings. All radiology interpretation(s) finalized by discharge Discharge Plan Discharge Patient Disposition: Home Clinical Impression: Accidental fall, Ankle pain, right, Acute pain of right knee Condition: Stable Prescriptions: No Action (DME) lift chair See Rx Instructions .Route .MEDSUPPLY Qty: 1 0RF Rx Instructions: As directed cholecalciferol (vitamin D3) 125 mcg (5,000 unit) capsule 5,000 unit PO DAILY Qty: 90 1RF ascorbic acid (vitamin C) 1,000 mg tablet 1 gm PO DAILY multivitamin Tablet 1 tab PO QAM cyanocobalamin (vitamin B-12) 2,500 mcg tablet 2,500 mcg PO DAILY (DME) Rollater walker See Rx Instructions .Route .MEDSUPPLY Qty: 1 0RF Rx Instructions: As directed medical marijuana See Rx Instructions .ROUTE .COMPLEX Rx Instructions: DIRECTED NEEDED (DME) non articulating custom AFO to left See Rx Instructions .Route .MEDSUPPLY Qty: 1 0RF Rx Instructions: As directed by [facility] venlafaxine [Effexor XR] 150 mg capsule,extended release 24hr 150 mg PO DAILY Qty: 30 2RF Rx Instructions: TAKE WITH 75 MG TO EQUAL 225 MG ONCE DAILY venlafaxine [Effexor XR] 75 mg capsule,extended release 24hr 75 mg PO DAILY Qty: 30 2RF Rx Instructions: Take with 150 mg for total of 225 mg daily mirtazapine 7.5 mg tablet 7.5 mg PO BEDTIME Qty: 30 2RF bupropion HCl [Wellbutrin XL] 300 mg tablet extended release 24 hr 300 mg PO QAM Qty: 30 2RF (DME) Wheelchair See Rx Instructions .Route .MEDSUPPLY Qty: 1 0RF Rx Instructions: As directed losartan 100 mg tablet 100 mg PO DAILY Eliquis 5 mg tablet 5 mg PO BID albuterol sulfate 90 mcg/actuation HFA aerosol inhaler 2 puff INHALATION Q6H PRN (Reason: Shortness Of Breath Or Wheezing) methenamine hippurate 1 gram tablet 1 g PO DAILY docusate sodium [Stool Softener] 100 mg Capsule 100 mg PO DAILY Krill Oil Gummy 2 tab PO BID atorvastatin 40 mg tablet 40 mg PO DAILY levothyroxine 25 mcg tablet 25 mcg PO QAM oxybutynin chloride 10 mg Tablet Extended Release 24hr 10 mg PO DAILY Abilify 5 mg tablet 5 mg PO QAM Discharge Orders: Discharge ED (Routine); Ordered 07/30/23 Ordered By: Pb Laurent Referrals: Mary Moncada APN [Primary Care Provider] - Discharge Diet: Usual diet Discharge Activity: Resume usual activity Patient Instructions: Opioid Safety, Pain Management Activity Restrictions/Additional Instructions: Activity Restrictions/Additional Instructions: Thank you for choosing [facility] for your healthcare needs today. Please realize that you were seen in the Emergency Department and that we are providing you with an emergency medical screening exam and this may not be a complete and all inclusive of all the testing and or medical work-up that you may need to determine your ailment or severity of your illness. It is very important that you follow-up as instructed with your Primary care provider or Specialist for additional evaluation and to discuss your medical treatment plan. You may return to the Emergency Department should you have concerns or if your condition changes or worsens in any way. Coding Level of Care Code ED Social Sciences Lecturer for Janell Mathew
[2023-07-30] MEDS: acetaminophen 500 mg Tablet 1000 MG PO (01:10)
[2023-07-30 02:26] VITALS: BP 108/57; PULSE 81; O2SAT 96
== END 2023-07-30 05:25 | disposition home or self-care (01) ==
PROVIDERS: Emergency Provider Internal Medicine; PCP Nurse Practitioner Family
DX: M25.561 Pain in right knee (principal); M25.571 Pain in right ankle and joints of right foot; Z79.01 Long term (current) use of anticoagulants; E78.5 Hyperlipidemia, unspecified; I10 Essential (primary) hypertension; Z86.73 Personal history of transient ischemic attack (TIA), and cerebral infarction without residual deficits; F17.210 Nicotine dependence, cigarettes, uncomplicated; W19.XXXA Unspecified fall, initial encounter
CPT/HCPCS: 70450; 72125; 73562; 73600; 99284

== ENCOUNTER 2023-07-31 05:31 | Emergency (ER) | payer MEDICARE, MEDICAID, SELFPAY ==
[2023-07-31 05:32] VITALS: BP 142/63; PULSE 87; RESP 16; TEMP 37.1; O2SAT 100; BMI 24.1
--- NOTE | 2023-07-31 05:44 | CTR_ITS ---
PROCEDURE INFORMATION: Exam: CT Head Without Contrast Exam date and time: 07/31/2023 5:50 AM Age: 78 years old Clinical indication: Injury or trauma; Blunt trauma (contusions or hematomas); Prior surgery; Surgery date: 6+ months; Surgery type: Craniotomy. Personal Lines Insurance Advisor shunt; Patient HX: EMS arrival from home for fall from standing with headstrike. C/O frontal pain. ; Additional info: Fall head injury TECHNIQUE: Imaging protocol: Computed tomography of the head without contrast. Radiation optimization: All CT scans at this facility use at least one of these dose optimization techniques: automated exposure control; mA and/or kV adjustment per patient size (includes targeted exams where dose is matched to clinical indication); or iterative reconstruction. COMPARISON: CT head wo con* [id number] 07/30/2023 12:58 AM RADIATION DOSE METRICS: Total DLP (mGy-cm): 1025.3 FINDINGS: Tubes, catheters and devices: The ventriculostomy catheter enters from a right posterior approach and terminates in the anterior genu of the left lateral ventricle. Brain: . No hemorrhage. Periventricular white matter lucency represents atherosclerotic encephalopathic changes. No mass effect. Prior right temporal craniotomy with right temporal lobe gliosis. Cerebral ventricles: No ventriculomegaly. Mild ventricular prominence proportionate to the degree of atrophy observed. Paranasal sinuses: Visualized sinuses are unremarkable. No fluid levels. Mastoid air cells: Visualized mastoid air cells are well aerated. Bones/joints: See Brain finding. Soft tissues: Unremarkable. CT/CT head wo con* [id number] IMPRESSION: No acute intracranial abnormality.
--- NOTE | 2023-07-31 05:47 | W.ED.FALL ---
Documented by User: Maikel Rice DO 07/31/23 18:33 HPI - Fall General: Chief Complaint: Fall Stated Complaint: Fall Time Seen by Provider: 07/31/23 05:36 History of Present Illness: 78-year-old female with a recent history of frequent falls. I believe she has been here 4 times in the last week. She presents with another fall. She evidently lost her balance while walking across her living room. She uses a walker usually, but was just holding onto furniture at this point. She fell and struck her head on the wooden arm of the chair. She complains of right sided frontal parietal headache. No vision changes. No vomiting. She was not rendered unconscious. She is on Eliquis. She also has a history of shunt. Associated symptoms-after fall: Reports headache(s); Denies chest pain, confusion or neck pain Review of Systems Const: Denies: fever(s) Eyes: Denies: change in vision ENMT: Denies: throat pain Card: Denies: chest pain Resp: Denies: dyspnea GI: Denies: vomiting Musc: Denies: neck pain Neuro: Reports: headache(s) and dizziness; Denies: confusion, behavioral changes or Slurred speech present PFSH ED PFSH: Medical History Left-sided weakness Psychiatric care History of malignant melanoma History of nonmelanoma skin cancer Skin cancer of nose On 5-FU cream Basal cell carcinoma of skin of nose (~07/2017) Paresthesia of skin Malignant melanoma of chin (~07/2017) Anxiety with depression Squamous cell carcinoma of left lower leg Lung nodule right Leukocytosis follows with Dr Rubio Anemia, iron deficiency Adult onset hypothyroidism Hyperlipidemia, unspecified Essential (primary) hypertension Gait instability With frequent falls at baseline Urinary incontinence, urge Brain aneurysm (~1995) Acquired bilateral hammer toes CVA (cerebrovascular accident due to intracerebral hemorrhage) Surgical History History of brain shunt History of hysterectomy History of appendectomy History of brain surgery (~1995) ruptured aneurysm repair with shunt implanted History of section Family History Family/Other Stroke CAD (coronary artery disease) Cancer skin Social History Smoking and tobacco/nicotine status: current every day tobacco/nicotine user cigarettes Packs smoked per day: 0.5 Years cigarettes smoked: 59 Quit status (tobacco/nicotine): has tried quititng Number of times tried to quit tobacco: 30 Second hand smoke exposure: Yes Alcohol intake: former Substance/Drug Use: never Caregiver/support person: Yes (daughter) Lives independently: No (relatives) Household members: none Marital status: Number of children: 1 service: No Current occupational status: retired Current gender identity: Female Special colt needs: No Physical Exam Const: COMMON NORMALS: no acute distress GENERAL APPEARANCE: cooperative and frail appearing; not ill appearing HENMT: COMMON NORMALS: normocephalic and Normal external nose present HEAD & SCALP: normocephalic FACE & SINUS: face symmetric NOSE: Normal external nose present and Normal nares present Eye: COMMON NORMALS: Equal, round and reactive pupils present and EOMs intact bilaterally PUPIL: Yes Equal, round and reactive pupils present Neck/C-Spine: GENERAL: Yes trachea midline Chest: CHEST: Yes Symmetrical chest wall rise Resp: COMMON NORMALS: normal respiratory effort, No use of accessory muscles and clear to auscultation bilaterally AUSCULTATION: clear to auscultation bilaterally Cardio: COMMON NORMALS: regular rate and regular rhythm RATE: regular rate RHYTHM: regular rhythm GI: COMMON NORMALS: Normal to inspection, nondistended, normoactive bowel sounds present Neuro: BETO COMA SCALE: document GCS findings Beto coma scale eye opening: Spontaneous Beto coma scale verbal response: Orientated Beto coma scale motor response: Obey commands Beto coma scale total score: 15 Course Vital Signs: Vital signs: Vital Signs Temperature 98.8 F 07/31/23 05:32 Pulse Rate 87 07/31/23 05:32 Respiratory Rate 16 07/31/23 05:32 Blood Pressure 142/63 07/31/23 05:32 Pulse Oximetry 100 07/31/23 05:32 Oxygen Delivery Me thod Room Air 07/31/23 05:32 MDM - Fall Medical Decision Making Fourth fall in about as many days. Head injury following this fall. CT is pending. She will be checked out at shift change. Lab Data Radiology Impressions Head CT 07/31/23 05:44 IMPRESSION: No acute intracranial abnormality. Discharge Plan Discharge Patient Disposition: Home Clinical Impression: Closed head injury, Fall Condition: Stable Prescriptions: No Action (DME) lift chair See Rx Instructions .Route .MEDSUPPLY Qty: 1 0RF Rx Instructions: As directed cholecalciferol (vitamin D3) 125 mcg (5,000 unit) capsule 5,000 unit PO DAILY Qty: 90 1RF ascorbic acid (vitamin C) 1,000 mg tablet 1 gm PO DAILY multivitamin Tablet 1 tab PO QAM cyanocobalamin (vitamin B-12) 2,500 mcg tablet 2,500 mcg PO DAILY (DME) Rollater walker See Rx Instructions .Route .MEDSUPPLY Qty: 1 0RF Rx Instructions: As directed medical marijuana See Rx Instructions .ROUTE .COMPLEX Rx Instructions: DIRECTED NEEDED (DME) non articulating custom AFO to left See Rx Instructions .Route .MEDSUPPLY Qty: 1 0RF Rx Instructions: As directed by [facility] venlafaxine [Effexor XR] 150 mg capsule,extended release 24hr 150 mg PO DAILY Qty: 30 2RF Rx Instructions: TAKE WITH 75 MG TO EQUAL 225 MG ONCE DAILY venlafaxine [Effexor XR] 75 mg capsule,extended release 24hr 75 mg PO DAILY Qty: 30 2RF Rx Instructions: Take with 150 mg for total of 225 mg daily mirtazapine 7.5 mg tablet 7.5 mg PO BEDTIME Qty: 30 2RF aripiprazole [Abilify] 5 mg tablet 5 mg PO DAILY Qty: 30 2RF bupropion HCl [Wellbutrin XL] 300 mg tablet extended release 24 hr 300 mg PO QAM Qty: 30 2RF (DME) Wheelchair See Rx Instructions .Route .MEDSUPPLY Qty: 1 0RF Rx Instructions: As directed losartan 100 mg tablet 100 mg PO DAILY Eliquis 5 mg tablet 5 mg PO BID albuterol sulfate 90 mcg/actuation HFA aerosol inhaler 2 puff INHALATION Q6H PRN (Reason: Shortness Of Breath Or Wheezing) methenamine hippurate 1 gram tablet 1 g PO DAILY Stool Softener 100 mg Capsule 100 mg PO DAILY Krill Oil Gummy 2 tab PO BID atorvastatin 40 mg tablet 40 mg PO DAILY levothyroxine 25 mcg tablet 25 mcg PO DAILY oxybutynin chloride 10 mg Tablet Extended Release 24hr 10 mg PO DAILY Discharge Orders: Discharge ED (Routine); Ordered 07/31/23 Ordered By: Juan Miguel Roberts Referrals: Mary Moncada APN [Primary Care Provider] - 4-7 days Discharge Diet: Advance as tolerated Discharge Activity: Resume usual activity Patient Instructions: Head Injury (ED) Coding Level of Care Code ED Inspector [employer] Documented by User: Juan Miguel Roberts MD 07/31/23 06:47 HPI - Fall General: Chief Complaint: Fall Stated Complaint: Fall Time Seen by Provider: 07/31/23 05:36 PFSH ED PFSH: Medical History Left-sided weakness Psychiatric care History of malignant melanoma History of nonmelanoma skin cancer Skin cancer of nose On 5-FU cream Basal cell carcinoma of skin of nose (~07/2017) Paresthesia of skin Malignant melanoma of chin (~07/2017) Anxiety with depression Squamous cell carcinoma of left lower leg Lung nodule right Leukocytosis follows with Dr Rubio Anemia, iron deficiency Adult onset hypothyroidism Hyperlipidemia, unspecified Essential (primary) hypertension Gait instability With frequent falls at baseline Urinary incontinence, urge Brain aneurysm (~1995) Acquired bilateral hammer toes CVA (cerebrovascular accident due to intracerebral hemorrhage) Surgical History History of brain shunt History of hysterectomy History of appendectomy History of brain surgery (~1995) ruptured aneurysm repair with shunt implanted History of section Family History Family/Other Stroke CAD (coronary artery disease) Cancer skin Social History Smoking and tobacco/nicotine status: current every day tobacco/nicotine user cigarettes Packs smoked per day: 0.5 Years cigarettes smoked: 59 Quit status (tobacco/nicotine): has tried quititng Number of times tried to quit tobacco: 30 Second hand smoke exposure: Yes Alcohol intake: former Substance/Drug Use: never Caregiver/support person: Yes (daughter) Lives independently: No (relatives) Household members: none Marital status: Number of children: 1 service: No Current occupational status: retired Current gender identity: Female Special colt needs: No Course Vital Signs: Vital signs: Vital Signs Temperature 98.8 F 07/31/23 05:32 Pulse Rate 87 07/31/23 05:32 Respiratory Rate 16 07/31/23 05:32 Blood Pressure 142/63 07/31/23 05:32 Pulse Oximetry 100 07/31/23 05:32 Oxygen Delivery Me thod Room Air 07/31/23 05:32 MDM - Fall Medical Decision Making Fourth fall in about as many days. Head injury following this fall. CT is pending. She will be checked out at shift change. Patient head CT here is normal she is supposedly getting set up with group home placement she is stable for discharge Lab Data Radiology Impressions Head CT 07/31/23 05:44 IMPRESSION: No acute intracranial abnormality. All radiology interpretation(s) finalized by discharge Discharge Plan Discharge Patient Disposition: Home Clinical Impression: Closed head injury, Fall Condition: Stable Prescriptions: No Action (DME) lift chair See Rx Instructions .Route .MEDSUPPLY Qty: 1 0RF Rx Instructions: As directed cholecalciferol (vitamin D3) 125 mcg (5,000 unit) capsule 5,000 unit PO DAILY Qty: 90 1RF ascorbic acid (vitamin C) 1,000 mg tablet 1 gm PO DAILY multivitamin Tablet 1 tab PO QAM cyanocobalamin (vitamin B-12) 2,500 mcg tablet 2,500 mcg PO DAILY (DME) Rollater walker See Rx Instructions .Route .MEDSUPPLY Qty: 1 0RF Rx Instructions: As directed medical marijuana See Rx Instructions .ROUTE .COMPLEX Rx Instructions: DIRECTED NEEDED (DME) non articulating custom AFO to left See Rx Instructions .Route .MEDSUPPLY Qty: 1 0RF Rx Instructions: As directed by [facility] venlafaxine [Effexor XR] 150 mg capsule,extended release 24hr 150 mg PO DAILY Qty: 30 2RF Rx Instructions: TAKE WITH 75 MG TO EQUAL 225 MG ONCE DAILY venlafaxine [Effexor XR] 75 mg capsule,extended release 24hr 75 mg PO DAILY Qty: 30 2RF Rx Instructions: Take with 150 mg for total of 225 mg daily mirtazapine 7.5 mg tablet 7.5 mg PO BEDTIME Qty: 30 2RF aripiprazole [Abilify] 5 mg tablet 5 mg PO DAILY Qty: 30 2RF bupropion HCl [Wellbutrin XL] 300 mg tablet extended release 24 hr 300 mg PO QAM Qty: 30 2RF (DME) Wheelchair See Rx Instructions .Route .MEDSUPPLY Qty: 1 0RF Rx Instructions: As directed losartan 100 mg tablet 100 mg PO DAILY Eliquis 5 mg tablet 5 mg PO BID albuterol sulfate 90 mcg/actuation HFA aerosol inhaler 2 puff INHALATION Q6H PRN (Reason: Shortness Of Breath Or Wheezing) methenamine hippurate 1 gram tablet 1 g PO DAILY Stool Softener 100 mg Capsule 100 mg PO DAILY Krill Oil Gummy 2 tab PO BID atorvastatin 40 mg tablet 40 mg PO DAILY levothyroxine 25 mcg tablet 25 mcg PO DAILY oxybutynin chloride 10 mg Tablet Extended Release 24hr 10 mg PO DAILY Discharge Orders: Discharge ED (Routine); Ordered 07/31/23 Ordered By: Juan Miguel Roberts Referrals: Mary Moncada APN [Primary Care Provider] - 4-7 days Discharge Diet: Advance as tolerated Discharge Activity: Resume usual activity Patient Instructions: Head Injury (ED) Coding Level of Care Code ED Inspector [employer] for Janell Mathew
== END 2023-07-31 06:53 | disposition home or self-care (01) ==
PROVIDERS: Emergency Provider Emergency Medicine; PCP Nurse Practitioner Family
DX: S09.8XXA Other specified injuries of head, initial encounter (principal); Z79.01 Long term (current) use of anticoagulants; F17.210 Nicotine dependence, cigarettes, uncomplicated; E78.5 Hyperlipidemia, unspecified; I10 Essential (primary) hypertension; Z86.73 Personal history of transient ischemic attack (TIA), and cerebral infarction without residual deficits; W18.39XA Other fall on same level, initial encounter; Y92.008 Other place in unspecified non-institutional (private) residence as the place of occurrence of the external cause
CPT/HCPCS: 70450; 99284

== ENCOUNTER 2023-08-02 04:40 | Emergency (ER) | payer MEDICARE, MEDICAID, SELFPAY ==
[2023-08-02 04:47] VITALS: BP 134/71; TEMP 36.7
[2023-08-02 04:56] VITALS: BP 134/71; PULSE 81; RESP 16; O2SAT 98
--- NOTE | 2023-08-02 05:03 | CTR_ITS ---
PROCEDURE INFORMATION: Exam: CT Head Without Contrast Exam date and time: 08/02/2023 5:11 AM Age: 78 years old Clinical indication: Injury or trauma; Fall; Prior surgery; Surgery date: 6+ months; Surgery type: Shunt; Additional info: Fall on eliquis hit head TECHNIQUE: Imaging protocol: Computed tomography of the head without contrast. Radiation optimization: All CT scans at this facility use at least one of these dose optimization techniques: automated exposure control; mA and/or kV adjustment per patient size (includes targeted exams where dose is matched to clinical indication); or iterative reconstruction. COMPARISON: CT head wo con* [id number] 07/31/2023 5:50 AM RADIATION DOSE METRICS: Total DLP (mGy-cm): 1023.5 FINDINGS: Tubes, catheters and devices: [employer]G [employer] D[employer] MIXER shunt enters from a right approach and terminates in the anterior genu of the left lateral ventricle. Brain: . No hemorrhage. Periventricular white matter lucency representing atherosclerotic encephalopathic changes. Right temporal craniotomy with adjacent temporal lobe encephalomalacia/gliosis. Cerebral ventricles: No ventriculomegaly. Paranasal sinuses: Visualized sinuses are unremarkable. No fluid levels. Mastoid air cells: Visualized mastoid air cells are well aerated. Bones/joints: See Brain finding. Soft tissues: Unremarkable. Other findings: No mass effect. CT/CT head wo con* [id number] IMPRESSION: No acute intracranial abnormality.
--- NOTE | 2023-08-02 05:03 | XRR_ITS ---
PROCEDURE INFORMATION: Exam: XR Right Shoulder Exam date and time: 08/02/2023 5:16 AM Age: 78 years old Clinical indication: Injury or trauma; Fall; Additional info: Fall pain TECHNIQUE: Imaging protocol: Radiologic exam of the right shoulder. Views: 2 or more views. COMPARISON: CT cervical spin wo con* [id number] 07/30/2023 1:01 AM FINDINGS: Bones/joints: Acromioclavicular and glenohumeral spurring. No fracture or dislocation. No lytic or sclerotic bone lesion.. Soft tissues: Normal. XR/XR shoulder RT min 2V* [id number] IMPRESSION: No acute findings.
--- NOTE | 2023-08-02 05:13 | W.ED.FALL ---
HPI - Fall General: Chief Complaint: Fall Stated Complaint: fall, head pain , right shoulder pain Time Seen by Provider: 08/02/23 04:43 History of Present Illness: Patient presents to the ER after a fall while going down her ramp into her bedroom. She fell approximately 4 AM. Patient states she hit the right side of her head on the railing and hit her right shoulder. Patient is on Eliquis. Patient is complaining of pain in both places. Patient not lose consciousness. This makes the patient's fifth time to the ER within the last week. Review of Systems General: Reports: 10 or more systems reviewed and unremarkable except in HPI and below PFSH ED PFSH: Medical History Left-sided weakness Psychiatric care History of malignant melanoma History of nonmelanoma skin cancer Skin cancer of nose On 5-FU cream Basal cell carcinoma of skin of nose (~07/2017) Paresthesia of skin Malignant melanoma of chin (~07/2017) Anxiety with depression Squamous cell carcinoma of left lower leg Lung nodule right Leukocytosis follows with Dr Rubio Anemia, iron deficiency Adult onset hypothyroidism Hyperlipidemia, unspecified Essential (primary) hypertension Gait instability With frequent falls at baseline Urinary incontinence, urge Brain aneurysm (~1995) Acquired bilateral hammer toes CVA (cerebrovascular accident due to intracerebral hemorrhage) Surgical History History of brain shunt History of hysterectomy History of appendectomy History of brain surgery (~1995) ruptured aneurysm repair with shunt implanted History of section Family History Family/Other Stroke CAD (coronary artery disease) Cancer skin Social History Smoking and tobacco/nicotine status: current every day tobacco/nicotine user cigarettes Packs smoked per day: 0.5 Years cigarettes smoked: 59 Quit status (tobacco/nicotine): has tried quititng Number of times tried to quit tobacco: 30 Second hand smoke exposure: Yes Alcohol intake: former Substance/Drug Use: never Caregiver/support person: Yes (daughter) Lives independently: No (relatives) Household members: none Marital status: Number of children: 1 service: No Current occupational status: retired Current gender identity: Female Special colt needs: No Physical Exam Const: COMMON NORMALS: no acute distress, average body habitus, patient oriented x3, no limitations, healthy appearing, alert and well nourished HENMT: COMMON NORMALS: normocephalic, hearing grossly normal bilaterally, external ears normal, Normal external nose present, moist oral mucous membranes and oropharynx normal; head/scalp not atraumatic (Tender to palpate over the right side of skull no crepitus) HEAD & SCALP: normocephalic; not atraumatic (Tender to palpate over the right side of skull no crepitus) NOSE: Normal external nose present EXTERNAL EAR: Yes external ears normal Eye: COMMON NORMALS: Equal, round and reactive pupils present, EOMs intact bilaterally, conjunctivae normal and no scleral icterus CONJUNCTIVA: Yes conjunctivae normal PUPIL: Yes Equal, round and reactive pupils present Neck/C-Spine: COMMON NORMALS: no JVD Chest: COMMONS NORMALS: normal inspection of the chest and normal palpation of entire chest wall Resp: COMMON NORMALS: normal respiratory effort, No retractions, No use of accessory muscles and clear to auscultation bilaterally AUSCULTATION: clear to auscultation bilaterally Cardio: COMMON NORMALS: no JVD, regular rate, regular rhythm, S1 normal heart sound present, S2 normal heart sound present, No gallops present (Cardio), No clicks present (Cardio), No murmurs present (Cardio) and No rub (Cardio) RATE: regular rate RHYTHM: regular rhythm HEART SOUNDS: S1 normal heart sound present and S2 normal heart sound present GI: COMMON NORMALS: Normal to inspection, nondistended, normoactive bowel sounds present, Soft to palpation, non-tender, No hepatosplenomegaly present and no masses PALPATION: Yes Soft to palpation and Yes No hepatosplenomegaly present Extremity: NARRATIVE EXTREMITY EXAM: Minimal pain with palpation over right anterior shoulder joint region. No obvious crepitus deformity full range of motion. Neuro: COMMON NORMALS: patient oriented x3 SENSORIUM/ORIENTATION: Yes alert Course Vital Signs: Vital signs: Vital Signs Temperature 98.1 F 08/02/23 04:47 Pulse Rate 86 08/02/23 07:25 Respiratory Rate 16 08/02/23 07:25 Blood Pressure 130/78 08/02/23 07:25 Pulse Oximetry 95 08/02/23 07:25 Oxygen Delivery Me thod Room Air 08/02/23 06:35 MDM - Fall Medical Decision Making Patient had x-rays of the shoulder and a head CT both which were normal. Patient be discharged from the ER and told to follow-up with her PCP within next 7 days as needed. Differential Diagnosis Unlikely syncope, dislocation of shoulder region, fracture of wrist, compression fracture, concussion with loss of consciousness or concussion without loss of consciousness Medical Records I reviewed the patient's medical records. Lab Data I reviewed the patient's lab results. Radiology Impressions Head CT 08/02/23 05:03 IMPRESSION: No acute intracranial abnormality. Shoulder X-Ray 08/02/23 05:03 IMPRESSION: No acute findings. All radiology interpretation(s) finalized by discharge Discharge Plan Discharge Patient Disposition: Home Clinical Impression: Fall Condition: Stable Prescriptions: No Action (DME) lift chair See Rx Instructions .Route .MEDSUPPLY Qty: 1 0RF Rx Instructions: As directed cholecalciferol (vitamin D3) 125 mcg (5,000 unit) capsule 5,000 unit PO DAILY Qty: 90 1RF ascorbic acid (vitamin C) 1,000 mg tablet 1 gm PO DAILY multivitamin Tablet 1 tab PO QAM cyanocobalamin (vitamin B-12) 2,500 mcg tablet 2,500 mcg PO DAILY (DME) Rollater walker See Rx Instructions .Route .MEDSUPPLY Qty: 1 0RF Rx Instructions: As directed medical marijuana See Rx Instructions .ROUTE .COMPLEX Rx Instructions: DIRECTED NEEDED (DME) non articulating custom AFO to left See Rx Instructions .Route .MEDSUPPLY Qty: 1 0RF Rx Instructions: As directed by [facility] venlafaxine [Effexor XR] 150 mg capsule,extended release 24hr 150 mg PO DAILY Qty: 30 2RF Rx Instructions: TAKE WITH 75 MG TO EQUAL 225 MG ONCE DAILY venlafaxine [Effexor XR] 75 mg capsule,extended release 24hr 75 mg PO DAILY Qty: 30 2RF Rx Instructions: Take with 150 mg for total of 225 mg daily mirtazapine 7.5 mg tablet 7.5 mg PO BEDTIME Qty: 30 2RF bupropion HCl [Wellbutrin XL] 300 mg tablet extended release 24 hr 300 mg PO QAM Qty: 30 2RF (DME) Wheelchair See Rx Instructions .Route .MEDSUPPLY Qty: 1 0RF Rx Instructions: As directed losartan 100 mg tablet 100 mg PO DAILY Eliquis 5 mg tablet 5 mg PO BID albuterol sulfate 90 mcg/actuation HFA aerosol inhaler 2 puff INHALATION Q6H PRN (Reason: Shortness Of Breath Or Wheezing) methenamine hippurate 1 gram tablet 1 g PO DAILY docusate sodium [Stool Softener] 100 mg Capsule 100 mg PO DAILY Krill Oil Gummy 2 tab PO BID atorvastatin 40 mg tablet 40 mg PO DAILY levothyroxine 25 mcg tablet 25 mcg PO QAM oxybutynin chloride 10 mg Tablet Extended Release 24hr 10 mg PO DAILY Abilify 5 mg tablet 5 mg PO QAM Discharge Orders: Discharge ED (Routine); Ordered 08/02/23 Ordered By: Zo Feliciano Referrals: Mary Moncada APN [Primary Care Provider] - (You have been screened and evaluated and felt safe for discharge. Health conditions do change or evolve sometimes and as such it is important that you follow up with your Primary Doctor to be re checked, 3-5 days is a general good time frame for follow up. You are always welcome to return to the ED for re assessment if your symptoms are worsening or you have new concerns) Discharge Diet: Usual diet Discharge Activity: Resume usual activity Patient Instructions: Opioid Safety, Pain Management Coding Level of Care Code ED Didactic Program In Dietetics Director for Janell Mathew
[2023-08-02 05:29] VITALS: BP 146/69; O2SAT 98
[2023-08-02 06:35] VITALS: O2SAT 97
[2023-08-02 07:25] VITALS: BP 130/78; PULSE 86; RESP 16; O2SAT 95
== END 2023-08-02 07:28 | disposition home or self-care (01) ==
PROVIDERS: Emergency Provider Emergency Medicine; PCP Nurse Practitioner Family
DX: R51.9 Headache, unspecified (principal); M25.511 Pain in right shoulder; W10.2XXA Fall (on)(from) incline, initial encounter; E78.5 Hyperlipidemia, unspecified; I10 Essential (primary) hypertension; Z86.73 Personal history of transient ischemic attack (TIA), and cerebral infarction without residual deficits; F17.210 Nicotine dependence, cigarettes, uncomplicated
CPT/HCPCS: 70450; 73030; 99284

== ENCOUNTER 2023-08-08 12:40 | Emergency (ER) | payer MEDICARE, MEDICAID, SELFPAY ==
[2023-08-08 12:48] VITALS: BP 146/85; PULSE 93; RESP 15; TEMP 36.7; O2SAT 97; BMI 31.1
--- NOTE | 2023-08-08 12:56 | XRR_ITS ---
PROCEDURE INFORMATION: Exam: XR Right Shoulder Exam date and time: 08/08/2023 12:11 PM Age: 78 years old Clinical indication: Injury or trauma; Fall; Blunt trauma (contusions or hematomas); Shoulder; Right TECHNIQUE: Imaging protocol: Radiologic exam of the right shoulder. Views: 2 or more views. COMPARISON: CR (CHEST, ) 08/02/2023 5:16 AM FINDINGS: Tubes, catheters and devices: A partially visualized right IJ CVC is noted. Bones/joints: No fracture or other acute abnormality. Hypertrophic changes are seen in the acromioclavicular joint. Soft tissues: Normal. XR/XR shoulder RT min 2V* [id number] IMPRESSION: Nonacute findings.
--- NOTE | 2023-08-08 12:56 | CT_ITS ---
WS: [id number] CT HEAD NONCONTRAST HISTORY: trauma TECHNIQUE: Contiguous axial imaging performed through the brain in 2.5 mm imaging. Bone and soft tiss ue windows. Sagittal and coronal reformats reviewed. All CT scans at [facility] use at least one of these dose optimization techniques: automated exposure control; mA and/or kV adjustment per pa tient size (includes targeted exams where dose is matched to clinical indication); or iterative recon struction. DLP: 2273.29 mGy.cm COMPARISON: 08/02/2023 No acute intracranial hemorrhage, midline shift or mass effect. Atrophy and volume loss with encephalomalacia involving the RIGHT temporal lobe. Increased low-attenu ation in the white matter of the RIGHT frontal and parietal lobes. Very similar to prior studies. No acute interval change. Ventricles: [employer]CH[employer] shunt catheter enters through the posterior RIGHT parietal bone with tip terminating i n the anterior horn the LEFT lateral ventricle. Similar to the prior study. No increase in size of the ventricles. Paranasal sinuses: As visualized are clear. Mastoid air cells: Well pneumatized. Calvarium and scalp: RIGHT temporal craniotomy. IMPRESSION: 1. No acute intracranial hemorrhage or edema. 2. Encephalomalacia and gliosis RIGHT temporal lobe with prior craniotomy. 3. RET[employer] MERCHANDIS[employer] shunt remains unchanged in position. No hydrocephalus. 4. Small vessel ischemic changes greatest in the RIGHT cerebrum are stable.
--- NOTE | 2023-08-08 12:56 | CT_ITS ---
WS: [id number] CT CERVICAL SPINE HISTORY: trauma TECHNIQUE: Contiguous 2.0 mm axial imaging performed through the entire cervical spine. Sagittal and coronal reformats also performed. All CT scans at [facility] use at least one of these dose o ptimization techniques: automated exposure control; mA and/or kV adjustment per patient size (include s targeted exams where dose is matched to clinical indication); or iterative reconstruction. DLP: 2273.29 mGy.cm COMPARISON: 07/30/2023 Normal posterior cervical alignment. Mild curvature. Craniocervical junction is normal. Lateral nisreen s of C1 and C2 are aligned. Facet joints are normally aligned. No vertebral body fractures. No signif icant stenosis. No acute appearing disc protrusions. Small calcified disc protrusion at C5-6 with mil d encroachment upon the ventral thecal sac. IMPRESSION: Stable cervical spine. No acute fractures.
--- NOTE | 2023-08-08 14:07 | W.ED.HEATRA ---
HPI - Head Injury General: Chief complaint: Head Injury Stated complaint: fall Time Seen by Provider: 08/08/23 13:44 Source: patient Mode of arrival: wheelchair Limitations: no limitations History of Present Illness: Patient is a 78-year-old female presents to ED today for evaluation following a fall. Patient states she fell out of her wheelchair as she was bending over to get something on top of a countertop. Patient states she has had multiple falls out of her wheelchair recently. Patient states she has absolutely no symptoms prior to any of her falls. Denies chest pain, shortness of breath, difficulty breathing. Denies lightheadedness or dizziness. Patient states that she fell today she did strike her head. She is on anticoagulation. She also states she struck her right shoulder. She has no complaints of neck or back pain. MD Complaint: head injury and fall Onset (ago): hour(s) Mechanism of Injury: fall Place: home Loss of Consciousness: no Location of injury: parietal Severity: mild Radiation: none Other Injuries: upper extremity Context: other anticoagulant use Associated symptoms: Reports no associated symptoms; Deny neck pain or syncope Review of Systems Eyes: Denies: change in vision, blurry vision, photophobia, eye discharge, floaters or seeing flashes ENMT: Denies: throat pain, odynophagia, ear or mastoid pain, ear discharge, nasal discharge, epistaxis or sinus pain Card: Denies: chest pain, palpitations, lightheadedness, syncope or pre-syncope Resp: Denies: dyspnea or pain on inspiration GI: Denies: abdominal pain : Denies: flank pain or hematuria Musc: Reports: joint pain (R shoulder pain); Denies: neck pain, back pain, extremity pain, extremity swelling, joint swelling, joint redness or joint warmth Skin/Breast: Denies: rash Neuro: Denies: headache(s), numbness in extremities, weakness in extremities, sensory changes or dizziness PFSH ED PFSH: Medical History Left-sided weakness Psychiatric care History of malignant melanoma History of nonmelanoma skin cancer Skin cancer of nose On 5-FU cream Basal cell carcinoma of skin of nose (~07/2017) Paresthesia of skin Malignant melanoma of chin (~07/2017) Anxiety with depression Squamous cell carcinoma of left lower leg Lung nodule right Leukocytosis follows with Dr Rubio Anemia, iron deficiency Adult onset hypothyroidism Hyperlipidemia, unspecified Essential (primary) hypertension Gait instability With frequent falls at baseline Urinary incontinence, urge Brain aneurysm (~1995) Acquired bilateral hammer toes CVA (cerebrovascular accident due to intracerebral hemorrhage) Surgical History History of brain shunt History of hysterectomy History of appendectomy History of brain surgery (~1995) ruptured aneurysm repair with shunt implanted History of section Family History Family/Other Stroke CAD (coronary artery disease) Cancer skin Social History Smoking and tobacco/nicotine status: current every day tobacco/nicotine user cigarettes Packs smoked per day: 0.5 Years cigarettes smoked: 59 Quit status (tobacco/nicotine): has tried quititng Number of times tried to quit tobacco: 30 Second hand smoke exposure: Yes Alcohol intake: former Substance/Drug Use: never Caregiver/support person: Yes (daughter) Lives independently: No (relatives) Household members: none Marital status: Number of children: 1 service: No Current occupational status: retired Current gender identity: Female Special colt needs: No Physical Exam Const: COMMON NORMALS: no acute distress, average body habitus, patient oriented x3, no limitations, healthy appearing, alert and well nourished GENERAL APPEARANCE: cooperative ORIENTATION/CONSCIOUSNESS: Yes awake, Yes oriented to person, Yes oriented to place and Yes oriented to time HENMT: COMMON NORMALS: normocephalic, atraumatic and TM's normal bilaterally HEAD & SCALP: normal to inspection, normocephalic and atraumatic; no Wilkins's sign, no hematoma and no raccoon eyes FACE & SINUS: normal facial exam TYMPANIC MEMBRANE: TM's normal bilaterally MOUTH: other (no intraoral injuries noted) Eye: COMMON NORMALS: Equal, round and reactive pupils present and EOMs intact bilaterally GENERAL EYE: appearance normal, both eyes and all related structures and normal light reflex PUPIL: Yes Equal, round and reactive pupils present DIRECT OPHTHALMOSCOPY: Yes normal light reflex Neck/C-Spine: COMMON NORMALS: full ROM GENERAL: Yes normal visual inspection CERVICAL SPINE: Yes cervical ROM normal, No pain with cervical ROM, No Cervical spine tenderness, No step off deformity and No Paracervical muscle tenderness Chest: COMMONS NORMALS: normal inspection of the chest and normal palpation of entire chest wall Resp: COMMON NORMALS: normal respiratory effort and clear to auscultation bilaterally AUSCULTATION: clear to auscultation bilaterally Cardio: COMMON NORMALS: regular rate and regular rhythm RATE: regular rate RHYTHM: regular rhythm GI: COMMON NORMALS: Normal to inspection, nondistended, normoactive bowel sounds present, Soft to palpation, non-tender, No hepatosplenomegaly present and no masses INSPECTION: Yes normal to inspection and No abdominal wall ecchymosis AUSCULTATION: Yes normoactive bowel sounds PALPATION: Yes Soft to palpation and Yes No hepatosplenomegaly present Back/Pelvis: COMMON NORMALS: thoracic and lumbar spine normal to inspection, no thoracic nor lumbar tenderness and thoraco-lumbar ROM normal Extremity: COMMON NORMALS: normal to inspection GENERAL: Yes normal exam except as noted RIGHT UPPER EXTREMITY: Yes shoulder joint Right shoulder: Yes Right shoulder joint ROM exam (fairly normal ROM) and Yes Right shoulder joint neurovascular exam (normal) Neuro: BETO COMA SCALE: document GCS findings Rodeo coma scale eye opening: Spontaneous Rodeo coma scale verbal response: Orientated Rodeo coma scale motor response: Obey commands Beto coma scale total score: 15 COMMON NORMALS: patient oriented x3, CN's II-XII intact bilaterally, moves all extremities, no focal motor deficits, no sensory deficits noted and gait normal SENSORIUM/ORIENTATION: Yes alert, Yes oriented to person, Yes oriented to place and Yes oriented to time SPEECH: speech normal GAIT: Yes Normal gait present Skin: COMMON NORMALS: no rashes or lesions noted GENERAL SKIN EXAM: no rashes or lesions noted TRAUMA: no lacerations or abrasions Course Vital Signs: Vital signs: Vital Signs Temperature 98.0 F 08/08/23 12:48 Pulse Rate 93 08/08/23 12:48 Respiratory Rate 15 08/08/23 12:48 Blood Pressure 146/85 08/08/23 12:48 Pulse Oximetry 97 08/08/23 12:48 Oxygen Delivery Me thod Room Air 08/08/23 12:48 MDM - Head Injury Medcial Decision Making CT scans of her head and cervical spine are negative. Shoulder x-ray is negative. She would like to go home at this time. Medical Records I reviewed the patient's medical records. Lab Data Radiology Impressions Shoulder X-Ray 08/08/23 12:56 IMPRESSION: Nonacute findings. All radiology interpretation(s) finalized by discharge Discharge Plan Discharge Patient Disposition: Home Clinical Impression: Minor closed head injury Accidental fall from wheelchair Qualifiers: Encounter type: initial encounter Qualified Code(s): W05.0XXA - Fall from non-moving wheelchair, initial encounter Condition: Stable Prescriptions: No Action (DME) lift chair See Rx Instructions .Route .MEDSUPPLY Qty: 1 0RF Rx Instructions: As directed cholecalciferol (vitamin D3) 125 mcg (5,000 unit) capsule 5,000 unit PO DAILY Qty: 90 1RF ascorbic acid (vitamin C) 1,000 mg tablet 1 gm PO DAILY multivitamin Tablet 1 tab PO QAM cyanocobalamin (vitamin B-12) 2,500 mcg tablet 2,500 mcg PO DAILY (DME) Rollater walker See Rx Instructions .Route .MEDSUPPLY Qty: 1 0RF Rx Instructions: As directed medical marijuana See Rx Instructions .ROUTE .COMPLEX Rx Instructions: DIRECTED NEEDED (DME) non articulating custom AFO to left See Rx Instructions .Route .MEDSUPPLY Qty: 1 0RF Rx Instructions: As directed by [facility] venlafaxine [Effexor XR] 150 mg capsule,extended release 24hr 150 mg PO DAILY Qty: 30 2RF Rx Instructions: TAKE WITH 75 MG TO EQUAL 225 MG ONCE DAILY venlafaxine [Effexor XR] 75 mg capsule,extended release 24hr 75 mg PO DAILY Qty: 30 2RF Rx Instructions: Take with 150 mg for total of 225 mg daily mirtazapine 7.5 mg tablet 7.5 mg PO BEDTIME Qty: 30 2RF bupropion HCl [Wellbutrin XL] 300 mg tablet extended release 24 hr 300 mg PO QAM Qty: 30 2RF (DME) Wheelchair See Rx Instructions .Route .MEDSUPPLY Qty: 1 0RF Rx Instructions: As directed losartan 100 mg tablet 100 mg PO DAILY Eliquis 5 mg tablet 5 mg PO BID albuterol sulfate 90 mcg/actuation HFA aerosol inhaler 2 puff INHALATION Q6H PRN (Reason: Shortness Of Breath Or Wheezing) methenamine hippurate 1 gram tablet 1 g PO DAILY docusate sodium [Stool Softener] 100 mg Capsule 100 mg PO DAILY Krill Oil Gummy 2 tab PO BID atorvastatin 40 mg tablet 40 mg PO DAILY levothyroxine 25 mcg tablet 25 mcg PO QAM oxybutynin chloride 10 mg Tablet Extended Release 24hr 10 mg PO DAILY Abilify 5 mg tablet 5 mg PO QAM Discharge Orders: Discharge ED (Routine); Ordered 08/08/23 Ordered By: Mei Martinez Referrals: Mary Moncada APN [Primary Care Provider] - Coding Level of Care Code ED It Software Developer for Chg Priyanka
== END 2023-08-08 14:27 | disposition home or self-care (01) ==
PROVIDERS: Emergency Provider Physician Assistant; PCP Nurse Practitioner Family
DX: S09.8XXA Other specified injuries of head, initial encounter (principal); W05.0XXA Fall from non-moving wheelchair, initial encounter; Z79.01 Long term (current) use of anticoagulants; E78.5 Hyperlipidemia, unspecified; I10 Essential (primary) hypertension; Z86.73 Personal history of transient ischemic attack (TIA), and cerebral infarction without residual deficits; F17.210 Nicotine dependence, cigarettes, uncomplicated
CPT/HCPCS: 70450; 72125; 73030; 99284

== ENCOUNTER 2023-08-10 19:00 | Emergency (ER) | payer MEDICARE, MEDICAID, SELFPAY ==
[2023-08-10 19:06] VITALS: BP 138/66; PULSE 89; RESP 18; TEMP 36.7; O2SAT 91; BMI 21.5
--- NOTE | 2023-08-10 19:06 | CTR_ITS ---
PROCEDURE INFORMATION: Exam: CT Cervical Spine Without Contrast Exam date and time: 08/10/2023 7:20 PM Age: 78 years old Clinical indication: Injury or trauma; Fall; Other: Weakness; Prior surgery; Surgery date: 6+ months; Surgery type: Shunt TECHNIQUE: Imaging protocol: Computed tomography of the cervical spine without contrast. Radiation optimization: All CT scans at this facility use at least one of these dose optimization techniques: automated exposure control; mA and/or kV adjustment per patient size (includes targeted exams where dose is matched to clinical indication); or iterative reconstruction. COMPARISON: CT cervical spin wo con* [id number] 08/08/2023 1:04 PM RADIATION DOSE METRICS: Total DLP (mGy-cm): 153.17 FINDINGS: Bones/joints: No acute fracture. Normal alignment. C2-C3: No significant disc bulge or herniation. No severe spinal canal stenosis. No significant neural foraminal narrowing. C3-C4: No significant disc bulge or herniation. No severe spinal canal stenosis. No significant neural foraminal narrowing. C4-C5: No significant disc bulge or herniation. No severe spinal canal stenosis. No significant neural foraminal narrowing. C5-C6: C5-C6 partially calcified broad-based disc bulge with mild spinal canal narrowing appears chronic. C6-C7: No significant disc bulge or herniation. No severe spinal canal stenosis. No significant neural foraminal narrowing. C7-T1: No significant disc bulge or herniation. No severe spinal canal stenosis. No significant neural foraminal narrowing. Lungs: Lung apices are normal. Soft tissues: Unremarkable. CT/CT cervical spin wo con* [id number] IMPRESSION: 1. No acute findings. 2. C5-C6 partially calcified broad-based disc bulge with mild spinal canal narrowing appears chronic.
--- NOTE | 2023-08-10 19:06 | CTR_ITS ---
PROCEDURE INFORMATION: Exam: CT Head Without Contrast Exam date and time: 08/10/2023 7:18 PM Age: 78 years old Clinical indication: Injury or trauma; Fall; Other: Weakness; Prior surgery; Surgery date: 6+ months; Surgery type: Shunt TECHNIQUE: Imaging protocol: Computed tomography of the head without contrast. Radiation optimization: All CT scans at this facility use at least one of these dose optimization techniques: automated exposure control; mA and/or kV adjustment per patient size (includes targeted exams where dose is matched to clinical indication); or iterative reconstruction. COMPARISON: CT head wo con* [id number] 08/08/2023 1:04 PM RADIATION DOSE METRICS: Total DLP (mGy-cm): 1021.48 FINDINGS: Brain: Right temporal craniotomy changes with right temporal lobe chronic encephalomalacia. Moderate diffuse white matter disease likely reflecting chronic microvascular ischemic changes. Cerebral ventricles: Right sided ventricular shunt seen coursing through the right parietal lobe, right lateral ventricle, septum pellucidum with tip in the left lateral ventricle frontal horn. Paranasal sinuses: Visualized sinuses are unremarkable. No fluid levels. Mastoid air cells: Visualized mastoid air cells are well aerated. Bones/joints: See Brain finding. Soft tissues: Unremarkable. CT/CT head wo con* [id number] IMPRESSION: 1. Negative for intracranial hemorrhage or mass effect. 2. Right temporal craniotomy changes with right temporal lobe chronic encephalomalacia. 3. Right sided ventricular shunt seen coursing through the right parietal lobe, right lateral ventricle, septum pellucidum with tip in the left lateral ventricle frontal horn. 4. Moderate diffuse white matter disease likely reflecting chronic microvascular ischemic changes.
--- NOTE | 2023-08-10 19:07 | ED_ITS ---
HPI - Fall General: Chief Complaint: Fall Stated Complaint: Fall Time Seen by Provider: 08/10/23 19:01 Source: patient and EMS Mode of arrival: EMS Limitations: no limitations History of Present Illness: 78-year-old female has been seen here re cently multiple times for multiple falls. Patient had a fall today states she hit her head but concrete does have some head pain. I actually did ask her about alf since she has been having some falls on her own she is actually getting placed into [facility] assisted living tomorrow and states that she was in there tomorrow. She denies any pain currently besides her head and neck Associated symptoms-after fall: Reports headache(s) and neck pain; Denies abdominal pain or chest pain Review of Systems Const: Denies: fever(s), chills, body aches or change in appetite Eyes: Denies: blurry vision or eye discomfort ENMT: Denies: throat pain or dental pain Card: Denies: chest pain Resp: Denies: dyspnea GI: Denies: abdominal pain, nausea, vomiting or diarrhea Musc: Reports: neck pain; Denies: back pain Skin/Breast: Denies: rash Neuro: Reports: headache(s) PFSH ED PFSH: Medical History Left-sided weakness Psychiatric care History of malignant melanoma History of nonmelanoma skin cancer Skin cancer of nose On 5-FU cream Basal cell carcinoma of skin of nose (~07/2017) Paresthesia of skin Malignant melanoma of chin (~07/2017) Anxiety with depression Squamous cell carcinoma of left lower leg Lung nodule right Leukocytosis follows with Dr Rubio Anemia, iron deficiency Adult onset hypothyroidism Hyperlipidemia, unspecified Essential (primary) hypertension Gait instability With frequent falls at baseline Urinary incontinence, urge Brain aneurysm (~1995) Acquired bilateral hammer toes CVA (cerebrovascular accident due to intracerebral hemorrhage) Surgical History History of brain shunt History of hysterectomy History of appendectomy History of brain surgery (~1995) ruptured aneurysm repair with shunt implanted History of section Family History Family/Other Stroke CAD (coronary artery disease) Cancer skin Social History Smoking and tobacco/nicotine status: current every day tobacco/nicotine user cigarettes Packs smoked per day: 0.5 Years cigarettes smoked: 59 Quit status (tobacco/nicotine): has tried quititng Number of times tried to quit tobacco: 30 Second hand smoke exposure: Yes Alcohol intake: former Substance/Drug Use: never Caregiver/support person: Yes (daughter) Lives independently: No (relatives) Household members: none Marital status: Number of children: 1 service: No Current occupational status: retired Current gender identity: Female Special colt needs: No Physical Exam Const: COMMON NORMALS: no acute distress, patient oriented x3 and healthy appearing HENMT: COMMON NORMALS: normocephalic HEAD & SCALP: normocephalic OTHER: tenderness to posterior scalp Eye: COMMON NORMALS: Equal, round and reactive pupils present and EOMs intact bilaterally PUPIL: Yes Equal, round and reactive pupils present Neck/C-Spine: COMMON NORMALS: full ROM OTHER: mild tenderness along c spine Chest: COMMONS NORMALS: normal inspection of the chest and normal palpation of entire chest wall Resp: COMMON NORMALS: normal respiratory effort, No retractions, No use of accessory muscles and clear to auscultation bilaterally AUSCULTATION: clear to auscultation bilaterally Cardio: COMMON NORMALS: regular rate, regular rhythm and No murmurs present (Cardio) RATE: regular rate RHYTHM: regular rhythm GI: COMMON NORMALS: Normal to inspection, nondistended, normoactive bowel sounds present, Soft to palpation, non-tender and no masses PALPATION: Yes Soft to palpation Extremity: COMMON NORMALS: normal to inspection and full ROM Neuro: COMMON NORMALS: patient oriented x3, moves all extremities and no focal motor deficits Psych: COMMON NORMALS: mental status grossly normal, Normal thought process present and cooperative THOUGHT PROCESS: Normal thought process present Skin: COMMON NORMALS: no rashes or lesions noted and no wounds GENERAL SKIN EXAM: no rashes or lesions noted Course Vital Signs: Vital signs: Vital Signs Temperature 98.0 F 08/10/23 19:06 Pulse Rate 80 08/10/23 20:10 Respiratory Rate 16 08/10/23 20:10 Blood Pressure 138/73 08/10/23 20:10 Pulse Oximetry 96 08/10/23 20:10 Oxygen Delivery Me thod Room Air 08/10/23 20:10 MDM - Fall Medical Decision Making Patient presents here after a closed head injury from a fall imaging here is normal she stable for discharge did speak to her daughter informed her that she needs to get into assisted living or alf return if worsening Lab Data Radiology Impressions Cervical Spine CT 08/10/23 19:06 IMPRESSION: 1. No acute findings. 2. C5-C6 partially calcified broad-based disc bulge with mild spinal canal narrowing appears chronic. Head CT 08/10/23 19:06 IMPRESSION: 1. Negative for intracranial hemorrhage or mass effect. 2. Right temporal craniotomy changes with right temporal lobe chronic encephalomalacia. 3. Right sided ventricular shunt seen coursing through the right parietal lobe, right lateral ventricle, septum pellucidum with tip in the left lateral ventricle frontal horn. 4. Moderate diffuse white matter disease likely reflecting chronic microvascular ischemic changes. All radiology interpretation(s) finalized by discharge Discharge Plan Discharge Patient Disposition: Home Clinical Impression: Closed head injury, Fall Prescriptions: No Action (DME) lift chair See Rx Instructions .Route .MEDSUPPLY Qty: 1 0RF Rx Instructions: As directed cholecalciferol (vitamin D3) 125 mcg (5,000 unit) capsule 5,000 unit PO DAILY Qty: 90 1RF ascorbic acid (vitamin C) 1,000 mg tablet 1 gm PO DAILY multivitamin Tablet 1 tab PO QAM cyanocobalamin (vitamin B-12) 2,500 mcg tablet 2,500 mcg PO DAILY (DME) Rollater walker See Rx Instructions .Route .MEDSUPPLY Qty: 1 0RF Rx Instructions: As directed medical marijuana See Rx Instructions .ROUTE .COMPLEX Rx Instructions: DIRECTED NEEDED (DME) non articulating custom AFO to left See Rx Instructions .Route .MEDSUPPLY Qty: 1 0RF Rx Instructions: As directed by [facility] venlafaxine [Effexor XR] 150 mg capsule,extended release 24hr 150 mg PO DAILY Qty: 30 2RF Rx Instructions: TAKE WITH 75 MG TO EQUAL 225 MG ONCE DAILY venlafaxine [Effexor XR] 75 mg capsule,extended release 24hr 75 mg PO DAILY Qty: 30 2RF Rx Instructions: Take with 150 mg for total of 225 mg daily mirtazapine 7.5 mg tablet 7.5 mg PO BEDTIME Qty: 30 2RF bupropion HCl [Wellbutrin XL] 300 mg tablet extended release 24 hr 300 mg PO QAM Qty: 30 2RF (DME) Wheelchair See Rx Instructions .Route .MEDSUPPLY Qty: 1 0RF Rx Instructions: As directed losartan 100 mg tablet 100 mg PO DAILY Eliquis 5 mg tablet 5 mg PO BID albuterol sulfate 90 mcg/actuation HFA aerosol inhaler 2 puff INHALATION Q6H PRN (Reason: Shortness Of Breath Or Wheezing) methenamine hippurate 1 gram tablet 1 g PO DAILY docusate sodium [Stool Softener] 100 mg Capsule 100 mg PO DAILY Krill Oil Gummy 2 tab PO BID atorvastatin 40 mg tablet 40 mg PO DAILY levothyroxine 25 mcg tablet 25 mcg PO QAM oxybutynin chloride 10 mg Tablet Extended Release 24hr 10 mg PO DAILY Abilify 5 mg tablet 5 mg PO QAM Discharge Orders: Discharge ED (Routine); Ordered 08/10/23 Ordered By: Juan Miguel Roberts Referrals: Mary Moncada APN [Primary Care Provider] - Discharge Diet: Advance as tolerated Discharge Activity: Resume usual activity Patient Instructions: Head Injury (ED), Fall Prevention (ED) Coding Level of Care Code ED Rotating Equipment Specialist for Janell Mathew
[2023-08-10 20:10] VITALS: BP 138/73; PULSE 80; RESP 16; O2SAT 96
== END 2023-08-10 20:27 | disposition home or self-care (01) ==
PROVIDERS: Emergency Provider Emergency Medicine; PCP Nurse Practitioner Family
DX: S09.8XXA Other specified injuries of head, initial encounter (principal); Z79.01 Long term (current) use of anticoagulants; F17.210 Nicotine dependence, cigarettes, uncomplicated; E78.5 Hyperlipidemia, unspecified; I10 Essential (primary) hypertension; Z86.73 Personal history of transient ischemic attack (TIA), and cerebral infarction without residual deficits; W19.XXXA Unspecified fall, initial encounter
CPT/HCPCS: 70450; 72125; 99284

== ENCOUNTER 2023-12-05 09:53 | Outpatient (CLI) | payer MEDICARE, MEDICAID, SELFPAY | END 2023-12-05 09:54 | disposition home or self-care (01) | LOC: SPT 09:54 | PROVIDERS: PCP Nurse Practitioner Family; Visit Provider Podiatrist Foot & Ankle Surgery | DX: R26.9 Unspecified abnormalities of gait and mobility (principal); I61.9 Nontraumatic intracerebral hemorrhage, unspecified; M21.372 Foot drop, left foot; M24.572 Contracture, left ankle; M25.572 Pain in left ankle and joints of left foot; G89.29 Other chronic pain; M21.6X2 Other acquired deformities of left foot | CPT/HCPCS: 97760; 99213; L4361 ==

== ENCOUNTER 2024-02-18 11:08 | Emergency (ER) | payer MEDICARE, MEDICAID, SELFPAY ==
[2024-02-18 11:10] VITALS: BP 180/79; PULSE 75; RESP 17; TEMP 36.6; O2SAT 100; BMI 21.9
--- NOTE | 2024-02-18 11:12 | XRR_ITS ---
PROCEDURE INFORMATION: Exam: XR Left Knee Exam date and time: 02/18/2024 11:31 AM Age: 78 years old Clinical indication: Injury or trauma; Fall; Blunt trauma; Knee; Left TECHNIQUE: Imaging protocol: Radiologic exam of the left knee. Views: 3 views. COMPARISON: [place] [id number] 09/18/2020 9:32 PM FINDINGS: Bones/joints: Normal osseous alignment and joint space. No joint effusion. No fracture is radiographically apparent. No aggressive osseous lesion or significant degenerative change. Small well-corticated ossicle adjacent to the lateral femoral condyle superiorly likely incidental chronic finding. Soft tissues: Normal. XR/XR knee LT 3V* [id number] IMPRESSION: No radiographically apparent acute osseous injury or malalignment.
--- NOTE | 2024-02-18 11:12 | CTR_ITS ---
PROCEDURE INFORMATION: Exam: CT Cervical Spine Without Contrast Exam date and time: 02/18/2024 11:28 AM Age: 78 years old Clinical indication: Injury or trauma; Fall; Blunt trauma TECHNIQUE: Imaging protocol: Computed tomography of the cervical spine without contrast. Radiation optimization: All CT scans at this facility use at least one of these dose optimization techniques: automated exposure control; mA and/or kV adjustment per patient size (includes targeted exams where dose is matched to clinical indication); or iterative reconstruction. COMPARISON: CT cervical spin wo con* [id number] 08/10/2023 7:20 PM RADIATION DOSE METRICS: Total DLP (mGy-cm): 1090.1 FINDINGS: Tubes, catheters and devices: Ventricular shunt tubing partially imaged coarsely along the posterior right. Bones: Normal craniocervical and atlantoaxial alignment. The odontoid process is intact. There is no evidence of increased density within the spinal canal to suggest hemorrhage. No cervical spinal fracture is seen. No aggressive osseous lesion. Mild scattered degenerative changes. Normal alignment of the cervical spine vertebral bodies and facets without evidence of listhesis or skipped/perched facet. Mastoid air cells: Visualized mastoid air cells are clear. Prevertebral and retropharyngeal spaces: The prevertebral soft tissues are normal in thickness. Lungs: Visualized lung apices are clear. Vasculature: There is atherosclerotic calcification in the carotid bulbs. There is atherosclerotic calcification within the vertebral arteries at the skull base. Soft tissues: Unremarkable. CT/CT cervical spin wo con* [id number] IMPRESSION: 1. No evidence of a cervical spinal fracture or traumatic malalignment. 2.Other incidental and/or chronic findings as detailed above.
--- NOTE | 2024-02-18 11:12 | CTR_ITS ---
PROCEDURE INFORMATION: Exam: CT Head Without Contrast Exam date and time: 02/18/2024 11:28 AM Age: 78 years old Clinical indication: Injury or trauma; Fall; Blunt trauma (contusions or hematomas); Prior surgery; Surgery date: 6+ months; Surgery type: Shunt; Patient HX: Lac over lt eye TECHNIQUE: Imaging protocol: Computed tomography of the head without contrast. Radiation optimization: All CT scans at this facility use at least one of these dose optimization techniques: automated exposure control; mA and/or kV adjustment per patient size (includes targeted exams where dose is matched to clinical indication); or iterative reconstruction. COMPARISON: CT head wo con* [id number] 08/10/2023 7:18 PM RADIATION DOSE METRICS: Total DLP (mGy-cm): 1144.9 FINDINGS: Tubes, catheters and devices: There is an intraventricular shunt catheter with the right posterior calvarial approach which appears unchanged in position from remote prior. Minimal expected encephalomalacia along the course of the catheter the high right parietal lobe. Brain: Minimal chronic encephalomalacia in the right frontal lobe, unchanged from prior. Anterior right temporal encephalomalacia also appears unchanged. There is patchy hypoattenuation in the periventricular white matter. While nonspecific, this is favored to represent chronic small vessel ischemic change. There is mild cerebral volume loss with associated mild prominence of the CSF spaces. No evidence of acute intracranial hemorrhage. No extra-axial fluid collection. No midline shift. Cerebral ventricles: No evidence of hydrocephalus. Paranasal sinuses: Visualized sinuses are unremarkable. No fluid levels. Mastoid air cells: Visualized mastoid air cells are well aerated. Orbital cavities: Orbits and globes appear intact. No orbital fracture is seen. Bones: Remote postsurgical changes to the right parietal calvarium. No fracture. Soft tissues: Soft tissue injury consistent with laceration in the left superior orbital soft tissues consistent with provided clinical history. No evidence of a radiopaque foreign body. Vasculature: There is calcific atherosclerosis within the cavernous carotids. There is atherosclerotic calcification within the vertebral arteries at the skull base. CT/CT head wo con* [id number] IMPRESSION: 1. Left superior orbital soft tissue laceration. No evidence of a radiopaque foreign body or underlying fracture. 2. Chronic stable senescent and postsurgical findings as above.
--- NOTE | 2024-02-18 11:20 | ED_ITS ---
HPI - Fall General: Chief Complaint: Fall Stated Complaint: head lac s/p fall Time Seen by Provider: 02/18/24 11:09 Source: patient and EMS Mode of arrival: EMS Limitations: no limitations History of Present Illness: 78-year-old female who is here from [facility] and fell on her wheelchair and hit her head has had a laceration to her left eyebrow she complains of head pain no neck pain and left knee pain. Unknown if she had a loss conscious. Associated symptoms-after fall: Reports headache(s) and neck pain; Denies abdominal pain or chest pain Related Data Home Medications Medication Instructions Recorded Confirmed ascorbic acid (vitamin C) 1,000 mg 1 gm PO DAILY 04/30/19 12/05/23 tablet multivitamin 1 tab PO QAM 04/30/19 12/05/23 cyanocobalamin (vitamin B-12) 2,500 mcg PO DAILY 06/25/19 12/05/23 2,500 mcg tablet medical marijuana See Rx Instructions .Route .COMPLEX 04/09/20 12/05/23 atorvastatin 40 mg tablet 40 mg PO DAILY 10/08/21 12/05/23 levothyroxine 25 mcg tablet 25 mcg PO QAM 10/08/21 12/05/23 apixaban 5 mg tablet (Eliquis) 5 mg PO BID 09/27/22 12/05/23 losartan 100 mg tablet 100 mg PO DAILY 09/27/22 12/05/23 oxybutynin chloride 10 mg 10 mg PO DAILY 10/06/22 12/05/23 tablet,extended release 24 hr Krill Oil Gummy 2 tab PO BID 07/24/23 12/05/23 albuterol sulfate 90 mcg/actuation 2 puff inhalation Q6H PRN 07/24/23 12/05/23 aerosol inhaler Shortness Of Breath Or Wheezing docusate sodium 100 mg capsule 100 mg PO DAILY 07/24/23 12/05/23 (Stool Softener) methenamine hippurate 1 gram tablet 1 g PO DAILY 07/24/23 12/05/23 Previous Rx's Medication Instructions Recorded Rollater walker #1 ea 09/17/19 cholecalciferol (vitamin D3) 125 5,000 unit PO DAILY #90 caps 01/08/20 mcg (5,000 unit) capsule lift chair #1 ea 01/08/20 Wheelchair #1 ea 02/03/22 CAM walker #1 ea 12/05/23 polymer AFO without laces #1 ea 12/05/23 aripiprazole 5 mg tablet (Abilify) 5 mg PO QAM #90 tabs 01/26/24 bupropion HCl 300 mg 24 hr tablet, 300 mg PO QAM #90 tabs 01/26/24 extended release (Wellbutrin XL) mirtazapine 7.5 mg tablet 7.5 mg PO BEDTIME #90 tabs 01/26/24 venlafaxine 150 mg 150 mg PO DAILY #90 caps 01/26/24 capsule,extended release 24 hr (Effexor XR) venlafaxine 75 mg capsule,extended 75 mg PO DAILY #90 caps 01/26/24 release 24 hr (Effexor XR) Allergies Allergy/AdvReac Type Severity Reaction Status Date / Time cephalexin Allergy rash Verified 12/05/23 08:31 clindamycin Allergy rash Verified 12/05/23 08:31 Review of Systems Const: Denies: fever(s), chills, body aches or change in appetite Eyes: Denies: blurry vision or eye discomfort ENMT: Denies: throat pain or dental pain Card: Denies: chest pain Resp: Denies: dyspnea GI: Denies: abdominal pain, nausea, vomiting or diarrhea Musc: Reports: neck pain; Denies: back pain Skin/Breast: Denies: rash Neuro: Reports: headache(s) [facility] ED PFSH: Medical History Left-sided weakness Psychiatric care History of malignant melanoma History of nonmelanoma skin cancer Skin cancer of nose On 5-FU cream Basal cell carcinoma of skin of nose (~07/2017) Paresthesia of skin Malignant melanoma of chin (~07/2017) Anxiety with depression Squamous cell carcinoma of left lower leg Lung nodule right Leukocytosis follows with Dr Rubio Anemia, iron deficiency Adult onset hypothyroidism Hyperlipidemia, unspecified Essential (primary) hypertension Gait instability With frequent falls at baseline Urinary incontinence, urge Brain aneurysm (~1995) Acquired bilateral hammer toes CVA (cerebrovascular accident due to intracerebral hemorrhage) Surgical History History of brain shunt History of hysterectomy History of appendectomy History of brain surgery (~1995) ruptured aneurysm repair with shunt implanted History of section Family History Family/Other Stroke CAD (coronary artery disease) Cancer skin Social History Smoking and tobacco/nicotine status: current every day tobacco/nicotine user cigarettes Packs smoked per day: 0.5 Years cigarettes smoked: 59 Quit status (tobacco/nicotine): has tried quititng Number of times tried to quit tobacco: 30 Second hand smoke exposure: Yes Alcohol intake: former Substance/Drug Use: never Caregiver/support person: Yes (daughter) Lives independently: No (relatives) Household members: none Marital status: Number of children: 1 service: No Current occupational status: retired Current gender identity: Female Special colt needs: No Physical Exam Const: COMMON NORMALS: no acute distress, patient oriented x3 and healthy appearing HENMT: OTHER: 4 cm laceration above left eyebrow Eye: COMMON NORMALS: Equal, round and reactive pupils present and EOMs intact bilaterally PUPIL: Yes Equal, round and reactive pupils present Neck/C-Spine: COMMON NORMALS: full ROM and supple Chest: COMMONS NORMALS: normal inspection of the chest and normal palpation of entire chest wall Resp: COMMON NORMALS: normal respiratory effort, No retractions, No use of accessory muscles and clear to auscultation bilaterally AUSCULTATION: clear to auscultation bilaterally Cardio: COMMON NORMALS: regular rate, regular rhythm and No murmurs present (Cardio) RATE: regular rate RHYTHM: regular rhythm GI: COMMON NORMALS: Normal to inspection, nondistended, normoactive bowel sounds present, Soft to palpation, non-tender and no masses PALPATION: Yes Soft to palpation Extremity: COMMON NORMALS: normal to inspection and full ROM Neuro: COMMON NORMALS: patient oriented x3, moves all extremities and no focal motor deficits Psych: COMMON NORMALS: mental status grossly normal, Normal thought process present and cooperative THOUGHT PROCESS: Normal thought process present Skin: COMMON NORMALS: no rashes or lesions noted and no wounds GENERAL SKIN EXAM: no rashes or lesions noted Procedures Laceration Laceration 1: Site: face Side (If applicable): left Size (cm): 4 Description: linear Depth: simple, single layer Local Anesthetic: lidocaine 1% Amount of anesthesia used (mL): 8 Pre-repair: wound explored, irrigated extensively and deep structures int act Skin layer closed with: nylon Size (cm): 5-0 Number of sutures: 7 Technique: running Course Vital Signs: Vital signs: Vital Signs Temperature 97.8 F 02/18/24 11:10 Pulse Rate 75 02/18/24 11:10 Respiratory Rate 17 02/18/24 11:10 Blood Pressure 180/79 02/18/24 11:10 Pulse Oximetry 100 02/18/24 11:10 MDM - Fall Medical Decision Making Patient presents here with a head laceration from a fall imaging here is negative did suture patient's had to have sutures removed in 7 days return if worsening Medical Records I reviewed the patient's medical records. Lab Data I reviewed the patient's lab results. Radiology Impressions Cervical Spine CT 02/18/24 11:12 IMPRESSION: 1. No evidence of a cervical spinal fracture or traumatic malalignment. 2.Other incidental and/or chronic findings as detailed above. Head CT 02/18/24 11:12 IMPRESSION: 1. Left superior orbital soft tissue laceration. No evidence of a radiopaque foreign body or underlying fracture. 2. Chronic stable senescent and postsurgical findings as above. All radiology interpretation(s) finalized by discharge Discharge Plan Discharge Patient Disposition: Home Clinical Impression: Fall, Head injury, Laceration Condition: Stable Prescriptions: No Action (DME) lift chair See Rx Instructions .Route .MEDSUPPLY Qty: 1 0RF Rx Instructions: As directed cholecalciferol (vitamin D3) 125 mcg (5,000 unit) capsule 5,000 unit PO DAILY Qty: 90 1RF ascorbic acid (vitamin C) 1,000 mg tablet 1 gm PO DAILY multivitamin Tablet 1 tab PO QAM cyanocobalamin (vitamin B-12) 2,500 mcg tablet 2,500 mcg PO DAILY (DME) Rollater walker See Rx Instructions .Route .MEDSUPPLY Qty: 1 0RF Rx Instructions: As directed medical marijuana See Rx Instructions .ROUTE .COMPLEX Rx Instructions: DIRECTED NEEDED (DME) polymer AFO without laces See Rx Instructions .Route .MEDSUPPLY Qty: 1 0RF Rx Instructions: As directed by the maggy stauffer (DME) PRINCE walker See Rx Instructions .Route .MEDSUPPLY Qty: 1 0RF Rx Instructions: As directed (DME) Wheelchair See Rx Instructions .Route .MEDSUPPLY Qty: 1 0RF Rx Instructions: As directed Abilify 5 mg tablet 5 mg PO QAM Qty: 90 1RF bupropion HCl [Wellbutrin XL] 300 mg tablet extended release 24 hr 300 mg PO QAM Qty: 90 1RF mirtazapine 7.5 mg tablet 7.5 mg PO BEDTIME Qty: 90 1RF venlafaxine [Effexor XR] 75 mg capsule,extended release 24hr 75 mg PO DAILY Qty: 90 1RF Rx Instructions: Take with 150 mg for total of 225 mg daily venlafaxine [Effexor XR] 150 mg capsule,extended release 24hr 150 mg PO DAILY Qty: 90 1RF Rx Instructions: TAKE WITH 75 MG TO EQUAL 225 MG ONCE DAILY losartan 100 mg tablet 100 mg PO DAILY Eliquis 5 mg tablet 5 mg PO BID albuterol sulfate 90 mcg/actuation HFA aerosol inhaler 2 puff INHALATION Q6H PRN (Reason: Shortness Of Breath Or Wheezing) methenamine hippurate 1 gram tablet 1 g PO DAILY docusate sodium [Stool Softener] 100 mg Capsule 100 mg PO DAILY Krill Oil Gummy 2 tab PO BID atorvastatin 40 mg tablet 40 mg PO DAILY levothyroxine 25 mcg tablet 25 mcg PO QAM oxybutynin chloride 10 mg Tablet Extended Release 24hr 10 mg PO DAILY Discharge Orders: Discharge ED (Routine); Ordered 02/18/24 Ordered By: Juan Miguel Roberts Referrals: Mary Moncada APN [Primary Care Provider] - Discharge Diet: Advance as tolerated Discharge Activity: Resume usual activity Patient Instructions: Head Laceration (ED) Activity Restrictions/Additional Instructions: suture remopval in 7 days Coding Level of Care Code ED Certified Surgical Tech/First Assistant for Janell Mathew
[2024-02-18 11:30] VITALS: BP 180/79
[2024-02-18 12:00] VITALS: BP 151/76; O2SAT 95
[2024-02-18 12:55] VITALS: BP 133/69; PULSE 74; O2SAT 96
== END 2024-02-18 13:40 | disposition home or self-care (01) ==
PROVIDERS: Emergency Provider Emergency Medicine; PCP Nurse Practitioner Family
DX: S01.81XA Laceration without foreign body of other part of head, initial encounter (principal); F17.210 Nicotine dependence, cigarettes, uncomplicated; E78.5 Hyperlipidemia, unspecified; I10 Essential (primary) hypertension; Z86.73 Personal history of transient ischemic attack (TIA), and cerebral infarction without residual deficits; W18.39XA Other fall on same level, initial encounter; Y92.129 Unspecified place in nursing home as the place of occurrence of the external cause; Z79.01 Long term (current) use of anticoagulants
CPT/HCPCS: 12002; 12013; 70450; 72125; 73562; 99284

== ENCOUNTER → 2024-04-12 09:15 | Outpatient (BNVA) | payer MEDICARE, SELFPAY | PROVIDERS: PCP Nurse Practitioner Family; Visit Provider Nurse Practitioner Family | DX: L82.1 Other seborrheic keratosis (principal); L81.4 Other melanin hyperpigmentation; D18.01 Hemangioma of skin and subcutaneous tissue; L72.0 Epidermal cyst; D69.2 Other nonthrombocytopenic purpura; Z85.828 Personal history of other malignant neoplasm of skin; Z08 Encounter for follow-up examination after completed treatment for malignant neoplasm; Z85.820 Personal history of malignant melanoma of skin; D48.5 Neoplasm of uncertain behavior of skin | CPT/HCPCS: 11102; 99213 ==

== ENCOUNTER 2024-04-20 16:00 | Observation (INO) | payer MEDICARE, MEDICAID, SELFPAY ==
[2024-04-20] VITALS (8 sets, daily range): BP systolic 123–144; BP diastolic 53–71; PULSE 73–85; RESP 16–28; TEMP 36.8–37.1; O2SAT 95–99; BMI 21.7
--- NOTE | 2024-04-20 16:09 | W.ED.GENADLT ---
HPI - General Adult General: Chief complaint: Recheck/Abnormal Lab/Rx Stated complaint: abnormal labs Time Seen by Provider: 04/20/24 16:01 History of Present Illness: Patient was into the ER by EMS from the [place] [facility]. Patient's hemoglobin was around 5.3 at the [facility]. Patient denies losing blood in her vomitus urine or stool. Denies any dark tarry stools patient is on Eliquis. Patient denies any other symptoms at this time. Related Data Home Medications Medication Instructions Recorded Confirmed ascorbic acid (vitamin C) 1,000 mg 1 gm PO DAILY 04/30/19 02/22/24 tablet multivitamin 1 tab PO QAM 04/30/19 02/22/24 cyanocobalamin (vitamin B-12) 2,500 mcg PO DAILY 06/25/19 02/22/24 2,500 mcg tablet medical marijuana See Rx Instructions .Route .COMPLEX 04/09/20 02/22/24 atorvastatin 40 mg tablet 40 mg PO DAILY 10/08/21 02/22/24 levothyroxine 25 mcg tablet 25 mcg PO QAM 10/08/21 02/22/24 apixaban 5 mg tablet (Eliquis) 5 mg PO BID 09/27/22 02/22/24 losartan 100 mg tablet 100 mg PO DAILY 09/27/22 02/22/24 oxybutynin chloride 10 mg 10 mg PO DAILY 10/06/22 02/22/24 tablet,extended release 24 hr Krill Oil Gummy 2 tab PO BID 07/24/23 02/22/24 albuterol sulfate 90 mcg/actuation 2 puff inhalation Q6H PRN 07/24/23 02/22/24 aerosol inhaler Shortness Of Breath Or Wheezing docusate sodium 100 mg capsule 100 mg PO DAILY 07/24/23 02/22/24 (Stool Softener) methenamine hippurate 1 gram tablet 1 g PO DAILY 07/24/23 02/22/24 Previous Rx's Medication Instructions Recorded Rollater walker #1 ea 09/17/19 cholecalciferol (vitamin D3) 125 5,000 unit PO DAILY #90 caps 01/08/20 mcg (5,000 unit) capsule lift chair #1 ea 01/08/20 Wheelchair #1 ea 02/03/22 CAM walker #1 ea 12/05/23 polymer AFO without laces #1 ea 12/05/23 aripiprazole 5 mg tablet (Abilify) 5 mg PO QAM #90 tabs 01/26/24 bupropion HCl 300 mg 24 hr tablet, 300 mg PO QAM #90 tabs 01/26/24 extended release (Wellbutrin XL) mirtazapine 7.5 mg tablet 7.5 mg PO BEDTIME #90 tabs 01/26/24 venlafaxine 150 mg 150 mg PO DAILY #90 caps 01/26/24 capsule,extended release 24 hr (Effexor XR) venlafaxine 75 mg capsule,extended 75 mg PO DAILY #90 caps 01/26/24 release 24 hr (Effexor XR) Allergies Allergy/AdvReac Type Severity Reaction Status Date / Time cephalexin Allergy rash Verified 04/20/24 16:20 clindamycin Allergy rash Verified 04/20/24 16:20 Review of Systems General: Reports: 10 or more systems reviewed and unremarkable except in HPI and below PFSH ED PFSH: Medical History Left-sided weakness Psychiatric care History of malignant melanoma History of nonmelanoma skin cancer Skin cancer of nose On 5-FU cream Basal cell carcinoma of skin of nose (~07/2017) Paresthesia of skin Malignant melanoma of chin (~07/2017) Anxiety with depression Squamous cell carcinoma of left lower leg Lung nodule right Leukocytosis follows with Dr Rubio Anemia, iron deficiency Adult onset hypothyroidism Hyperlipidemia, unspecified Essential (primary) hypertension Gait instability With frequent falls at baseline Urinary incontinence, urge Brain aneurysm (~1995) Acquired bilateral hammer toes CVA (cerebrovascular accident due to intracerebral hemorrhage) Surgical History History of brain shunt History of hysterectomy History of appendectomy History of brain surgery (~1995) ruptured aneurysm repair with shunt implanted History of section Family History Family/Other Stroke CAD (coronary artery disease) Cancer skin Social History Smoking and tobacco/nicotine status: former use of tobacco/nicotine Quit status (tobacco/nicotine): has tried quititng Number of times tried to quit tobacco: 30 Second hand smoke exposure: Yes Alcohol intake: former Substance/Drug Use: never Caregiver/support person: Yes (daughter) Lives independently: No (relatives) Household members: none Marital status: Number of children: 1 service: No Current occupational status: retired Current gender identity: Female Special colt needs: No Physical Exam Const: COMMON NORMALS: no acute distress, average body habitus, patient oriented x3, no limitations, healthy appearing, alert and well nourished HENMT: COMMON NORMALS: normocephalic, atraumatic, hearing grossly normal bilaterally, external ears normal, Normal external nose present and moist oral mucous membranes HEAD & SCALP: normocephalic and atraumatic NOSE: Normal external nose present EXTERNAL EAR: Yes external ears normal Neck/C-Spine: COMMON NORMALS: no JVD Chest: COMMONS NORMALS: normal inspection of the chest and normal palpation of entire chest wall Resp: COMMON NORMALS: normal respiratory effort, No retractions, No use of accessory muscles and clear to auscultation bilaterally AUSCULTATION: clear to auscultation bilaterally Cardio: COMMON NORMALS: no JVD, regular rate, regular rhythm, S1 normal heart sound present, S2 normal heart sound present, No gallops present (Cardio), No clicks present (Cardio), No murmurs present (Cardio) and No rub (Cardio) RATE: regular rate RHYTHM: regular rhythm HEART SOUNDS: S1 normal heart sound present and S2 normal heart sound present GI: COMMON NORMALS: Normal to inspection, nondistended, normoactive bowel sounds present, Soft to palpation, non-tender, No hepatosplenomegaly present and no masses PALPATION: Yes Soft to palpation and Yes No hepatosplenomegaly present Neuro: COMMON NORMALS: patient oriented x3 SENSORIUM/ORIENTATION: Yes alert Course Vital Signs: Vital signs: Vital Signs Temperature 98.7 F 04/20/24 16:13 Pulse Rate 83 04/20/24 16:42 Respiratory Rate 28 H 04/20/24 16:42 Blood Pressure 127/71 04/20/24 16:42 Pulse Oximetry 99 04/20/24 16:42 Oxygen Delivery Me thod Room Air 04/20/24 16:13 MDM - General Adult Medical Decision Making Patient hemoglobin 5.4, MCV of 66 probable iron deficiency anemia, talk with Dr. Alexandre, we will place patient in observation to give her 2 units. Medical Records I reviewed the patient's medical records. Lab Data I reviewed the patient's lab results. 04/20/24 16:54 04/20/24 16:54 Laboratory Results WBC 9.32 10^3/uL (3.29-11.43) 04/20/24 16:54 RBC 3.09 10^6/uL (3.85-5.65) L 04/20/24 16:54 Hgb 5.40 g/dL (11.27-16.99) L* 04/20/24 16:54 Hct 20.4 % (36-47) L* 04/20/24 16:54 MCV 66.0 fl (85-98) L 04/20/24 16:54 MCH 17.5 pg (27-33) L 04/20/24 16:54 MCHC 26.5 g/dL (30-55) L 04/20/24 16:54 RDW 17.9 % (12.1-15.1) H 04/20/24 16:54 Plt Count 373 10^3/cmm (157-399) 04/20/24 16:54 MPV 9.6 fL (7.4-10.4) 04/20/24 16:54 Neut % (Auto) 74.4 % 04/20/24 16:54 Lymph % (Auto) 15.7 % 04/20/24 16:54 [place] % (Auto) 6.4 % 04/20/24 16:54 Eos % (Auto) 2.7 % 04/20/24 16:54 Baso % (Auto) 0.5 % 04/20/24 16:54 Neut # (Auto) 6.93 10^3/uL (1.8-7.7) 04/20/24 16:54 Lymph # (Auto) 1.5 10^3/uL (0.8-4.8) 04/20/24 16:54 [place] # (Auto) 0.6 10^3/uL (0.2-0.9) 04/20/24 16:54 Eos # (Auto) 0.3 10^3/uL (0.0-0.8) 04/20/24 16:54 Baso # (Auto) 0.1 10^3/uL (0.0-0.1) 04/20/24 16:54 Nucleated RBC % (auto) 0 % 04/20/24 16:54 Nucleated RBCs # 0.0 /100WBC 04/20/24 16:54 PT 14.90 SECONDS (12.1-14.9) 04/20/24 16:54 INR 1.13 (0.8-1.2) 04/20/24 16:54 Sodium 139 mmol/L (136-145) 04/20/24 16:54 Potassium 4.2 mmol/L (3.5-5.1) 04/20/24 16:54 Chloride 105 mmol/L (98-107) 04/20/24 16:54 Carbon Dioxide 19 mmol/L (22-29) L 04/20/24 16:54 Anion Gap 19.2 (5-19) H 04/20/24 16:54 BUN 13 mg/dL (8-23) 04/20/24 16:54 Creatinine 1.2 mg/dL (0.5-0.9) H 04/20/24 16:54 GFR Calculation Not Reportable 04/20/24 16:54 Glucose 103 mg/dL (65-115) 04/20/24 16:54 Calculated Osmolality 288 mOsm/kg (285-295) 04/20/24 16:54 Calcium 9.1 mg/dL (8.5-10.5) 04/20/24 16:54 Total Bilirubin 0.2 mg/dL (0.15-1.2) 04/20/24 16:54 AST 12 U/L (0-32) 04/20/24 16:54 ALT 15 U/L (0-33) 04/20/24 16:54 Alkaline Phosphatase 111 U/L (35-105) H 04/20/24 16:54 Total Protein 6.8 g/dL (6.6-8.7) 04/20/24 16:54 Albumin 4.1 g/dL (3.5-5.2) 04/20/24 16:54 Globulin 2.7 g/dL (1.3-4.6) 04/20/24 16:54 Blood Type B Positive 04/20/24 16:54 Rho(D) Type Rh positive 04/20/24 16:54 All radiology interpretation(s) finalized by discharge Discharge Plan Discharge Patient Disposition: Placed in Observation Clinical Impression: Anemia, iron deficiency Qualifiers: Iron deficiency anemia type: unspecified iron deficiency Qualified Code(s): D50.9 - Iron deficiency anemia, unspecified Coding Level of Care Code ED Tap Builder for Janell Mathew
[2024-04-20 17:05] LABS: Basophils # 0.1 10^3/uL (0.0-0.1); Basophils % 0.5 %; Eosinophils # 0.3 10^3/uL (0.0-0.8); Eosinophils % 2.7 %; Lymphocytes # 1.5 10^3/uL (0.8-4.8); Lymphocytes % 15.7 %; Mean Corpuscular HGB Conc 26.5 g/dL (30-55); Mean Corpuscular Hemoglobin 17.5 pg (27-33); Mean Platelet Volume 9.6 fL (7.4-10.4); Monocytes # 0.6 10^3/uL (0.2-0.9); Monocytes % 6.4 %; Neutrophils # 6.93 10^3/uL (1.8-7.7); Neutrophils % 74.4 %; Nucleated Red Blood Cells % 0 %; Platelet Count 373 10^3/cmm (157-399); Red Blood Count 3.09 10^6/uL (3.85-5.65); Red Cell Distribution Width 17.9 % (12.1-15.1); White Blood Count 9.32 10^3/uL (3.29-11.43)
[2024-04-20 17:16] LABS: INR 1.13 (0.8-1.2)
[2024-04-20 17:20] LABS: Alanine Aminotransferase 15 U/L (0-33); Albumin Level 4.1 g/dL (3.5-5.2); Alkaline Phosphatase 111 U/L (35-105); Anion Gap 19.2 (5-19); Aspartate Amino Transferase 12 U/L (0-32); Blood Urea Nitrogen 13 mg/dL (8-23); Calcium 9.1 mg/dL (8.5-10.5); Carbon Dioxide 19 mmol/L (22-29); Chloride 105 mmol/L (98-107); Creatinine Clr Calc Pharmacy 31.5046; Globulin 2.7 g/dL (1.3-4.6); Glucose 103 mg/dL (65-115); Osmolality Calculated 288 mOsm/kg (285-295); Potassium 4.2 mmol/L (3.5-5.1); Sodium 139 mmol/L (136-145); Total Bilirubin 0.2 mg/dL (0.15-1.2); Total Protein 6.8 g/dL (6.6-8.7)
[2024-04-20 17:23] LABS: Slide Review Slide Review Perform
[2024-04-20 17:24] LABS: Hematocrit 20.4 % (36-47)
[2024-04-20 18:31] LABS: Bilirubin Urine Negative (Negative); Blood Urine Negative (Negative); Glucose Urine UA Negative (Normal); Ketones Urine Negative (Negative); Leukocyte Esterase Urine Negative (Negative); Nitrate Urine Negative (Negative); Protein Urine Negative (Negative); Specific Gravity, Urine 1.005 (1.005-1.030); Urine Appearance Clear (CLEAR); Urine Color Yellow (Yellow); Urobilinogen Urine 0.2 mg/dL (Negative); pH Urine 7.5 (5-7)
[2024-04-20 18:34] LABS: Add Urine Microscopic? YES; Bacteria Urine None Seen /hpf; Hyaline Casts Urine 0-4 /lpf; RBC Urine 0-2 /hpf (0-2); Squamous Epithelial Cell Urine 0-5 /hpf (0-5); WBC Urine 0-5 /hpf (0-5)
--- NOTE | 2024-04-20 19:02 | PC.NURSE ---
this nurse assumed pt care from Jacob CRISOSTOMO.
--- NOTE | 2024-04-20 20:30 | P.HP_ITS ---
Providers/Chief Complaint 2 Admitting Physician: Jaleel Mathews MD Primary Care Provider: Mary Moncada APN Chief Complaint: abnormal labs History of Present Illness Kathrin Elliott is a 78 year old female with a past medical history of DVT, on Eliquis therapy, history of CVA, history of left-sided weakness, history of iron deficiency anemia hypothyroidism, hyperlipidemia, history of ruptured aneurysm with shunt implanted, who presents [facility] due to anemia. Currently patient is alert to person, to place, not to time she follows commands, she has really no complaints denies any blood or black stools denies any bloody cough denies any blood in her urine she does report a history of iron deficiency anemia in the past, she has had a colonoscopy she thinks that the results were within normal limits, she is on Eliquis, it was placed for a blood clot diagnosed in 2019 she tells me, she has not had an EGD before, does report feeling tired more recently, Review of Systems 2 Const: Denies: fever(s) Card: Denies: chest pain Resp: Denies: dyspnea GI: Denies: abdominal pain Medications/Allergies Home Medications Medication Instructions Recorded Confirmed Last Taken Type ascorbic acid (vitamin C) 1,000 mg 1 gm PO DAILY 04/30/19 02/22/24 08/01/23 History tablet multivitamin 1 tab PO QAM 04/30/19 02/22/24 10/06/22 History cyanocobalamin (vitamin B-12) 2,500 mcg PO DAILY 06/25/19 02/22/24 08/01/23 History 2,500 mcg tablet Rollater walker #1 ea 09/17/19 02/22/24 Unknown Rx cholecalciferol (vitamin D3) 125 5,000 unit PO DAILY #90 caps 01/08/20 02/22/24 08/01/23 Rx mcg (5,000 unit) capsule lift chair #1 ea 01/08/20 02/22/24 Unknown Rx medical marijuana See Rx Instructions .Route .COMPLEX 04/09/20 02/22/24 04/19/21 History atorvastatin 40 mg tablet 40 mg PO DAILY 10/08/21 02/22/24 08/01/23 History levothyroxine 25 mcg tablet 25 mcg PO QAM 10/08/21 02/22/24 08/01/23 History Wheelchair #1 ea 02/03/22 02/22/24 Unknown Rx apixaban 5 mg tablet (Eliquis) 5 mg PO BID 09/27/22 02/22/24 08/01/23 History losartan 100 mg tablet 100 mg PO DAILY 09/27/22 02/22/24 08/01/23 History oxybutynin chloride 10 mg 10 mg PO DAILY 10/06/22 02/22/24 10/06/22 History tablet,extended release 24 hr Krill Oil Gummy 2 tab PO BID 07/24/23 02/22/24 08/01/23 History albuterol sulfate 90 mcg/actuation 2 puff inhalation Q6H PRN 07/24/23 02/22/24 Unknown History aerosol inhaler Shortness Of Breath Or Wheezing docusate sodium 100 mg capsule 100 mg PO DAILY 07/24/23 02/22/24 08/01/23 History (Stool Softener) methenamine hippurate 1 gram tablet 1 g PO DAILY 07/24/23 02/22/24 Unknown History CAM walker #1 ea 12/05/23 02/22/24 Unknown Rx polymer AFO without laces #1 ea 12/05/23 02/22/24 Unknown Rx aripiprazole 5 mg tablet (Abilify) 5 mg PO QAM #90 tabs 01/26/24 02/22/24 Unknown Rx bupropion HCl 300 mg 24 hr tablet, 300 mg PO QAM #90 tabs 01/26/24 02/22/24 Unknown Rx extended release (Wellbutrin XL) mirtazapine 7.5 mg tablet 7.5 mg PO BEDTIME #90 tabs 01/26/24 02/22/24 Unknown Rx venlafaxine 150 mg 150 mg PO DAILY #90 caps 01/26/24 02/22/24 Unknown Rx capsule,extended release 24 hr (Effexor XR) venlafaxine 75 mg capsule,extended 75 mg PO DAILY #90 caps 01/26/24 02/22/24 Unknown Rx release 24 hr (Effexor XR) Allergies Allergy/AdvReac Type Severity Reaction Status Date / Time cephalexin Allergy rash Verified 04/20/24 16:20 clindamycin Allergy rash Verified 04/20/24 16:20 PFSH Acute 2 PFSH: Medical History Left-sided weakness Psychiatric care History of malignant melanoma History of nonmelanoma skin cancer Skin cancer of nose On 5-FU cream Basal cell carcinoma of skin of nose (~07/2017) Paresthesia of skin Malignant melanoma of chin (~07/2017) Anxiety with depression Squamous cell carcinoma of left lower leg Lung nodule right Leukocytosis follows with Dr Rubio Anemia, iron deficiency Adult onset hypothyroidism Hyperlipidemia, unspecified Essential (primary) hypertension Gait instability With frequent falls at baseline Urinary incontinence, urge Brain aneurysm (~1995) Acquired bilateral hammer toes CVA (cerebrovascular accident due to intracerebral hemorrhage) Surgical History History of brain shunt History of hysterectomy History of appendectomy History of brain surgery (~1995) ruptured aneurysm repair with shunt implanted History of section Family History Family/Other Stroke CAD (coronary artery disease) Cancer skin Social History Smoking and tobacco/nicotine status: former use of tobacco/nicotine Quit status (tobacco/nicotine): has tried quititng Number of times tried to quit tobacco: 30 Second hand smoke exposure: Yes Alcohol intake: former Substance/Drug Use: never Caregiver/support person: Yes (daughter) Lives independently: No (relatives) Household members: none Marital status: Number of children: 1 service: No Current occupational status: retired Current gender identity: Female Special colt needs: No Vitals/I&O/Wt Last Vital Signs Temp 98.7 F 04/20/24 16:13 Pulse 85 04/20/24 19:49 Resp 18 04/20/24 19:49 BP 123/57 04/20/24 19:49 Pulse Ox 98 04/20/24 19:49 O2 Del Method Room Air 04/20/24 18:08 Weight last 48 hrs Weight 53.977 kg Physical Exam 2 Const: COMMON NORMALS: no acute distress ORIENTATION/CONSCIOUSNESS: Yes awake, Yes oriented to person and Yes oriented to place Eye: OTHER: Conjunctival pallor Resp: COMMON NORMALS: normal respiratory effort, No retractions, No use of accessory muscles and clear to auscultation bilaterally AUSCULTATION: clear to auscultation bilaterally Cardio: COMMON NORMALS: no JVD, regular rate, regular rhythm, S1 normal heart sound present and S2 normal heart sound present RATE: regular rate RHYTHM: regular rhythm HEART SOUNDS: S1 normal heart sound present and S2 normal heart sound present GI: COMMON NORMALS: Normal to inspection, nondistended, normoactive bowel sounds present, Soft to palpation and non-tender Extremity: COMMON NORMALS: no pedal edema Neuro: COMMON NORMALS: patient oriented x3 and CN's II-XII intact bilaterally Psych: COMMON NORMALS: mental status grossly normal Data 04/20/24 16:54 04/20/24 16:54 A&P Assessment and plan (1) Acute anemia: (2) Hyperlipidemia, unspecified: Qualifiers: Hyperlipidemia type: unspecified Qualified Code(s): E78.5 - Hyperlipidemia, unspecified (3) Essential (primary) hypertension: (4) Left leg DVT: Qualifiers: Affected thrombotic vein of extremity: popliteal Chronicity: chronic Qualified Code(s): I82.532 - Chronic embolism and thrombosis of left popliteal vein (5) Adult onset hypothyroidism: (6) Anemia, iron deficiency: Qualifiers: Iron deficiency anemia type: unspecified iron deficiency Qualified Code(s): D50.9 - Iron deficiency anemia, unspecified (7) CVA (cerebrovascular accident due to intracerebral hemorrhage): Qualifiers: Intracerebral hemorrhage etiology: nontraumatic Cerebral hemorrhage location: unspecified cerebral location Laterality: right Qualified Code(s): I 61.9 - Nontraumatic intracerebral hemorrhage, unspecified Plan Acute anemia ? Low MCV, evidence of iron deficiency anemia ? On Eliquis therapy for DVT ? Patient has never had an EGD ? She had a colonoscopy in 2020, was found to have a ascending colon polyp, which was a tubular adenoma, no high-grade dysplasia ? Plan ? Will receive 2 units of PRBC ? Check iron levels, will consider IV iron # Given patient is on Eliquis therapy for history of DVT, discussed with the patient risks and benefits of holding Eliquis therapy she voiced understanding, all question answered, ? Given the complication of her history of DVT, her need to be on Eliquis, will consult general surgery for consideration of EGD and colonoscopy # Consulted general surgery for EGD and colonoscopy # Monitor hemodynamics ?Protonix ? Carafate ? Hold all blood thinners ? Repeat hemoglobin the morning # Full code # SCDs for DVT prophylaxis Attestations 2 Medical Necessity Statement*: Patient requires hospitalization for acute anemia, requiring inpatient monitoring, patient is on Eliquis therapy, Diagnoses Acute anemia D64.9 Hyperlipidemia, unspecified hyperlipidemia type E78.5 Hyperlipidemia type: unspecified Essential (primary) hypertension I10 Chronic deep vein thrombosis (DVT) of popliteal vein of left lower extremity I82.532 Affected thrombotic vein of extremity: popliteal Chronicity: chronic Adult onset hypothyroidism E03.8 Iron deficiency anemia, unspecified iron deficiency anemia type D50.9 Iron deficiency anemia type: unspecified iron deficiency Right-sided nontraumatic intracerebral hemorrhage, unspecified cerebral location I61.9 Intracerebral hemorrhage etiology: nontraumatic Cerebral hemorrhage location: unspecified cerebral location Laterality: right
[2024-04-20 21:07] LABS: Ferritin 11 ng/mL (15-150); Iron 8 ug/dL (37-145)
[2024-04-20] MEDS: mirtazapine 15 mg Tablet 7.5 MG PO (21:44)
[2024-04-20] MEDS: sucralfate 1 gm/10 mL Oral Liq UDC PO (21:44)
[2024-04-20] MEDS: pantoprazole 40 mg SDV IVP (21:45)
[2024-04-21] VITALS (17 sets, daily range): BP systolic 100–165; BP diastolic 51–80; PULSE 67–89; RESP 14–18; TEMP 36.6–37.3; O2SAT 95–100
[2024-04-21] MEDS: sucralfate 1 gm/10 mL Oral Liq UDC PO ×4 (03:16→22:40)
--- NOTE | 2024-04-21 05:20 | PC.NURSE ---
ADMISSION SUICIDE RISK ASSESSMENT suicide risk assessment pt said yes to everything. most recent SI about a month ago. 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 also has hx of bipolar 2, [facility] pt and currently being tx'd with multiple mental health meds. no active thoughts currently. was most recently depressed over moving to SNF in january and seeing it as she put it, I realized I didn't have a home anymore , plan was to hang herself in her closet, no suitable material available to pt and the clothing bar was too high (w/c bound). other plan in the past while living with her daughter was to break a wine glass of her daughters and climb into the bathtub and slit her wrists so she wouldn't make a mess of her daughters house. when asked if the opportunity presented itself would she follow through with her thoughts and plans and the patient responded that if she had the means she believes she would follow through. pt then stated honey if i had a gun i would have been years ago . currently in good spirits, has come to terms with SNF. sees it positively after reflecting on how despite living with two of her children in the past she was often home alone a lot d/t their jobs, and how she lost weight because nobody likes to eat alone . after processing those negative emotions and her new day to day life at the nursing facility she now had social interactions, not isolated anymore with plenty of people to talk to at meals, group activities every day, and has gained almost 20lbs since admission there. patient ended with the statement I do have a home, it's [address] . this personal lines underwriter added [facility] referral to dc packet and notified dr gastelum per protocol.
[2024-04-21] MEDS: levothyroxine 25 mcg Tablet PO (06:08)
[2024-04-21] MEDS: ARIPiprazole 10 mg Tablet 5 MG PO (06:08)
[2024-04-21] MEDS: lanolin oint 7 gm 1 APPLIC TOPICAL (06:47)
[2024-04-21] MEDS: atorvastatin 40 mg Tablet PO (08:45)
[2024-04-21] MEDS: buPROPion XL (24 HR) 150 mg Tablet PO (08:45)
[2024-04-21] MEDS: venlafaxine ER (24HR) 150 mg Capsule PO (08:45)
[2024-04-21] MEDS: losartan 50 mg Tablet 100 MG PO (08:45)
[2024-04-21] MEDS: pantoprazole 40 mg SDV IVP ×2 (08:46→22:40)
[2024-04-21] MEDS: ALPRAZolam 0.5 mg Tablet 0.25 MG PO ×3 (08:46→22:41)
[2024-04-21 10:15] LABS: Basophils % 0.6 %; Eosinophils # 0.2 10^3/uL (0.0-0.8); Eosinophils % 3.4 %; Hematocrit 28.4 % (36-47); Lymphocytes # 1.1 10^3/uL (0.8-4.8); Lymphocytes % 16.1 %; Mean Corpuscular HGB Conc 29.6 g/dL (30-55); Mean Corpuscular Hemoglobin 21.1 pg (27-33); Mean Corpuscular Volume 71.4 fl (85-98); Mean Platelet Volume 8.8 fL (7.4-10.4); Monocytes # 0.6 10^3/uL (0.2-0.9); Monocytes % 8.5 %; Neutrophils # 5.03 10^3/uL (1.8-7.7); Neutrophils % 71.1 %; Nucleated Red Blood Cells % 0 %; Platelet Count 359 10^3/cmm (157-399); Red Blood Count 3.98 10^6/uL (3.85-5.65); Red Cell Distribution Width 22.1 % (12.1-15.1); White Blood Count 7.07 10^3/uL (3.29-11.43)
[2024-04-21 10:42] LABS: Alanine Aminotransferase 13 U/L (0-33); Albumin Level 3.8 g/dL (3.5-5.2); Alkaline Phosphatase 102 U/L (35-105); Anion Gap 11.8 (5-19); Aspartate Amino Transferase 15 U/L (0-32); Blood Urea Nitrogen 12 mg/dL (8-23); Calcium 9.4 mg/dL (8.5-10.5); Carbon Dioxide 21 mmol/L (22-29); Chloride 111 mmol/L (98-107); Creatinine Clr Calc Pharmacy 42.2423; Globulin 2.9 g/dL (1.3-4.6); Glucose 126 mg/dL (65-115); Osmolality Calculated 291 mOsm/kg (285-295); Potassium 3.8 mmol/L (3.5-5.1); Sodium 140 mmol/L (136-145); Total Bilirubin 0.6 mg/dL (0.15-1.2); Total Protein 6.7 g/dL (6.6-8.7)
[2024-04-21] MEDS: magnesium citrate Btl 296 mL PO ×2 (11:54→22:40)
--- NOTE | 2024-04-21 12:26 | P.ANESASSM_ITS ---
Pre-Anesthetic Assessment Height/Weight: Height 5 ft 2 in Weight 120 lb 9.6 oz Temp Pulse Resp BP Pulse Ox O2 Del Method 97.9 F 70 17 100/56 95 Room Air 04/21/24 11:49 04/21/24 11:49 04/21/24 11:49 04/21/24 11:49 04/21/24 11:49 04/21/24 11:49 Preop Diagnosis: Anemia Operation Date: 04/22/24 08:10 Proposed Procedures p EGD(Not Applicable) - Stephon Barreto MD s Colonoscopy(Not Applicable) - Stephon Barreto MD Was Beta Geoffrey taken within 24 hours: N/A Was Clonidine taken within 24 hours: N/A Social No alcohol and No tobacco Exam oriented x 3, clear to auscultation bilaterally and regular rate & rhythm Airway Submandibular: within normal limits Cervical ROM: within normal limits Mallampati: Class II Anesthetic Plan ASA status: 3 Anesthesia: MAC Other: Patient admitted 04/20/2024 with anemia No prior issues with anesthesia Completed bowel prep Prior history of DVT on chronic Eliquis Initial hemoglobin 5.4 at admission, given 2 units PRBCs History of hypothyroidism on Synthroid Hypertension on losartan Strong history of suicidal ideation, denies any current plans Will plan on MAC anesthetic Medications/Allergies Home Medications Medication Instructions Recorded Confirmed Last Taken Type ascorbic acid (vitamin C) 1,000 mg 1 gm PO DAILY 04/30/19 02/22/24 08/01/23 History tablet multivitamin 1 tab PO QAM 04/30/19 02/22/24 10/06/22 History cyanocobalamin (vitamin B-12) 2,500 mcg PO DAILY 06/25/19 02/22/24 08/01/23 History 2,500 mcg tablet Rollater walker #1 ea 09/17/19 04/21/24 Unknown Rx cholecalciferol (vitamin D3) 125 5,000 unit PO DAILY #90 caps 01/08/20 02/22/24 08/01/23 Rx mcg (5,000 unit) capsule lift chair #1 ea 01/08/20 04/21/24 Unknown Rx medical marijuana See Rx Instructions .Route .COMPLEX 04/09/20 02/22/24 04/19/21 History atorvastatin 40 mg tablet 40 mg PO DAILY 10/08/21 04/21/24 04/19/24 20:00 History levothyroxine 25 mcg tablet 25 mcg PO QAM 10/08/21 04/21/24 04/20/24 06:00 History Wheelchair #1 ea 02/03/22 04/21/24 Unknown Rx apixaban 5 mg tablet (Eliquis) 5 mg PO BID 09/27/22 04/21/24 04/20/24 08:00 History losartan 100 mg tablet 100 mg PO DAILY 09/27/22 04/21/24 04/20/24 08:00 History oxybutynin chloride 10 mg 10 mg PO DAILY 10/06/22 04/21/24 04/20/24 08:00 History tablet,extended release 24 hr Krill Oil Gummy 2 tab PO BID 07/24/23 02/22/24 08/01/23 History albuterol sulfate 90 mcg/actuation 2 puff inhalation Q6H PRN 07/24/23 02/22/24 Unknown History aerosol inhaler Shortness Of Breath Or Wheezing docusate sodium 100 mg capsule 100 mg PO DAILY 07/24/23 02/22/24 08/01/23 History (Stool Softener) methenamine hippurate 1 gram tablet 1 g PO BID 07/24/23 04/21/24 04/20/24 08:00 History CAM walker #1 ea 12/05/23 04/21/24 Unknown Rx polymer AFO without laces #1 ea 12/05/23 04/21/24 Unknown Rx aripiprazole 5 mg tablet (Abilify) 5 mg PO QAM #90 tabs 01/26/24 04/21/24 04/20/24 08:00 Rx acetaminophen 325 mg tablet 650 mg PO QID PRN pain or fever 04/21/24 04/21/24 04/14/24 08:42 History alprazolam 0.25 mg tablet (Xanax) 0.25 mg PO DIRECTED 04/21/24 04/21/24 04/20/24 12:00 History alprazolam 0.5 mg tablet 0.5 mg PO BEDTIME 04/21/24 04/21/24 04/19/24 20:00 History bupropion HCl 150 mg 24 hr tablet, 150 mg PO QAM 04/21/24 04/21/24 04/20/24 08:00 History extended release magnesium hydroxide 400 mg/5 mL 15 ml PO DAILY PRN Constipation 04/21/24 04/21/24 04/17/24 08:18 History oral suspension (Milk of Magnesia) mirtazapine 15 mg tablet 15 mg PO BEDTIME 04/21/24 04/21/24 04/19/24 21:00 History venlafaxine 150 mg 150 mg PO DAILY 04/21/24 04/21/24 04/19/24 21:00 History capsule,extended release 24 hr venlafaxine 75 mg capsule,extended 75 mg PO QPM 04/21/24 04/21/24 04/19/24 20:00 History release 24 hr Allergies Allergy/AdvReac Type Severity Reaction Status Date / Time cephalexin Allergy rash Verified 04/20/24 16:20 clindamycin Allergy rash Verified 04/20/24 16:20 Current Medications Generic Name Dose Route Start Last Admin Trade Name Freq PRN Reason Stop Dose Admin Alprazolam 0.25 mg 04/21/24 08:00 04/21/24 11:53 Alprazolam 0.5 Mg Tablet PO 0.25 mg BID@0800,1200 JAMEE Administration Aripiprazole 5 mg 04/21/24 06:00 04/21/24 06:08 Aripiprazole 10 Mg Tablet PO 5 mg QAM JAMEE Administration Atorvastatin Calcium 40 mg 04/21/24 09:00 04/21/24 08:45 Atorvastatin 40 Mg Tablet PO 40 mg DAILY JAMEE Administration Bupropion HCl 150 mg 04/21/24 09:00 04/21/24 08:45 Bupropion Xl (24 Hr) 150 Mg Tablet PO 150 mg DAILY JAMEE Administration Lanolin 1 applic 04/21/24 06:18 04/21/24 06:47 Lanolin Oint 7 Gm TOPICAL 1 applic PRN PRN Administration DRYNESS Levothyroxine Sodium 25 mcg 04/21/24 06:00 04/21/24 06:08 Levothyroxine 25 Mcg Tablet PO 25 mcg QAM JAMEE Administration Losartan Potassium 100 mg 04/21/24 09:00 04/21/24 08:45 Losartan 50 Mg Tablet PO 100 mg DAILY JAMEE Administration Magnesium Citrate 296 ml 04/21/24 12:00 04/21/24 11:54 Magnesium Citrate Btl 296 Ml PO 04/21/24 20:01 296 ml 1200,2000 JAMEE Administration Pantoprazole Sodium 40 mg 04/20/24 20:45 04/21/24 08:46 Pantoprazole 40 Mg Sdv IVP 40 mg Q12H JAMEE Administration Sucralfate 1 gm 04/20/24 20:45 04/21/24 08:45 Sucralfate 1 Gm/10 Ml Oral Liq Udc PO 1 gm Q6H JAMEE Administration Venlafaxine HCl 150 mg 04/21/24 09:00 04/21/24 08:45 Venlafaxine Er (24hr) 150 Mg Capsule PO 150 mg DAILY JAMEE Administration PFSH Anesthesia Medical History Left-sided weakness Psychiatric care History of malignant melanoma History of nonmelanoma skin cancer Skin cancer of nose On 5-FU cream Basal cell carcinoma of skin of nose (~07/2017) Paresthesia of skin Malignant melanoma of chin (~07/2017) Anxiety with depression Squamous cell carcinoma of left lower leg Lung nodule right Leukocytosis follows with Dr Rubio Anemia, iron deficiency Adult onset hypothyroidism Hyperlipidemia, unspecified Essential (primary) hypertension Gait instability With frequent falls at baseline Urinary incontinence, urge Brain aneurysm (~1995) Acquired bilateral hammer toes CVA (cerebrovascular accident due to intracerebral hemorrhage) Surgical History History of brain shunt History of hysterectomy History of appendectomy History of brain surgery (~1995) ruptured aneurysm repair with shunt implanted History of section Family History Family/Other Stroke CAD (coronary artery disease) Cancer skin Social History Smoking and tobacco/nicotine status: former use of tobacco/nicotine Quit status (tobacco/nicotine): has tried quititng Number of times tried to quit tobacco: 30 Second hand smoke exposure: Yes Alcohol intake: former Substance/Drug Use: never Caregiver/support person: Yes (daughter) Lives independently: No (relatives) Household members: none Marital status: Number of children: 1 service: No Current occupational status: retired Current gender identity: Female Special colt needs: No Data Anesthesia 04/22/24 06:02 04/22/24 06:02 Short CBC 04/20/24 04/21/24 Range/Units 16:54 09:38 WBC 9.32 7.07 (3.29-11.43) 10^3/uL Hgb 5.40 L* 8.40 L D (11.27-16.99) g/dL Hct 20.4 L* 28.4 L D (36-47) % MCV 66.0 L 71.4 L D (85-98) fl Plt Count 373 359 (157-399) 10^3/cmm Neut % (Auto) 74.4 71.1 % Neut # (Auto) 6.93 5.03 (1.8-7.7) 10^3/uL BMP 04/20/24 04/21/24 16:54 09:38 Sodium 139 140 Potassium 4.2 3.8 Chloride 105 111 H Carbon Dioxide 19 L 21 L BUN 13 12 Creatinine 1.2 H 0.9 Glucose 103 126 H Calcium 9.1 9.4 Liver Function 04/20/24 04/21/24 Range/Units 16:54 09:38 Total Bilirubin 0.2 0.6 (0.15-1.2) mg/dL AST 12 15 (0-32) U/L ALT 15 13 (0-33) U/L Alkaline Phosphatase 111 H 102 (35-105) U/L Albumin 4.1 3.8 (3.5-5.2) g/dL Urine 04/20/24 Range/Units 18:13 Urine Color Yellow (Yellow) Urine Appearance Clear (CLEAR) Urine pH 7.5 (5-7) Ur Specific [place] 1.005 (1.005-1.030) Urine Protein Negative (Negative) Urine Glucose (UA) Negative (Normal) Urine Ketones Negative (Negative) Urine Nitrate Negative (Negative) Urine Bilirubin Negative (Negative) Ur Leukocyte Esterase Negative (Negative) Urine RBC 0-2 (0-2) /hpf Urine WBC 0-5 (0-5) /hpf Blood Bank 04/20/24 16:54 Blood Type B Positive Rho(D) Type Rh positive Antibody Screen Negative Coags 04/20/24 16:54 PT 14.90 INR 1.13 Cardiac Studies: 2 Echocardiogram 10/08/21
--- NOTE | 2024-04-21 13:16 | P.PN_ITS ---
Subjective 2 Subjective: seen today hb 8.4 will go to for colonoscopy in AM Vitals/I&O/Wt Last Vital Signs Temp 97.9 F 04/21/24 11:49 Pulse 70 04/21/24 11:49 Resp 17 04/21/24 11:49 BP 100/56 04/21/24 11:49 Pulse Ox 95 04/21/24 11:49 O2 Del Method Room Air 04/21/24 11:49 04/20/24 04/21/24 04/21/24 22:59 06:59 14:59 Intake Total 940 / 940 1020 / 1960 2480 / 2480 Output Total 1999 / 1999 1400 / 3400 1500 / 1500 Balance -1060 / -1060 -380 / -1440 980 / 980 Weight last 48 hrs Weight 54.703 kg Weight 54.8 kg Weight 53.977 kg Physical Exam 2 Const: COMMON NORMALS: no acute distress and patient oriented x3 O RIENTATION/CONSCIOUSNESS: Yes awake, Yes oriented to person and Yes oriented to place Eye: OTHER: Conjunctival pallor Neck/C-Spine: COMMON NORMALS: no JVD Resp: COMMON NORMALS: normal respiratory effort, No retractions, No use of accessory muscles and clear to auscultation bilaterally AUSCULTATION: clear to auscultation bilaterally Cardio: COMMON NORMALS: no JVD, regular rate, regular rhythm, S1 normal heart sound present and S2 normal heart sound present RATE: regular rate RHYTHM: regular rhythm HEART SOUNDS: S1 normal heart sound present and S2 normal heart sound present GI: COMMON NORMALS: Normal to inspection, nondistended, normoactive bowel sounds present, Soft to palpation and non-tender PALPATION: Yes Soft to palpation Extremity: COMMON NORMALS: no pedal edema Neuro: COMMON NORMALS: patient oriented x3 and CN's II-XII intact bilaterally SENSORIUM/ORIENTATION: Yes oriented to person and Yes oriented to place Psych: COMMON NORMALS: mental status grossly normal Data 04/21/24 09:38 04/21/24 09:38 A&P Assessment and plan (1) Acute anemia: (2) Hyperlipidemia, unspecified: Qualifiers: Hyperlipidemia type: unspecified Qualified Code(s): E78.5 - Hyperlipidemia, unspecified (3) Essential (primary) hypertension: (4) Left leg DVT: Qualifiers: Affected thrombotic vein of extremity: popliteal Chronicity: chronic Qualified Code(s): I82.532 - Chronic embolism and thrombosis of left popliteal vein (5) Adult onset hypothyroidism: (6) Anemia, iron deficiency: Qualifiers: Iron deficiency anemia type: unspecified iron deficiency Qualified Code(s): D50.9 - Iron deficiency anemia, unspecified (7) CVA (cerebrovascular accident due to intracerebral hemorrhage): Qualifiers: Intracerebral hemorrhage etiology: nontraumatic Cerebral hemorrhage location: unspecified cerebral location Laterality: right Qualified Code(s): I 61.9 - Nontraumatic intracerebral hemorrhage, unspecified Plan Acute anemia ? Low MCV, evidence of iron deficiency anemia ? On Eliquis therapy for DVT ? Patient has never had an EGD ? She had a colonoscopy in 2020, was found to have a ascending colon polyp, which was a tubular adenoma, no high-grade dysplasia ? Plan ? Will receive 2 units of PRBC ? Check iron levels, will consider IV iron # Given patient is on Eliquis therapy for history of DVT, discussed with the patient risks and benefits of holding Eliquis therapy she voiced understanding, all question answered, ? Given the complication of her history of DVT, her need to be on Eliquis, will consult general surgery for consideration of EGD and colonoscopy # Consulted general surgery for EGD and colonoscopy # Monitor hemodynamics ?Protonix ? Carafate ? Hold all blood thinners ? Repeat hemoglobin the morning # Full code # SCDs for DVT prophylaxis 04/21/2024 continue mgmt as per [facility] hb 8.4 recheck q12h CBC plan for colonoscopy in AM. - continue to hold eliquis Attestations 2 Medical Necessity Statement*: Patient requires hospitalization for acute anemia, requiring inpatient monitoring, patient is on Eliquis therapy, Diagnoses Acute anemia D64.9 Hyperlipidemia, unspecified hyperlipidemia type E78.5 Hyperlipidemia type: unspecified Essential (primary) hypertension I10 Chronic deep vein thrombosis (DVT) of popliteal vein of left lower extremity I82.532 Affected thrombotic vein of extremity: popliteal Chronicity: chronic Adult onset hypothyroidism E03.8 Iron deficiency anemia, unspecified iron deficiency anemia type D50.9 Iron deficiency anemia type: unspecified iron deficiency Right-sided nontraumatic intracerebral hemorrhage, unspecified cerebral location I61.9 Intracerebral hemorrhage etiology: nontraumatic Cerebral hemorrhage location: unspecified cerebral location Laterality: right
[2024-04-21] MEDS: bisacodyl 5 mg Tablet 10 MG PO (14:16)
[2024-04-21 20:29] LABS: Basophils # 0.1 10^3/uL (0.0-0.1); Basophils % 0.6 %; Eosinophils # 0.2 10^3/uL (0.0-0.8); Eosinophils % 1.9 %; Hematocrit 29.8 % (36-47); Lymphocytes # 1.5 10^3/uL (0.8-4.8); Lymphocytes % 16.6 %; Mean Corpuscular HGB Conc 29.5 g/dL (30-55); Mean Corpuscular Hemoglobin 21.1 pg (27-33); Mean Corpuscular Volume 71.3 fl (85-98); Mean Platelet Volume 8.9 fL (7.4-10.4); Monocytes # 0.8 10^3/uL (0.2-0.9); Monocytes % 9.1 %; Neutrophils # 6.26 10^3/uL (1.8-7.7); Neutrophils % 71.6 %; Nucleated Red Blood Cells % 0 %; Platelet Count 403 10^3/cmm (157-399); Red Blood Count 4.18 10^6/uL (3.85-5.65); Red Cell Distribution Width 21.6 % (12.1-15.1); White Blood Count 8.75 10^3/uL (3.29-11.43)
[2024-04-21] MEDS: venlafaxine ER (24HR) 75 mg Capsule PO (22:41)
[2024-04-21] MEDS: mirtazapine 15 mg Tablet PO (22:41)
[2024-04-21] MEDS: ALPRAZolam 0.5 mg Tablet PO (23:26)
[2024-04-22] VITALS (17 sets, daily range): BP systolic 113–171; BP diastolic 55–84; PULSE 66–92; RESP 16–18; TEMP 36.3–37.1; O2SAT 95–100
[2024-04-22] MEDS: levothyroxine 25 mcg Tablet PO (05:48)
[2024-04-22] MEDS: ARIPiprazole 10 mg Tablet 5 MG PO (05:48)
--- NOTE | 2024-04-22 06:02 | P.HPUD_ITS ---
Surgery/Procedure H&P Update DATE OF PROCEDURE: April 22, 2024 DATE H&P PERFORMED: 04/21/24 H&P UPDATE INFORMATION: I have reviewed H&P completed within last 30 days, I have examined patient prior to procedure, No changes to prior documentation and H&P is in [facility] [place] EMR on date indicated PLANNED PROCEDURE: Operation Date: 04/22/24 08:10 Proposed Procedures p EGD(Not Applicable) - Stephon Barreto MD s Colonoscopy(Not Applicable) - Stephon Barreto MD
[2024-04-22 06:09] LABS: Basophils # 0.1 10^3/uL (0.0-0.1); Basophils % 0.7 %; Eosinophils # 0.2 10^3/uL (0.0-0.8); Eosinophils % 1.6 %; Hematocrit 33.7 % (36-47); Lymphocytes # 1.3 10^3/uL (0.8-4.8); Lymphocytes % 13.4 %; Mean Corpuscular HGB Conc 28.5 g/dL (30-55); Mean Corpuscular Hemoglobin 20.9 pg (27-33); Mean Corpuscular Volume 73.3 fl (85-98); Mean Platelet Volume 8.5 fL (7.4-10.4); Monocytes # 0.8 10^3/uL (0.2-0.9); Monocytes % 7.8 %; Neutrophils # 7.57 10^3/uL (1.8-7.7); Neutrophils % 76.2 %; Nucleated Red Blood Cells % 0 %; Platelet Count 394 10^3/cmm (157-399); Red Cell Distribution Width 22.3 % (12.1-15.1); White Blood Count 9.94 10^3/uL (3.29-11.43)
[2024-04-22 06:29] LABS: Blood Urea Nitrogen 10 mg/dL (8-23); Calcium 9.6 mg/dL (8.5-10.5); Carbon Dioxide 22 mmol/L (22-29); Chloride 108 mmol/L (98-107); Glucose 84 mg/dL (65-115); Magnesium 2.7 mg/dL (1.7-2.3); Osmolality Calculated 298 mOsm/kg (285-295); Sodium 145 mmol/L (136-145)
[2024-04-22 06:35] LABS: Creatinine Clr Calc Pharmacy 37.9384
--- NOTE | 2024-04-22 09:26 | PM.MISC ---
Miscellaneous Note Purpose of Documentation: Update on patient care Note: Upper and lower endoscopy were done today, upper endoscopy shows mild gastritis no active bleeding no evidence of ulcerations or any other concerning findings. Lower endoscopy was attempted but it was impossible due to poor bowel prep patient had significant amount of turbid liquid stool in the colon, I was able to advance to the level of the sigmoid colon, there was no evidence of any blood residue or active bleeding to that point. If patient has recurrent symptoms or positive stool test she might require repeat colonoscopy that can be set up as outpatient.At the moment there is no contraindication from my standpoint to restart anticoagulation as early as tomorrow
--- NOTE | 2024-04-22 09:58 | ANE.PACU2 ---
Inpatient post-anesthesia follow up: Airway intact: Yes Vital signs: Temperature 97.4 F Pulse Rate 74 Respiratory Rate 16 Blood Pressure 156/71 Pulse Oximetry 99 Oxygen Delivery Me thod Room Air Oxygen Flow Rate Fraction of Inspir ed Oxygen Hydration adequate: Yes Nausea and vomiting: No Pain level: 1 Mental status: Baseline
[2024-04-22] MEDS: losartan 50 mg Tablet 100 MG PO (10:09)
[2024-04-22] MEDS: buPROPion XL (24 HR) 150 mg Tablet PO (10:09)
[2024-04-22] MEDS: venlafaxine ER (24HR) 150 mg Capsule PO (10:09)
[2024-04-22] MEDS: atorvastatin 40 mg Tablet PO (10:09)
[2024-04-22] MEDS: pantoprazole 40 mg SDV IVP ×2 (10:09→21:31)
[2024-04-22] MEDS: sucralfate 1 gm/10 mL Oral Liq UDC PO ×3 (10:10→21:31)
[2024-04-22] MEDS: ALPRAZolam 0.5 mg Tablet 0.25 MG PO (13:26)
[2024-04-22 17:46] LABS: Iron 76 ug/dL (37-145); Percent Saturation 16.5 % (20-50); Total Iron Binding Capacity 460 mcg/dl; Unsaturated Iron Binding 384 ug/dL (112-347)
--- NOTE | 2024-04-22 17:56 | P.PN_ITS ---
Subjective 2 Subjective: The patient states that she feels great, especially since she received 2units prbc. She denies f/c, dizziness, light headedness, SOB, melena, n/v, abd pain, dysuria, hematuria, CP, palpitations. She tells me that her acute blood loss anemia was discovered during routine cbc at her [facility], but she did not have any symptoms including malaise, melena or tarry stools. She is s/p EGD and sigmoidoscopy today today. Vitals/I&O/Wt Last Vital Signs Temp 98.8 F 04/22/24 15:38 Pulse 68 04/22/24 15:38 Resp 18 04/22/24 15:38 BP 113/64 04/22/24 15:38 Pulse Ox 97 04/22/24 15:38 O2 Del Method Room Air 04/22/24 15:38 04/22/24 04/22/24 04/22/24 06:59 14:59 22:59 Intake Total 720 / 720 Balance 720 / 720 Weight last 48 hrs Weight 54.431 kg Weight 54.703 kg Weight 54.8 kg Physical Exam 2 Const: GENERAL APPEARANCE: cooperative and comfortable O RIENTATION/CONSCIOUSNESS: Yes awake, Yes oriented to person, Yes oriented to place and Yes oriented to time HENMT: COMMON NORMALS: normocephalic, atraumatic, external ears normal and Normal external nose present HEAD & SCALP: normocephalic and atraumatic N OSE: Normal external nose present EXTERNAL EAR: Yes external ears normal M OUTH: Normal oral and palatal mucosa present THROAT: posterior oropharynx normal Eye: COMMON NORMALS: Equal, round and reactive pupils present, EOMs intact bilaterally and conjunctivae normal CONJUNCTIVA: Yes conjunctivae normal P UPIL: Yes Equal, round and reactive pupils present Neck/C-Spine: COMMON NORMALS: Thyroid normal GENERAL: Yes normal visual inspection and Yes trachea midline THYROID: Thyroid normal CAROTIDS: No bruit CERVICAL SPINE: Yes cervical ROM normal Lymph: OTHER: no cervical or supraclavicular LAD Resp: OTHER: CTAB w/ no w/r/r Cardio: OTHER: RRR, 2/6 systolic murmur in the RUSB. no Rubs, gallops or clicks. 2+ radial and dorsalis pedis pulses. GI: OTHER: BS+, NT, ND, no guarding, no rigidity, no rebound tenderness, no hepatosplenomegaly. Extremity: GENERAL: No clubbing, No cyanosis and No edema Neuro: SENSORIUM/ORIENTATION: Yes oriented to person, Yes oriented to place and Yes oriented to time CRANIAL NERVES: Yes CN normal except as noted S PEECH: speech normal SENSORY EXAM: No sensory level loss detected MOTOR EXAM: 5/5 motor strength present throughout and Normal motor muscle tone present throughout Psych: COMMON NORMALS: Normal thought process present and speech normal A PPEARANCE: Yes grossly normal ATTITUDE: Yes calm and Yes engaged A CTIVITY/MOTOR BEHAVIOR: Yes appropriate eye contact SPEECH: Yes normal speech MOOD & AFFECT: Yes euthymic mood THOUGHT PROCESS: Normal thought process present THOUGHT CONTENT: Yes Normal thought content present A TTENTION/CONCENTRATION: Yes attention grossly intact MEMORY/COGNITION: Yes memory grossly intact Skin: COMMON NORMALS: no rashes or lesions noted GENERAL SKIN EXAM: no rashes or lesions noted Data 04/22/24 06:02 04/22/24 06:02 Micro: Microbiology 04/21/24 14:45 Occult Blood (FIT) - Final Stool Routine Collection A&P Assessment and plan (1) Anxiety with depression: (2) Left leg DVT: Qualifiers: Affected thrombotic vein of extremity: popliteal Chronicity: chronic Qualified Code(s): I82.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 Elliott is a 78 yo woman w/ hx of DVT, on Eliquis, history of CVA w/ L. sided weakness, history of iron deficiency anemia, hypothyroidism, hyperlipidemia, history of ruptured aneurysm with shunt implanted, who was brought to [facility] on 04/20/2024 due to Acute blood loss anemia noted on routine CBC at her [facility]. She is s/p an EGD and sigmoidoscopy on 04/22/2024 that shows mild acute gastritis. A colonoscopy was to be done, but a sigmoidoscopy was done instead due to the poor bowel prep. However, per Gen Surgery, she can follow up in clinic. #Acute blood loss anemia due to #Iron deficiency anemia - s/p 2unit prbcs - 300mg IV iron sucrose ordered for 04/22 and morning of 04/23. - F/u folate & b12. - Resumed home Eliquis per Gen Surgery's recs - F/u w/ [facility] Surgery outpatient. #Mild Acute gastritis: Switched to po PPI daily. #hx of CVA w/ L. sided weakness. due to anemia. DVT ppx: Eliquis Attestations 2 Medical Necessity Statement*: The patient remains hospitalized for introduction of home Eliquis, IV iron administration, and monitoring of her CBC. 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
[2024-04-22 18:02] LABS: Vitamin B12 535 pg/mL (232-1245)
[2024-04-22] MEDS: iron sucrose 300 MG in sodium chloride 0.9% (100 ml) 100 ML 76.67 MG IV (18:08)
[2024-04-22] MEDS: apixaban 5 mg Tablet PO (18:09)
[2024-04-22] MEDS: venlafaxine ER (24HR) 75 mg Capsule PO (21:31)
[2024-04-22] MEDS: ALPRAZolam 0.5 mg Tablet PO (21:31)
[2024-04-22] MEDS: mirtazapine 15 mg Tablet PO (21:31)
[2024-04-23 04:00] VITALS: BP 162/69; PULSE 65; RESP 18; TEMP 36.7; O2SAT 98
[2024-04-23 06:15] LABS: Basophils % 0.5 %; Eosinophils # 0.2 10^3/uL (0.0-0.8); Eosinophils % 2.7 %; Hematocrit 31.8 % (36-47); Lymphocytes # 1.8 10^3/uL (0.8-4.8); Lymphocytes % 23.2 %; Mean Corpuscular HGB Conc 29.2 g/dL (30-55); Mean Corpuscular Hemoglobin 21.3 pg (27-33); Mean Corpuscular Volume 72.8 fl (85-98); Mean Platelet Volume 8.1 fL (7.4-10.4); Monocytes # 0.6 10^3/uL (0.2-0.9); Monocytes % 8.2 %; Neutrophils # 4.89 10^3/uL (1.8-7.7); Nucleated Red Blood Cells % 0 %; Platelet Count 375 10^3/cmm (157-399); Red Blood Count 4.37 10^6/uL (3.85-5.65); Red Cell Distribution Width 23.3 % (12.1-15.1); White Blood Count 7.53 10^3/uL (3.29-11.43)
[2024-04-23 06:35] LABS: Alanine Aminotransferase 16 U/L (0-33); Albumin Level 4.2 g/dL (3.5-5.2); Alkaline Phosphatase 119 U/L (35-105); Anion Gap 15.9 (5-19); Aspartate Amino Transferase 12 U/L (0-32); Blood Urea Nitrogen 9 mg/dL (8-23); Calcium 9.3 mg/dL (8.5-10.5); Carbon Dioxide 22 mmol/L (22-29); Chloride 107 mmol/L (98-107); Creatinine Clr Calc Pharmacy 42.0949; Globulin 2.7 g/dL (1.3-4.6); Glucose 95 mg/dL (65-115); Magnesium 2.4 mg/dL (1.7-2.3); Osmolality Calculated 290 mOsm/kg (285-295); Potassium 3.9 mmol/L (3.5-5.1); Sodium 141 mmol/L (136-145); Total Bilirubin 0.3 mg/dL (0.15-1.2); Total Protein 6.9 g/dL (6.6-8.7)
[2024-04-23] MEDS: levothyroxine 25 mcg Tablet PO (06:53)
[2024-04-23] MEDS: pantoprazole DR 40 mg Tablet PO (06:53)
[2024-04-23] MEDS: ARIPiprazole 10 mg Tablet 5 MG PO (06:53)
[2024-04-23] MEDS: sucralfate 1 gm/10 mL Oral Liq UDC PO ×2 (06:53→07:20)
[2024-04-23 07:21] VITALS: BP 162/69
[2024-04-23] MEDS: venlafaxine ER (24HR) 150 mg Capsule PO (07:21)
[2024-04-23] MEDS: losartan 50 mg Tablet 100 MG PO (07:21)
[2024-04-23] MEDS: apixaban 5 mg Tablet PO (07:21)
[2024-04-23] MEDS: buPROPion XL (24 HR) 150 mg Tablet PO (07:21)
[2024-04-23] MEDS: atorvastatin 40 mg Tablet PO (07:21)
[2024-04-23] MEDS: ALPRAZolam 0.5 mg Tablet 0.25 MG PO ×2 (07:22→11:55)
[2024-04-23 08:35] VITALS: BP 152/75; PULSE 68; RESP 17; TEMP 36.6; O2SAT 98
[2024-04-23 09:11] VITALS: PULSE 68; RESP 18; O2SAT 95
[2024-04-23] MEDS: iron sucrose 300 MG in sodium chloride 0.9% (100 ml) 100 ML 76.67 MG IV (09:13)
[2024-04-23 12:02] VITALS: BP 151/73; PULSE 74; RESP 18; TEMP 36.7; O2SAT 94
--- NOTE | 2024-04-23 12:08 | PC.SOCIAL ---
IMM Update pg 2 of IMM Updated and reviewed w/ patient and her guardian. Copy provided and copy dated, initialed and placed in chart.
--- NOTE | 2024-04-23 12:18 | PC.NURSE ---
REPORT CALLED TO DULCE GARCIA.
[2024-04-23 16:20] VITALS: BP 151/73; PULSE 74; RESP 18; TEMP 36.7; O2SAT 98
--- NOTE | 2024-05-02 14:20 | P.DS_ITS ---
Discharge Providers Date of Admission: 04/20/24 17:52 Date of Discharge: april 23, 2025 Attending Provider at Admission: Jaleel Mathews MD Attending Provider at Discharge: Angeline Hernandez MD Primary Care Provider: Mary Moncada APN Diagnoses at Discharge Discharge Diagnosis (1) Anxiety with depression: Status: Chronic (2) Left leg DVT: Status: Chronic Qualifiers: Affected thrombotic vein of extremity: popliteal Chronicity: chronic Qualified Code(s): I82.532 - Chronic embolism and thrombosis of left popliteal vein Permanent problem details: DVT in the left popliteal and proximal tibial veins August 2020 (3) Anemia, iron deficiency: Status: Chronic Qualifiers: Iron deficiency anemia type: unspecified iron deficiency Qualified Code(s): D50.9 - Iron deficiency anemia, unspecified Reason for Visit Reason for Visit: abnormal labs Hospital Course Hospital Course Ms. Elliott is a 78 yo woman w/ hx of DVT, on Eliquis, history of CVA w/ L. sided weakness, history of iron deficiency anemia, hypothyroidism, hyperlipidemia, history of ruptured aneurysm with shunt implanted, who was brought to [facility] on 04/20/2024 due to Acute blood loss anemia noted on routine CBC at her [place] [facility]. She is s/p an EGD and sigmoidoscopy on 04/22/2024 that shows mild acute gastritis. A colonoscopy was to be done, but a sigmoidoscopy was done instead due to the poor bowel prep. Eliquis was resumed at discharge after confirming with surgery. She received 2 PRBC transfusion during hospital stay. Hb stable at 9.3 at discharge Physical Exam Narrative: General: No acute distress, AO x3 HEENT: PERRLA, pupils bilaterally equal and reactive, pallors not present Chest: Normal vesicular breath sounds, no added sounds, equal good air entry bilaterally CVS: S1-S2 regular, no murmurs, no tachycardia, no gallops, no rubs Abdomen: Soft, nontender, no organomegaly, bowel sounds present Neuro: No focal deficits Discharge Data Studies Completed and Pending Completed Studies During Hospitalization Category Date Time Status Pathology: Surgical [PTH] Routine Pth 04/22/24 09:26 Completed Pending at discharge Category Date Time Status ES surgery / GI images Routine Exams 04/22/24 08:55 Ordered Laboratory Results WBC 7.53 10^3/uL (3.29-11.43) 04/23/24 06:07 RBC 4.37 10^6/uL (3.85-5.65) 04/23/24 06:07 Hgb 9.30 g/dL (11.27-16.99) L 04/23/24 06:07 Hct 31.8 % (36-47) L 04/23/24 06:07 MCV 72.8 fl (85-98) L 04/23/24 06:07 MCH 21.3 pg (27-33) L 04/23/24 06:07 MCHC 29.2 g/dL (30-55) L 04/23/24 06:07 RDW 23.3 % (12.1-15.1) H 04/23/24 06:07 Plt Count 375 10^3/cmm (157-399) 04/23/24 06:07 MPV 8.1 fL (7.4-10.4) 04/23/24 06:07 Neut % (Auto) 65.0 % 04/23/24 06:07 Lymph % (Auto) 23.2 % 04/23/24 06:07 Esmeralda % (Auto) 8.2 % 04/23/24 06:07 Eos % (Auto) 2.7 % 04/23/24 06:07 Baso % (Auto) 0.5 % 04/23/24 06:07 Neut # (Auto) 4.89 10^3/uL (1.8-7.7) 04/23/24 06:07 Lymph # (Auto) 1.8 10^3/uL (0.8-4.8) 04/23/24 06:07 Esmeralda # (Auto) 0.6 10^3/uL (0.2-0.9) 04/23/24 06:07 Eos # (Auto) 0.2 10^3/uL (0.0-0.8) 04/23/24 06:07 Baso # (Auto) 0.0 10^3/uL (0.0-0.1) 04/23/24 06:07 Nucleated RBC % (auto) 0 % 04/23/24 06:07 Nucleated RBCs # 0.0 /100WBC 04/23/24 06:07 PT 14.90 SECONDS (12.1-14.9) 04/20/24 16:54 INR 1.13 (0.8-1.2) 04/20/24 16:54 Sodium 141 mmol/L (136-145) 04/23/24 06:07 Potassium 3.9 mmol/L (3.5-5.1) 04/23/24 06:07 Chloride 107 mmol/L (98-107) 04/23/24 06:07 Carbon Dioxide 22 mmol/L (22-29) 04/23/24 06:07 Anion Gap 15.9 (5-19) 04/23/24 06:07 BUN 9 mg/dL (8-23) 04/23/24 06:07 Creatinine 0.9 mg/dL (0.5-0.9) 04/23/24 06:07 GFR Calculation Not Reportable 04/23/24 06:07 Glucose 95 mg/dL (65-115) 04/23/24 06:07 Calculated Osmolality 290 mOsm/kg (285-295) 04/23/24 06:07 Calcium 9.3 mg/dL (8.5-10.5) 04/23/24 06:07 Phosphorus 4.0 mg/dL (2.5-4.5) 04/23/24 06:07 Magnesium 2.4 mg/dL (1.7-2.3) H 04/23/24 06:07 Iron 76 ug/dL (37-145) 04/22/24 06:02 TIBC 460 mcg/dl 04/22/24 06:02 % Saturation 16.5 % (20-50) L 04/22/24 06:02 Unsat Iron Binding 384 ug/dL (112-347) H 04/22/24 06:02 Ferritin 11 ng/mL (15-150) L 04/20/24 16:50 Total Bilirubin 0.3 mg/dL (0.15-1.2) 04/23/24 06:07 AST 12 U/L (0-32) 04/23/24 06:07 ALT 16 U/L (0-33) 04/23/24 06:07 Alkaline Phosphatase 119 U/L (35-105) H 04/23/24 06:07 Total Protein 6.9 g/dL (6.6-8.7) 04/23/24 06:07 Albumin 4.2 g/dL (3.5-5.2) 04/23/24 06:07 Globulin 2.7 g/dL (1.3-4.6) 04/23/24 06:07 Vitamin B12 535 pg/mL (232-1245) 04/22/24 06:02 Folate 17.0 ng/mL (4.8-37.3) 04/22/24 06:02 Urine Color Yellow (Yellow) 04/20/24 18:13 Urine Appearance Clear (CLEAR) 04/20/24 18:13 Urine pH 7.5 (5-7) 04/20/24 18:13 Ur Specific Grandin 1.005 (1.005-1.030) 04/20/24 18:13 Urine Protein Negative (Negative) 04/20/24 18:13 Urine Glucose (UA) Negative (Normal) 04/20/24 18:13 Urine Ketones Negative (Negative) 04/20/24 18:13 Urine Blood Negative (Negative) 04/20/24 18:13 Urine Nitrate Negative (Negative) 04/20/24 18:13 Urine Bilirubin Negative (Negative) 04/20/24 18:13 Urine Urobilinogen 0.2 mg/dL (Negative) 04/20/24 18:13 Ur Leukocyte Esterase Negative (Negative) 04/20/24 18:13 Urine RBC 0-2 /hpf (0-2) 04/20/24 18:13 Urine WBC 0-5 /hpf (0-5) 04/20/24 18:13 Ur Squamous Epith Cells 0-5 /hpf (0-5) 04/20/24 18:13 Amorphous Sediment Not Reportable 04/20/24 18:13 Urine Bacteria None seen /hpf (NONE) 04/20/24 18:13 Hyaline Casts 0-4 /lpf H 04/20/24 18:13 Blood Type B Positive 04/20/24 16:54 Rho(D) Type Rh positive 04/20/24 16:54 Antibody Screen Negative 04/20/24 16:54 Crossmatch See Detail 04/20/24 16:54 Vitals Last Vital Signs Temp 98.0 F 04/23/24 16:20 Pulse 74 04/23/24 16:20 Resp 18 04/23/24 16:20 BP 151/73 04/23/24 16:20 Pulse Ox 98 04/23/24 16:20 O2 Del Method Room Air 04/23/24 12:02 Discharge Plan Discharge Patient Disposition: Xfer SNF Condition: Stable Prescriptions: New pantoprazole 40 mg Tablet,Delayed Release (Dr/Ec) 40 mg PO QAM 30 Days Qty: 30 0RF sucralfate 1 gram tablet 1 g PO BID 28 Days Qty: 56 0RF Continued (DME) lift chair See Rx Instructions .Route .MEDSUPPLY Qty: 1 0RF Rx Instructions: As directed (DME) Rollater walker See Rx Instructions .Route .MEDSUPPLY Qty: 1 0RF Rx Instructions: As directed [place] polymer AFO without laces See Rx Instructions .Route .MEDSUPPLY Qty: 1 0RF Rx Instructions: As directed by the maggy stauffer ([facility] CAM walker See Rx Instructions .Route .MEDSUPPLY Qty: 1 0RF Rx Instructions: As directed ([facility] Wheelchair See Rx Instructions .Route .MEDSUPPLY Qty: 1 0RF Rx Instructions: As directed Abilify 5 mg tablet 5 mg PO QAM Qty: 90 1RF losartan 100 mg tablet 100 mg PO DAILY Eliquis 5 mg tablet 5 mg PO BID albuterol sulfate 90 mcg/actuation HFA aerosol inhaler 2 puff INHALATION Q6H PRN (Reason: Shortness Of Breath Or Wheezing) methenamine hippurate 1 gram tablet 1 g PO BID docusate sodium [Stool Softener] 100 mg Capsule 100 mg PO DAILY acetaminophen 325 mg Tablet 650 mg PO QID PRN (Reason: pain or fever) venlafaxine 150 mg capsule,extended release 24hr 150 mg PO DAILY Rx Instructions: take with 75 mg for a total 225 mg daily, divided dose alprazolam 0.5 mg tablet 0.5 mg PO BEDTIME alprazolam [Xanax] 0.25 mg Tablet 0.25 mg PO DIRECTED Rx Instructions: Administer at 8am and at 12pm magnesium hydroxide [Milk of Magnesia] 400 mg/5 mL Suspension 15 ml PO DAILY PRN (Reason: Constipation) mirtazapine 15 mg tablet 15 mg PO BEDTIME bupropion HCl 150 mg Tablet Extended Release 24 Hr 150 mg PO QAM venlafaxine 75 mg Capsule,Extended Release 24hr 75 mg PO QPM Rx Instructions: take with 150 mg for a total daily dose of 225 mg atorvastatin 40 mg tablet 40 mg PO DAILY levothyroxine 25 mcg tablet 25 mcg PO QAM oxybutynin chloride 10 mg Tablet Extended Release 24hr 10 mg PO DAILY Discharge Orders: Discharge Order (Routine); Ordered 04/23/24 Ordered By: Angeline Hernandez Referrals: [facility] [Outside] Mary Moncada APN [Primary Care Provider] - 7-10 days Stephon Barreto MD [Physician] - 1 month (We have notified your physician's clinic of the need for a follow-up appointment to be scheduled. If you have not heard from them within the next 2 business days, please call them directly. ) Discharge Diet: Advance as tolerated and GI Soft Discharge Activity: Resume usual activity Patient Instructions: Sucralfate (By mouth), Pantoprazole (By mouth), GI Post Discharge Instructions w/ Anesthesia, Opioid Safety, Post Anesthesia Care, Pain Management Discharge Attestations Time Spent in Discharge Care*: greater than 30 min Status at Discharge: Cognitive status at discharge: cognitively intact , Behavioral status at discharge: cooperative , Quality Metrics Clinical Quality Measures [ No reported AMI, CVA or VTE this stay] Coding Level of Care Code Acute Code for Chg Fwd Diagnoses Anxiety with depression F41.8 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
== END 2024-04-23 16:21 | disposition skilled nursing facility (03) ==
LOC: ER 17:52 → MEDSURG 19:57
PROVIDERS: Family Medicine; Internal Medicine; Surgery; Admitting Provider Student in an Organized Health Care Education/Training Program; Emergency Provider Emergency Medicine; PCP Nurse Practitioner Family; Visit Provider Student in an Organized Health Care Education/Training Program
PROC: 0DJ08ZZ Inspection of Upper Intestinal Tract, Via Natural or Artificial Opening Endoscopic (ICD-10-PCS; principal; 2024-04-22 08:00)
PROC: 0DJD8ZZ Inspection of Lower Intestinal Tract, Via Natural or Artificial Opening Endoscopic (ICD-10-PCS; CPT 45378; 2024-04-22 08:00)
PROC: 0DJD8ZZ Inspection of Lower Intestinal Tract, Via Natural or Artificial Opening Endoscopic (ICD-10-PCS; CPT 45330; 2024-04-22 08:00)
DX: D50.9 Iron deficiency anemia, unspecified (principal); I82.532 Chronic embolism and thrombosis of left popliteal vein; F41.8 Other specified anxiety disorders; K29.70 Gastritis, unspecified, without bleeding; Z79.01 Long term (current) use of anticoagulants; I69.954 Hemiplegia and hemiparesis following unspecified cerebrovascular disease affecting left non-dominant side; E03.9 Hypothyroidism, unspecified; E78.5 Hyperlipidemia, unspecified; I10 Essential (primary) hypertension; Z87.891 Personal history of nicotine dependence; Z91.51 Personal history of suicidal behavior
CPT/HCPCS: 36415; 36430; 80048; 80053; 81001; 82274; 82607; 82728; 82746; 83540; 83550; 83735; 84100; 85025; 85610; 86850; 86900; 86920; 88305; 88342; 94664; 99285; G0378; J1756; J2470; J2704; P9016

== ENCOUNTER → 2024-05-22 08:41 | Outpatient (BNVA) | payer MEDICAID, SELFPAY | PROVIDERS: PCP Nurse Practitioner Family; Visit Provider Surgery | DX: Z09 Encounter for follow-up examination after completed treatment for conditions other than malignant neoplasm (principal); R03.0 Elevated blood-pressure reading, without diagnosis of hypertension | CPT/HCPCS: 99214 ==

== ENCOUNTER → 2024-05-23 08:56 | Outpatient (BNVA) | payer MEDICAID, SELFPAY | PROVIDERS: PCP Nurse Practitioner Family; Visit Provider Dermatology | DX: C44.311 Basal cell carcinoma of skin of nose (principal) | CPT/HCPCS: 17281; 99214 ==

== ENCOUNTER → 2024-07-17 13:49 | Outpatient (BNVA) | payer MEDICAID, SELFPAY | PROVIDERS: PCP Nurse Practitioner Family; Visit Provider Nurse Practitioner Family | DX: L12.0 Bullous pemphigoid (principal); L82.1 Other seborrheic keratosis; L81.4 Other melanin hyperpigmentation; D18.01 Hemangioma of skin and subcutaneous tissue; L72.0 Epidermal cyst; D69.2 Other nonthrombocytopenic purpura; Z85.828 Personal history of other malignant neoplasm of skin; Z08 Encounter for follow-up examination after completed treatment for malignant neoplasm; Z85.820 Personal history of malignant melanoma of skin | CPT/HCPCS: 99214 ==

== ENCOUNTER → 2024-08-23 14:27 | Outpatient (BNVA) | payer MEDICARE, MEDICAID, SELFPAY | PROVIDERS: PCP Nurse Practitioner Family; Visit Provider Dermatology | DX: L81.0 Postinflammatory hyperpigmentation (principal); L82.1 Other seborrheic keratosis; L12.0 Bullous pemphigoid; Z85.820 Personal history of malignant melanoma of skin; Z08 Encounter for follow-up examination after completed treatment for malignant neoplasm; Z85.828 Personal history of other malignant neoplasm of skin; C44.311 Basal cell carcinoma of skin of nose | CPT/HCPCS: 17280; 99213 ==

== ENCOUNTER → 2024-09-26 13:50 | Outpatient (BNVA) | payer MEDICARE, MEDICAID, SELFPAY | PROVIDERS: PCP Nurse Practitioner Family; Visit Provider Dermatology | DX: L30.9 Dermatitis, unspecified (principal); Z85.820 Personal history of malignant melanoma of skin; Z08 Encounter for follow-up examination after completed treatment for malignant neoplasm; Z85.828 Personal history of other malignant neoplasm of skin | CPT/HCPCS: 11104; 11105; 99214 ==

== ENCOUNTER → 2024-10-08 14:51 | Outpatient (BNVA) | payer MEDICAID, SELFPAY | PROVIDERS: PCP Nurse Practitioner Family; Visit Provider Dermatology | DX: L27.0 Generalized skin eruption due to drugs and medicaments taken internally (principal); L81.0 Postinflammatory hyperpigmentation | CPT/HCPCS: 99213 ==

== ENCOUNTER 2024-12-05 10:36 | Emergency (ER) | payer MEDICARE, MEDICAID, SELFPAY ==
--- OUTSIDE RECORDS SUMMARY | 2024-11-16 06:00 | XMS_ITS ---
Author Organization [facility] Address [address] [place] [address] Care Team Providers Care Smocker Name Role Phone Sabas Reddy Unavailable TREVOR CAPUTO Unavailable Unavailable REASON FOR VISIT senior living visit at [place], [place] Encounters Encounter Location Date Provider Diagnosis [facility] [address] [facility] [place] [address] 11/16/2024 Reddy Obregon Assessments Encounter Date Diagnosis (ICD Code) Assessment Notes Treatment Notes Treatment Clinical Notes Section Notes 11/16/2024 Other Medications wer e reviewed. I will continue without changes. Nursing staff is to contact me with any symptoms arising. Orders signed and documented with nursing staff. Vitals taken and recorded at [facility]. Plan Of Treatment Treatment Notes Assessment Notes Other Medications were rev iewed. I will continue without changes. Nursing staff is to contact me with any symptoms arising. Orders signed and documented with nursing staff. Vitals taken and recorded at [facility]. Next Appt Details Follow Up: 4 Weeks, Reason: History and Physical Notes * HPI (History of Present Illness) Category Sub-Category Detail Notes Category Not es : The patient is seen in the long-term today for follow-up. Staff reports no new complaints. The review of systems and exam are unchanged from previous. Patient denies pain and is comfortable. Examination Category Sub-Category Detail Notes Category Not es General Examination GENERAL APPEARANCE: in no ac froilan distress. Vital signs as documented. NECK/THYROID: no JVD HEART: notable for regular rhythym, normal sounds and absence of murmurs, rubs or gallops. LUNGS: Lungs clear ABDOMEN: unremarkable, no org anomegaly , no masses, or abdominal aortic enlargement. SKIN: warm and dry, withou t overt rashes. Progress Notes * Brent ELLIOTTOB:[birth year] (79 yo F)Acc No.[id number]:11/16/2024 Patient: Kathrin Taylor Provider: Gigi Obregon MD :1945 A ge:79 Y S ex:Female Date:11/16/2024 Address:[address] [place] [address], [facility] Subjective: * Chief Complaints: * N ursing home visit at [place], [place] * HPI: * :: The patient is seen in the long-term today for follow-up. Staff reports no new complaints. The review of systems and exam are unchanged from previous. Patient denies pain and is comfortable. Objective: * Examination: G eneral Examination: GENERAL APPEARANCE: i n no acute distress. Vital signs as documented.. NECK/THYROID: n o JVD. SKIN: w arm and dry, without overt rashes.. HEART: n otable for regular rhythym, normal sounds and absence of murmurs, rubs or gallops. LUNGS: L ungs clear. ABDOMEN: u nremarkable, no organomegaly , no masses, or abdominal aortic enlargement.. Plan: * Treatment: * Procedure Codes: 9 9309 SNF CARE SUBSEQ * Follow Up: 4 Weeks Billing Information: * Procedure Codes: 81189 SNF CARE SUBSEQ. * Electronic signature of Jovani Obregon MD on 12/05/2024 at 10:49 AM CDT Sign off status: Pending * Provider: Gigi Obregon MD Date: 11/16/2024 Generated for Mitzi arevalo/Scott/Zoranitting on: 0 12/05/2024 10:49 AM CDT
--- OUTSIDE RECORDS SUMMARY | 2024-12-05 10:49 | XMS_ITS | Patient Health Record ---
Author Organization [facility] Address [address] [place] [address] Care Team Providers Care Pipe Coremaker Name Role Phone Reddy Obregon Unavailable [phone] MARY MONCADA Unavailable Unavailable Mary Moncada Unavailable [phone] Allergies Allergen (clinical drug ingredient) Drug/Non Drug Allergy documented on EMR Reaction Allergy Type Onset Date Status cephalexin Cephalexin rash Drug Allergy Activ e clindamycin Clindamycin HCl rash Drug Allergy Active Reason For Referral No Information Medications Medication SIG (Take, Route, Frequency, Duration) Notes Start Date End Date Status buPROPion HCl 75 MG Tablet 1 tablet Oral ly daily; Duration: 30 days Active Ascorbic Acid 1000 MG Tablet 1 tablet Orally Once a day Active Vitamin B 12 500 MCG Tablet 1 tablet Ora lly Once a day Active Cholecalciferol 125 MCG (5000 UT) Capsule as directed Orally Acti ve Gabapentin 100 MG Capsule 1 capsule Oral ly twice a day Unknown Methylphenidate HCl 10 MG Tablet 1 tablet on empty stomach Orally Once a day; Duration: 30 days 11/07/2024 12/06/2024 Active oxyBUTYnin Chloride ER 10 mg Tablet Extended Release 24 Hour TAKE ONE TABLET BY MOUTH ONCE DAILY; Duration: 30 days Active Multivitamin - Tablet 1 tablet Orally On ce a day Active Levothyroxine Sodium 25 mcg Tablet TAKE ONE TABLET BY MOUTH DAILY; Duration: 30 days Active Symbicort 160-4.5 MCG/ACT Aerosol 2 puffs Inhalation Twice a day; Duration: 30 days Active Venlafaxine HCl ER 75 MG Capsule Extended Release 24 Hour 1 capsule with food Orally Once a day to total 225mg daily; Duration: 30 days Active Abilify 5 MG Tablet 1 tablet Orally Once a day Active Albuterol Sulfate HFA 108 (90 Base) MCG/ACT Aerosol Solution INHALE TWO PUFFS into lungs EVERY 6 HOURS NEEDED; Duration: 25 Active Losartan Potassium 100 mg Tablet TAKE ONE TABLET BY MOUTH DAILY; Duration: 30 days Active Methenamine Hippurate 1 GM Tablet 1 tablet Orally Twice a day; Duration: 30 days 01/03/2025 Active Ferrous Gluconate 240 (27 Fe) MG Tablet 1 tablet with water or juice between meals Orally Once a day; Duration: 30 days Active Atorvastatin Calcium 40 mg Tablet TAKE ONE TABLET BY MOUTH DAILY; Duration: 30 Active Venlafaxine HCl ER 150 mg Capsule Extended Release 24 Hour TAKE ONE CAPSULE BY MOUTH DAILY; Duration: 30 days Active Eliquis 5 mg Tablet TAKE ONE TABLET BY MOUTH TWICE DAILY; Duration: 30 days Active Social History Tobacco Use: Social History Observation Description Date Details (start date - stop date) Current Smoker NA - NA Social History Depression Screening Social Info Question Answer Notes PHQ-9 Little interest or pleasure in doing thin gs Not at all Feeling down, depressed, or hopeless Not at all Trouble falling or staying asleep, or sleeping t oo much Not at all Feeling tired or having little energy Not at all Poor appetite or overeating Not at all Feeling bad about yourself, or that you are a failure, or have let yourself or your family down Not at all Trouble concentrating on thi ngs, such as reading the newspaper or watching television Not at all Moving or speaking so slowly that other people could have noticed. Or the opposite ? being so fidgety or restless that you have been moving around a lot more than usual Not at all Thoughts that you would be b olivia off , or of hurting yourself in some way Not at all Total Score 0 Drugs/Alcohol: Social Info Question Answer Notes Alcohol Screen (Audit-C) Did you have a drink containing alcohol in the past year? No Points 0 Interpretation Negative Tobacco Use: Social Info Question Answer Notes xTobacco Use/Smoking Are you a current smoker How often do you smoke cigarettes? every day How many cigarettes a day do you smoke? 11-20 Additional Details Category Social Info Options Details Drugs/Alcohol: Do you smoke marijuana? [place] medical marijuana card Section Notes: 07/13/21 07/13/21 07-13-22 PHQ9 07/13/21 07-13-22 PHQ9 07/13/21 07-13-22 PHQ9 07/13/21 07/13/21 07-13-22 PHQ9 07/13/21 07-13-22 PHQ9 Problems Problem Type SNOMED Code ICD Code Onset Dates Problem Status W/U Status Risk Notes Problem Mixed hyperlipidemia (999567632) Mixed hyperlipidemia (E78.2) Active confirmed Problem Tobacco user (884416816) Nicotine dependence, cigarettes, uncomplicated (F17.210) Active confirmed Problem Chronic pain (20502199) Other chronic pain (G89.29) Active confirmed Problem Essential hypertension (92550049) Hypertension, unspecified type (I10) Active confirmed Problem Vitamin D deficiency (40682939) Vitamin D deficiency (E55.9) Active confirmed Problem Urge incontinence of urine (28707363) Urge incontinence of urine (N39.41) Active confirmed Problem Hypothyroidism (44854714) Hypothyroidism, unspecified type (E03.9) Active confirmed Problem Bipolar 1 disorder (633867669) Bipolar 1 disorder (F31.9) Active confirmed Problem Recurrent falls (796271726) Frequent falls (R29.6) Active confirmed Problem COPD - Chronic obstructive pulmonary disease (65537891) COPD (chronic obstructive pulmonary disease) (J44.9) Active confirmed Problem Recurrent falls (419064228) Recurrent falls (R29.6) Active confirmed Problem Chronic deep venous thrombosis of lower extremity (disorder) (768245279274809) Chronic deep vein thrombosis (DVT) of left lower extremity, unspecified vein (I82.502) Active confirmed Problem Vestibular ataxic gait (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) 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) Active confirmed Encounters Encounter Location Date Provider Diagnosis [place] [address] [place] [facility] [address] [place] [address] 07/06/2024 Reddy Obregon Hypertension, unspecified type I10 ; Mixed hyperlipidemia E78.2 and Bipolar 1 disorder F31.9 [place] [address] [facility] [address] [place] [address] 06/08/2024 Reddy Obregon Bipolar 1 disorder F31.9 ; Mixed hyperlipidemia E78.2 and Hypertension, unspecified type I10 [place] [address] [place] [facility] [address] [place] [address] 05/18/2024 Christopher Obregon Hypertension, unspecified type I10 and Other chronic pain G89.29 [place] [address] [place] [address] [place] [address] 04/06/2024 Christopher Obregon Hypertension, unspecified type I10 ; Mixed hyperlipidemia E78.2 and Bipolar 1 disorder F31.[address] [place] [address] [place] [address] 03/02/2024 Christopher Obregon Hypertension, unspecified type I10 ; Mixed hyperlipidemia E78.2 ; Chronic deep vein thrombosis (DVT) of left lower extremity, unspecified vein I82.502 and Bipolar 1 disorder F31.9 [place] [address] [place] [address] [place] [address] 02/03/2024 Christopher Obregon Hypertension, unspecified type I10 ; Nicotine dependence, cigarettes, uncomplicated F17.210 ; Vitamin D deficiency E55.9 and COPD (chronic obstructive pulmonary disease) J44.9 [place] [address] [place] [address] 01/31/2024 Christopher Obregon Hypertension, unspecified type I10 ; Mixed hyperlipidemia E78.2 ; Bipolar 1 disorder F31.9 ; Vitamin D deficiency E55.9 ; Hypothyroidism, unspecified type E03.9 ; Chronic deep vein thrombosis (DVT) of left lower extremity, unspecified vein I82.502 ; Other chronic pain G89.29 ; Frequent falls R29.6 ; Nicotine dependence, cigarettes, uncomplicated F17.210 ; Vestibular ataxic gait R26.0 ; Recurrent falls R29.6 ; Urge incontinence of urine N39.41 and COPD (chronic obstructive pulmonary disease) J44.[address] [place] [address] [place] [address] 11/16/2024 Christopher Obregon [place] [address] [place] [address] 10/12/2024 Christopher Obregon Hypertension, unspecified type I10 ; Mixed hyperlipidemia E78.2 and Vitamin D deficiency E55.[address] [place] [address] [place] [address] 09/07/2024 Christopher Obregon Hypertension, unspecified type I10 and Bipolar 1 disorder F31.[address] [place] [address] [place] [address] [facility], unspecified type I10 ; Mixed hyperlipidemia E78.2 and Bipolar 1 disorder F31.9 [facility] [address] [place] [address] 09/05/2024 [facility] [address] [place] [address] 05/22/2024 [facility] [address] [place] [address] 01/30/2024 [facility] [address] [place] [address] 11/06/2024 [facility] [address] [place] [address] 10/01/2024 [facility] [address] [place] [address] 09/05[facility]20[facility] Date Diagnosis (ICD Code) Assessment Notes Treatment Notes Treatment Clinical Notes Section Notes 01/31/2024 Hypertension, unspecified type (ICD-10 - I10) 02/03/2024 Hypertension, unspecified type (ICD-10 - I10) 03/02/2024 Hypertension, unspecified type (ICD-10 - I10) 04/06/2024 Hypertension, unspecified type (ICD-10 - I10) 05/18/2024 Hypertension, unspecified type (ICD-10 - I10) 06/08/2024 Bipolar 1 disorder (ICD-10 - F31.9) 07/06/2024 Hypertension, unspecified type (ICD-10 - I10) Medications were reviewed. I will continue without changes. Nursing staff is to contact me with any symptoms arising. Orders signed and documented with nursing staff. Vitals taken and recorded at [facility]. 08/10/2024 Hypertension, unspecified type (ICD-10 - I10) Medications were reviewed. I will continue without changes. Nursing staff is to contact me with any symptoms arising. Orders signed and documented with nursing staff. Vitals taken and recorded at [facility]. 09/07/2024 Hypertension, unspecified type (ICD-10 - I10) Medications were reviewed. I will continue without changes. Nursing staff is to contact me with any symptoms arising. Orders signed and documented with nursing staff. Vitals taken and recorded at [facility]. 10/12/2024 Hypertension, unspecified type (ICD-10 - I10) Medications were reviewed. I will continue without changes. Nursing staff is to contact me with any symptoms arising. Orders signed and documented with nursing staff. Vitals taken and recorded at [facility]. 10/12/2024 Mixed hyperlipidemia (ICD-10 - E78.2) 09/07/2024 Bipolar 1 disorder (ICD-10 - F31.9) 08/10/2024 Mixed hyperlipidemia (ICD-10 - E78.2) 07/06/2024 Mixed hyperlipidemia (ICD-10 - E78.2) 06/08/2024 Mixed hyperlipidemia (ICD-10 - E78.2) 05/18/2024 Other chronic pain (ICD-10 - G89.29) 04/06/2024 Mixed hyperlipidemia (ICD-10 - E78.2) 03/02/2024 Mixed hyperlipidemia (ICD-10 - E78.2) 02/03/2024 Nicotine dependence, cigarettes, uncomplicated (ICD-10 - F17.210) 01/31/2024 Mixed hyperlipidemia (ICD-10 - E78.2) 01/31/2024 Bipolar 1 disorder (ICD-10 - F31.9) 02/03/2024 Vitamin D deficiency (ICD-10 - E55.9) 03/02/2024 Chronic deep vein thrombosis (DVT) of left lower extremity, unspecified vein (ICD-10 - I82.502) 04/06/2024 Bipolar 1 disorder (ICD-10 - F31.9) 06/08/2024 Hypertension, unspecified type (ICD-10 - I10) 07/06/2024 Bipolar 1 disorder (ICD-10 - F31.9) 08/10/2024 Bipolar 1 disorder (ICD-10 - F31.9) 10/12/2024 Vitamin D deficiency (ICD-10 - E55.9) 03/02/2024 Bipolar 1 disorder (ICD-10 - F31.9) 02/03/2024 COPD (chronic obstructive pulmonary disease) (ICD-10 - J44.9) 01/31/2024 Vitamin D deficiency (ICD-10 - E55.9) 01/31/2024 Hypothyroidism, unspecified type (ICD-10 - E03.9) 01/31/2024 Chronic deep vein thrombosis (DVT) of left lower extremity, unspecified vein (ICD-10 - I82.502) 01/31/2024 Other chronic pain (ICD-10 - G89.29) 01/31/2024 Frequent falls (ICD-10 - R29.6) 01/31/2024 Nicotine dependence, cigarettes, uncomplicated (ICD-10 - F17.210) 01/31/2024 Vestibular ataxic gait (ICD-10 - R26.0) 01/31/2024 Recurrent falls (ICD-10 - R29.6) 01/31/2024 Urge incontinence of urine (ICD-10 - N39.41) 01/31/2024 COPD (chronic obstructive pulmonary disease) (ICD-10 - J44.9) 11/16/2024 Other Medications were reviewed. I will continue without changes. Nursing staff is to contact me with any symptoms arising. Orders signed and documented with nursing staff. Vitals taken and recorded at [facility]. 01/31/2024 Other Medications reviewed, orders signed and documented with nursing staff. Vitals taken and recorded at [facility]. 02/03/2024 Other Medications reviewed, orders signed and documented with nursing staff. Vitals taken and recorded at [facility]. 03/02/2024 Other Medications reviewed, orders signed and documented with nursing staff. Vitals taken and recorded at [facility]. 04/06/2024 Other Medications reviewed, orders signed and documented with nursing staff. Vitals taken and recorded at [facility]. 05/18/2024 Other Medications reviewed, orders signed and documented with nursing staff. Vitals taken and recorded at [facility]. 06/08/2024 Other Medications reviewed, orders signed and documented with nursing staff. Vitals taken and recorded at [facility]. Plan Of Treatment No Information Insurance Providers Payer Name Payer Address Payer Phone Subscriber Number Group Number Insured Name Patient Relationship to Insured Coverage Start Date Coverage End Date [employer] Medicare Dual Complete PPO [address] [address] [place] [address] [phone] [id number] Kathrin Jackson Self - patient is the insured [place] Medicaid [address] [place] [address] [phone] [id number] Kathrin Jackson Self - patient is the insured [place] [address] [facility] [id number] Kathrin Jackson Self - patient is the insured Medical (General) History Medical History History ICD Code deep vein thrombosis hypertension anxiety hyperlipidemia Surgical History Surgery Date(Month/Year) hysterectomy section brain surgery right wrist surgery Hospitalization History Reason Date(Month/Year) [facility]-Fall 09-28-22 [facility]-Fall 09-27-22 [facility] ER 06/2021
[2024-12-05 10:50] VITALS: BP 132/73; PULSE 85; RESP 14; TEMP 37.2; O2SAT 98; BMI 20.5
[2024-12-05 11:10] LABS: Hematocrit 30.2 % (36-47); Hemoglobin 8.70 g/dL (11.27-16.99); Mean Corpuscular HGB Conc 28.8 g/dL (30-55); Mean Corpuscular Hemoglobin 20.5 pg (27-33); Mean Corpuscular Volume 71.1 fl (85-98); Nucleated Red Blood Cells % 0 %; Platelet Count 462 10^3/cmm (157-399); Red Blood Count 4.25 10^6/uL (3.85-5.65); White Blood Count 11.53 10^3/uL (3.29-11.43)
[2024-12-05 11:25] LABS: Alanine Aminotransferase 12 U/L (0-33); Albumin Level 3.5 g/dL (3.5-5.2); Alkaline Phosphatase 108 U/L (35-105); Anion Gap 15.9 (5-19); Aspartate Amino Transferase 12 U/L (0-32); Blood Urea Nitrogen 29 mg/dL (8-23); Calcium 9.5 mg/dL (8.5-10.5); Carbon Dioxide 22 mmol/L (22-29); Chloride 104 mmol/L (98-107); Creatinine Clr Calc Pharmacy 45.3515; Globulin 3.4 g/dL (1.3-4.6); Glucose 104 mg/dL (65-115); Osmolality Calculated 294 mOsm/kg (285-295); Sodium 139 mmol/L (136-145); Total Protein 6.9 g/dL (6.6-8.7)
[2024-12-05 11:31] LABS: Potassium 2.9 mmol/L (3.5-5.1)
--- NOTE | 2024-12-05 11:54 | W.ED.FEMALGU ---
HPI - Female Genitourinary General: Chief complaint: Urogenital-Female Stated complaint: CONFUSION Time Seen by Provider: 12/05/24 10:56 History of Present Illness: 79-year-old female presents emergency room via EMS from care home. Reportedly was treated for UTI has been on antibiotics for a week they feel she is more confused does not feel she is getting better no report of fever. No recent urine cultures on the chart. Associated symptoms: Deny abdominal pain Related Data Home Medications ?Medication ?Instructions ?Recorded ?Confirmed atorvastatin 40 mg tablet 40 mg PO DAILY 10/08/21 12/05/24 levothyroxine 25 mcg tablet 25 mcg PO QAM 10/08/21 12/05/24 apixaban 5 mg tablet (Eliquis) 5 mg PO BID 09/27/22 12/05/24 losartan 100 mg tablet 100 mg PO DAILY 09/27/22 12/05/24 oxybutynin chloride 10 mg 10 mg PO DAILY 10/06/22 12/05/24 tablet,extended release 24 hr albuterol sulfate 90 mcg/actuation 2 puff inhalation Q6H PRN 07/24/23 12/05/24 aerosol inhaler Shortness Of Breath Or Wheezing docusate sodium 100 mg capsule 100 mg PO DAILY 07/24/23 12/05/24 (Stool Softener) methenamine hippurate 1 gram tablet 1 g PO BID 07/24/23 12/05/24 acetaminophen 325 mg tablet 650 mg PO QID PRN pain or fever 04/21/24 12/05/24 magnesium hydroxide 400 mg/5 mL 15 ml PO DAILY PRN Constipation 04/21/24 12/05/24 oral suspension (Milk of Magnesia) benzocaine 20 %-menthol 0.26 % 2 ea PO BID PRN MOUTH SORES 12/05/24 12/05/24 mouth mucosal gel (Orajel 2X Toothache-Gum) benztropine 1 mg tablet 1 mg PO BID TARDIA DYSKINESIA 12/05/24 12/05/24 sucralfate 1 gram tablet 1 g PO BID ULCERS 12/05/24 12/05/24 venlafaxine 150 mg 150 mg PO BEDTIME 12/05/24 12/05/24 capsule,extended release 24 hr venlafaxine 75 mg capsule,extended 75 mg PO DAILY 12/05/24 12/05/24 release 24 hr vilazodone 20 mg tablet 40 mg PO DAILY DEPRESSION 12/05/24 12/05/24 Previous Rx's ?Medication ?Instructions ?Recorded Rollater walker #1 ea 09/17/19 Wheelchair #1 ea 02/03/22 polymer AFO without laces #1 ea 12/05/23 albuterol sulfate 1.25 mg/3 mL 2.5 mg (6 mL) inhalation Q6H PRN 05/05/24 solution for nebulization shortness of breath or wheezing #75 mL pantoprazole 40 mg tablet,delayed 40 mg PO QAM 30 days #30 tabs 05/22/24 release bupropion HCl 150 mg 24 hr tablet, 150 mg PO QAM #30 tabs 06/25/24 extended release ciprofloxacin HCl 500 mg tablet 500 mg PO BID #14 tabs 12/05/24 (Cipro) Allergies Allergy/AdvReac Type Severity Reaction Status Date / Time diphenhydramine Allergy Severe ALGY-Rash Verified 07/10/24 09:55 cephalexin Allergy rash Verified 07/10/24 09:55 clindamycin Allergy rash Verified 07/10/24 09:55 Review of Systems Const: Denies: fever(s) or chills Card: Denies: chest pain Resp: Denies: dyspnea GI: Denies: abdominal pain : Denies: dysuria, urinary frequency or urinary urgency Musc: Denies: neck pain or back pain Skin/Breast: Denies: rash PFSH ED PFSH: Medical History Bullous pemphigoid Left-sided weakness Psychiatric care History of malignant melanoma History of nonmelanoma skin cancer Skin cancer of nose On 5-FU cream Basal cell carcinoma of skin of nose (~07/2017) Paresthesia of skin Malignant melanoma of chin (~07/2017) Anxiety with depression Squamous cell carcinoma of left lower leg Lung nodule right Leukocytosis follows with Dr Rubio Anemia, iron deficiency Adult onset hypothyroidism Hyperlipidemia, unspecified Essential (primary) hypertension Gait instability With frequent falls at baseline Urinary incontinence, urge Brain aneurysm (~1995) Acquired bilateral hammer toes CVA (cerebrovascular accident due to intracerebral hemorrhage) Surgical History History of brain shunt History of hysterectomy History of appendectomy History of brain surgery (~1995) ruptured aneurysm repair with shunt implanted History of section Family History Family/Other Stroke CAD (coronary artery disease) Cancer skin Social History Smoking and tobacco/nicotine status: never used tobacco/nicotine Second hand smoke exposure: No Alcohol intake: former Substance/Drug Use: never Caregiver/support person: Yes (daughter) Lives independently: No Housing: Alf Marital status: Number of children: 1 service: No Current occupational status: retired Current gender identity: Female Special colt needs: No Physical Exam Const: COMMON NORMALS: no acute distress GENERAL APPEARANCE: cooperative and comfortable ORIENTATION/CONSCIOUSNESS: Yes awake HENMT: COMMON NORMALS: normocephalic, atraumatic and hearing grossly normal bilaterally HEAD & SCALP: normocephalic and atraumatic Resp: COMMON NORMALS: normal respiratory effort, No retractions, No use of accessory muscles and clear to auscultation bilaterally AUSCULTATION: clear to auscultation bilaterally Cardio: COMMON NORMALS: regular rate, regular rhythm and No murmurs present (Cardio) RATE: regular rate RHYTHM: regular rhythm GI: COMMON NORMALS: Soft to palpation and No hepatosplenomegaly present AUSCULTATION: Yes normoactive bowel sounds PALPATION: Yes Soft to palpation, No Tenderness to palpation present (GI), No Guarding due to palpation present (GI) and Yes No hepatosplenomegaly present Extremity: COMMON NORMALS: normal to inspection, capillary refill normal, no clubbing, cyanosis or edema, no calf tenderness and no pedal edema Skin: COMMON NORMALS: no rashes or lesions noted GENERAL SKIN EXAM: no rashes or lesions noted Course Vital Signs: Vital signs: Vital Signs Temperature 98.9 F 12/05/24 10:50 Pulse Rate 85 12/05/24 10:50 Respiratory Rate 14 12/05/24 10:50 Blood Pressure 132/73 12/05/24 10:50 Pulse Oximetry 98 12/05/24 10:50 Oxygen Delivery Me thod Room Air 12/05/24 10:50 MDM - Female Medical Decision Making We called to check there is no urine culture from the care home to guide antibiotic selection. She has greater than 100 red blood cells per [place] 11-20 whites 11-20 squames. I will leave some of the red blood cells in the urine are traumatic from the catheterization. We did do a CT there is no renal stones however she does have severe constipation and significant urinary retention a [place] catheter was placed with 800 mL of urine from the bladder. Patient was also given an enema to relieve constipation will discharge back to the care home. She is given Cipro here and discharged home on p.o. Cipro. Further care per her primary care provider at the care home. Medical Records I reviewed the patient's medical records. Lab Data I reviewed the patient's lab results. 12/05/24 11:04 12/05/24 11:04 Radiology Impressions Abdomen/Pelvis CT 12/05/24 12:41 IMPRESSION: 1. [place] distended urinary bladder. There is diffuse bladder wall thickening and irregularity which is probably due to chronic outlet obstruction. 2. Diffuse marked constipation with inspissated fecal material. 3. No GI tract obstruction. 4. SOLAR INSTALLATION TECHNICIAN shunt catheter with tip terminating along the RIGHT lateral abdomen. 5. IVC filter. 6. Bilateral adrenal hyperplasia. Laboratory Results WBC 11.53 10^3/uL (3.29-11.43) H 12/05/24 11:04 RBC 4.25 10^6/uL (3.85-5.65) 12/05/24 11:04 Hgb 8.70 g/dL (11.27-16.99) L 12/05/24 11:04 Hct 30.2 % (36-47) L 12/05/24 11:04 MCV 71.1 fl (85-98) L 12/05/24 11:04 MCH 20.5 pg (27-33) L 12/05/24 11:04 MCHC 28.8 g/dL (30-55) L 12/05/24 11:04 RDW 16.8 % (12.1-15.1) H 12/05/24 11:04 Plt Count 462 10^3/cmm (157-399) H 12/05/24 11:04 MPV 9.1 fL (7.4-10.4) 12/05/24 11:04 Neut % (Auto) 89.5 % 12/05/24 11:04 Lymph % (Auto) 5.0 % 12/05/24 11:04 [place] % (Auto) 4.2 % 12/05/24 11:04 Eos % (Auto) 0.6 % 12/05/24 11:04 Baso % (Auto) 0.3 % 12/05/24 11:04 Neut # (Auto) 10.30 10^3/uL (1.8-7.7) H 12/05/24 11:04 Lymph # (Auto) 0.6 10^3/uL (0.8-4.8) L 12/05/24 11:04 [place] # (Auto) 0.5 10^3/uL (0.2-0.9) 12/05/24 11:04 Eos # (Auto) 0.1 10^3/uL (0.0-0.8) 12/05/24 11:04 Baso # (Auto) 0.0 10^3/uL (0.0-0.1) 12/05/24 11:04 Nucleated RBC % (auto) 0 % 12/05/24 11:04 Nucleated RBCs # 0.0 /100WBC 12/05/24 11:04 Sodium 139 mmol/L (136-145) 12/05/24 11:04 Potassium 2.9 mmol/L (3.5-5.1) L 12/05/24 11:04 Chloride 104 mmol/L (98-107) 12/05/24 11:04 Carbon Dioxide 22 mmol/L (22-29) 12/05/24 11:04 Anion Gap 15.9 (5-19) 12/05/24 11:04 BUN 29 mg/dL (8-23) H 12/05/24 11:04 Creatinine 0.8 mg/dL (0.5-0.9) 12/05/24 11:04 GFR Calculation Not Reportable 12/05/24 11:04 Glucose 104 mg/dL (65-115) 12/05/24 11:04 Calculated Osmolality 294 mOsm/kg (285-295) 12/05/24 11:04 Calcium 9.5 mg/dL (8.5-10.5) 12/05/24 11:04 Total Bilirubin 0.3 mg/dL (0.15-1.2) 12/05/24 11:04 AST 12 U/L (0-32) 12/05/24 11:04 ALT 12 U/L (0-33) 12/05/24 11:04 Alkaline Phosphatase 108 U/L (35-105) H 12/05/24 11:04 Total Protein 6.9 g/dL (6.6-8.7) 12/05/24 11:04 Albumin 3.5 g/dL (3.5-5.2) 12/05/24 11:04 Globulin 3.4 g/dL (1.3-4.6) 12/05/24 11:04 Urine Color [place] (Yellow) A 12/05/24 12:09 Urine Appearance Cloudy (CLEAR) A 12/05/24 12:09 Urine pH 6.0 (5-7) 12/05/24 12:09 Ur Specific [place] 1.015 (1.005-1.030) 12/05/24 12:09 Urine Protein 3+ (Negative) A 12/05/24 12:09 Urine Glucose (UA) Negative (Normal) 12/05/24 12:09 Urine Ketones 1+ (Negative) H 12/05/24 12:09 Urine Blood 3+ (Negative) A 12/05/24 12:09 Urine Nitrate Negative (Negative) 12/05/24 12:09 Urine Bilirubin Negative (Negative) 12/05/24 12:09 Urine Urobilinogen 1.0 mg/dL (Negative) 12/05/24 12:09 Ur Leukocyte Esterase Trace (Negative) A 12/05/24 12:09 Urine RBC >100 /hpf (0-2) H 12/05/24 12:09 Urine WBC 11-20 /hpf (0-5) H 12/05/24 12:09 Ur Squamous Epith Cells 11-20 /hpf (0-5) H 12/05/24 12:09 Amorphous Sediment Not Reportable 12/05/24 12:09 Urine Bacteria None seen /hpf (NONE) 12/05/24 12:09 Hyaline Casts 2.46 /lpf 12/05/24 12:09 All radiology interpretation(s) finalized by discharge Discharge Plan Discharge Patient Disposition: Home Clinical Impression: Cystitis, Acute urinary retention Constipation Qualifiers: Constipation type: chronic idiopathic constipation Qualified Code(s): K59.04 - Chronic idiopathic constipation Condition: Stable Prescriptions: New ciprofloxacin HCl [Cipro] 500 mg tablet 500 mg PO BID Qty: 14 0RF No Action (DME) Rollater walker See Rx Instructions .Route .MEDSUPPLY Qty: 1 0RF Rx Instructions: As directed (DME) polymer AFO without laces See Rx Instructions .Route .MEDSUPPLY Qty: 1 0RF Rx Instructions: As directed by the maggy stauffer pantoprazole 40 mg tablet,delayed release (DR/EC) 40 mg PO QAM 30 Days Qty: 30 5RF albuterol sulfate 1.25 mg/3 mL solution for nebulization 2.5 mg inhalation Q6H PRN (Reason: shortness of breath or wheezing) Qty: 75 0RF bupropion HCl 150 mg tablet extended release 24 hr 150 mg PO QAM Qty: 30 11RF (DME) Wheelchair See Rx Instructions .Route .MEDSUPPLY Qty: 1 0RF Rx Instructions: As directed losartan 100 mg tablet 100 mg PO DAILY Eliquis 5 mg tablet 5 mg PO BID albuterol sulfate 90 mcg/actuation HFA aerosol inhaler 2 puff INHALATION Q6H PRN (Reason: Shortness Of Breath Or Wheezing) methenamine hippurate 1 gram tablet 1 g PO BID docusate sodium [Stool Softener] 100 mg Capsule 100 mg PO DAILY acetaminophen 325 mg Tablet 650 mg PO QID PRN (Reason: pain or fever) magnesium hydroxide [Milk of Magnesia] 400 mg/5 mL Suspension 15 ml PO DAILY PRN (Reason: Constipation) atorvastatin 40 mg tablet 40 mg PO DAILY levothyroxine 25 mcg tablet 25 mcg PO QAM oxybutynin chloride 10 mg Tablet Extended Release 24hr 10 mg PO DAILY benztropine 1 mg tablet 1 mg PO BID vilazodone 20 mg tablet 40 mg PO DAILY Orajel 2X Toothache-Gum 20-0.26 % Gel 2 ea PO BID PRN (Reason: MOUTH SORES ) sucralfate 1 gram tablet 1 g PO BID venlafaxine 75 mg capsule,extended release 24hr 75 mg PO DAILY venlafaxine 150 mg capsule,extended release 24hr 150 mg PO BEDTIME Rx Instructions: take with 75 mg for a total 225 mg daily, divided dose Discharge Orders: Discharge ED (Routine); Ordered 12/05/24 Ordered By: Hay Perkins Referrals: Erickson Obregon MD [Primary Care Provider, Internal Medicine] Discharge Diet: Usual diet Discharge Activity: Resume usual activity Patient Instructions: Opioid Safety, Pain Management, Patient Portal & [place] Instructions Activity Restrictions/Additional Instructions: [facility]. It is very important that you follow up as instructed or that you return to the Emergency Department should you have concerns or if your condition changes or worsens in any way. You were seen in the emergency room with complaints of difficulty with urine. Patient is mildly confused. Urine shows hematuria. CT shows distention of the bladder diffuse bladder wall thickening and irregularity also shows marked constipation no obstruction. You were given IV antibiotics in the emergency room and discharged home with oral antibiotics to begin tomorrow. You are also given an enema to relieve the constipation follow-up with your primary care doctor for long-term management of your constipation issues. Urine was cultured today as well. Print Language: Yakut Coding Level of Care Code ED Clay Carman for Janell Mathew
[2024-12-05] MEDS: potassium chloride oral liq 20 mEq/15 mL UDC 40 MEQ PO (12:13)
[2024-12-05 12:19] LABS: Glucose Urine UA Negative (Normal); Nitrate Urine Negative (Negative); Specific Gravity, Urine 1.015 (1.005-1.030)
[2024-12-05 12:21] LABS: Add Urine Microscopic? YES
--- NOTE | 2024-12-05 12:41 | CT_ITS ---
WS: [id number] CT ABDOMEN AND PELVIS NONCONTRAST HISTORY: hematuria TECHNIQUE: Imaging performed through the abdomen and pelvis. Coronal and sagittal reformats are submitted. All CT scans at [facility] use at least one of these dose optimization techniques: automated exposure control; mA and/or kV adjustment per patient size (includes targeted exams where dose is matched to clinical indication); or iterative reconstruction. DLP: 341.56 mGy.cm COMPARISON: 04/23/2019 Lower thorax: Mild cardiomegaly. No pneumonia. Liver: Normal size liver. Focal fatty sparing along the falciform ligament. Gallbladder: Normal gallbladder. No pericholecystic fluid or cholelithiasis. No gallbladder wall thickening. Pancreas: Normal size and attenuation. Normal pancreatic duct. No pancreatitis or mass. Spleen: Normal. Adrenal glands: Mild bilateral adrenal gland nodularity. Right kidney: Normal size kidney with no mass or hydronephrosis. Left kidney: Normal size kidney with no mass or hydronephrosis. Aorta: Moderate atherosclerotic plaque with ectasia aorta. No aneurysm. No free fluid, intraperitoneal air or significant lymphadenopathy. GI tract: No GI tract obstruction. Marked constipation throughout the entire colon with inspissated fecal material. Fecal impaction resulting in dilated rectum to 7.3 cm. Appendix is not identified. Abdominal wall: Tiny ventral abdominal wall hernia. DIRECTOR OF PROPERTY MANAGEMENT shunt catheter with tip terminating over the RIGHT lateral abdomen. Pelvis: Marked urinary bladder distention. Bladder extends over a length of 14.6 cm. There is mild diffuse bladder wall irregularity which is probably due to chronic outlet obstruction. No intraluminal mass. Osseous structures: Degenerative scoliosis lumbar spine. Mild degenerative joint space narrowing at the hips. CT/CT kidney stone [id number] IMPRESSION: 1. [place] distended urinary bladder. There is diffuse bladder wall thickening and irregularity which is probably due to chronic outlet obstruction. 2. Diffuse marked constipation with inspissated fecal material. 3. No GI tract obstruction. 4. DIRECTOR OF PROPERTY MANAGEMENT shunt catheter with tip terminating along the RIGHT lateral abdomen. 5. IVC filter. 6. Bilateral adrenal hyperplasia.
--- NOTE | 2024-12-05 15:44 | PC.NURSE ---
patient has not tolerated vitals machine cords and continues to pull them off.
== END 2024-12-05 16:52 | disposition home or self-care (01) ==
PROVIDERS: Emergency Provider Family Medicine; PCP Internal Medicine
DX: N30.90 Cystitis, unspecified without hematuria (principal); R33.9 Retention of urine, unspecified; K59.04 Chronic idiopathic constipation; Z79.01 Long term (current) use of anticoagulants; E78.5 Hyperlipidemia, unspecified; Z85.828 Personal history of other malignant neoplasm of skin; Z86.73 Personal history of transient ischemic attack (TIA), and cerebral infarction without residual deficits
CPT/HCPCS: 36415; 51702; 74176; 80053; 81001; 85025; 99284; J9999

== ENCOUNTER 2025-01-14 09:39 | Outpatient (CLI) | payer MEDICARE, MEDICAID, SELFPAY ==
--- NOTE | 2025-01-14 09:55 | CT_ITS ---
WS: [id number] CT HEAD TECHNIQUE: Noncontrast CT of the head obtained from the skullbase to the vertex. CLINICAL INFORMATION: PRESENCE OF CERSBROSPINAL FLUID DRAINAGE DEVICE COMPARISON: 2023 DLP: 1109.[address] scans at [facility] use at least one of these dose optimization techniques: automated exposure control; mA and/or kV adjustment per patient size (includes targeted exams where dose is matched to clinical indication); or iterative reconstruction. FINDINGS: RIGHT parietal shunt catheter with tip in the LEFT frontal horn. No progressive hydrocephalus. Ventricular size is unchanged. No evidence of intracranial hemorrhage or mass effect. Ventricular system and basal cisterns are patent. Moderate small vessel changes with moderate parenchymal volume loss. Chronic lacunar infarcts in the thalami. Dense intracranial vascular calcification. 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 Chronic encephalomalacia RIGHT parasagittal frontal lobe. Chronic encephalomalacia RIGHT anterior temporal lobe with prior craniotomy. Paranasal sinuses well aerated. Mastoid air cells are well aerated. Normal posterior nasopharynx. CT/CT head wo con* [id number] IMPRESSION: 1. No evidence of intracranial hemorrhage or mass effect. 2. No changes since 2023 3. Stable RIGHT parietal shunt catheter with tip in the LEFT frontal horn. 4. No new or progressed hydrocephalus. 5. LEFT MCA trifurcation aneurysm appears similar to 2020 but no recent compar isons. This can be further evaluated with CTA for better anatomic detail and to ensure stability. This measures approximately 6 mm on today's noncontrast stud y
== END 2025-01-14 09:40 | disposition home or self-care (01) ==
LOC: RAD 09:42
PROVIDERS: PCP Internal Medicine; Visit Provider Internal Medicine
DX: Z98.2 Presence of cerebrospinal fluid drainage device (principal); I67.89 Other cerebrovascular disease; G93.89 Other specified disorders of brain; I63.89 Other cerebral infarction; Z98.890 Other specified postprocedural states
CPT/HCPCS: 70450

== ENCOUNTER → 2025-02-07 15:45 | Outpatient (BNVA) | payer MEDICARE, MEDICAID, SELFPAY | PROVIDERS: PCP Internal Medicine; Visit Provider Nurse Practitioner Family | DX: L27.0 Generalized skin eruption due to drugs and medicaments taken internally (principal) | CPT/HCPCS: 99213 ==

== ENCOUNTER → 2025-03-07 13:22 | Outpatient (BNVA) | payer MEDICARE, MEDICAID, SELFPAY | PROVIDERS: PCP Internal Medicine; Visit Provider Nurse Practitioner Family | DX: L27.0 Generalized skin eruption due to drugs and medicaments taken internally (principal); L81.0 Postinflammatory hyperpigmentation | CPT/HCPCS: 99213 ==